=== PATIENT | female | born 1945 | race Hispanic/Latino ===

== ENCOUNTER 2018-01-14 22:19 | Emergency (ER) | payer OTHER ==
[2018-01-15 00:04] LABS: Urine Blood TRACE (NEG); Urine Glucose NEGATIVE (NEG); Urine Protein NEGATIVE (NEG); Urine pH 7.5 (5.0-7.0)
[2018-01-15 00:20] LABS: Urine Bacteria <20 /HPF (<20); Urine Culture Reflex Order NOT NEEDED
--- NOTE | 2018-01-15 00:34 | EDPHYS ---
Physician Documentation [facility] Name: Wilma Ovalle Age: 72 yrs Sex: Female : 1945 Arrival Date: 01/14/2018 Time: 22:19 Bed 7 Private MD: ED Physician Luis Brown HPI: 01/14 23:17 This 72 yrs old Female presents to ER via Ambulatory with complaints of cp Abdominal Pain, Side Pain. 23:17 The patient presents with abdominal pain left side abdomen. Onset: The symptoms/episode cp began/occurred at 21:00, tonight. Onset: The symptoms/episode began/occurred and improved while in ED, pain now resolved. The symptoms radiate to left back. Associated signs and symptoms: Pertinent negatives: constipation, diarrhea, dysuria, fever, vomiting. Historical: - Allergies: 22:45 No Known Allergies; bb - Home Meds: 22:45 quetiapine 100 mg oral tab 1 tab daily [Active]; levothyroxine 100 mcg tab 1 tab once bb daily [Active]; lisinopril 20 mg Oral tab 1 tab once daily [Active]; amlodipine 10 mg tab 1 tab once daily [Active]; atorvastatin 10 mg oral tab 1 tab once daily [Active]; aspirin 81 mg Oral TbEC 1 tab once daily [Active]; - PMHx: 22:45 Hypertension; Hyperlipidemia; Hypothyroidism; bb - PSHx: 22:45 back surgery; Knee surgery; arm surgery; bb - Immunization history:: Adult Immunizations not up to date. - Social history:: Smoking status: Patient/guardian denies using tobacco. ROS: 23:25 Constitutional: Negative for body aches, chills, fever, poor PO intake. cp 23:25 Eyes: Negative for injury, pain, redness, and discharge. cp 23:25 ENT: Negative for drainage from ear(s), ear pain, sore throat, difficulty swallowing, difficulty handling secretions. 23:25 Cardiovascular: Negative for chest pain, edema, palpitations. 23:25 Respiratory: Negative for cough, shortness of breath, wheezing. 23:25 Abdomen/GI: Positive for history of left side abdominal pain, Negative for nausea, vomiting, and diarrhea, constipation, anorexia, black/tarry stool, rectal bleeding. 23:25 Back: Negative for radiated pain. 23:25 : Negative for urinary symptoms. 23:25 Skin: Negative for cellulitis, rash. 23:25 Neuro: Negative for altered mental status, dizziness, weakness. 23:25 All other systems are negative. Exam: 23:32 Constitutional: The patient appears in no acute distress, alert, awake, comfortable, cp non-toxic, well developed, well nourished. 23:32 Head/Face: Normocephalic, atraumatic. cp 23:32 Eyes: Periorbital structures: appear normal, Conjunctiva: normal, no exudate, no injection, Sclera: no appreciated abnormality, Lids and lashes: appear normal, bilaterally. 23:32 ENT: External ear(s): are unremarkable, Nose: is normal, Mouth: Lips: moist, Oral mucosa: moist, Posterior pharynx: is normal, airway is patent, no erythema, no exudate, Voice: is normal. 23:32 Neck: ROM/movement: is normal, is supple, without pain, no range of motions limitations, no nuchal rigidity. 23:32 Chest/axilla: Inspection: normal, Palpation: is normal, no crepitus, no tenderness. 23:32 Cardiovascular: Rate: normal, Rhythm: regular. 23:32 Respiratory: the patient does not display signs of respiratory distress, Respirations: normal, no use of accessory muscles, no retractions, no splinting, no tachypnea, labored breathing, is not present, Breath sounds: are clear throughout, no decreased breath sounds, no stridor, no wheezing. 23:32 Abdomen/GI: Inspection: abdomen appears normal, Bowel sounds: active, all quadrants, Palpation: abdomen is soft and non-tender, in all quadrants, rebound tenderness, is not appreciated, voluntary guarding, is not appreciated, involuntary guarding, is not appreciated. 23:32 Back: pain, is absent, ROM is normal. 23:32 Skin: cellulitis, is not appreciated, no rash present. 23:32 Neuro: Orientation: to person, place \T\ time. Mentation: lucid, able to follow commands, Cerebellar function: is grossly normal, Motor: moves all fours, strength is normal. Vital Signs: 22:45 BP 166 / 94; Pulse 99; Resp 20 S; Pulse Ox 98% on R/A; Weight 60.78 kg (R); Height 5 bb ft. 0 in. (152.40 cm) (R); Pain 8/10; 23:55 BP 156 / 88; Pulse 98; Resp 18; Pulse Ox 98% on R/A; tl2 22:45 Body Mass Index 26.17 (60.78 kg, 152.40 cm) bb MDM: 23:09 Patient medically screened. cp 01/15 00:00 Differential diagnosis: diverticulitis, pancreatitis, Ureterolithiasis, urinary tract cp infection. 00:32 Data reviewed: vital signs, nurses notes, lab test result(s), urinalysis, and as a cp result, I will discharge patient. 00:32 Counseling: I had a detailed discussion with the patient and/or guardian regarding: the cp historical points, exam findings, and any diagnostic results supporting the discharge/admit diagnosis, lab results, the need for outpatient follow up, a family practitioner, to return to the emergency department if symptoms worsen or persist or if there are any questions or concerns that arise at home. 01/14 23:18 Order name: Urine Microscopic Only cp 01/14 23:31 Order name: Urine Dipstick--Ancillary (enter results) rg2 01/14 23:18 Order name: Urine Dipstick-Ancillary (obtain specimen); Complete Time: 23:21 cp 01/15 00:05 Order name: Urine Dipstick-Ancillary; Complete Time: 00:32 EDMS 01/15 00:21 Order name: Urine Microscopic Only; Complete Time: 00:32 EDMS Administered Medications: No medications were administered Disposition: 02:07 Co-signature as Attending Physician, Luis Brown MD. romelia Disposition: 01/15/18 00:33 Discharged to Home. Impression: Other abdominal pain - Resolved. - Condition is Stable. - Discharge Instructions: Abdominal Pain, Adult. - Medication Reconciliation Form, Thank You Letter, Antibiotic Education, Prescription Opioid Use form. - Follow up: Private Physician; When: 1 - 2 days; Reason: Recheck today's complaints. - Problem is new. - Symptoms are resolved. - Notes: follow-up with primary physician Wednesday Signatures: Dispatcher [employer] EDMS Luis Brown MD MD pkl Ballard, Brenda RN RN Angelo Ott PA PA cp Knox, Taylor RN RN tl2
--- NOTE | 2018-01-15 00:34 | ER ---
Nurse's Notes [facility] Name: Wilma Ovalle Age: 72 yrs Sex: Female : 1945 Arrival Date: 01/14/2018 Time: 22:19 Bed 7 Private MD: Diagnosis: Other abdominal pain-Resolved Presentation: 01/14 22:40 Presenting complaint: Patient states: she started having a sharp pain left upper quad bb radiating to her back since approx an hour ago. Transition of care: patient was not received from another setting of care. Onset of symptoms was January 14, 2018. Care prior to arrival: None. 22:40 Method Of Arrival: Ambulatory bb 22:40 Acuity: JEANINE 3 bb Historical: - Allergies: 22:45 No Known Allergies; bb - Home Meds: 22:45 quetiapine 100 mg oral tab 1 tab daily [Active]; levothyroxine 100 mcg tab 1 tab once bb daily [Active]; lisinopril 20 mg Oral tab 1 tab once daily [Active]; amlodipine 10 mg tab 1 tab once daily [Active]; atorvastatin 10 mg oral tab 1 tab once daily [Active]; aspirin 81 mg Oral TbEC 1 tab once daily [Active]; - PMHx: 22:45 Hypertension; Hyperlipidemia; Hypothyroidism; bb - PSHx: 22:45 back surgery; Knee surgery; arm surgery; bb - Immunization history:: Adult Immunizations not up to date. - Social history:: Smoking status: Patient/guardian denies using tobacco. Screenin:51 Abuse screen: Denies threats or abuse. Nutritional screening: No deficits noted. aj1 Tuberculosis screening: No symptoms or risk factors identified. Fall Risk None identified. Assessment: 22:51 General: Appears in no apparent distress. uncomfortable, Behavior is calm, cooperative, tl2 appropriate for age. Pain: Complains of pain in left lower quadrant Pain radiates to left flank. Neuro: Level of Consciousness is awake, alert, obeys commands, Oriented to person, place, time, situation. Respiratory: Airway is patent Respiratory effort is even, unlabored, Respiratory pattern is regular, symmetrical. GI: Abdomen is flat, Patient currently denies nausea. : Denies burning with urination. Derm: Skin is pink, warm \T\ dry. 23:28 Reassessment: Pt states pain has gone away completely. Awaiting urine micro results. tl2 23:55 Reassessment: Awaiting Urine micro results. Pt states she is ready to go home. tl2 01/15 00:53 Reassessment: pt verbalized understanding of discharge instructions, need for follow up.tl2 Vital Signs: 01/14 22:45 BP 166 / 94; Pulse 99; Resp 20 S; Pulse Ox 98% on R/A; Weight 60.78 kg (R); Height 5 bb ft. 0 in. (152.40 cm) (R); Pain 8/10; 23:55 BP 156 / 88; Pulse 98; Resp 18; Pulse Ox 98% on R/A; tl2 22:45 Body Mass Index 26.17 (60.78 kg, 152.40 cm) bb ED Course: 22:19 Patient arrived in ED. ds1 22:41 Triage completed. bb 22:45 Arm band placed on Patient placed in an exam room, on a stretcher, on pulse oximetry. bb Family accompanied patient. 22:51 Patient has correct armband on for positive identification. Bed in low position. Call aj1 light in reach. Side rails up X2. Adult w/ patient. 23:09 Angelo Foster PA is PHCP. cp 23:09 Luis Brown MD is Attending Physician. cp 23:26 Izabel Cherry, CATARINA is Primary Nurse. aj1 23:27 Urine Microscopic Only Sent. tl2 01/15 00:53 No provider procedures requiring assistance completed. Patient did not have IV access tl2 during this emergency room visit. Administered Medications: No medications were administered Outcome: 00:33 Discharge ordered by MD. cp 00:53 Discharged to home ambulatory, with family. tl2 00:53 Condition: stable 00:53 Discharge instructions given to patient, Instructed on discharge instructions, follow up and referral plans. Demonstrated understanding of instructions, follow-up care. 00:54 Patient left the ED. tl2 Signatures: Izabel Cherry RN RN Laura Marcano ds1 Madelyn Paulino RN RN bb Page, Corey, PA PA cp Knox, Taylor, RN RN tl2 Corrections: (The following items were deleted from the chart) 01/14 23:31 22:51 General: Appears in no apparent distress. uncomfortable, Behavior is calm, tl2 cooperative, appropriate for age, aj1 23:31 22:51 Pain: Complains of pain in left lower quadrant Pain radiates to left flank [place] [id number] 22:51 Neuro: Level of Consciousness is awake, alert, obeys commands, Oriented to tl2 person, place, time, situation, [facility] 22:51 Cardiovascular: Denies chest pain, [place] [id number] : 22:51 Respiratory: Airway is patent Respiratory effort is even, unlabored, Respiratory 2 pattern is regular, symmetrical, [facility] 22:51 GI: Bowel sounds present X 4 quads. Abd is soft and non tender [place] [id number] 22:51 : Denies burning with urination, [place] [id number] : 22:51 Derm: Skin is pink, warm \T\ dry. [place] [id number]
[2018-01-15 01:01] VITALS: O2SAT 98
[2018-01-15 01:02] VITALS: BP 156/88
== END 2018-01-15 00:54 | disposition home or self-care (01) ==
LOC: ER 22:19
DX: R10.9 Unspecified abdominal pain (principal); I10 Essential (primary) hypertension; E78.5 Hyperlipidemia, unspecified; E03.9 Hypothyroidism, unspecified; Z79.82 Long term (current) use of aspirin
CPT/HCPCS: 81003; 81015; 99283

== ENCOUNTER 2019-04-28 20:21 | Emergency (ER) | payer OTHER ==
--- NOTE | 2019-04-28 21:05 | EDPHYS ---
Physician Documentation [facility] Name: Wilma Ovalle Age: 73 yrs Sex: Female : 1945 Arrival Date: 04/28/2019 Time: 20:23 Bed 20 Private MD: ED Physician Daniel Simpson HPI: 04/28 20:56 This 73 yrs old Female presents to ER via Ambulatory with complaints of Ear ps1 Pain. 20:56 patient states that she has had PND and cough for last couple of days. Went to pharmacy ps1 and got antihistamines. Later on in the day felt her right ear pop and then serosanguinous fluid started draining from the ear. Pain is moderate. No mastoid tenderness. No fever. . Historical: - Allergies: 20:30 No Known Allergies; aj1 - PMHx: 20:30 Hyperlipidemia; Hypertension; Hypothyroidism; insomnia; aj1 - PSHx: 20:30 hand surgery; knee replacement; aj1 - Immunization history:: Flu vaccine is up to date. - Social history:: Smoking status: Patient/guardian denies using tobacco. - Ebola Screening: : Patient denies travel to an Ebola-affected area in the 21 days before illness onset. ROS: 20:56 Constitutional: Negative for fever, chills, and weight loss, Eyes: Negative for injury, ps1 pain, redness, and discharge, Cardiovascular: Negative for chest pain, palpitations, and edema, Respiratory: Negative for shortness of breath, cough, wheezing, and pleuritic chest pain, Abdomen/GI: Negative for abdominal pain, nausea, vomiting, diarrhea, and constipation, Skin: Negative for injury, rash, and discoloration, Neuro: Negative for headache, weakness, numbness, tingling, and seizure, Psych: Negative for depression, anxiety, suicide ideation, homicidal ideation, and hallucinations. 20:56 ENT: Positive for drainage from ear(s), ear pain, rhinorrhea, sinus congestion. Exam: 20:56 Constitutional: This is a well developed, well nourished patient who is awake, alert, ps1 and in no acute distress. Head/Face: Normocephalic, atraumatic. Eyes: Pupils equal round and reactive to light, extra-ocular motions intact. Lids and lashes normal. Conjunctiva and sclera are non-icteric and not injected. Cardiovascular: Regular rate and rhythm. No gallops, murmurs, or rubs. Normal PMI, no JVD. No pulse deficits. Respiratory: Lungs have equal breath sounds bilaterally, clear to auscultation and percussion. No rales, rhonchi or wheezes noted. No increased work of breathing, no retractions or nasal flaring. Abdomen/GI: Soft, non-tender, with normal bowel sounds. No distension or tympany. No guarding or rebound. No evidence of tenderness throughout. Skin: Warm, dry with normal turgor. Normal color with no rashes, no lesions, and no evidence of cellulitis. MS/ Extremity: Pulses equal, no cyanosis. Neurovascular intact. Full, normal range of motion. Neuro: Awake and alert, GCS 15, oriented to person, place, time, and situation. Cranial nerves II-XII grossly intact. Sensory grossly intact. 20:56 ENT: External ear(s): are unremarkable, Ear canal(s): bloody discharge, that is minimal, in the right canal, erythema, Posterior pharynx: is normal. Vital Signs: 20:30 BP 199 / 93; Pulse 85; Resp 18; Temp 97.0; Pulse Ox 98% on R/A; Weight 63.05 kg (R); aj1 Pain 8/10; 21:00 BP 180 / 95; Pulse 89; Resp 16; Pulse Ox 98% ; rr5 21:15 BP 169 / 87; Pulse 82; Resp 16; Pulse Ox 100% ; rr5 MDM: 21:04 Patient medically screened. ps1 21:10 Data reviewed: vital signs, nurses notes. Counseling: I had a detailed discussion with ps1 the patient and/or guardian regarding: the historical points, exam findings, and any diagnostic results supporting the discharge/admit diagnosis, the need for outpatient follow up, to return to the emergency department if symptoms worsen or persist or if there are any questions or concerns that arise at home. Administered Medications: No medications were administered Disposition: 04/28/19 21:04 Discharged to Home. Impression: Otitis media in diseases classified elsewhere, right ear, Perforated tympanic membrane. - Condition is Stable. - Discharge Instructions: Otitis Media, Adult. - Prescriptions for Augmentin 875- 125 mg Oral Tablet - take 1 tablet by ORAL route every 12 hours for 10 days; 20 tablet. - Medication Reconciliation Form, Thank You Letter, Antibiotic Education, Prescription Opioid Use form. - Follow up: Melida Reyna MD; When: As needed; Reason: Further diagnostic work-up, Recheck today's complaints, Continuance of care, Re-evaluation by your physician. - Problem is new. Signatures: Izabel Cherry RN RN aj1 Daniel Simpson MD MD ps1 Luis A Galindo RN RN rr5 Corrections: (The following items were deleted from the chart) 21:19 21:04 04/28/2019 21:04 Discharged to Home. Impression: Otitis media in diseases rr5 classified elsewhere, right ear; Perforated tympanic membrane. Condition is Stable. Forms are Medication Reconciliation Form, Thank You Letter, Antibiotic Education, Prescription Opioid Use. Follow up: Melida Reyna; When: As needed; Reason: Further diagnostic work-up, Recheck today's complaints, Continuance of care, Re-evaluation by your physician. Problem is new. ps1
--- NOTE | 2019-04-28 21:05 | ER ---
Nurse's Notes [facility] Name: Wilma Ovalle Age: 73 yrs Sex: Female : 1945 Arrival Date: 04/28/2019 Time: 20:23 Bed 20 Private MD: Diagnosis: Otitis media in diseases classified elsewhere, right ear;Perforated tympanic membrane Presentation: 04/28 20:28 Presenting complaint: Patient states: Right ear pain, sore throat since yesterday. aj1 Reports that pain in her ear got worse today and then her ear started draining fluid. Denies fever. Transition of care: patient was not received from another setting of care. Onset of symptoms was April 27, 2019. Risk Assessment: Do you want to hurt yourself or someone else? Patient reports no desire to harm self or others. Initial Sepsis Screen: Does the patient meet any 2 criteria? No. Patient's initial sepsis screen is negative. Does the patient have a suspected source of infection? No. Patient's initial sepsis screen is negative. Care prior to arrival: None. 20:28 Method Of Arrival: Ambulatory aj 20:28 Acuity: JEANINE 3 aj1 Triage Assessment: 20:30 General: Appears in no apparent distress. uncomfortable, Behavior is calm, cooperative, aj1 appropriate for age. Pain: Complains of pain in right ear Pain currently is 8 out of 10 on a pain scale. EENT: Reports sore throat, ear pain, drainage from ear. Neuro: Level of Consciousness is awake, alert, obeys commands. Cardiovascular: Patient's skin is warm and dry. Respiratory: Airway is patent Respiratory effort is even, unlabored, Respiratory pattern is regular, symmetrical. Historical: - Allergies: 20:30 No Known Allergies; aj1 - PMHx: 20:30 Hyperlipidemia; Hypertension; Hypothyroidism; insomnia; aj1 - PSHx: 20:30 hand surgery; knee replacement; aj1 - Immunization history:: Flu vaccine is up to date. - Social history:: Smoking status: Patient/guardian denies using tobacco. - Ebola Screening: : Patient denies travel to an Ebola-affected area in the 21 days before illness onset. Screenin:30 Abuse screen: Denies threats or abuse. Denies injuries from another. Nutritional rr5 screening: No deficits noted. Tuberculosis screening: No symptoms or risk factors identified. Fall Risk None identified. Total Borrero Fall Scale indicates No Risk (0-24 pts). Assessment: 20:35 General: Appears in no apparent distress. uncomfortable, Behavior is calm, cooperative, rr5 appropriate for age. 20:35 Pain: Complains of pain in right ear Pain radiates to jaw and throat Pain currently is rr5 8 out of 10 on a pain scale. Quality of pain is described as aching, Pain began gradually, Is intermittent. Neuro: Level of Consciousness is awake, alert, obeys commands, Oriented to person, place, time, situation, Appropriate for age. Cardiovascular: Capillary refill < 3 seconds Patient's skin is warm and dry. Respiratory: Airway is patent Respiratory effort is even, unlabored, Respiratory pattern is regular, symmetrical. GI: No signs and/or symptoms were reported involving the gastrointestinal system. : No signs and/or symptoms were reported regarding the genitourinary system. EENT: Tympanic membrane reddened on right ear Ear canal w/ drainage noted from right ear w/ bleeding noted from right ear Reports right discharge and pain. Derm: Skin is intact, Skin temperature is warm. Musculoskeletal: Capillary refill < 3 seconds, Range of motion: intact in all extremities. 20:35 EENT: Throat is clear with gag reflex present. rr5 21:15 Reassessment: Patient appears in no apparent distress at this time. Patient and/or rr5 family updated on plan of care and expected duration. Pain level reassessed. Patient is alert, oriented x 3, equal unlabored respirations, skin warm/dry/pink. discharge instruction given and explained without complaints made. Vital Signs: 20:30 BP 199 / 93; Pulse 85; Resp 18; Temp 97.0; Pulse Ox 98% on R/A; Weight 63.05 kg (R); aj1 Pain 8/10; 21:00 BP 180 / 95; Pulse 89; Resp 16; Pulse Ox 98% ; rr5 21:15 BP 169 / 87; Pulse 82; Resp 16; Pulse Ox 100% ; rr5 ED Course: 20:23 Patient arrived in ED. as 20:29 Triage completed. aj1 20:30 Patient has correct armband on for positive identification. rr5 20:32 Arm band placed on Patient placed in an exam room. aj1 20:35 Galindo, Luis A, RN is Primary Nurse. rr5 20:39 Daniel Simpson MD is Attending Physician. ps1 21:03 Melida Reyna MD is Referral Physician. ps1 21:15 No provider procedures requiring assistance completed. Patient did not have IV access rr5 during this emergency room visit. Administered Medications: No medications were administered Outcome: 21:04 Discharge ordered by MD. ps1 21:15 Discharged to home ambulatory. rr5 21:15 Condition: stable 21:15 Discharge instructions given to patient, Instructed on discharge instructions, follow up and referral plans. medication usage, Demonstrated understanding of instructions, follow-up care, medications, Prescriptions given X 1. 21:19 Patient left the ED. rr5 Signatures: Izabel Cherry RN RN aj1 Sigrid Matthew as Daniel Simpson MD MD ps1 Luis A Galindo RN RN rr5 Corrections: (The following items were deleted from the chart) 20:32 20:28 Acuity: JEANINE 4 aj1 aj1 20:32 20:30 BP 199 / 30; Pulse 85bpm; Resp 18bpm; Pulse Ox 98% RA; Temp 97.0F; 63.05 kg aj1 Reported; Pain 8/10; aj1
[2019-04-28 23:48] VITALS: TEMP 97
[2019-04-28 23:51] VITALS: BP 169/87; O2SAT 100
== END 2019-04-28 21:19 | disposition home or self-care (01) ==
LOC: ER 20:21
DX: H66.91 Otitis media, unspecified, right ear (principal); H72.91 Unspecified perforation of tympanic membrane, right ear; I10 Essential (primary) hypertension
CPT/HCPCS: 99282

== ENCOUNTER 2019-05-19 10:52 | Emergency (ER) | payer OTHER ==
--- NOTE | 2019-05-19 12:11 | RAD REPORT ---
EXAM DESCRIPTION: RAD - Hip Right 2 View - 05/19/2019 11:59 am CLINICAL HISTORY: Right hip pain FINDINGS: No fracture or dislocation is seen. The bones are osteoporotic. If the patient continues to have symptoms to suggest an occult fracture then MRI would be recommended
--- NOTE | 2019-05-19 12:16 | RAD REPORT ---
EXAM DESCRIPTION: RAD - Wrist Right 3 View - 05/19/2019 11:59 am CLINICAL HISTORY: Right wrist pain status post injury FINDINGS: Sideplate and screws affix an old radial fracture. There may be an old fracture of the uln ar styloid. No acute fracture or dislocation seen. Osteoporosis. Marked osteoarthritis first carpometacarpal joint. If patient continues have symptoms to suggest an occult fracture follow-up x-ray in 1 week would be r ecommended
--- NOTE | 2019-05-19 12:49 | ER ---
Nurse's Notes [facility] Name: Wilma Ovalle Age: 73 yrs Sex: Female : 1945 Arrival Date: 05/19/2019 Time: 10:56 Bed 11 Private MD: Diagnosis: Pain in right wrist;Pain in right hip;Contusion of right hip;Fall on same level from slipping, tripping and stumbling Presentation: 05/19 10:57 Presenting complaint: Patient states: "I was mopping and fell yesterday". Pt c/o pain aa5 to right hip and right hand. Pt denies LOC, denies head injury. Pt reports she takes anticoagulants. Transition of care: patient was not received from another setting of care. Onset of symptoms was May 2019. Risk Assessment: Do you want to hurt yourself or someone else? Patient reports no desire to harm self or others. Initial Sepsis Screen: Does the patient meet any 2 criteria? No. Patient's initial sepsis screen is negative. Does the patient have a suspected source of infection? No. Patient's initial sepsis screen is negative. Care prior to arrival: None. 10:57 Method Of Arrival: Ambulatory aa5 10:57 Acuity: JEANINE 3 aa5 Triage Assessment: 11:00 General: Appears uncomfortable, Behavior is calm, cooperative. Pain: Complains of pain aa5 in right wrist and right hip Pain does not radiate. Pain currently is 6 out of 10 on a pain scale. Quality of pain is described as sharp, tender, Is continuous, Aggravated by weight bearing. EENT: No signs and/or symptoms were reported regarding the EENT system. Neuro: Level of Consciousness is awake, alert, obeys commands, Oriented to person, place, time, situation. Cardiovascular: Patient's skin is warm and dry. Respiratory: Airway is patent Respiratory effort is even, unlabored, Respiratory pattern is regular, symmetrical. GI: No signs and/or symptoms were reported involving the gastrointestinal system. : No signs and/or symptoms were reported regarding the genitourinary system. Derm: Skin is pink, warm \\T\\ dry. Bruising that is dark purple, on top of right hand, right hip, and right buttock. Musculoskeletal: Range of motion: intact in all extremities. Historical: - Allergies: 11:00 No Known Allergies; aa5 - PMHx: 11:00 Hyperlipidemia; Hypertension; Hypothyroidism; insomnia; TIA; aa5 - PSHx: 11:00 hand surgery; knee replacement; back; aa5 - Immunization history:: Adult Immunizations unknown. - Social history:: Smoking status: Patient/guardian denies using tobacco. - Ebola Screening: : No symptoms or risks identified at this time. Screenin:00 Abuse screen: Denies threats or abuse. Nutritional screening: No deficits noted. aa5 Tuberculosis screening: No symptoms or risk factors identified. Fall Risk Fall in past 12 months (25 points). Total Borrero Fall Scale indicates Low Risk Score (25-44 pts). Assessment: 12:32 Reassessment: Patient is alert, oriented x 3, equal unlabored respirations, skin aa5 warm/dry/pink. Pt placed in room 12. . Vital Signs: 11:00 BP 124 / 63; Pulse 108; Resp 18 S; Temp 99.0(TE); Pulse Ox 96% on R/A; Weight 64.41 kg aa5 (R); Height 5 ft. 0 in. (152.40 cm) (R); Pain 6/10; 11:00 Body Mass Index 27.73 (64.41 kg, 152.40 cm) aa5 ED Course: 10:56 Patient arrived in ED. aa5 10:58 Triage completed. aa5 10:59 Arm band placed on. aa5 10:59 Patient has correct armband on for positive identification. aa5 12:00 No provider procedures requiring assistance completed. aa5 12:04 Hip Right 2 View XRAY In Process Unspecified. EDMS 12:04 Wrist Right 3 View XRAY In Process Unspecified. EDMS 12:20 Alyssa Reyes FNP-C is PHCP. kb 12:20 Gui Murillo MD is Attending Physician. kb 12:44 Iris Obrien, CATARINA is Primary Nurse. aa5 13:26 Patient did not have IV access during this emergency room visit. dm5 Administered Medications: No medications were administered Outcome: 12:49 Discharge ordered by . kb 13:26 Discharged to home ambulatory. dm5 13:26 Condition: good 13:26 Discharge instructions given to patient, family, Instructed on discharge instructions, follow up and referral plans. Demonstrated understanding of instructions, follow-up care. 13:26 Patient left the ED. dm5 Signatures: Dispatcher [employer] EDMS Alyssa Reyes, RAVINDER-C 8TH GRADE TEACHER-Terese Redmond, RN RN dm5 Iris Obrien, RN RN aa5
--- NOTE | 2019-05-19 12:50 | EDPHYS ---
Physician Documentation [facility] Name: Wilma Ovalle Age: 73 yrs Sex: Female : 1945 Arrival Date: 05/19/2019 Time: 10:56 Bed 11 Private MD: ED Physician Gui Murillo HPI: 05/19 12:53 This 73 yrs old Female presents to ER via Ambulatory with complaints of Fall kb Injury. 12:53 Details of fall: The patient fell from an upright position, while walking. Onset: The kb symptoms/episode began/occurred yesterday. Associated injuries: The patient sustained right hip, contusion, ecchymosis, right wrist, painful injury. Severity of symptoms: At their worst the symptoms were moderate, in the emergency department the symptoms are unchanged. The patient has not experienced similar symptoms in the past. The patient has not recently seen a physician. Pt reports she was mopping, slipped on wet floor and fell. Reports pain to right hip and right wrist. Full ROM of both. Ambulates with steady gait. . Historical: - Allergies: 11:00 No Known Allergies; aa5 - PMHx: 11:00 Hyperlipidemia; Hypertension; Hypothyroidism; insomnia; TIA; aa5 - PSHx: 11:00 hand surgery; knee replacement; back; aa5 - Immunization history:: Adult Immunizations unknown. - Social history:: Smoking status: Patient/guardian denies using tobacco. - Ebola Screening: : No symptoms or risks identified at this time. ROS: 12:52 Constitutional: Negative for fever, chills, and weight loss, Cardiovascular: Negative kb for chest pain, palpitations, and edema, Respiratory: Negative for shortness of breath, cough, wheezing, and pleuritic chest pain, Abdomen/GI: Negative for abdominal pain, nausea, vomiting, diarrhea, and constipation, Back: Negative for injury and pain, Neuro: Negative for headache, weakness, numbness, tingling, and seizure. 12:52 MS/extremity: Positive for contusion, ecchymosis, pain, of the right lower back, right gluteus eduar and right hip. 12:52 MS/extremity: Positive for pain, of the right wrist. kb Exam: 12:50 Constitutional: This is a well developed, well nourished patient who is awake, alert, kb and in no acute distress. Head/Face: Normocephalic, atraumatic. Chest/axilla: Normal chest wall appearance and motion. Nontender with no deformity. No lesions are appreciated. Cardiovascular: Regular rate and rhythm with a normal S1 and S2. No gallops, murmurs, or rubs. Normal PMI, no JVD. No pulse deficits. Respiratory: Lungs have equal breath sounds bilaterally, clear to auscultation and percussion. No rales, rhonchi or wheezes noted. No increased work of breathing, no retractions or nasal flaring. Abdomen/GI: Soft, non-tender, with normal bowel sounds. No distension or tympany. No guarding or rebound. No evidence of tenderness throughout. MS/ Extremity: Pulses equal, no cyanosis. Neurovascular intact. Full, normal range of motion. Neuro: Awake and alert, GCS 15, oriented to person, place, time, and situation. Cranial nerves II-XII grossly intact. Motor strength 5/5 in all extremities. Sensory grossly intact. Cerebellar exam normal. Normal gait. 12:50 Skin: injury, contusion(s), that are superficial, of the right lower back and right gluteus eduar. Vital Signs: 11:00 BP 124 / 63; Pulse 108; Resp 18 S; Temp 99.0(TE); Pulse Ox 96% on R/A; Weight 64.41 kg aa5 (R); Height 5 ft. 0 in. (152.40 cm) (R); Pain 6/10; 11:00 Body Mass Index 27.73 (64.41 kg, 152.40 cm) aa5 MDM: 12:33 Patient medically screened. kb 12:46 Data reviewed: vital signs, nurses notes. Data interpreted: Pulse oximetry: on room air kb is 96 %. Interpretation: normal. Counseling: I had a detailed discussion with the patient and/or guardian regarding: the historical points, exam findings, and any diagnostic results supporting the discharge/admit diagnosis, radiology results, the need for outpatient follow up, a family practitioner, to return to the emergency department if symptoms worsen or persist or if there are any questions or concerns that arise at home. 05/19 11:01 Order name: Hip Right 2 View XRAY; Complete Time: 12:18 aa5 05/19 11:02 Order name: Wrist Right 3 View XRAY; Complete Time: 12:18 aa5 Administered Medications: No medications were administered Disposition: 05/19/19 12:49 Discharged to Home. Impression: Pain in right wrist, Pain in right hip, Contusion of right hip, Fall on same level from slipping, tripping and stumbling. - Condition is Stable. - Discharge Instructions: Musculoskeletal Pain, Contusion, [id number], Fall Prevention in the Home, [id number]. - Family Work Release, Medication Reconciliation Form, Thank You Letter, Antibiotic Education, Prescription Opioid Use form. - Follow up: Emergency Department; When: As needed; Reason: Worsening of condition. Follow up: Private Physician; When: 2 - 3 days; Reason: Recheck today's complaints, Continuance of care, Re-evaluation by your physician. Addendum: 05/20/2019 18:48 Co-signature as Attending Physician, Gui Murillo MD. g s Signatures: Dispatcher [employer] EDMS Alyssa Reyes, HOGSHEAD MAT ASSEMBLER-C HOGSHEAD MAT ASSEMBLER-Terese Redmond, CATARINA RN dm5 Iris Obrien RN RN aa5 Gui Murillo MD MD gs Corrections: (The following items were deleted from the chart) 05/19 12:50 12:49 05/19/2019 12:49 Discharged to Home. Impression: Pain in right wrist; Pain in kb right hip; Contusion of right hip. Condition is Stable. Forms are Medication Reconciliation Form, Thank You Letter, Antibiotic Education, Prescription Opioid Use. Follow up: Emergency Department; When: As needed; Reason: Worsening of condition. Follow up: Private Physician; When: 2 - 3 days; Reason: Recheck today's complaints, Continuance of care, Re-evaluation by your physician. kb 13:26 12:50 05/19/2019 12:49 Discharged to Home. Impression: Pain in right wrist; Pain in dm5 right hip; Contusion of right hip; Fall on same level from slipping, tripping and stumbling. Condition is Stable. Discharge Instructions: Musculoskeletal Pain, Contusion, [id number], Fall Prevention in the Home, [id number]. Forms are Medication Reconciliation Form, Thank You Letter, Antibiotic Education, Prescription Opioid Use. Follow up: Emergency Department; When: As needed; Reason: Worsening of condition. Follow up: Private Physician; When: 2 - 3 days; Reason: Recheck today's complaints, Continuance of care, Re-evaluation by your physician. kb
[2019-05-19 13:36] VITALS: BP 124/63; TEMP 99; O2SAT 96
== END 2019-05-19 13:26 | disposition home or self-care (01) ==
LOC: ER 10:52
DX: S70.01XA Contusion of right hip, initial encounter (principal); M25.531 Pain in right wrist; W01.0XXA Fall on same level from slipping, tripping and stumbling without subsequent striking against object, initial encounter; Y93.E5 Activity, floor mopping and cleaning; Y92.9 Unspecified place or not applicable; I10 Essential (primary) hypertension
CPT/HCPCS: 99283

== ENCOUNTER 2020-12-27 17:22 | Observation (INO) | payer OTHER ==
--- NOTE | 2020-12-27 18:14 | RAD REPORT ---
EXAM DESCRIPTION: CT - Head Brain Wo Cont - 12/27/2020 6:02 pm CLINICAL HISTORY: WEAKNESS Headache, drowsiness COMPARISON: HEAD BRAIN W O CONTRAST dated 06/19/2012; HEAD BRAIN W O CONTRAST dated 06/24/2011 TECHNIQUE: All CT scans are performed using dose optimization technique as appropriate and may inclu de automated exposure control or mA/KV adjustment according to patient size. FINDINGS: No intracranial hemorrhage, hydrocephalus or extra-axial fluid collection.Fairly extensive diminished density seen throughout periventricular and deep white matter. This is nonspecific but pr obably related to chronic microvascular ischemia.No areas of brain edema or evidence of midline shift . The paranasal sinuses and mastoids are clear. The calvarium is intact. IMPRESSION: No acute intracranial abnormality.
--- NOTE | 2020-12-27 18:14 | RAD REPORT ---
EXAM DESCRIPTION: RAD - Chest Single View - 12/27/2020 6:08 pm CLINICAL HISTORY: weakness Chest pain. COMPARISON: CHEST PA AND LAT 2 VIEW dated 07/12/2014; CHEST PA AND LAT 2 VIEW dated 07/14/2013; CHEST SINGLE VIEW dated 06/19/2012; CHEST SINGLE VIEW dated 10/21/2011 FINDINGS: Portable technique limits examination quality. The lungs are grossly clear. The heart is normal in size. No displaced fractures. IMPRESSION: No acute intrathoracic process suspected.
[2020-12-27 18:43] LABS: Absolute Lymphocytes (CBC) 1.5 K/uL (0.7-4.9); Basophils % 0.6 % (0-1.3); Hematocrit 36.5 % (36.0-45.0); Lymphocytes % 23.1 % (15.3-44.8); MPV 7.9 fL (7.6-11.3); RBC Red Blood Cell Count 3.95 M/uL (3.86-4.86)
[2020-12-27 19:01] LABS: ALT/SGPT 27 U/L (12-78); AST/SGOT 20 U/L (15-37); Albumin 3.9 g/dL (3.4-5.0); Alkaline Phosphatase 94 U/L (45-117); BUN Blood Urea Nitrogen 12 mg/dL (7-18); Bicarbonate 28 mmol/L (21-32); Bilirubin Direct 0.2 mg/dL (0-0.2); Bilirubin Total 0.5 mg/dL (0.2-1.0); Glucose Level 119 mg/dL (74-106); Magnesium 2.3 mg/dL (1.8-2.4); NT PRO-BNP 99 pg/mL (<450); Protein, Total 7.4 g/dL (6.4-8.2); Sodium Level 142 mmol/L (136-145); Troponin (Emerg Dept Use Only) < 0.02 ng/mL (0.0-0.045)
[2020-12-27] MEDS ORDERED: ASPIRIN EC 81 MG TAB PO ONE (19:03)
[2020-12-27] MEDS ORDERED: CLOPIDOGREL 75 MG TABLET ONE (19:03)
[2020-12-27] MEDS ORDERED: FOLIC ACID 5 MG/ML VIAL ONE (19:04)
[2020-12-27] MEDS ORDERED: HYDROCODONE/APAP 5/325 MG TAB ONE (19:43)
[2020-12-27] MEDS ORDERED: ACETAMINOPHEN 325 MG TABLET PO PRN (20:14)
[2020-12-27] MEDS ORDERED: ONDANSETRON 4 MG/2 ML VIAL IV PRN (20:14)
[2020-12-27] MEDS ORDERED: HYDRALAZINE HCL 20 MG/ML VIAL IV PRN (20:14)
[2020-12-27] MEDS ORDERED: MORPHINE 2 MG/ML SYR IV PRN (20:14)
[2020-12-27] MEDS: ASPIRIN EC 81 MG TAB PO SCH (20:18)
--- NOTE | 2020-12-27 20:25 | P.HP ---
Certification for Inpatient With expected LOS: >2 Midnights Patient will require the following post-hospital care: Home Health Services Practitioner: I am a practitioner with admitting privileges, knowledge of patient current condition, hospital course, and medical plan of care. 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 She is so short did name of the medication. She developed sudden-onset drowsiness this morning along with feeling of dizziness. She denies any worsening of her bilateral upper extremity numbness or her leg weakness. She was taking to her PCP who recommended an MRI. After obtaining MRI her daughter has brought her to the ED. Images from the MRI when reviewed by Radiology and felt to be poor study I recommended repeat. Initial head CT was negative for any acute infarct. MRI report was not actually right by the outside facility. Patient continued to complain of neck pain now. She feels the pain is more intense over the right side of the neck and occasionally shoots up to the scalp. She has been admitted for rule out new CVA. She denies any see history of CVA in the past. Her NHS scale on presentation was reported 4 although she states her left leg weakness is chronic. She admits to a family history of CVA in the mother Allergies No Known Drug Allergies Allergy (Unverified 02/13/15 07:53) Unknown No Known All Allergy (Uncoded 01/15/18 00:59) Unknown Home medications list reviewed: Yes - Past Medical/Surgical History Has patient received pneumonia vaccine in the past: No Diabetic: No -: Hypertension, hyperlipidemia, Past Surgical History: Reviewed- Non-Contributory - Family History Family History: Reviewed- Non-Contributory - Social History Smoking Status: Never smoker Place of Residence: Home Review of Systems 10-point ROS is otherwise unremarkable General: Unremarkable Eyes: Unremarkable ENT: Unremarkable Respiratory: Unremarkable Cardiovascular: Light Headedness Gastrointestinal: Unremarkable Genitourinary: Unremarkable Musculoskeletal: Neck Pain Integumentary: Unremarkable Neurological: Weakness, Numbness Lymphatics: Unremarkable Physical Examination - Physical Exam General: Alert, Oriented x3 HEENT: Atraumatic, PERRLA Neck: Supple, 2+ carotid pulse no bruit, JVD not distended Respiratory: Clear to auscultation bilaterally, Normal air movement Cardiovascular: No edema, Normal pulses, Regular rate/rhythm, Normal S1 S2 Gastrointestinal: Normal bowel sounds, Soft and benign, Non-distended Musculoskeletal: No clubbing, No swelling, Tenderness (over cervical region ) Integumentary: No rashes, No breakdown Neurological: Normal speech, Other (power 5/5 globally exept 3-/5 on LLE , no pronatror drift , no facial palsy ) - Studies Laboratory Data (last 24 hrs) 12/27/20 18:19: PT 11.5, INR 1.00 12/27/20 18:19: WBC 6.40, Hgb 12.4, Hct 36.5, Plt Count 209 12/27/20 18:19: Sodium 142, Potassium 4.0, BUN 12, Creatinine 0.64, Glucose 119 H, Magnesium 2.3, Total Bilirubin 0.5, AST 20, ALT 27, Alkaline Phosphatase 94 Assessment and Plan - Problems (Diagnosis) (1) CVA (cerebral vascular accident) Current Visit: Yes Status: Acute (2) Cervical radiculopathy Current Visit: Yes Status: Acute (3) HTN (hypertension), malignant Current Visit: Yes Status: Acute - Advance Directives Does patient have a Living Will: Yes Does patient have a Durable POA for Healthcare: Yes Physician Review: Patient Assessed, Agree with Above Assessment and Plan Physician Review Additional Text: Possible CVA-may also be due to cervical radiculopathy -major neurological symptoms his upper extremity numbness and paraesthesia Will obtain MRI of the brain as well as C-spine -chronic left lower extremity leg extremity attributed to tried to follow as per history -obtain carotid ultrasound and echocardiogram if MRI suggesting acute CVA -obtain homocystine and folic acid level -we start aspirin 162 mg/325 mg daily now -allow for permissive hypertension. -start statin with Lipitor Will obtain home med list and adjust medication - will obtain neurology consult Hypertension-uncontrolled, we do IV hydralazine p.r.n. Keep a BP greater than 90 to allow for permissive hypertension Hyperlipidemia-start statin, obtain home med list DVT prophylaxis-subcutaneous heparin Advanced directive-discussed, patient is full code
--- NOTE | 2020-12-27 20:28 | EDPHYS ---
Physician Documentation [facility] Name: Wilma Ovalle Age: 75 yrs Sex: Female : 1945 Arrival Date: 12/27/2020 Time: 17:24 Bed 7 Private MD: ED Physician Jack Brar HPI: 12/27 17:59 This 75 yrs old Female presents to ER via Ambulatory with complaints of L Hand jmm Numbness. 17:59 The patient's problem is reported as difficulty walking, weakness. Onset: The jmm symptoms/episode began/occurred 2 day(s) ago. 17:59 Duration: The episode is continuous. jmm 17:59 The symptoms are alleviated by nothing. The symptoms are aggravated by walking. jmm Associated signs and symptoms: Pertinent negatives: blurred vision, chest pain, shortness of breath. This is a 75 year old female with a history of hlp, htn, hypothyroidism that presents to the ED with complaints of tingling and numbness to both arms along with left leg weakness. Symptoms began approx 2 days ago. . Historical: - Allergies: 17:33 No Known Drug Allergies; ll1 - PMHx: 17:33 Hyperlipidemia; Hypertension; Hypothyroidism; insomnia; TIA; ll1 - PSHx: 17:33 hand surgery; knee replacement; back; ll1 - Immunization history:: Flu vaccine is up to date. - Social history:: Smoking status: Smoking status: Patient denies any tobacco usage or history of. ROS: 17:59 Constitutional: Negative for fever, chills, and weight loss, Cardiovascular: Negative jmm for chest pain, palpitations, and edema, Respiratory: Negative for shortness of breath, cough, wheezing, and pleuritic chest pain. 17:59 Neuro: Positive for weakness. 17:59 All other systems are negative. Exam: 17:59 Radiologist reports: negative jmm 17:59 Constitutional: This is a well developed, well nourished patient who is awake, alert, and in no acute distress. Head/Face: atraumatic. Eyes: EOMI, no conjunctival erythema appreciated ENT: Moist Mucus Membranes Neck: Trachea midline, Supple Chest/axilla: Normal chest wall appearance and motion. Cardiovascular: Regular rate and rhythm. No edema appreciated Respiratory: Normal respirations, no respiratory distress appreciated Abdomen/GI: Non distended, soft Back: Normal ROM Skin: General appearance color normal MS/ Extremity: Moves all extremities, no obvious deformities appreciated, no edema noted to the lower extremities Psych: Behavior is normal, Mood is normal, Patient is cooperative and pleasant 18:33 ECG was reviewed by the Attending Physician. [facility] Vital Signs: 17:29 BP 176 / 120; Pulse 93; Resp 17; Temp 97.6; Pulse Ox 100% ; Weight 70.31 kg; Height 5 ll1 ft. 0 in. (152.40 cm); Pain 9/10; 18:15 BP 180 / 95; Pulse 81; Resp 17; Pulse Ox 98% ; jl7 19:13 BP 179 / 94; Pulse 79; Resp 15; Pulse Ox 97% ; jl7 20:00 BP 170 / 89; Pulse 74; Resp 17; Temp 97.8; Pulse Ox 97% ; rr5 21:00 BP 186 / 90; Pulse 86; Resp 17; Pulse Ox 99% ; rr5 21:00 BP 185 / 89; Pulse 80; Resp 16; Temp 98; Pulse Ox 98% ; rr5 22:09 BP 139 / 71; Pulse 85; Resp 19; Pulse Ox 97% ; rr5 17:29 Body Mass Index 30.27 (70.31 kg, 152.40 cm) ll1 NIH Stroke Scale Scores: 18:15 NIHSS Score: 2 7 18:23 NIHSS Score: 4 [facility] MDM: 17:50 Patient medically screened. [facility] 20:26 Data reviewed: vital signs, nurses notes. Counseling: I had a detailed discussion with [facility] the patient and/or guardian regarding: the historical points, exam findings, and any diagnostic results supporting the discharge/admit diagnosis, lab results, radiology results, the need for outpatient follow up, to return to the emergency department if symptoms worsen or persist or if there are any questions or concerns that arise at home. ED course: I discussed the patient with Dr. Cooper and Dr. Robledo whom accepted the admission. . 12/27 17:49 Order name: Basic Metabolic Panel; Complete Time: 19:05 [facility] 12/27 17:49 Order name: CBC with Diff; Complete Time: 18:48 [facility] 12/27 17:49 Order name: LFT's; Complete Time: 19:05 [facility] 12/27 17:49 Order name: Magnesium; Complete Time: 19:05 [facility] 12/27 17:49 Order name: NT PRO-BNP; Complete Time: 19:05 [facility] 12/27 17:49 Order name: PT-INR; Complete Time: 18:48 [facility] 12/27 17:49 Order name: Troponin (emerg Dept Use Only); Complete Time: 19:05 [facility] 12/27 20:20 Order name: Folic Acid, (Folate); Complete Time: 21:26 [facility] 12/27 20:20 Order name: Homocysteine [facility] 12/27 20:21 Order name: CBC with Automated Diff [facility] 12/27 20:21 Order name: CBC with Automated Diff [facility] 12/27 20:21 Order name: Comprehensive Metabolic Panel [facility] 12/27 20:21 Order name: Comprehensive Metabolic Panel [facility] 12/27 20:21 Order name: Lipid Profile [facility] 12/27 17:49 Order name: XRAY Chest (1 view); Complete Time: 18:22 [facility] 12/27 17:49 Order name: EKG; Complete Time: 17:50 [facility] 12/27 17:49 Order name: CT Head Brain wo Cont; Complete Time: 18:22 [facility] 12/27 20:20 Order name: CONS Pharmacy Consult [facility] 12/27 20:20 Order name: CONS Physician Consult [facility] 12/27 20:20 Order name: Full Liquid [facility] 12/27 20:21 Order name: Lipid Profile [facility] 12/27 20:21 Order name: Brain With Cont [facility] 12/27 20:21 Order name: MRA Neck W/Wo Cont [facility] 12/27 20:39 Order name: COVID-19 : Document "Date of Symptom Onset" if Symptomatic. 12/27 21:07 Order name: CORONAVIRUS [facility] 12/27 21:54 Order name: SARS-COV-2 RT PCR; Complete Time: 22:01 [facility] 12/27 17:49 Order name: Cardiac monitoring; Complete Time: 18:07 [facility] 12/27 17:49 Order name: EKG - Nurse/Tech; Complete Time: 18:17 [facility] 12/27 17:49 Order name: IV Saline Lock; Complete Time: 18:17 [facility] 12/27 17:49 Order name: Labs collected and sent; Complete Time: 18:17 [facility] 12/27 17:49 Order name: O2 Per Protocol; Complete Time: 18:07 jmm 12/27 17:49 Order name: O2 Sat Monitoring; Complete Time: 18:07 jmm EC:33 Rate is 81 beats/min. Rhythm is regular. QRS [place] is Normal. MS interval is normal. QRS jmm interval is normal. QT interval is normal. No Q waves. T waves are Normal. No ST changes noted. Reviewed by me. Administered Medications: 18:50 Drug: PlaVIX 75 mg Route: PO; jl7 19:50 Follow up: Response: No adverse reaction rr5 18:50 Drug: foLIC Acid 1 mg Route: IVPB; Site: right forearm; jl7 19:50 Follow up: Response: No adverse reaction; IV Status: Completed infusion rr5 18:50 Drug: Aspirin 81 mg Route: PO; jl7 19:50 Follow up: Response: No adverse reaction rr5 19:28 Drug: Alden 5 mg-325 mg 1 tabs Route: PO; mg2 20:25 Follow up: Response: No adverse reaction; RASS: Alert and Calm (0) rr5 Disposition: 12/27/20 20:27 Hospitalization ordered by Deloris Robledo for Inpatient Admission. Preliminary diagnosis is Cerebral infarction. - Bed requested for Telemetry/MedSurg (Inpatient). - Status is Inpatient Admission. rr5 - Condition is Stable. - Problem is new. - Symptoms are unchanged. NIH Stroke Scale - NIH Stroke Score Date: 12/27/2020 Time: 18:15 Total Score = 2 1a. Level of Consciousness (LOC) - 0(Alert) 1b. Level of Consciousness (LOC) (Year \\T\\ Age) - 0(Both) 1c. LOC Commands (Open \\T\\ Closes Eyes/Instructor Painting) - 0(Both) 2. Best Gaze (Lateral Gaze Paresis) - 0(Normal) 3. Visual Field Loss - 0(No visual loss) 4. Facial Palsy - 0(Normal) 5a. Left Arm: Motor (10-second hold) - 0(No drift) 5b. Right Arm: Motor (10-second hold) - 0(No drift) 6a. Left Leg: Motor (5-second hold - always test supine) - 2(Drift, some effort against gravity) 6b. Right Leg: Motor (5-second hold - always test supine) - 0(No drift) 7. Limb Ataxia (finger/nose \\T\\ heel/bernal - test with eyes open) - 0(Absent) 8. Sensory Loss (pinprick arms/legs/face) - 0(Normal) 9. Best Language: Aphasia (description/naming/reading) - 0(No aphasia) 10. Dysarthria (speech clarity - read or repeat words) - 0(Normal) 11. Extinction and Inattention (visual/tactile/auditory/spatial/personal) - 0(No abnormality) Initials: aleksandar NIH Stroke Scale - NIH Stroke Score Date: 12/27/2020 Time: 18:23 Total Score = 4 1a. Level of Consciousness (LOC) - 0(Alert) 1b. Level of Consciousness (LOC) (Year \\T\\ Age) - 0(Both) 1c. LOC Commands (Open \\T\\ Closes Eyes/Instructor Painting) - 0(Both) 2. Best Gaze (Lateral Gaze Paresis) - 0(Normal) 3. Visual Field Loss - 0(No visual loss) 4. Facial Palsy - 0(Normal) 5a. Left Arm: Motor (10-second hold) - 0(No drift) 5b. Right Arm: Motor (10-second hold) - 0(No drift) 6a. Left Leg: Motor (5-second hold - always test supine) - 3(No effort against gravity) 6b. Right Leg: Motor (5-second hold - always test supine) - 0(No drift) 7. Limb Ataxia (finger/nose \\T\\ heel/bernal - test with eyes open) - 0(Absent) 8. Sensory Loss (pinprick arms/legs/face) - 1(Mild to moderate loss) 9. Best Language: Aphasia (description/naming/reading) - 0(No aphasia) 10. Dysarthria (speech clarity - read or repeat words) - 0(Normal) 11. Extinction and Inattention (visual/tactile/auditory/spatial/personal) - 0(No abnormality) Initials: [facility] Addendum: 12/30/2020 05:11 Co-signature as Attending Physician, Jack Brar MD I agree with the [facility] assessment and plan of care. Signatures: Dispatcher [employer] EDMS Gloria Oviedo RN RN Jack Brar MD MD kdr Mickail, Joel, PA PA Ann Pardo RN RN jl7 Joseph Ospina RN RN mg2 Luis A Galindo, RN RN rr5 Cassidy Dowd, RN RN ll1 Corrections: (The following items were deleted from the chart) 12/27 21:58 20:27 Hospitalization Ordered by Deloris Robledo MD for Inpatient Admission. mw Preliminary diagnosis is Cerebral infarction. Bed requested for Telemetry/MedSurg (Inpatient). Status is Inpatient Admission. Condition is Stable. Problem is new. Symptoms are unchanged. madelyn 22:18 21:58 12/27/2020 20:27 Hospitalization Ordered by Deloris Robledo MD for rr5 Inpatient Admission. Preliminary diagnosis is Cerebral infarction. Bed requested for Telemetry/MedSurg (Inpatient). Status is Inpatient Admission. Condition is Stable. Problem is new. Symptoms are unchanged. mw
--- NOTE | 2020-12-27 20:28 | ER ---
Nurse's Notes [facility] Name: Wilma Ovalle Age: 75 yrs Sex: Female : 1945 Arrival Date: 12/27/2020 Time: 17:24 Bed 7 Private MD: Diagnosis: Cerebral infarction Presentation: 12/27 17:29 Chief complaint: Patient states: Bilateral hand numbness for 2 days. L leg weak for 2 ll1 days. (Fell twice since her leg was weak). Coronavirus screen: Client denies travel out of the [place] in the last 14 days. At this time, the client does not indicate any symptoms associated with coronavirus-19. Ebola Screen: Patient denies travel to an Ebola-affected area in the 21 days before illness onset. Initial Sepsis Screen: Does the patient meet any 2 criteria? HR > 90 bpm. No. Patient's initial sepsis screen is negative. Does the patient have a suspected source of infection? No. Patient's initial sepsis screen is negative. Risk Assessment: Do you want to hurt yourself or someone else? Patient reports no desire to harm self or others. Onset of symptoms was December 26, 2020. 17:29 Method Of Arrival: Ambulatory ll1 17:29 Acuity: JEANINE 2 ll1 17:33 An acute neurological deficit is present. The charge nurse has been notified. The jl7 patient has been moved to a treatment area. Pre-hospital glucose is not applicable to this patient. Onset of symptoms was December 23, 2020. Care prior to arrival: MRI at 1530 today [facility]. Transition of care: patient was not received from another setting of care. Triage Assessment: 17:40 The onset of the patients symptoms was December 23, 2020 at 07:00. General: Appears in jl7 no apparent distress. uncomfortable, Behavior is calm, cooperative, appropriate for age. Pain: Complains of pain in right side of neck Pain radiates to right arm and left arm Pain currently is 9 out of 10 on a pain scale. Quality of pain is described as sharp, Pain began "Months ago" Is continuous. Neuro: Level of Consciousness is awake, alert, obeys commands, Oriented to person, place, time, situation, Vinyl Top Installer are equal bilaterally Speech is normal, Reports paresthesias in right arm and left arm since x 5 days weakness in left leg since x 2 days Denies headache. Cardiovascular: Denies chest pain, shortness of breath, Patient's skin is warm and dry. Respiratory: Airway is patent Respiratory effort is even, unlabored, Respiratory pattern is regular, symmetrical, Denies shortness of breath. Derm: Skin is pink, warm \\T\\ dry. Stroke Activation: Symptom onset > 6 hours Physician: Stroke Attending; Name: ; Notified At: ; Arrived At: Physician: Chief Stroke Resident; Name: ; Notified At: ; Arrived At: Physician: Stroke Resident; Name: ; Notified At: ; Arrived At: Physician: ED Attending; Name: ; Notified At: ; Arrived At: Physician: ED Resident; Name: ; Notified At: ; Arrived At: Historical: - Allergies: 17:33 No Known Drug Allergies; ll1 - PMHx: 17:33 Hyperlipidemia; Hypertension; Hypothyroidism; insomnia; TIA; ll1 - PSHx: 17:33 hand surgery; knee replacement; back; ll1 - Immunization history:: Flu vaccine is up to date. - Social history:: Smoking status: Smoking status: Patient denies any tobacco usage or history of. Screenin:15 Abuse screen: Denies threats or abuse. Denies injuries from another. Nutritional jl7 screening: No deficits noted. Tuberculosis screening: No symptoms or risk factors identified. Fall Risk IV access (20 points). Total [place] Fall Scale indicates High Risk Score (45 or more points). Fall prevention measures have been instituted. Side Rails Up X 2 Placed Close to Nursing Station Frequent Obs/Assessments Occuring As available patient and family educated on Fall Prevention Program and Strategies. Assessment: 17:45 VAN Scoring: Arm Drift: Patients demonstrates NO arm weakness. Patient is VAN Negative. jl7 T-PA (Activase) Screening: Contraindications: Patient reports onset of signs and symptoms of stroke greater than 6 hours ago: Yes. 18:20 The patient has not been NPO before screening. The patient is currently on the jl7 following diet: Home The patient is alert, and able to follow commands. The patient does not exhibit slurred or garbled speech. The patient is not exhibiting difficulty speaking. The patient does not exhibit difficulty understanding words. The patient is able to swallow own secretions with no drooling or need for suction. Patient tolerated one teaspoon of water. No drooling, immediate coughing, gurgling, or clearing of the throat was noted. The patient tolerated 90mL of water. No drooling, immediate coughing, gurgling, or clearing of the throat was noted. The patient passed the bedside swallow screening. Oral medications may be given as ordered. Contact Physician for further diet orders. Provider notified of bedside swallow screening results: Roman BOWMAN. 19:57 Reassessment: Dr Robledo at bedside advised for admit. mg2 21:00 Reassessment: Patient appears in no apparent distress at this time. Patient is alert, rr5 oriented x 3, equal unlabored respirations, skin warm/dry/pink. awaiting for result and room assignment. 22:18 Reassessment: Patient appears in no apparent distress at this time. Patient is alert, rr5 oriented x 3, equal unlabored respirations, skin warm/dry/pink. no complaints made, vital signs taken and recorded Patient states symptoms have improved. Vital Signs: 17:29 BP 176 / 120; Pulse 93; Resp 17; Temp 97.6; Pulse Ox 100% ; Weight 70.31 kg; Height 5 ll1 ft. 0 in. (152.40 cm); Pain 9/10; 18:15 BP 180 / 95; Pulse 81; Resp 17; Pulse Ox 98% ; jl7 19:13 BP 179 / 94; Pulse 79; Resp 15; Pulse Ox 97% ; jl7 20:00 BP 170 / 89; Pulse 74; Resp 17; Temp 97.8; Pulse Ox 97% ; rr5 21:00 BP 186 / 90; Pulse 86; Resp 17; Pulse Ox 99% ; rr5 21:00 BP 185 / 89; Pulse 80; Resp 16; Temp 98; Pulse Ox 98% ; rr5 22:09 BP 139 / 71; Pulse 85; Resp 19; Pulse Ox 97% ; rr5 17:29 Body Mass Index 30.27 (70.31 kg, 152.40 cm) ll1 NIH Stroke Scale Scores: 18:15 NIHSS Score: 2 jl7 18:23 NIHSS Score: 4 [facility] ED Course: 17:24 Patient arrived in ED. ds1 17:29 Arm band placed on. ll1 17:32 Triage completed. ll1 17:33 Ann Gomez, RN is Primary Nurse. jl7 17:40 Patient has correct armband on for positive identification. Placed in gown. Bed in low jl7 position. Call light in reach. Side rails up X2. residential monitor on. Pulse ox on. NIBP on. Warm blanket given. 17:50 Roman Mccormick PA is PHCP. [facility] 17:50 Jack Brar MD is Attending Physician. jm 18:02 CT Head Brain wo Cont In Process Unspecified. EDMS 18:08 XRAY Chest (1 view) In Process Unspecified. EDMS 18:23 Inserted saline lock: 20 gauge in right forearm, using aseptic technique. Blood jd3 collected. 18:23 Initial lab(s) drawn, by ED staff, sent to lab. EKG done, by ED staff, reviewed by Roman BOWMAN. 20:26 Deloris Robledo MD is Hospitalizing Provider. [facility] 22:03 No provider procedures requiring assistance completed. Patient admitted, IV remains in rr5 place. intact, No redness/swelling at site. Administered Medications: 18:50 Drug: PlaVIX 75 mg Route: PO; jl7 19:50 Follow up: Response: No adverse reaction rr5 18:50 Drug: foLIC Acid 1 mg Route: IVPB; Site: right forearm; jl7 19:50 Follow up: Response: No adverse reaction; IV Status: Completed infusion rr5 18:50 Drug: Aspirin 81 mg Route: PO; jl7 19:50 Follow up: Response: No adverse reaction rr5 19:28 Drug: [place] 5 mg-325 mg 1 tabs Route: PO; mg2 20:25 Follow up: Response: No adverse reaction; RASS: Alert and Calm (0) rr5 Outcome: 20:27 Decision to Hospitalize by Provider. m 22:16 Admitted to Med/surg accompanied by tech, via stretcher, room 204, with chart, Report rr5 called to clare 22:16 Condition: stable 22:16 Instructed on the need for admit. 22:18 Patient left the ED. rr5 NIH Stroke Scale - NIH Stroke Score Date: 12/27/2020 Time: 18:15 Total Score = 2 1a. Level of Consciousness (LOC) - 0(Alert) 1b. Level of Consciousness (LOC) (Year \\T\\ Age) - 0(Both) 1c. LOC Commands (Open \\T\\ Closes Eyes/Size Marker) - 0(Both) 2. Best Gaze (Lateral Gaze Paresis) - 0(Normal) 3. Visual Field Loss - 0(No visual loss) 4. Facial Palsy - 0(Normal) 5a. Left Arm: Motor (10-second hold) - 0(No drift) 5b. Right Arm: Motor (10-second hold) - 0(No drift) 6a. Left Leg: Motor (5-second hold - always test supine) - 2(Drift, some effort against gravity) 6b. Right Leg: Motor (5-second hold - always test supine) - 0(No drift) 7. Limb Ataxia (finger/nose \\T\\ heel/bernal - test with eyes open) - 0(Absent) 8. Sensory Loss (pinprick arms/legs/face) - 0(Normal) 9. Best Language: Aphasia (description/naming/reading) - 0(No aphasia) 10. Dysarthria (speech clarity - read or repeat words) - 0(Normal) 11. Extinction and Inattention (visual/tactile/auditory/spatial/personal) - 0(No abnormality) Initials: jl7 NIH Stroke Scale - NIH Stroke Score Date: 12/27/2020 Time: 18:23 Total Score = 4 1a. Level of Consciousness (LOC) - 0(Alert) 1b. Level of Consciousness (LOC) (Year \\T\\ Age) - 0(Both) 1c. LOC Commands (Open \\T\\ Closes Eyes/Size Marker) - 0(Both) 2. Best Gaze (Lateral Gaze Paresis) - 0(Normal) 3. Visual Field Loss - 0(No visual loss) 4. Facial Palsy - 0(Normal) 5a. Left Arm: Motor (10-second hold) - 0(No drift) 5b. Right Arm: Motor (10-second hold) - 0(No drift) 6a. Left Leg: Motor (5-second hold - always test supine) - 3(No effort against gravity) 6b. Right Leg: Motor (5-second hold - always test supine) - 0(No drift) 7. Limb Ataxia (finger/nose \\T\\ heel/bernal - test with eyes open) - 0(Absent) 8. Sensory Loss (pinprick arms/legs/face) - 1(Mild to moderate loss) 9. Best Language: Aphasia (description/naming/reading) - 0(No aphasia) 10. Dysarthria (speech clarity - read or repeat words) - 0(Normal) 11. Extinction and Inattention (visual/tactile/auditory/spatial/personal) - 0(No abnormality) Initials: [facility] Signatures: Dispatcher [employer] Roman Toney PA PA jmm Sanford, Demi ds1 Ann Gomez RN RN jl7 Vickey Gregorio RN RN jd3 Joseph Ospina RN RN mg2 Luis A Galindo RN RN rr5 Cassidy Dowd RN RN ll1
[2020-12-27] MEDS ORDERED: ATORVASTATIN 40 MG TAB PO SCH (21:00)
[2020-12-27] MEDS ORDERED: QUETIAPINE 100MG TAB PO SCH (23:16)
[2020-12-28 00:30] VITALS: BMI 29.0
[2020-12-28] MEDS: HEPARIN 5000 UNIT/ML 1 ML VIAL SQ SCH ×2 (00:36→08:24)
[2020-12-28] MEDS ORDERED: PNEUMOCOCCAL VACCINE 0.5 ML IMVAC ONE (06:00)
[2020-12-28 06:06] LABS: Absolute Lymphocytes (CBC) 1.6 K/uL (0.7-4.9); Basophils % 0.5 % (0-1.3); Lymphocytes % 33.6 % (15.3-44.8); MPV 7.5 fL (7.6-11.3); RBC Red Blood Cell Count 3.89 M/uL (3.86-4.86)
[2020-12-28 06:17] LABS: ALT/SGPT 25 U/L (12-78); AST/SGOT 21 U/L (15-37); Albumin 3.4 g/dL (3.4-5.0); Alkaline Phosphatase 82 U/L (45-117); BUN Blood Urea Nitrogen 10 mg/dL (7-18); Bicarbonate 28 mmol/L (21-32); Bilirubin Total 0.5 mg/dL (0.2-1.0); Glucose Level 96 mg/dL (74-106); HDL Cholesterol 38 mg/dL (40-60); LDL Cholesterol, Calculated 61 (<130); Potassium 3.9 mmol/L (3.5-5.1); Protein, Total 6.6 g/dL (6.4-8.2); Sodium Level 141 mmol/L (136-145)
--- NOTE | 2020-12-28 07:54 | EKG ---
Test Date: 2020-12-27 Test Time: 18:19:03 Registration Scheduling Specialist: ALICE MEASUREMENT RESULTS: Intervals: Rate: 81 UT: 172 QRSD: 96 QT: 378 QTc: 439 [place]: P: 21 UT: 172 QRS: 60 T: 59 INTERPRETIVE STATEMENTS: Normal sinus rhythm Normal ECG Compared to ECG 10/28/2013 08:48:01 Ventricular premature complex(es) no longer present Electronically Signed On 12-28-20 07:53:59 DIRECTOR OF BUSINESS SERVICES by Himanshu Hickey
[2020-12-28] MEDS: ASPIRIN EC 81 MG TAB PO SCH (08:23)
[2020-12-28] MEDS ORDERED: ZINC SULFATE 220 MG CAP PO SCH (09:00)
[2020-12-28] MEDS ORDERED: LIDOCAINE 4% PATCH TOP SCH (09:00)
[2020-12-28 11:20] LABS: Blood Morphology Comment NOT SEEN (NOT SEEN); Platelet Estimate ADEQ; White Blood Cell Scan OK (OK)
[2020-12-28 11:46] VITALS: O2SAT 96
[2020-12-28] MEDS ORDERED: HYDROCODONE/APAP 10/325 TAB PO PRN (14:11)
[2020-12-28 16:53] VITALS: BP 162/73; TEMP 97
--- NOTE | 2021-01-13 23:50 | P.DS ---
Discharge Date: 12/28/20 Disposition: ROUTINE DISCHARGE Discharge Condition: GOOD Reason for Admission: bilateral arm numbness Brief History of Present Illness: Patient is a 75-year-old female who came to the hospital with numbness and weakness of the upper extremities. Patient was seen by PCP. Of the brain. MRI report will be faxed over by imaging center in [place]. Concern for radiculopathy versus stroke patient was admitted for evaluation. Hospital Course: Patient's MRI from [facility] revealed a stroke. Patient will need to also get an MRI for further evaluation. Patient will need to follow up with neurology as well. Patient will need to continue with antiplatelet therapy and statin therapy. Patient will need outpatient followup with neurologist. Vital Signs/Physical Exam: Temp Pulse Resp BP Pulse Ox 97 F 87 18 162/73 H 95 12/28/20 16:00 12/28/20 16:00 12/28/20 16:00 12/28/20 16:00 12/28/20 16:00 General: Alert, In no apparent distress, Oriented x3 Laboratory Data at Discharge: WBC 4.70 K/uL (4.3-10.9) D 12/28/20 05:42 Hgb 12.1 g/dL (12.0-15.0) 12/28/20 05:42 Hct 36.0 % (36.0-45.0) 12/28/20 05:42 Plt Count 194 K/uL (152-406) 12/28/20 05:42 PT 11.5 SECONDS (9.5-12.5) 12/27/20 18:19 INR 1.00 12/27/20 18:19 Sodium 141 mmol/L (136-145) 12/28/20 05:42 Potassium 3.9 mmol/L (3.5-5.1) 12/28/20 05:42 BUN 10 mg/dL (7-18) 12/28/20 05:42 Creatinine 0.50 mg/dL (0.55-1.3) L 12/28/20 05:42 Glucose 96 mg/dL (74-106) 12/28/20 05:42 Magnesium 2.3 mg/dL (1.8-2.4) 12/27/20 18:19 Total Bilirubin 0.5 mg/dL (0.2-1.0) 12/28/20 05:42 AST 21 U/L (15-37) 12/28/20 05:42 ALT 25 U/L (12-78) 12/28/20 05:42 Alkaline Phosphatase 82 U/L (45-117) 12/28/20 05:42 Triglycerides 123 mg/dL (<150) 12/28/20 05:42 Cholesterol 124 mg/dL (<200) 12/28/20 05:42 HDL Cholesterol 38 mg/dL (40-60) L 12/28/20 05:42 Cholesterol/HDL Ratio 3.26 12/28/20 05:42 Home Medications: Aspirin [Ecotrin 81 MG] 81 mg PO DAILY #30 tablet. 12/28/20 Atorvastatin Calcium [Lipitor] 40 mg PO BEDTIME #30 tab 12/28/20 Clopidogrel Bisulfate [Plavix] 75 mg PO DAILY #30 tablet 12/28/20 Zinc Sulfate [Zinc Sulfate*] 220 mg PO DAILY #30 cap 12/28/20 New Medications: Aspirin [Ecotrin 81 MG] 81 mg PO DAILY #30 tablet. Atorvastatin Calcium [Lipitor] 40 mg PO BEDTIME #30 tab Clopidogrel Bisulfate [Plavix] 75 mg PO DAILY #30 tablet Zinc Sulfate [Zinc Sulfate*] 220 mg PO DAILY #30 cap Diet: AHA Activity: Fall precautions Followup: El Cooper MD [ASSOCIATE-ACTIVE - CAN ADMIT] - Oscar Flower MD [Primary Care Provider] - Time spent managing pt's care (in minutes): 35
--- NOTE | 2021-01-13 23:53 | P.DS ---
Discharge Date: 12/28/20 Disposition: ROUTINE DISCHARGE Discharge Condition: GOOD Reason for Admission: bilateral arm numbness Brief History of Present Illness: Patient is a 75-year-old female who came to the hospital with numbness and weakness of the upper extremities. Patient was seen by PCP. Of the brain. MRI report will be faxed over by imaging center in [place]. Concern for radiculopathy versus stroke patient was admitted for evaluation. Hospital Course: Patient's MRI from [place] imaging center revealed a stroke. Patient will need to also get an MRI for further evaluation. Patient will need to follow up with neurology as well. Patient will need to continue with antiplatelet therapy and statin therapy. Patient will need outpatient followup with neurologist. Vital Signs/Physical Exam: Temp Pulse Resp BP Pulse Ox 97 F 87 18 162/73 H 95 12/28/20 16:00 12/28/20 16:00 12/28/20 16:00 12/28/20 16:00 12/28/20 16:00 General: Alert, In no apparent distress, Oriented x3 Laboratory Data at Discharge: WBC 4.70 K/uL (4.3-10.9) D 12/28/20 05:42 Hgb 12.1 g/dL (12.0-15.0) 12/28/20 05:42 Hct 36.0 % (36.0-45.0) 12/28/20 05:42 Plt Count 194 K/uL (152-406) 12/28/20 05:42 PT 11.5 SECONDS (9.5-12.5) 12/27/20 18:19 INR 1.00 12/27/20 18:19 Sodium 141 mmol/L (136-145) 12/28/20 05:42 Potassium 3.9 mmol/L (3.5-5.1) 12/28/20 05:42 BUN 10 mg/dL (7-18) 12/28/20 05:42 Creatinine 0.50 mg/dL (0.55-1.3) L 12/28/20 05:42 Glucose 96 mg/dL (74-106) 12/28/20 05:42 Magnesium 2.3 mg/dL (1.8-2.4) 12/27/20 18:19 Total Bilirubin 0.5 mg/dL (0.2-1.0) 12/28/20 05:42 AST 21 U/L (15-37) 12/28/20 05:42 ALT 25 U/L (12-78) 12/28/20 05:42 Alkaline Phosphatase 82 U/L (45-117) 12/28/20 05:42 Triglycerides 123 mg/dL (<150) 12/28/20 05:42 Cholesterol 124 mg/dL (<200) 12/28/20 05:42 HDL Cholesterol 38 mg/dL (40-60) L 12/28/20 05:42 Cholesterol/HDL Ratio 3.26 12/28/20 05:42 Home Medications: Aspirin [Ecotrin 81 MG] 81 mg PO DAILY #30 tablet. 12/28/20 Atorvastatin Calcium [Lipitor] 40 mg PO BEDTIME #30 tab 12/28/20 Clopidogrel Bisulfate [Plavix] 75 mg PO DAILY #30 tablet 12/28/20 Zinc Sulfate [Zinc Sulfate*] 220 mg PO DAILY #30 cap 12/28/20 New Medications: Aspirin [Ecotrin 81 MG] 81 mg PO DAILY #30 tablet. Atorvastatin Calcium [Lipitor] 40 mg PO BEDTIME #30 tab Clopidogrel Bisulfate [Plavix] 75 mg PO DAILY #30 tablet Zinc Sulfate [Zinc Sulfate*] 220 mg PO DAILY #30 cap Physician Discharge Instructions: -OK TO DC IV AND DC HOME -FOLLOW-UP WITH PCP IN 1-2 WEEKS -FOLLOW-UP WITH NEUROLOGY IN 1-2 WEEKS -PLEASE MAKE SURE ALL DIAGNOSTIC STUDIES ARE AVAILABLE AND HAVE BEEN REVIEWED WITH PATIENT PRIOR TO DISCHARGE -RETURN TO THE ER IF symptoms worsened -CALL DR. CARDENAS AT [phone] IF ANY QUESTIONS REGARDING HOSPITAL STAY -PLEASE CALL THE FLOOR AT [phone] IF ANY MEDICATION OR NURSING QUESTIONS Diet: AHA Activity: Fall precautions Followup: El Cooper MD [ASSOCIATE-ACTIVE - CAN ADMIT] - Oscar Flower MD [Primary Care Provider] - Time spent managing pt's care (in minutes): 35
== END 2020-12-28 18:47 | disposition home or self-care (01) ==
LOC: ER 17:22 → ERHOLD 20:17 → INTOOBSV 20:17 → 2ND 22:29
PROVIDERS: ADMIT Internal Medicine; ATTEND Hospitalist
DX: I63.9 Cerebral infarction, unspecified (principal); R20.0 Anesthesia of skin; I10 Essential (primary) hypertension; E78.5 Hyperlipidemia, unspecified; Z20.822 Contact with and (suspected) exposure to COVID-19; G89.29 Other chronic pain; M54.12 Radiculopathy, cervical region; E03.9 Hypothyroidism, unspecified; G47.00 Insomnia, unspecified; Z86.73 Personal history of transient ischemic attack (TIA), and cerebral infarction without residual deficits; R29.704 NIHSS score 4
CPT/HCPCS: 36415; 70450; 71045; 80048; 80053; 80061; 80076; 82607; 82746; 83090; 83540; 83735; 83880; 84484; 85025; 85610; 85652; 93005; 96365; 97116; 97161; 97530; 99285; G0378; J0360; J1644; J2270; U0003

== ENCOUNTER 2022-08-17 10:24 | Emergency (ER) | payer OTHER ==
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
[2022-08-17] MEDS ORDERED: MORPHINE 4 MG/ML SYR ONE ×2 (11:41→13:13)
[2022-08-17] MEDS ORDERED: methocarbamoL 500 MG TAB ONE (11:41)
[2022-08-17] MEDS ORDERED: dexAMETHasone 10 MG/ML VIAL ONE (13:13)
--- NOTE | 2022-08-17 14:07 | ER ---
Nurse's Notes [facility] Name: Wilma Ovalle Age: 76 yrs Sex: Female : 1945 Arrival Date: 08/17/2022 Time: :26 Bed 5 Private MD: Art Wallis Diagnosis: Pain in left shoulder Presentation: 08/17 10:38 Chief complaint: Patient states: c/o Left arm pain from shoulder to wrist; denies vg1 injury or fall. Stated went to Urgent care on 08/14 to get it checked out; the day prior stated tried to lift a 'heavy bag of trash'. Went to Dr Wallis's office today and was told to come to ED. Coronavirus screen: Vaccine status: Patient reports receiving the 2nd dose of the covid vaccine. Client denies travel out of the [place] in the last 14 days. Ebola Screen: Patient negative for fever greater than or equal to 101.5 degrees Fahrenheit, and additional compatible Ebola Virus Disease symptoms Patient denies exposure to infectious person. Initial Sepsis Screen: Does the patient meet any 2 criteria? No. Patient's initial sepsis screen is negative. Does the patient have a suspected source of infection? No. Patient's initial sepsis screen is negative. Risk Assessment: Do you want to hurt yourself or someone else? Patient reports no desire to harm self or others. Onset of symptoms was August 13, 2022. 10:38 Method Of Arrival: Ambulatory vg1 10:38 Acuity: JEANINE 4 vg1 Triage Assessment: 10:42 General: Appears uncomfortable, Behavior is calm, cooperative. Pain: Complains of pain vg1 in left shoulder left arm Pain currently is 10 out of 10 on a pain scale. Pain began 08/13/22. Musculoskeletal: Range of motion: limited in left shoulder. Historical: - Allergies: 10:42 No Known Allergies; vg1 - PMHx: 10:42 Hyperlipidemia; Hypertension; Hypothyroidism; insomnia; TIA; vg1 - Immunization history:: Client reports receiving the 2nd dose of the Covid vaccine. - Social history:: Smoking status: Patient denies any tobacco usage or history of. Screenin:13 Abuse screen: Denies threats or abuse. Denies injuries from another. Nutritional kc6 screening: No deficits noted. Tuberculosis screening: No symptoms or risk factors identified. Fall Risk No fall in past 12 months (0 pts). No secondary diagnosis (0 pts). No IV (0 pts). Ambulatory Aid- None/Bed Rest/Nurse Assist (0 pts). Gait- Normal/Bed Rest/Wheelchair (0 pts) Mental Status- Oriented to own ability (0 pts). Total Borrero Fall Scale indicates No Risk (0-24 pts). Assessment: 12:01 General: Appears in no apparent distress. uncomfortable, Behavior is calm, cooperative, kc6 appropriate for age. Pain: Complains of pain in anterior aspect of left shoulder and left forearm Pain radiates to left hip Pain currently is 8 out of 10 on a pain scale. Quality of pain is described as aching, sharp, Pain began client stated the pain started about a week ago. Is continuous, Alleviated by rest, Aggravated by increased activity, repositioning, Noted to be grimacing, guarding, resistant to movement, Also complains of no other associated symptoms. Current management is with Naproxen 250 mg PO Q12HR is ineffective. Neuro: Maravilla Agitation-Sedation Scale (RASS): 0 - Alert and Calm Level of Consciousness is awake, alert, obeys commands, Oriented to person, place, time, situation, Appropriate for age. Cardiovascular: Capillary refill < 3 seconds. Respiratory: Airway is patent Respiratory effort is even, unlabored, Respiratory pattern is regular, symmetrical. GI: No signs and/or symptoms were reported involving the gastrointestinal system. : No signs and/or symptoms were reported regarding the genitourinary system. EENT: No signs and/or symptoms were reported regarding the EENT system. Derm: No signs and/or symptoms reported regarding the dermatologic system. Skin is intact, Skin is pink, warm \T\ dry. Musculoskeletal: Circulation, motion, and sensation intact. Capillary refill < 3 seconds, Range of motion: limited in left shoulder. 13:29 Reassessment: Patient appears in no apparent distress at this time. No changes from kc6 previously documented assessment. Patient and/or family updated on plan of care and expected duration. Pain level reassessed. Patient is alert, oriented x 3, equal unlabored respirations, skin warm/dry/pink. client stated pain is unchanged, 06/10. Vital Signs: 10:38 BP 133 / 68; Pulse 87; Resp 15; Temp 98.0; Pulse Ox 100% on R/A; Weight 61.23 kg; vg1 Height 4 ft. 10 in. (147.32 cm); Pain 10/10; 12:08 BP 164 / 87 LA Sitting (auto/reg); Pulse 75 LA; Resp 18 S; Pulse Ox 97% on R/A; Pain kc6 8/10; 13:29 BP 188 / 97 LA Sitting (auto/reg); Pulse 78 LA; Resp 17 S; Pulse Ox 99% on R/A; Pain kc6 8/10; 10:38 Body Mass Index 28.21 (61.23 kg, 147.32 cm) vg1 ED Course: 10:26 Patient arrived in ED. as 10:26 Art Wallis DO is Private Physician. as 10:42 Triage completed. vg1 10:42 Arm band placed on. vg1 10:51 Vickey Gregorio RN is Primary Nurse. jd3 10:54 Melida Abdi MD is Attending Physician. sd2 14:06 Art Wallis DO is Referral Physician. sd2 14:20 Patient has correct armband on for positive identification. Bed in low position. Call kc6 light in reach. Side rails up X2. 14:20 No provider procedures requiring assistance completed. Patient did not have IV access kc6 during this emergency room visit. Administered Medications: 11:49 Drug: morphine 4 mg Route: IM; Site: left deltoid; kc6 12:49 Follow up: Response: No adverse reaction; Pain is unchanged, physician notified; RASS: kc6 Alert and Calm (0) 11:49 Drug: Methocarbamol 750 mg Route: PO; kc6 12:49 Follow up: Response: No adverse reaction; Pain is unchanged, physician notified; RASS: kc6 Alert and Calm (0) 13:28 Drug: morphine 4 mg Route: IM; Site: right deltoid; kc6 14:23 Follow up: Response: No adverse reaction; Pain is decreased; RASS: Alert and Calm (0) kc6 13:28 Drug: Decadron (dexamethasone) 10 mg Route: IM; Site: right ventrogluteal; kc6 14:23 Follow up: Response: No adverse reaction; Pain is decreased; RASS: Alert and Calm (0) kc6 Medication: 14:21 VIS not applicable for this client. kc6 Outcome: 14:07 Discharge ordered by . [email or web address] 14:20 Condition: stable kc6 14:20 Discharge instructions given to patient, Instructed on discharge instructions, follow up and referral plans. medication usage, Demonstrated understanding of instructions, follow-up care, medications, Prescriptions given X 3. 14:21 Discharged to home ambulatory, with family. kc6 14:22 Patient left the ED. kc6 Signatures: Sigrid Matthew Jonathon RN RN Mirian Blount RN RN [email or web address] Melida Abdi MD MD sd2 Yvonne Santos RN RN kc6
--- NOTE | 2022-08-17 14:07 | EDPHYS ---
Physician Documentation [facility] Name: Wilma Ovalle Age: 76 yrs Sex: Female : 1945 Arrival Date: 08/17/2022 Time: : Bed 5 Private MD: Art Wallis ED Physician Melida Abdi HPI: 08/17 11:27 This 76 yrs old Female presents to ER via Ambulatory with complaints of Arm sd2 Pain. 11:27 76-year-old female presents with chief complaint of left arm and shoulder pain. She sd2 reports it initially started last week after she picked up a bag that was too heavy for her and she strained the area. 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 She reports she was given 2 injections at that time that did not help with her pain. She was also sent home on naproxen which has not been helping with her pain. She tried to see her primary care doctor today and went to their office and they told her to come to the ER and also gave her Dr. Soni's number for follow-up with orthopedics. She denies any chest pain or shortness of breath that is associated with this. She reports the pain radiates from her left shoulder down to her left hand. She does report a prior history of neck surgery but denies any neck pain.. Historical: - Allergies: 10:42 No Known Allergies; vg1 - PMHx: 10:42 Hyperlipidemia; Hypertension; Hypothyroidism; insomnia; TIA; vg1 - Immunization history:: Client reports receiving the 2nd dose of the Covid vaccine. - Social history:: Smoking status: Patient denies any tobacco usage or history of. ROS: 11:27 Constitutional: Negative for fever, chills, and weight loss, Cardiovascular: Negative sd2 for chest pain, palpitations, and edema, Respiratory: Negative for shortness of breath, cough, wheezing. Abdomen/GI: Negative for abdominal pain, nausea, vomiting, diarrhea. 11:27 Skin: Negative for injury, rash, and discoloration, Neuro: Negative for headache, numbness and tingling. 11:27 MS/extremity: Positive for injury or acute deformity, pain, Negative for paresthesias, tingling. Exam: 11:27 Constitutional: This is a well developed, well nourished patient who is awake, alert, sd2 and in no acute distress. Head/Face: Normocephalic, atraumatic. Eyes: EOMI, normal conjunctiva bilaterally Chest/axilla: Normal chest wall appearance and motion. Nontender with no deformity. Cardiovascular: Regular rate and rhythm with a normal S1 and S2. No gallops, murmurs, or rubs. 2+ distal pulses. Respiratory: Lungs have equal breath sounds bilaterally, clear to auscultation and percussion. No rales, rhonchi or wheezes noted. No increased work of breathing, no retractions or nasal flaring. Skin: Warm, dry with normal turgor. Normal color with no rashes, no lesions, and no evidence of cellulitis. MS/ Extremity: Pulses equal, no cyanosis. Neurovascular intact. Full, normal range of motion. Ambulatory without difficulty. TTP of L anterior and posterior shoulder. 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 Psych: Awake, alert, with orientation to person, place and time. Behavior, mood, and affect are within normal limits. 13:06 ECG was reviewed by the Attending Physician. NSR, rate 78, no STEMI criteria or ST-T sd2 wave changes Vital Signs: 10:38 BP 133 / 68; Pulse 87; Resp 15; Temp 98.0; Pulse Ox 100% on R/A; Weight 61.23 kg; vg1 Height 4 ft. 10 in. (147.32 cm); Pain 10/10; 12:08 BP 164 / 87 LA Sitting (auto/reg); Pulse 75 LA; Resp 18 S; Pulse Ox 97% on R/A; Pain kc6 8/10; 13:29 BP 188 / 97 LA Sitting (auto/reg); Pulse 78 LA; Resp 17 S; Pulse Ox 99% on R/A; Pain kc6 8/10; 10:38 Body Mass Index 28.21 (61.23 kg, 147.32 cm) vg1 MDM: 10:54 Patient medically screened. sd2 11:27 Differential diagnosis: arthritis, tendonitis, strain, neuropathy, rotator cuff injury sd2 among others. Data reviewed: vital signs, nurses notes, diagnostic data from outside facility, radiologic studies, plain films. 14:05 Counseling: I had a detailed discussion with the patient and/or guardian regarding: the sd2 historical points, exam findings, and any diagnostic results supporting the discharge/admit diagnosis, the need for outpatient follow up, to return to the emergency department if symptoms worsen or persist or if there are any questions or concerns that arise at home. Medical screen evaluation completed. [facility] emergency medical condition absent. ED course: OSH records reviewed that patient brought with her reports of XRs with no acute pathology but showed arthrosis. Pt to follow up with Ortho, Dr. Soni. Pain improved after treatment and pt is comfortable with plan for discharge and outpatient follow up. Verbalizes understanding of discharge plan and strict return precautions. . 08/17 11:27 Order name: EKG - Nurse/Tech; Complete Time: 12:01 sd2 Administered Medications: 11:49 Drug: morphine 4 mg Route: IM; Site: left deltoid; kc6 12:49 Follow up: Response: No adverse reaction; Pain is unchanged, physician notified; RASS: kc6 Alert and Calm (0) 11:49 Drug: Methocarbamol 750 mg Route: PO; kc6 12:49 Follow up: Response: No adverse reaction; Pain is unchanged, physician notified; RASS: kc6 Alert and Calm (0) 13:28 Drug: morphine 4 mg Route: IM; Site: right deltoid; kc6 14:23 Follow up: Response: No adverse reaction; Pain is decreased; RASS: Alert and Calm (0) kc6 13:28 Drug: Decadron (dexamethasone) 10 mg Route: IM; Site: right ventrogluteal; kc6 14:23 Follow up: Response: No adverse reaction; Pain is decreased; RASS: Alert and Calm (0) kc6 Disposition Summary: 08/17/22 14:07 Discharge Ordered Location: Home sd2 Problem: an ongoing problem sd2 Symptoms: have improved sd2 Condition: Stable sd2 Diagnosis - Pain in left shoulder sd2 Followup: sd2 - With: Art Wallis, DO - When: 2 - 3 days - Reason: Recheck today's complaints, Continuance of care, Re-evaluation by your physician Discharge Instructions: - Discharge Summary Sheet sd2 - Neuropathic Pain sd2 - Shoulder Range of Motion Exercises sd2 - Shoulder Pain, [id number] sd2 Forms: - Medication Reconciliation Form sd2 - Thank You Letter sd2 - Antibiotic Education sd2 - Prescription Opioid Use sd2 Prescriptions: - tizanidine 2 mg Oral tablet - take 1 tablet by ORAL route every 8 hours As needed as needed; 15 tablet; sd2 Refills: 0, Product Selection Permitted - Medrol (Randell) 4 mg Oral Tablets, Dose Pack - take 1 tablet by ORAL route as directed - follow package instructions; 1 sd2 packet; Refills: 0, Product Selection Permitted - Tylenol-Codeine #3 300 mg-30 mg Oral - take 1 tablet by ORAL route every 6 hours As needed; 12 tablet; Refills: 0, sd2 Product Selection Permitted Signatures: Mirian Minaya RN RN vg1 Melida Abdi MD MD sd2 Yvonne Santos RN RN kc6
[2022-08-17 14:42] VITALS: TEMP 98
[2022-08-17 14:45] VITALS: BP 188/97; O2SAT 99
--- NOTE | 2022-08-18 14:04 | EKG ---
Test Date: 2022-08-17 Test Time: 11:59:25 Remote Encoding Operations Supervisor: LEA MEASUREMENT RESULTS: Intervals: Rate: 78 NM: 144 QRSD: 92 QT: 380 QTc: 433 [place]: P: 74 NM: 144 QRS: 59 T: 51 INTERPRETIVE STATEMENTS: Normal sinus rhythm Normal ECG Compared to ECG 12/27/2020 18:19:03 No significant changes Electronically Signed On 08-18-22 14:02:04 CDT by Shashank Webb
== END 2022-08-17 14:22 | disposition home or self-care (01) ==
LOC: ER 10:24
DX: M25.512 Pain in left shoulder (principal); I10 Essential (primary) hypertension; E78.5 Hyperlipidemia, unspecified; E03.9 Hypothyroidism, unspecified; Z86.73 Personal history of transient ischemic attack (TIA), and cerebral infarction without residual deficits
CPT/HCPCS: 93005; 96372; 99283; J1100

== ENCOUNTER 2022-08-18 11:50 | Emergency (ER) | payer OTHER ==
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
[2022-08-18] MEDS ORDERED: MORPHINE 4 MG/ML SYR ONE (12:36)
[2022-08-18] MEDS ORDERED: ONDANSETRON 4 MG/2 ML VIAL ONE (12:36)
[2022-08-18] MEDS ORDERED: DIAZEPAM 5 MG TABLET ONE (12:36)
[2022-08-18] MEDS ORDERED: dexAMETHasone 10 MG/ML VIAL ONE (12:36)
[2022-08-18] MEDS ORDERED: KETOROLAC 30 MG/ML INJ ONE (12:36)
[2022-08-18] MEDS ORDERED: NA CHLORIDE 0.9% 500 ML ONE (12:40)
[2022-08-18 13:10] LABS: Hematocrit 33.4 % (36.0-45.0); Lymphocytes % 9.9 % (15.3-44.8); MCV 92.9 fL (80-100); MPV 7.4 fL (7.6-11.3)
[2022-08-18 13:19] LABS: Potassium 3.8 mmol/L (3.5-5.1)
--- NOTE | 2022-08-18 13:29 | RAD REPORT ---
EXAM DESCRIPTION: RAD - Shoulder Left 2 View - 08/18/2022 12:52 pm CLINICAL HISTORY: Left shoulder pain FINDINGS: No fracture or dislocation is seen. Mild osteoarthritis AC and glenohumeral joints
--- NOTE | 2022-08-18 14:52 | ER ---
Nurse's Notes [facility] Name: Wilma Ovalle Age: 76 yrs Sex: Female : 1945 Arrival Date: 08/18/2022 Time: 11:53 Bed 23 Private MD: Art Wallis Diagnosis: Pain in left shoulder;Strain of other muscles, fascia and tendons at shoulder and upper arm level, left arm Presentation: 08/18 12:25 Risk Assessment: Do you want to hurt yourself or someone else? Patient reports no fu desire to harm self or others. 12:28 Chief complaint: Patient states: Continued L shoulder pain from her visit yesterday. ll1 Coronavirus screen: Vaccine status: Patient reports receiving the 2nd dose of the covid vaccine. Client denies travel out of the [place] in the last 14 days. At this time, the client does not indicate any symptoms associated with coronavirus-19. Ebola Screen: Patient denies travel to an Ebola-affected area in the 21 days before illness onset. Initial Sepsis Screen: Does the patient meet any 2 criteria? No. Patient's initial sepsis screen is negative. Does the patient have a suspected source of infection? Yes: Bone or joint infection. Onset of symptoms was August 16, 2022. 12:28 Method Of Arrival: Ambulatory ll1 12:28 Acuity: JEANINE 4 ll1 Triage Assessment: 12:29 General: Appears uncomfortable, Behavior is cooperative, appropriate for age. Pain: ll1 Complains of pain in left arm. Musculoskeletal: Reports pain in left arm. Historical: - Allergies: 12:25 No Known Drug Allergies; fu - PMHx: 12:25 Hyperlipidemia; Hypertension; Hypothyroidism; insomnia; TIA; fu - Immunization history:: Client reports receiving the 2nd dose of the Covid vaccine. - Social history:: Smoking status: Patient denies any tobacco usage or history of. Screenin:01 Abuse screen: Denies threats or abuse. Nutritional screening: No deficits noted. em6 Tuberculosis screening: No symptoms or risk factors identified. Fall Risk IV access (20 points). Total Borrero Fall Scale indicates No Risk (0-24 pts). Assessment: 12:40 General: Appears uncomfortable, Behavior is cooperative. Pain: Complains of pain in em6 left arm Pain does not radiate. Pain currently is 10 out of 10 on a pain scale. Quality of pain is described as sharp. Neuro: Level of Consciousness is awake, alert, obeys commands, Oriented to person, place, time, situation. Cardiovascular: Patient's skin is warm and dry. Respiratory: Airway is patent Respiratory effort is even, unlabored, Respiratory pattern is regular, symmetrical, Breath sounds are clear bilaterally. GI: No signs and/or symptoms were reported involving the gastrointestinal system. : No signs and/or symptoms were reported regarding the genitourinary system. EENT: No signs and/or symptoms were reported regarding the EENT system. Derm: No signs and/or symptoms reported regarding the dermatologic system. Musculoskeletal: Range of motion: limited in left shoulder. 13:45 Reassessment: Patient and/or family updated on plan of care and expected duration. Pain em6 level reassessed. Patient is alert, oriented x 3, equal unlabored respirations, skin warm/dry/pink. Patient states symptoms have improved. 14:52 Reassessment: Patient and/or family updated on plan of care and expected duration. Pain em6 level reassessed. Patient is alert, oriented x 3, equal unlabored respirations, skin warm/dry/pink. Vital Signs: 12:28 Weight 61.23 kg; Pain 10/10; ll1 12:31 BP 133 / 88; Pulse 96; Resp 18; Pulse Ox 100% ; em6 13:30 BP 155 / 75; Pulse 71; Resp 18; Pulse Ox 97% on R/A; em6 14:45 BP 152 / 79; Pulse 66; Resp 18; Pulse Ox 100% on R/A; em6 ED Course: 11:53 Patient arrived in ED. rg4 11:53 Art Wallis, is Private Physician. rg4 12:19 Angelo Rangel MD is Attending Physician. farhad 12:23 Odesas Matthew, CATARINA is Primary Nurse. em6 12:25 Arm band placed on Patient placed in an exam room, on a stretcher. fu 12:29 Triage completed. ll1 12:45 Inserted saline lock: 20 gauge in right forearm, using aseptic technique. Blood em6 collected. 12:53 Shoulder Left (2 View) XRAY In Process Unspecified. EDMS 13:01 Bed in low position. Call light in reach. Side rails up X2. Pulse ox on. NIBP on. Warm em6 blanket given. 14:50 Art Wallis DO is Referral Physician. farhad 14:50 Fred Hardin MD is Referral Physician. farhad 15:11 No provider procedures requiring assistance completed. IV discontinued, intact, em6 bleeding controlled, No redness/swelling at site. Pressure dressing applied. Administered Medications: 12:50 Drug: Valium (diazepam) 5 mg Route: PO; em6 13:21 Follow up: Response: No adverse reaction; RASS: Alert and Calm (0) em6 12:50 Drug: Ketorolac 30 mg Route: IVP; Site: right forearm; em6 13:21 Follow up: Response: No adverse reaction em6 12:50 Drug: Decadron - Dexamethasone 10 mg Route: IVP; Site: right forearm; em6 13:21 Follow up: Response: No adverse reaction em6 12:50 Drug: morphine 4 mg Route: IVP; Infused Over: 4 mins; Site: right forearm; em6 13:21 Follow up: Response: No adverse reaction; RASS: Alert and Calm (0) em6 12:50 Drug: Zofran (Ondansetron) 4 mg Route: IVP; Site: right forearm; em6 13:21 Follow up: Response: No adverse reaction em6 12:50 Drug: NS 0.9% 500 ml Route: IV; Rate: bolus; Site: right forearm; em6 13:21 Follow up: Response: No adverse reaction; IV Status: Completed infusion; IV Intake: em6 500ml Medication: 15:12 VIS not applicable for this client. em6 Intake: 13:21 IV: 500ml; Total: 500ml. em6 Outcome: 14:52 Discharge ordered by . farhad 15:11 Discharged to home via ambulance. em6 15:11 Condition: stable 15:11 Discharge instructions given to patient, Instructed on discharge instructions, follow up and referral plans. medication usage, Demonstrated understanding of instructions, follow-up care, medications, Prescriptions given X 4. 15:12 Patient left the ED. em6 Signatures: Dispatcher [employer] EDMS Angelo Rangel MD MD cha Garcia, Rubi rg4 Bret Roberson RN RN fu Lewis, Lynsay, RN RN 1 Odessa Matthew RN RN em6 Corrections: (The following items were deleted from the chart) 13:21 13:21 Response: No adverse reaction em6 em6
--- NOTE | 2022-08-18 14:52 | EDPHYS ---
Physician Documentation [facility] Name: Wilma Ovalle Age: 76 yrs Sex: Female : 1945 Arrival Date: 08/18/2022 Time: 11:53 Bed 23 Private MD: Bimal [facility] ED Physician Angelo Rangel HPI: 08/18 14:46 This 76 yrs old Female presents to ER via Ambulatory with complaints of Arm farhad Pain. Historical: - Allergies: 12:25 No Known Drug Allergies; fu - PMHx: 12:25 Hyperlipidemia; Hypertension; Hypothyroidism; insomnia; TIA; fu - Immunization history:: Client reports receiving the 2nd dose of the Covid vaccine. - Social history:: Smoking status: Patient denies any tobacco usage or history of. ROS: 14:47 Constitutional: Negative for fever, chills, and weight loss, Eyes: Negative for injury, farhad pain, redness, and discharge, ENT: Negative for injury, pain, and discharge, Neck: Negative for injury, pain, and swelling, Cardiovascular: Negative for chest pain, palpitations, and edema, Respiratory: Negative for shortness of breath, cough, wheezing, and pleuritic chest pain, Abdomen/GI: Negative for abdominal pain, nausea, vomiting, diarrhea, and constipation, Back: Negative for injury and pain, : Negative for injury, bleeding, discharge, and swelling, Skin: Negative for injury, rash, and discoloration, Neuro: Negative for headache, weakness, numbness, tingling, and seizure, Psych: Negative for depression, anxiety, suicide ideation, homicidal ideation, and hallucinations, Allergy/Immunology: Negative for hives, rash, and allergies, Endocrine: Negative for neck swelling, polydipsia, polyuria, polyphagia, and marked weight changes, Hematologic/Lymphatic: Negative for swollen nodes, abnormal bleeding, and unusual bruising. 14:47 MS/extremity: Positive for decreased range of motion, pain, tenderness, of the anterior aspect of left shoulder and posterior aspect of left shoulder. Exam: 14:47 Constitutional: This is a well developed, well nourished patient who is awake, alert, farhad and in no acute distress. Head/Face: Normocephalic, atraumatic. Eyes: Pupils equal round and reactive to light, extra-ocular motions intact. Lids and lashes normal. Conjunctiva and sclera are non-icteric and not injected. Cornea within normal limits. Periorbital areas with no swelling, redness, or edema. ENT: Nares patent. No nasal discharge, no septal abnormalities noted. Tympanic membranes are normal and external auditory canals are clear. Oropharynx with no redness, swelling, or masses, exudates, or evidence of obstruction, uvula midline. Mucous membranes moist. Neck: Trachea midline, no thyromegaly or masses palpated, and no cervical lymphadenopathy. Supple, full range of motion without nuchal rigidity, or vertebral point tenderness. No Meningismus. Chest/axilla: Normal chest wall appearance and motion. Nontender with no deformity. No lesions are appreciated. Cardiovascular: Regular rate and rhythm with a normal S1 and S2. No gallops, murmurs, or rubs. Normal PMI, no JVD. No pulse deficits. Respiratory: Lungs have equal breath sounds bilaterally, clear to auscultation and percussion. No rales, rhonchi or wheezes noted. No increased work of breathing, no retractions or nasal flaring. Abdomen/GI: Soft, non-tender, with normal bowel sounds. No distension or tympany. No guarding or rebound. No evidence of tenderness throughout. Back: No spinal tenderness. No costovertebral tenderness. Full range of motion. Female : Normal external genitalia. Skin: Warm, dry with normal turgor. Normal color with no rashes, no lesions, and no evidence of cellulitis. Neuro: Awake and alert, GCS 15, oriented to person, place, time, and situation. Cranial nerves II-XII grossly intact. Motor strength 5/5 in all extremities. Sensory grossly intact. Cerebellar exam normal. Normal gait. Psych: Awake, alert, with orientation to person, place and time. Behavior, mood, and affect are within normal limits. 14:47 Musculoskeletal/extremity: ROM: limited active range of motion due to pain, limited passive range of motion due to pain, in the anterior aspect of left shoulder, left bicep, posterior aspect of left shoulder and left tricep, Circulation is intact in all extremities. Sensation intact. Compartment Syndrome exam of affected extremity: no pain. Vital Signs: 12:28 Weight 61.23 kg; Pain 10/10; ll1 12:31 BP 133 / 88; Pulse 96; Resp 18; Pulse Ox 100% ; em6 13:30 BP 155 / 75; Pulse 71; Resp 18; Pulse Ox 97% on R/A; em6 14:45 BP 152 / 79; Pulse 66; Resp 18; Pulse Ox 100% on R/A; em6 MDM: 12:19 Patient medically screened. farhad 14:49 Differential diagnosis: dislocation, closed fracture, contusion, tendonitis. Data farhad reviewed: vital signs, nurses notes, lab test result(s), radiologic studies, plain films. Data interpreted: phototypesetting equipment monitor: not applicable for this patient encounter. rate is 71 beats/min, rhythm is regular, Pulse oximetry: on room air is 97 %. Test interpretation: by ED physician or midlevel provider: plain radiologic studies. Counseling: I had a detailed discussion with the patient and/or guardian regarding: the historical points, exam findings, and any diagnostic results supporting the discharge/admit diagnosis, lab results, radiology results, the need for outpatient follow up, for definitive care, a family practitioner, a orthopedic surgeon. 08/18 12:30 Order name: CBC with Diff; Complete Time: 14:41 [facility] 08/18 12:30 Order name: BMP; Complete Time: 14:41 [facility] 08/18 12:30 Order name: Shoulder Left (2 View) XRAY; Complete Time: 14:41 [facility] 08/18 12:30 Order name: Sling; Complete Time: 13:38 [facility] Administered Medications: 12:50 Drug: Valium (diazepam) 5 mg Route: PO; em6 13:21 Follow up: Response: No adverse reaction; RASS: Alert and Calm (0) em6 12:50 Drug: Ketorolac 30 mg Route: IVP; Site: right forearm; em6 13:21 Follow up: Response: No adverse reaction em6 12:50 Drug: Decadron - Dexamethasone 10 mg Route: IVP; Site: right forearm; em6 13:21 Follow up: Response: No adverse reaction em6 12:50 Drug: morphine 4 mg Route: IVP; Infused Over: 4 mins; Site: right forearm; em6 13:21 Follow up: Response: No adverse reaction; RASS: Alert and Calm (0) em6 12:50 Drug: Zofran (Ondansetron) 4 mg Route: IVP; Site: right forearm; em6 13:21 Follow up: Response: No adverse reaction em6 12:50 Drug: NS 0.9% 500 ml Route: IV; Rate: bolus; Site: right forearm; em6 13:21 Follow up: Response: No adverse reaction; IV Status: Completed infusion; IV Intake: em6 500ml Disposition Summary: 08/18/22 14:52 Discharge Ordered Location: Home farhad Problem: new farhad Symptoms: have improved farhad Condition: Stable farhad Diagnosis - Pain in left shoulder farhad - Strain of other muscles, fascia and tendons at shoulder and upper arm level, left farhad arm Followup: farhad - With: Art Wallis DO - When: 2 - 3 days - Reason: Recheck today's complaints, Continuance of care, Re-evaluation by your physician Followup: farhad - With: Fred Hardin MD - When: 2 - 3 days - Reason: Recheck today's complaints, Re-evaluation by your physician Discharge Instructions: - Discharge Summary Sheet farhad - Joint Pain farhad - Arthritis farhad - Musculoskeletal Pain farhad - Shoulder Pain farhad - Shoulder Pain, [id number] farhad - Joint Pain, [id number] farhad Forms: - Medication Reconciliation Form farhad - Thank You Letter farhad - Antibiotic Education farhad - Prescription Opioid Use [facility] Prescriptions: - Valium 5 mg Oral Tablet - take 1 tablet by ORAL route At bedtime As needed; 6 tablet; Refills: 0, Product farhad Selection Permitted - Medrol (Randell) 4 mg Oral Tablets, Dose Pack - take 1 tablet by ORAL route as directed - follow package instructions; 1 farhad packet; Refills: 0, Product Selection Permitted - Motrin IB 200 mg Oral Tablet - take 2 tablet by ORAL route every 6 hours As needed as needed with food; 30 farhad tablet; Refills: 0, Product Selection Permitted - Tylenol-Codeine #3 300 mg-30 mg Oral - take 2 tablet by ORAL route every 6 hours; 24 tablet; Refills: 0, Product farhad Selection Permitted Signatures: Dispatcher [employer] Angelo Jensen MD MD cha Umadhay, Felix, Odessa Lopez RN, RN RN em6
[2022-08-18 15:50] VITALS: BP 152/79; O2SAT 100
== END 2022-08-18 15:12 | disposition home or self-care (01) ==
LOC: ER 11:50
DX: M25.512 Pain in left shoulder (principal); S46.812A Strain of other muscles, fascia and tendons at shoulder and upper arm level, left arm, initial encounter
CPT/HCPCS: 96361; 85025; 80048; 36415; 73030; 96375; 96374; 99284; J1100; J7040; J2405

== ENCOUNTER 2022-09-19 20:59 | Emergency (ER) | payer OTHER ==
--- OUTSIDE RECORDS SUMMARY | 2022-09-19 21:06 | XMS REPORT | Continuity of Care Document ---
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 (Cyanocobal 4-11 S pirit obrien) obrien) 00:00: - [facility] Vitamin B12 Vitamin B12 2021-0 No 1000ug Common (Cyanocobal (Cyanocobal 4-11 S pirit obrien) obrien) 00:00: - [facility] Vitamin B12 Vitamin B12 2021-0 No 1000ug Common (Cyanocobal (Cyanocobal 4-11 S pirit obrien) obrien) 00:00: - [facility] Vitamin B12 Vitamin B12 2-0 No 1000ug Common (Cyanocobal (Cyanocobal 4-11 S pirit obrien) obrien) 00:00: - [facility] Vitamin B12 Vitamin B12 2022-0 No 1000ug Common (Cyanocobal (Cyanocobal 4-11 S pirit obrien) obrien) 00:00: - [facility] Vitamin B12 Vitamin B12 2022-0 No 1000ug Common (Cyanocobal (Cyanocobal 4-11 S pirit obrien) obrien) 00:00: - [facility] Vitamin B12 Vitamin B12 2022-0 No 1000ug Common (Cyanocobal (Cyanocobal 4-11 S pirit obrien) obrien) 00:00: - [facility] Vitamin B12 Vitamin B12 2022-0 No 1000ug Common (Cyanocobal (Cyanocobal 4-11 S pirit obrien) obrien) 00:00: - [facility] Vitamin B12 Vitamin B12 2022-0 No 1000ug Common (Cyanocobal (Cyanocobal 4-11 S pirit obrien) obrien) 00:00: - [facility] Vitamin B12 Vitamin B12 2022-0 No 1000ug Common (Cyanocobal (Cyanocobal 4-11 S pirit obrien) obrien) 00:00: - [facility] Vitamin B12 Vitamin B12 2-0 No 1000ug Common (Cyanocobal (Cyanocobal 2-21 S pirit obrien) obrien) 00:00: - [facility] Vitamin B12 Vitamin B12 2-0 No 1000ug Common (Cyanocobal (Cyanocobal 2-21 S pirit obrien) obrien) 00:00: - [facility] Vitamin B12 Vitamin B12 2022-0 No 1000ug Common (Cyanocobal (Cyanocobal 2-21 S pirit obrien) obrien) 00:00: - [facility] Vitamin B12 Vitamin B12 2-0 No 1000ug Common (Cyanocobal (Cyanocobal 2-21 S pirit obrien) obrien) 00:00: - [facility] Vitamin B12 Vitamin B12 2-0 No 1000ug Common (Cyanocobal (Cyanocobal 2-21 S pirit obrien) obrien) 00:00: - [facility] Vitamin B12 Vitamin B12 2-0 No 1000ug Common (Cyanocobal (Cyanocobal 2-21 S pirit obrien) obrien) 00:00: - [facility] Vitamin B12 Vitamin B12 2022-0 No 1000ug Common (Cyanocobal (Cyanocobal 2-21 S pirit obrien) obrien) 00:00: - [facility] Vitamin B12 Vitamin B12 2022-0 No 1000ug Common (Cyanocobal (Cyanocobal 2-21 S pirit obrien) obrien) 00:00: - [facility] Vitamin B12 Vitamin B12 2022-0 No 1000ug Common (Cyanocobal (Cyanocobal 2-21 S pirit obrien) obrien) 00:00: - [facility] Vitamin B12 Vitamin B12 2022-0 No 1000ug Common (Cyanocobal (Cyanocobal 2-21 S pirit obrien) obrien) 00:00: - [facility] Vitamin B12 Vitamin B12 2022-0 No 1000ug Common (Cyanocobal (Cyanocobal 2-21 S pirit obrien) obrien) 00:00: - [facility] Vitamin B12 Vitamin B12 2022-0 No 1000ug Common (Cyanocobal (Cyanocobal 2-21 S pirit obrien) obrien) 00:00: - [facility] Vitamin B12 Vitamin B12 2022-0 No 1000ug Common (Cyanocobal (Cyanocobal 2-21 S pirit obrien) obrien) 00:00: - [facility] Vitamin B12 Vitamin B12 2022-0 No 1000ug Common (Cyanocobal (Cyanocobal 2-21 S pirit obrien) obrien) 00:00: - [facility] Vitamin B12 Vitamin B12 2022-0 No 1000ug Common (Cyanocobal (Cyanocobal 2-21 S pirit obrien) obrien) 00:00: - [facility] Vitamin B12 Vitamin B12 2022-0 No 1000ug Common (Cyanocobal (Cyanocobal 2-21 S pirit obrien) obrien) 00:00: - [facility] Vitamin B12 Vitamin B12 2-0 No 1000ug Common (Cyanocobal (Cyanocobal 2-21 S pirit obrien) obrien) 00:00: - [facility] Vitamin B12 Vitamin B12 2022-0 No 1000ug Common (Cyanocobal (Cyanocobal 2-21 S pirit obrien) obrien) 00:00: - [facility] Vitamin B12 Vitamin B12 2022-0 No 1000ug Common (Cyanocobal (Cyanocobal 2-21 S pirit obrien) obrien) 00:00: - [facility] Vitamin B12 Vitamin B12 2022-0 No 1000ug Common (Cyanocobal (Cyanocobal 2-21 S pirit obrien) obrien) 00:00: - [facility] Vitamin B12 Vitamin B12 2022-0 No 1000ug Common (Cyanocobal (Cyanocobal 2-21 S pirit obrien) obrien) 00:00: - [facility] Vitamin B12 Vitamin B12 2022-0 No 1000ug Common (Cyanocobal (Cyanocobal 2-21 S pirit obrien) obrien) 00:00: - [facility] Vitamin B12 Vitamin B12 2-0 No 1000ug Common (Cyanocobal (Cyanocobal 1-07 S pirit obrien) obrien) 00:00: - [facility] Vitamin B12 Vitamin B12 2022-0 No 1000ug Common (Cyanocobal (Cyanocobal 1-07 S pirit obrien) obrien) 00:00: - [facility] Vitamin B12 Vitamin B12 2022-0 No 1000ug Common (Cyanocobal (Cyanocobal 1-07 S pirit obrien) obrien) 00:00: - [facility] Vitamin B12 Vitamin B12 2-0 No 1000ug Common (Cyanocobal (Cyanocobal 1-07 S pirit obrien) obrien) 00:00: - [facility] Vitamin B12 Vitamin B12 2-0 No 1000ug Common (Cyanocobal (Cyanocobal 1-07 S pirit obrien) obrien) 00:00: - [facility] Vitamin B12 Vitamin B12 2-0 No 1000ug Common (Cyanocobal (Cyanocobal 1-07 S pirit obrien) obrien) 00:00: - [facility] Vitamin B12 Vitamin B12 2-0 No 1000ug Common (Cyanocobal (Cyanocobal 1-07 S pirit obrien) obrien) 00:00: - [facility] Vitamin B12 Vitamin B12 2-0 No 1000ug Common (Cyanocobal (Cyanocobal 1-07 S pirit obrien) obrien) 00:00: - [facility] Vitamin B12 Vitamin B12 2022-0 No 1000ug Common (Cyanocobal (Cyanocobal 1-07 S pirit obrien) obrien) 00:00: - [facility] Vitamin B12 Vitamin B12 2022-0 No 1000ug Common (Cyanocobal (Cyanocobal 1-07 S pirit obrien) obrien) 00:00: - [facility] Vitamin B12 Vitamin B12 2022-0 No 1000ug Common (Cyanocobal (Cyanocobal 1-07 S pirit obrien) obrien) 00:00: - [facility] Vitamin B12 Vitamin B12 2022-0 No 1000ug Common (Cyanocobal (Cyanocobal 1-07 S pirit obrien) obrien) 00:00: - [facility] Vitamin B12 Vitamin B12 2-0 No 1000ug Common (Cyanocobal (Cyanocobal 1-07 S pirit obrien) obrien) 00:00: - [facility] Vitamin B12 Vitamin B12 2-0 No 1000ug Common (Cyanocobal (Cyanocobal 1-07 S pirit obrien) obrien) 00:00: - [facility] Vitamin B12 Vitamin B12 2021-0 No 1000ug Common (Cyanocobal (Cyanocobal 1-07 S pirit obrien) obrien) 00:00: - [facility] Vitamin B12 Vitamin B12 2021-0 No 1000ug Common (Cyanocobal (Cyanocobal 1-07 S pirit obrien) obrien) 00:00: - [facility] Vitamin B12 Vitamin B12 2021-0 No 1000ug Common (Cyanocobal (Cyanocobal 1-07 S pirit obrien) obrien) 00:00: - [facility] Vitamin B12 Vitamin B12 2021-0 No 1000ug Common (Cyanocobal (Cyanocobal 1-07 S pirit obrien) obrien) 00:00: - [facility] Vitamin B12 Vitamin B12 2-0 No 1000ug Common (Cyanocobal (Cyanocobal 1-07 S pirit obrien) obrien) 00:00: - [facility] Vitamin B12 Vitamin B12 2-0 No 1000ug Common (Cyanocobal (Cyanocobal 1-07 S pirit obrien) obrien) 00:00: - [facility] Vitamin B12 Vitamin B12 2-0 No 1000ug Common (Cyanocobal (Cyanocobal 1-07 S pirit obrien) obrien) 00:00: - [facility] Vitamin B12 Vitamin B12 2022-0 No 1000ug Common (Cyanocobal (Cyanocobal 1-07 S pirit obrien) obrien) 00:00: - [facility] Vitamin B12 Vitamin B12 1-1 No 1000ug Common (Cyanocobal (Cyanocobal 2-22 S pirit obrien) obrien) 00:00: - [facility] Vitamin B12 Vitamin B12 2020-11 No 1000ug Common (Cyanocobal (Cyanocobal 2-22 S pirit obrien) obrien) 00:00: - [facility] Vitamin B12 Vitamin B12 2020-11 No 1000ug Common (Cyanocobal (Cyanocobal 2-22 S pirit obrien) obrien) 00:00: - [facility] Vitamin B12 Vitamin B12 2020-11 No 1000ug Common (Cyanocobal (Cyanocobal 2-22 S pirit obrien) obrien) 00:00: - [facility] Vitamin B12 Vitamin B12 2020-11 No 1000ug Common (Cyanocobal (Cyanocobal 2-22 S pirit obrien) obrien) 00:00: - [facility] Vitamin B12 Vitamin B12 2020-11 No 1000ug Common (Cyanocobal (Cyanocobal 2-22 S pirit obrien) obrien) 00:00: - [facility] Vitamin B12 Vitamin B12 2020-11 No 1000ug Common (Cyanocobal (Cyanocobal 2-22 S pirit obrien) obrien) 00:00: - [facility] Vitamin B12 Vitamin B12 2020-11 No 1000ug Common (Cyanocobal (Cyanocobal 2-22 S pirit obrien) obrien) 00:00: - [facility] Vitamin B12 Vitamin B12 2020-11 No 1000ug Common (Cyanocobal (Cyanocobal 2-22 S pirit obrien) obrien) 00:00: - [facility] Vitamin B12 Vitamin B12 2020-11 No 1000ug Common (Cyanocobal (Cyanocobal 2-22 S pirit obrien) obrien) 00:00: - [facility] Vitamin B12 Vitamin B12 2020-11 No 1000ug Common (Cyanocobal (Cyanocobal 2-22 S pirit obrien) obrien) 00:00: - [facility] Vitamin B12 Vitamin B12 2020-11 No 1000ug Common (Cyanocobal (Cyanocobal 2-22 S pirit obrien) obrien) 00:00: - [facility] Vitamin B12 Vitamin B12 2020-11 No 1000ug Common (Cyanocobal (Cyanocobal 2-22 S pirit obrien) obrien) 00:00: - [facility] Vitamin B12 Vitamin B12 2020-11 No 1000ug Common (Cyanocobal (Cyanocobal 2-22 S pirit obrien) obrien) 00:00: - [facility] Vitamin B12 Vitamin B12 2020-11 No 1000ug Common (Cyanocobal (Cyanocobal 2-22 S pirit obrien) obrien) 00:00: - [facility] Vitamin B12 Vitamin B12 2020-11 No 1000ug Common (Cyanocobal (Cyanocobal 2-22 S pirit obrien) obrien) 00:00: - [facility] Vitamin B12 Vitamin B12 2020-11 No 1000ug Common (Cyanocobal (Cyanocobal 2-22 S pirit obrien) obrien) 00:00: - [facility] Vitamin B12 Vitamin B12 2020-11 No 1000ug Common (Cyanocobal (Cyanocobal 2-22 S pirit obrien) obrien) 00:00: - [facility] Vitamin B12 Vitamin B12 2020-11 No 1000ug Common (Cyanocobal (Cyanocobal 2-22 S pirit obrien) obrien) 00:00: - [facility] Vitamin B12 Vitamin B12 2020-11 No 1000ug Common (Cyanocobal (Cyanocobal 2-22 S pirit obrien) obrien) 00:00: - [facility] Vitamin B12 Vitamin B12 2020-11 No 1000ug Common (Cyanocobal (Cyanocobal 2-22 S pirit obrien) obrien) 00:00: - [facility] Vitamin B12 Vitamin B12 2020-11 No 1000ug Common (Cyanocobal (Cyanocobal 2-22 S pirit obrien) obrien) 00:00: - [facility] zinc 0 Yes 220mg QD Take 220 [facility] sulfate 3-[address] (ZINCATE) 18:05: [facility] 220 (50) mg 38 daily. l capsule lisinopriL 0 Yes 20mg QD Take 20 mg M [facility]i (PRINIVIL) 3-[address] 20 mg 18:05: [facility] tablet 38 morning. l levothyroxi 0 Yes 100ug QD Take 100 M ethodi ne 3-[address] (SYNTHROID) 18:05: [facility] 100 mcg 38 daily. l tablet atorvastati 2020-0 Yes 40mg QD Take 40 mg Methodi n (LIPITOR) 3-[address] 40 mg 18:05: [facility] tablet 38 evening. l QUEtiapine 2020-0 Yes 200mg QD Take 200 [facility] (SEROquel) 3-[address] 200 MG 18:05: [facility] tablet 38 nightly. l For sleep zinc 2020-0 Yes 220mg QD Take 220 [facility] sulfate 3-[address] (ZINCATE) 18:05: [facility] 220 (50) mg 38 daily. l capsule lisinopriL 2020-0 Yes 20mg QD Take 20 mg M ethodi (PRINIVIL) 3-[address] 20 mg 18:05: [facility] tablet 38 morning. l levothyroxi 2020-0 Yes 100ug QD Take 100 M ethodi ne 3-[address] (SYNTHROID) 18:05: [facility] 100 mcg 38 daily. l tablet atorvastati 2020-0 Yes 40mg QD Take 40 mg [facility] n (LIPITOR) 3-[address] 40 mg 18:05: [facility] tablet 38 evening. l levothyroxi 2020-0 Yes 100ug QD Take 100 M ethodi ne 3-[address] (SYNTHROID) 18:05: [facility] 100 mcg 38 daily. l tablet atorvastati 2020-0 Yes 40mg QD Take 40 mg Method[facility] n (LIPITOR) 3-[address] 40 mg 18:05: [facility] tablet 38 evening. l QUEtiapine 2020-0 Yes 200mg QD Take 200 [facility] (SEROquel) 3-[address] 200 MG 18:05: [facility] tablet 38 nightly. l For sleep QUEtiapine 1-0 Yes 200mg QD Take 200 [facility] (SEROquel) 3-[address] 200 MG 18:05: [facility] tablet 38 nightly. l For sleep zinc 1-0 Yes 220mg QD Take 220 Methodi sulfate [...] Calcium 40 MG 40 MG 40 MG Sertraline Sertraline No 1{table [...] Fumarate 200 MG 200 MG 200 MG Levothyroxi Levothyroxi No Levothyrox ne Sodium ne Sodium ine Sodium 100 MCG 100 MCG 100 MCG Atorvastati Atorvastati No Atorvastat n Calcium n Calcium in Calcium 40 MG 40 MG 40 MG Sertraline Sertraline No 1{table QD Sertraline HCl 50 MG HCl 50 MG t} HCl 50 MG busPIRone busPIRone No 1{table BID busPIRone HCl 5 MG HCl 5 MG t} HCl 5 MG Aspirin Low Aspirin Low No Aspirin Dose 81 MG Dose 81 MG Low Dose 81 MG Zinc Zinc No Zinc Sulfate 220 Sulfate 220 Sulfate (50 Zn) MG (50 Zn) MG 220 (50 Zn) MG Levothyroxi Levothyroxi No QD Levothyrox ne Sodium ne Sodium ine Sodium 75 MCG 75 MCG 75 MCG Acetaminoph Acetaminoph No Acetaminop en-Codeine en-Codeine hen-Codein #3 300-30 #3 300-30 e #3 MG MG 300-30 MG rOPINIRole rOPINIRole No rOPINIRole HCl 0.5 MG HCl 0.5 MG HCl 0.5 MG Clopidogrel Clopidogrel No 1{table QD Clopidogre Bisulfate Bisulfate t} l 75 MG 75 MG Bisulfate 75 MG Diclofenac Diclofenac No Diclofenac Sodium 1 % Sodium 1 % Sodium 1 % Lisinopril- Lisinopril- No Lisinopril hydroCHLORO hydroCHLORO -hydroCHLO thiazide thiazide ROthiazide 20-12.5 MG 20-12.5 MG 20-12.5 MG Lisinopril- Lisinopril- No 1{table QD Lisinopril hydroCHLORO hydroCHLORO t} -hydroCHLO thiazide thiazide ROthiazide 20-12.5 MG 20-12.5 MG 20-12.5 MG rOPINIRole rOPINIRole No QD rOPINIRole HCl 0.5 MG HCl 0.5 MG HCl 0.5 MG QUEtiapine QUEtiapine No QD QUEtiapine Fumarate Fumarate Fumarate 200 MG 200 MG 200 MG Sertraline Sertraline No 1{table QD Sertraline HCl 100 MG HCl 100 MG t} HCl 100 MG HYDROcodone HYDROcodone No HYDROcodon -Acetaminop -Acetaminop e-Acetamin hen 7.5-325 hen 7.5-325 ophen MG MG 7.5-325 MG Clopidogrel Clopidogrel No Clopidogre Bisulfate Bisulfate l 75 MG 75 MG Bisulfate 75 MG Pantoprazol Pantoprazol No 1{table QD Pantoprazo e Sodium 40 e Sodium 40 t} le Sodium MG MG 40 MG QUEtiapine QUEtiapine No QD QUEtiapine Fumarate Fumarate Fumarate 200 MG 200 MG 200 MG Levothyroxi Levothyroxi No Levothyrox ne Sodium ne Sodium ine Sodium 100 MCG 100 MCG 100 MCG Atorvastati Atorvastati No Atorvastat n Calcium n Calcium in Calcium 40 MG 40 MG 40 MG Sertraline Sertraline No 1{table QD Sertraline HCl 50 MG HCl 50 MG t} HCl 50 MG busPIRone busPIRone No 1{table BID busPIRone HCl 5 MG HCl 5 MG t} HCl 5 MG Aspirin Low Aspirin Low No Aspirin Dose 81 MG Dose 81 MG Low Dose 81 MG Zinc Zinc No Zinc Sulfate 220 Sulfate 220 Sulfate (50 Zn) MG (50 Zn) MG 220 (50 Zn) MG Levothyroxi Levothyroxi No QD Levothyrox ne Sodium ne Sodium ine Sodium 75 MCG 75 MCG 75 MCG Acetaminoph Acetaminoph No Acetaminop en-Codeine en-Codeine hen-Codein #3 300-30 #3 300-30 e #3 MG MG 300-30 MG rOPINIRole rOPINIRole No rOPINIRole HCl 0.5 MG HCl 0.5 MG HCl 0.5 MG Clopidogrel Clopidogrel No 1{table QD Clopidogre Bisulfate Bisulfate t} l 75 MG 75 MG Bisulfate 75 MG Diclofenac Diclofenac No Diclofenac Sodium 1 % Sodium 1 % Sodium 1 % Lisinopril- Lisinopril- No Lisinopril hydroCHLORO hydroCHLORO -hydroCHLO thiazide thiazide ROthiazide 20-12.5 MG 20-12.5 MG 20-12.5 MG Lisinopril- Lisinopril- No 1{table QD Lisinopril hydroCHLORO hydroCHLORO t} -hydroCHLO thiazide thiazide ROthiazide 20-12.5 MG 20-12.5 MG 20-12.5 MG rOPINIRole rOPINIRole No QD rOPINIRole HCl 0.5 MG HCl 0.5 MG HCl 0.5 MG QUEtiapine QUEtiapine No QD QUEtiapine Fumarate Fumarate Fumarate 200 MG 200 MG 200 MG Sertraline Sertraline No 1{table QD Sertraline HCl 100 MG HCl 100 MG t} HCl 100 MG HYDROcodone HYDROcodone No HYDROcodon -Acetaminop -Acetaminop e-Acetamin hen 7.5-325 hen 7.5-325 ophen MG MG 7.5-325 MG Clopidogrel Clopidogrel No Clopidogre Bisulfate Bisulfate l 75 MG 75 MG Bisulfate 75 MG Pantoprazol Pantoprazol No 1{table QD Pantoprazo e Sodium 40 e Sodium 40 t} le Sodium MG MG 40 MG Zinc Zinc No Zinc Sulfate 220 Sulfate 220 Sulfate (50 Zn) MG (50 Zn) MG 220 (50 Zn) MG Aspirin Low Aspirin Low No Aspirin Dose 81 MG Dose 81 MG Low Dose 81 MG HYDROcodone HYDROcodone No HYDROcodon -Acetaminop -Acetaminop e-Acetamin hen 7.5-325 hen 7.5-325 ophen MG MG 7.5-325 MG Acetaminoph Acetaminoph No Acetaminop en-Codeine en-Codeine hen-Codein #3 300-30 #3 300-30 e #3 MG MG 300-30 MG Sertraline Sertraline No 1{table QD Sertraline HCl 50 MG HCl 50 MG t} HCl 50 MG Clopidogrel Clopidogrel No 1{table QD Clopidogre Bisulfate Bisulfate t} l 75 MG 75 MG Bisulfate 75 MG Levothyroxi Levothyroxi No QD Levothyrox ne Sodium ne Sodium ine Sodium 75 MCG 75 MCG 75 MCG Diclofenac Diclofenac No Diclofenac Sodium 1 % Sodium 1 % Sodium 1 % Lisinopril- Lisinopril- No Lisinopril hydroCHLORO hydroCHLORO -hydroCHLO thiazide thiazide ROthiazide 20-12.5 MG 20-12.5 MG 20-12.5 MG QUEtiapine QUEtiapine No QUEtiapine Fumarate Fumarate Fumarate 200 MG 200 MG 200 MG busPIRone busPIRone No 1{table BID busPIRone HCl 5 MG HCl 5 MG t} HCl 5 MG Clopidogrel Clopidogrel No Clopidogre Bisulfate Bisulfate l 75 MG 75 MG Bisulfate 75 MG rOPINIRole rOPINIRole No rOPINIRole HCl 0.5 MG HCl 0.5 MG HCl 0.5 MG Pantoprazol Pantoprazol No 1{table QD Pantoprazo e Sodium 40 e Sodium 40 t} le Sodium MG MG 40 MG Atorvastati Atorvastati No Atorvastat n Calcium n Calcium in Calcium 40 MG 40 MG 40 MG QUEtiapine QUEtiapine No QD QUEtiapine Fumarate Fumarate Fumarate 200 MG 200 MG 200 MG Zinc Zinc No Zinc Sulfate 220 Sulfate 220 Sulfate (50 Zn) MG (50 Zn) MG 220 (50 Zn) MG Aspirin Low Aspirin Low No Aspirin Dose 81 MG Dose 81 MG Low Dose 81 MG HYDROcodone HYDROcodone No HYDROcodon -Acetaminop -Acetaminop e-Acetamin hen 7.5-325 hen 7.5-325 ophen MG MG 7.5-325 MG Acetaminoph Acetaminoph No Acetaminop en-Codeine en-Codeine hen-Codein #3 300-30 #3 300-30 e #3 MG MG 300-30 MG Sertraline Sertraline No 1{table QD Sertraline HCl 50 MG HCl 50 MG t} HCl 50 MG Clopidogrel Clopidogrel No 1{table QD Clopidogre Bisulfate Bisulfate t} l 75 MG 75 MG Bisulfate 75 MG Levothyroxi Levothyroxi No QD Levothyrox ne Sodium ne Sodium ine Sodium 75 MCG 75 MCG 75 MCG Diclofenac Diclofenac No Diclofenac Sodium 1 % Sodium 1 % Sodium 1 % Lisinopril- Lisinopril- No Lisinopril hydroCHLORO hydroCHLORO -hydroCHLO thiazide thiazide ROthiazide 20-12.5 MG 20-12.5 MG 20-12.5 MG QUEtiapine QUEtiapine No QUEtiapine Fumarate Fumarate Fumarate 200 MG 200 MG 200 MG busPIRone busPIRone No 1{table BID busPIRone HCl 5 MG HCl 5 MG t} HCl 5 MG Clopidogrel Clopidogrel No Clopidogre Bisulfate Bisulfate l 75 MG 75 MG Bisulfate 75 MG rOPINIRole rOPINIRole No rOPINIRole HCl 0.5 MG HCl 0.5 MG HCl 0.5 MG Pantoprazol Pantoprazol No 1{table QD Pantoprazo e Sodium 40 e Sodium 40 t} le Sodium MG MG 40 MG Atorvastati Atorvastati No Atorvastat n Calcium n Calcium in Calcium 40 MG 40 MG 40 MG QUEtiapine QUEtiapine No QD QUEtiapine Fumarate Fumarate Fumarate 200 MG 200 MG 200 MG QUEtiapine QUEtiapine No QD QUEtiapine Fumarate Fumarate Fumarate 200 MG 200 MG 200 MG Zinc Zinc No Zinc Sulfate 220 Sulfate 220 Sulfate (50 Zn) MG (50 Zn) MG 220 (50 Zn) MG HYDROcodone HYDROcodone No HYDROcodon -Acetaminop -Acetaminop e-Acetamin hen 7.5-325 hen 7.5-325 ophen MG MG 7.5-325 MG Acetaminoph Acetaminoph No Acetaminop en-Codeine en-Codeine hen-Codein #3 300-30 #3 300-30 e #3 MG MG 300-30 MG Sertraline Sertraline No 1{table QD Sertraline HCl 50 MG HCl 50 MG t} HCl 50 MG Clopidogrel Clopidogrel No 1{table QD Clopidogre Bisulfate Bisulfate t} l 75 MG 75 MG Bisulfate 75 MG Levothyroxi Levothyroxi No QD Levothyrox ne Sodium ne Sodium ine Sodium 75 MCG 75 MCG 75 MCG Diclofenac Diclofenac No Diclofenac Sodium 1 % Sodium 1 % Sodium 1 % Lisinopril- Lisinopril- No Lisinopril hydroCHLORO hydroCHLORO -hydroCHLO thiazide thiazide ROthiazide 20-12.5 MG 20-12.5 MG 20-12.5 MG QUEtiapine QUEtiapine No QUEtiapine Fumarate Fumarate Fumarate 200 MG 200 MG 200 MG busPIRone busPIRone No 1{table BID busPIRone HCl 5 MG HCl 5 MG t} HCl 5 MG Clopidogrel Clopidogrel No Clopidogre Bisulfate Bisulfate l 75 MG 75 MG Bisulfate 75 MG rOPINIRole rOPINIRole No rOPINIRole HCl 0.5 MG HCl 0.5 MG HCl 0.5 MG Pantoprazol Pantoprazol No 1{table QD Pantoprazo e Sodium 40 e Sodium 40 t} le Sodium MG MG 40 MG Atorvastati Atorvastati No Atorvastat n Calcium n Calcium in Calcium 40 MG 40 MG 40 MG Aspirin Low Aspirin Low No Aspirin Dose 81 MG Dose 81 MG Low Dose 81 MG Aspirin Low Aspirin Low No Aspirin Dose 81 MG Dose 81 MG Low Dose 81 MG Zinc Zinc No Zinc Sulfate 220 Sulfate 220 Sulfate (50 Zn) MG (50 Zn) MG 220 (50 Zn) MG Pantoprazol Pantoprazol No 1{table QD Pantoprazo e Sodium 40 e Sodium 40 t} le Sodium MG MG 40 MG Lisinopril- Lisinopril- No Lisinopril hydroCHLORO hydroCHLORO -hydroCHLO thiazide thiazide ROthiazide 20-12.5 MG 20-12.5 MG 20-12.5 MG rOPINIRole rOPINIRole No rOPINIRole HCl 0.5 MG HCl 0.5 MG HCl 0.5 MG HYDROcodone HYDROcodone No HYDROcodon -Acetaminop -Acetaminop e-Acetamin hen 7.5-325 hen 7.5-325 ophen MG MG 7.5-325 MG Diclofenac Diclofenac No Diclofenac Sodium 1 % Sodium 1 % Sodium 1 % Atorvastati Atorvastati No Atorvastat n Calcium n Calcium in Calcium 40 MG 40 MG 40 MG Clopidogrel Clopidogrel No 1{table QD Clopidogre Bisulfate Bisulfate t} l 75 MG 75 MG Bisulfate 75 MG QUEtiapine QUEtiapine No QD QUEtiapine Fumarate Fumarate Fumarate 200 MG 200 MG 200 MG Acetaminoph Acetaminoph No Acetaminop en-Codeine en-Codeine hen-Codein #3 300-30 #3 300-30 e #3 MG MG 300-30 MG busPIRone busPIRone No 1{table BID busPIRone HCl 5 MG HCl 5 MG t} HCl 5 MG Clopidogrel Clopidogrel No Clopidogre Bisulfate Bisulfate l 75 MG 75 MG Bisulfate 75 MG Levothyroxi Levothyroxi No QD Levothyrox ne Sodium ne Sodium ine Sodium 75 MCG 75 MCG 75 MCG Sertraline Sertraline No 1{table QD Sertraline HCl 50 MG HCl 50 MG t} HCl 50 MG QUEtiapine QUEtiapine No QUEtiapine Fumarate Fumarate Fumarate 200 MG 200 MG 200 MG Aspirin Low Aspirin Low No Aspirin Dose 81 MG Dose 81 MG Low Dose 81 MG Zinc Zinc No Zinc Sulfate 220 Sulfate 220 Sulfate (50 Zn) MG (50 Zn) MG 220 (50 Zn) MG Pantoprazol Pantoprazol No 1{table QD Pantoprazo e Sodium 40 e Sodium 40 t} le Sodium MG MG 40 MG Lisinopril- Lisinopril- No Lisinopril hydroCHLORO hydroCHLORO -hydroCHLO thiazide thiazide ROthiazide 20-12.5 MG 20-12.5 MG 20-12.5 MG rOPINIRole rOPINIRole No rOPINIRole HCl 0.5 MG HCl 0.5 MG HCl 0.5 MG HYDROcodone HYDROcodone No HYDROcodon -Acetaminop -Acetaminop e-Acetamin hen 7.5-325 hen 7.5-325 ophen MG MG 7.5-325 MG Diclofenac Diclofenac No Diclofenac Sodium 1 % Sodium 1 % Sodium 1 % Atorvastati Atorvastati No Atorvastat n Calcium n Calcium in Calcium 40 MG 40 MG 40 MG Clopidogrel Clopidogrel No 1{table QD Clopidogre Bisulfate Bisulfate t} l 75 MG 75 MG Bisulfate 75 MG QUEtiapine QUEtiapine No QD QUEtiapine Fumarate Fumarate Fumarate 200 MG 200 MG 200 MG Acetaminoph Acetaminoph No Acetaminop en-Codeine en-Codeine hen-Codein #3 300-30 #3 300-30 e #3 MG MG 300-30 MG busPIRone busPIRone No 1{table BID busPIRone HCl 5 MG HCl 5 MG t} HCl 5 MG Clopidogrel Clopidogrel No Clopidogre Bisulfate Bisulfate l 75 MG 75 MG Bisulfate 75 MG Levothyroxi Levothyroxi No QD Levothyrox ne Sodium ne Sodium ine Sodium 75 MCG 75 MCG 75 MCG Sertraline Sertraline No 1{table QD Sertraline HCl 50 MG HCl 50 MG t} HCl 50 MG QUEtiapine QUEtiapine No QUEtiapine Fumarate Fumarate Fumarate 200 MG 200 MG 200 MG QUEtiapine QUEtiapine No QUEtiapine Fumarate Fumarate Fumarate 200 MG 200 MG 200 MG Zinc Zinc No Zinc Sulfate 220 Sulfate 220 Sulfate (50 Zn) MG (50 Zn) MG 220 (50 Zn) MG busPIRone busPIRone No 1{table BID busPIRone HCl 5 MG HCl 5 MG t} HCl 5 MG Aspirin Low Aspirin Low No Aspirin Dose 81 MG Dose 81 MG Low Dose 81 MG HYDROcodone HYDROcodone No HYDROcodon -Acetaminop -Acetaminop e-Acetamin hen 7.5-325 hen 7.5-325 ophen MG MG 7.5-325 MG Diclofenac Diclofenac No Diclofenac Sodium 1 % Sodium 1 % Sodium 1 % rOPINIRole rOPINIRole No rOPINIRole HCl 0.5 MG HCl 0.5 MG HCl 0.5 MG Levothyroxi Levothyroxi No Levothyrox ne Sodium ne Sodium ine Sodium 100 MCG 100 MCG 100 MCG Clopidogrel Clopidogrel No 1{table QD Clopidogre Bisulfate Bisulfate t} l 75 MG 75 MG Bisulfate 75 MG Pantoprazol Pantoprazol No 1{table QD Pantoprazo e Sodium 40 e Sodium 40 t} le Sodium MG MG 40 MG Lisinopril- Lisinopril- No Lisinopril hydroCHLORO hydroCHLORO -hydroCHLO thiazide thiazide ROthiazide 20-12.5 MG 20-12.5 MG 20-12.5 MG Clopidogrel Clopidogrel No Clopidogre Bisulfate Bisulfate l 75 MG 75 MG Bisulfate 75 MG Sertraline Sertraline No 1{table QD Sertraline HCl 50 MG HCl 50 MG t} HCl 50 MG Atorvastati Atorvastati No Atorvastat n Calcium n Calcium in Calcium 40 MG 40 MG 40 MG Levothyroxi Levothyroxi No QD Levothyrox ne Sodium ne Sodium ine Sodium 75 MCG 75 MCG 75 MCG QUEtiapine QUEtiapine No QD QUEtiapine Fumarate Fumarate Fumarate 200 MG 200 MG 200 MG Acetaminoph Acetaminoph No Acetaminop en-Codeine en-Codeine hen-Codein #3 300-30 #3 300-30 e #3 MG MG 300-30 MG busPIRone busPIRone No 1{table BID busPIRone HCl 5 MG HCl 5 MG t} HCl 5 MG Zinc Zinc No Zinc Sulfate 220 Sulfate 220 Sulfate (50 Zn) MG (50 Zn) MG 220 (50 Zn) MG Acetaminoph Acetaminoph No Acetaminop en-Codeine en-Codeine hen-Codein #3 300-30 #3 300-30 e #3 MG MG 300-30 MG Clopidogrel Clopidogrel No 1{table QD Clopidogre Bisulfate Bisulfate t} l 75 MG 75 MG Bisulfate 75 MG HYDROcodone HYDROcodone No HYDROcodon -Acetaminop -Acetaminop e-Acetamin hen 7.5-325 hen 7.5-325 ophen MG MG 7.5-325 MG Levothyroxi Levothyroxi No QD Levothyrox ne Sodium ne Sodium ine Sodium 75 MCG 75 MCG 75 MCG Levothyroxi Levothyroxi No Levothyrox ne Sodium ne Sodium ine Sodium 100 MCG 100 MCG 100 MCG Sertraline Sertraline No 1{table QD Sertraline HCl 50 MG HCl 50 MG t} HCl 50 MG Atorvastati Atorvastati No Atorvastat n Calcium n Calcium in Calcium 40 MG 40 MG 40 MG Lisinopril- Lisinopril- No Lisinopril hydroCHLORO hydroCHLORO -hydroCHLO thiazide thiazide ROthiazide 20-12.5 MG 20-12.5 MG 20-12.5 MG QUEtiapine QUEtiapine No QUEtiapine Fumarate Fumarate Fumarate 200 MG 200 MG 200 MG Clopidogrel Clopidogrel No Clopidogre Bisulfate Bisulfate l 75 MG 75 MG Bisulfate 75 MG QUEtiapine QUEtiapine No QD QUEtiapine Fumarate Fumarate Fumarate 200 MG 200 MG 200 MG rOPINIRole rOPINIRole No rOPINIRole HCl 0.5 MG HCl 0.5 MG HCl 0.5 MG Pantoprazol Pantoprazol No 1{table QD Pantoprazo e Sodium 40 e Sodium 40 t} le Sodium MG MG 40 MG Diclofenac Diclofenac No Diclofenac Sodium 1 % Sodium 1 % Sodium 1 % Aspirin Low Aspirin Low No Aspirin Dose 81 MG Dose 81 MG Low Dose 81 MG QUEtiapine QUEtiapine No QD QUEtiapine Fumarate Fumarate Fumarate 200 MG 200 MG 200 MG Aspirin Low Aspirin Low No Aspirin Dose 81 MG Dose 81 MG Low Dose 81 MG HYDROcodone HYDROcodone No HYDROcodon -Acetaminop -Acetaminop e-Acetamin hen 7.5-325 hen 7.5-325 ophen MG MG 7.5-325 MG Levothyroxi Levothyroxi No Levothyrox ne Sodium ne Sodium ine Sodium 100 MCG 100 MCG 100 MCG Aspirin Low Aspirin Low No Aspirin Dose 81 MG Dose 81 MG Low Dose 81 MG busPIRone busPIRone No 1{table BID busPIRone HCl 5 MG HCl 5 MG t} HCl 5 MG QUEtiapine QUEtiapine No QUEtiapine Fumarate Fumarate Fumarate 200 MG 200 MG 200 MG Levothyroxi Levothyroxi No Levothyrox ne Sodium ne Sodium ine Sodium 100 MCG 100 MCG 100 MCG Clopidogrel Clopidogrel No Clopidogre Bisulfate Bisulfate l 75 MG 75 MG Bisulfate 75 MG Clopidogrel Clopidogrel No Clopidogre Bisulfate Bisulfate l 75 MG 75 MG Bisulfate 75 MG Diclofenac Diclofenac No Diclofenac Sodium 1 % Sodium 1 % Sodium 1 % rOPINIRole rOPINIRole No rOPINIRole HCl 0.5 MG HCl 0.5 MG HCl 0.5 MG Sertraline Sertraline No 1{table QD Sertraline HCl 50 MG HCl 50 MG t} HCl 50 MG HYDROcodone HYDROcodone No HYDROcodon -Acetaminop -Acetaminop e-Acetamin hen 7.5-325 hen 7.5-325 ophen MG MG 7.5-325 MG Acetaminoph Acetaminoph No Acetaminop en-Codeine en-Codeine hen-Codein #3 300-30 #3 300-30 e #3 MG MG 300-30 MG Pantoprazol Pantoprazol No 1{table QD Pantoprazo e Sodium 40 e Sodium 40 t} le Sodium MG MG 40 MG Levothyroxi Levothyroxi No QD Levothyrox ne Sodium ne Sodium ine Sodium 75 MCG 75 MCG 75 MCG Clopidogrel Clopidogrel No 1{table QD Clopidogre Bisulfate Bisulfate t} l 75 MG 75 MG Bisulfate 75 MG Atorvastati Atorvastati No Atorvastat n Calcium n Calcium in Calcium 40 MG 40 MG 40 MG Diclofenac Diclofenac No Diclofenac Sodium 1 % Sodium 1 % Sodium 1 % Lisinopril- Lisinopril- No Lisinopril hydroCHLORO hydroCHLORO -hydroCHLO thiazide thiazide ROthiazide 20-12.5 MG 20-12.5 MG 20-12.5 MG Zinc Zinc No Zinc Sulfate 220 Sulfate 220 Sulfate (50 Zn) MG (50 Zn) MG 220 (50 Zn) MG rOPINIRole rOPINIRole No rOPINIRole HCl 0.5 MG HCl 0.5 MG HCl 0.5 MG Clopidogrel Clopidogrel No 1{table QD Clopidogre Bisulfate Bisulfate t} l 75 MG 75 MG Bisulfate 75 MG Aspirin Low Aspirin Low No Aspirin Dose 81 MG Dose 81 MG Low Dose 81 MG busPIRone busPIRone No 1{table BID busPIRone HCl 5 MG HCl 5 MG t} HCl 5 MG QUEtiapine QUEtiapine No QUEtiapine Fumarate Fumarate Fumarate 200 MG 200 MG 200 MG Sertraline Sertraline No 1{table QD Sertraline HCl 50 MG HCl 50 MG t} HCl 50 MG Levothyroxi Levothyroxi No Levothyrox ne Sodium ne Sodium ine Sodium 100 MCG 100 MCG 100 MCG Clopidogrel Clopidogrel No Clopidogre Bisulfate Bisulfate l 75 MG 75 MG Bisulfate 75 MG Diclofenac Diclofenac No Diclofenac Sodium 1 % Sodium 1 % Sodium 1 % rOPINIRole rOPINIRole No rOPINIRole HCl 0.5 MG HCl 0.5 MG HCl 0.5 MG Sertraline Sertraline No 1{table QD Sertraline HCl 50 MG HCl 50 MG t} HCl 50 MG HYDROcodone HYDROcodone No HYDROcodon -Acetaminop -Acetaminop e-Acetamin hen 7.5-325 hen 7.5-325 ophen MG MG 7.5-325 MG Acetaminoph Acetaminoph No Acetaminop en-Codeine en-Codeine hen-Codein #3 300-30 #3 300-30 e #3 MG MG 300-30 MG Pantoprazol Pantoprazol No 1{table QD Pantoprazo e Sodium 40 e Sodium 40 t} le Sodium MG MG 40 MG Levothyroxi Levothyroxi No QD Levothyrox ne Sodium ne Sodium ine Sodium 75 MCG 75 MCG 75 MCG Clopidogrel Clopidogrel No 1{table QD Clopidogre Bisulfate Bisulfate t} l 75 MG 75 MG Bisulfate 75 MG Acetaminoph Acetaminoph No Acetaminop en-Codeine en-Codeine hen-Codein #3 300-30 #3 300-30 e #3 MG MG 300-30 MG Atorvastati Atorvastati No Atorvastat n Calcium n Calcium in Calcium 40 MG 40 MG 40 MG Lisinopril- Lisinopril- No Lisinopril hydroCHLORO hydroCHLORO -hydroCHLO thiazide thiazide ROthiazide 20-12.5 MG 20-12.5 MG 20-12.5 MG Zinc Zinc No Zinc Sulfate 220 Sulfate 220 Sulfate (50 Zn) MG (50 Zn) MG 220 (50 Zn) MG Zinc Zinc No Zinc Sulfate 220 Sulfate 220 Sulfate (50 Zn) MG (50 Zn) MG 220 (50 Zn) MG Levothyroxi Levothyroxi No QD Levothyrox ne Sodium ne Sodium ine Sodium 75 MCG 75 MCG 75 MCG Aspirin Low Aspirin Low No Aspirin Dose 81 MG Dose 81 MG Low Dose 81 MG busPIRone busPIRone No 1{table BID busPIRone HCl 5 MG HCl 5 MG t} HCl 5 MG QUEtiapine QUEtiapine No QUEtiapine Fumarate Fumarate Fumarate 200 MG 200 MG 200 MG Levothyroxi Levothyroxi No Levothyrox ne Sodium ne Sodium ine Sodium 100 MCG 100 MCG 100 MCG Pantoprazol Pantoprazol No 1{table QD Pantoprazo e Sodium 40 e Sodium 40 t} le Sodium MG MG 40 MG Clopidogrel Clopidogrel No Clopidogre Bisulfate Bisulfate l 75 MG 75 MG Bisulfate 75 MG Diclofenac Diclofenac No Diclofenac Sodium 1 % Sodium 1 % Sodium 1 % rOPINIRole rOPINIRole No rOPINIRole HCl 0.5 MG HCl 0.5 MG HCl 0.5 MG Sertraline Sertraline No 1{table QD Sertraline HCl 50 MG HCl 50 MG t} HCl 50 MG HYDROcodone HYDROcodone No HYDROcodon -Acetaminop -Acetaminop e-Acetamin hen 7.5-325 hen 7.5-325 ophen MG MG 7.5-325 MG Acetaminoph Acetaminoph No Acetaminop en-Codeine en-Codeine hen-Codein #3 300-30 #3 300-30 e #3 MG MG 300-30 MG Pantoprazol Pantoprazol No 1{table QD Pantoprazo e Sodium 40 e Sodium 40 t} le Sodium MG MG 40 MG Levothyroxi Levothyroxi No QD Levothyrox ne Sodium ne Sodium ine Sodium 75 MCG 75 MCG 75 MCG Clopidogrel Clopidogrel No 1{table QD Clopidogre Bisulfate Bisulfate t} l 75 MG 75 MG Bisulfate 75 MG Atorvastati Atorvastati No Atorvastat n Calcium n Calcium in Calcium 40 MG 40 MG 40 MG Atorvastati Atorvastati No Atorvastat n Calcium n Calcium in Calcium 40 MG 40 MG 40 MG Lisinopril- Lisinopril- No Lisinopril hydroCHLORO hydroCHLORO -hydroCHLO thiazide thiazide ROthiazide 20-12.5 MG 20-12.5 MG 20-12.5 MG Zinc Zinc No Zinc Sulfate 220 Sulfate 220 Sulfate (50 Zn) MG (50 Zn) MG 220 (50 Zn) MG Lisinopril- Lisinopril- No Lisinopril hydroCHLORO hydroCHLORO -hydroCHLO thiazide thiazide ROthiazide 20-12.5 MG 20-12.5 MG 20-12.5 MG QUEtiapine QUEtiapine No QD QUEtiapine Fumarate Fumarate Fumarate 200 MG 200 MG 200 MG Aspirin Low Aspirin Low No Aspirin Dose 81 MG Dose 81 MG Low Dose 81 MG HYDROcodone HYDROcodone No HYDROcodon -Acetaminop -Acetaminop e-Acetamin hen 7.5-325 hen 7.5-325 ophen MG MG 7.5-325 MG busPIRone busPIRone No 1{table BID busPIRone HCl 5 MG HCl 5 MG t} HCl 5 MG Levothyroxi Levothyroxi No Levothyrox ne Sodium [...] HCl 5 MG t} HCl 5 MG QUEtiapine QUEtiapine No QD QUEtiapine Fumarate [...] HCl 5 MG t} HCl 5 MG Sertraline Sertraline No 1{table QD Sertraline [...] Calcium 40 MG 40 MG 40 MG Sertraline Sertraline No 1{table [...] Fumarate 200 MG 200 MG 200 MG Levothyroxi Levothyroxi No Levothyrox ne Sodium ne Sodium ine Sodium 100 MCG 100 MCG 100 MCG Atorvastati Atorvastati No Atorvastat n Calcium n Calcium in Calcium 40 MG 40 MG 40 MG Sertraline Sertraline No 1{table QD Sertraline HCl 50 MG HCl 50 MG t} HCl 50 MG busPIRone busPIRone No 1{table BID busPIRone HCl 5 MG HCl 5 MG t} HCl 5 MG Aspirin Low Aspirin Low No Aspirin Dose 81 MG Dose 81 MG Low Dose 81 MG Zinc Zinc No Zinc Sulfate 220 Sulfate 220 Sulfate (50 Zn) MG (50 Zn) MG 220 (50 Zn) MG Levothyroxi Levothyroxi No QD Levothyrox ne Sodium ne Sodium ine Sodium 75 MCG 75 MCG 75 MCG Acetaminoph Acetaminoph No Acetaminop en-Codeine en-Codeine hen-Codein #3 300-30 #3 300-30 e #3 MG MG 300-30 MG rOPINIRole rOPINIRole No rOPINIRole HCl 0.5 MG HCl 0.5 MG HCl 0.5 MG Clopidogrel Clopidogrel No 1{table QD Clopidogre Bisulfate Bisulfate t} l 75 MG 75 MG Bisulfate 75 MG Diclofenac Diclofenac No Diclofenac Sodium 1 % Sodium 1 % Sodium 1 % Lisinopril- Lisinopril- No Lisinopril hydroCHLORO hydroCHLORO -hydroCHLO thiazide thiazide ROthiazide 20-12.5 MG 20-12.5 MG 20-12.5 MG Lisinopril- Lisinopril- No 1{table QD Lisinopril hydroCHLORO hydroCHLORO t} -hydroCHLO thiazide thiazide ROthiazide 20-12.5 MG 20-12.5 MG 20-12.5 MG rOPINIRole rOPINIRole No QD rOPINIRole HCl 0.5 MG HCl 0.5 MG HCl 0.5 MG QUEtiapine QUEtiapine No QD QUEtiapine Fumarate Fumarate Fumarate 200 MG 200 MG 200 MG Sertraline Sertraline No 1{table QD Sertraline HCl 100 MG HCl 100 MG t} HCl 100 MG HYDROcodone HYDROcodone No HYDROcodon -Acetaminop -Acetaminop e-Acetamin hen 7.5-325 hen 7.5-325 ophen MG MG 7.5-325 MG Clopidogrel Clopidogrel No Clopidogre Bisulfate Bisulfate l 75 MG 75 MG Bisulfate 75 MG Pantoprazol Pantoprazol No 1{table QD Pantoprazo e Sodium 40 e Sodium 40 t} le Sodium MG MG 40 MG QUEtiapine QUEtiapine No QD QUEtiapine Fumarate Fumarate Fumarate 200 MG 200 MG 200 MG Levothyroxi Levothyroxi No Levothyrox ne Sodium ne Sodium ine Sodium 100 MCG 100 MCG 100 MCG Atorvastati Atorvastati No Atorvastat n Calcium n Calcium in Calcium 40 MG 40 MG 40 MG Sertraline Sertraline No 1{table QD Sertraline HCl 50 MG HCl 50 MG t} HCl 50 MG busPIRone busPIRone No 1{table BID busPIRone HCl 5 MG HCl 5 MG t} HCl 5 MG Aspirin Low Aspirin Low No Aspirin Dose 81 MG Dose 81 MG Low Dose 81 MG Zinc Zinc No Zinc Sulfate 220 Sulfate 220 Sulfate (50 Zn) MG (50 Zn) MG 220 (50 Zn) MG Levothyroxi Levothyroxi No QD Levothyrox ne Sodium ne Sodium ine Sodium 75 MCG 75 MCG 75 MCG Acetaminoph Acetaminoph No Acetaminop en-Codeine en-Codeine hen-Codein #3 300-30 #3 300-30 e #3 MG MG 300-30 MG rOPINIRole rOPINIRole No rOPINIRole HCl 0.5 MG HCl 0.5 MG HCl 0.5 MG Clopidogrel Clopidogrel No 1{table QD Clopidogre Bisulfate Bisulfate t} l 75 MG 75 MG Bisulfate 75 MG Diclofenac Diclofenac No Diclofenac Sodium 1 % Sodium 1 % Sodium 1 % Lisinopril- Lisinopril- No Lisinopril hydroCHLORO hydroCHLORO -hydroCHLO thiazide thiazide ROthiazide 20-12.5 MG 20-12.5 MG 20-12.5 MG Lisinopril- Lisinopril- No 1{table QD Lisinopril hydroCHLORO hydroCHLORO t} -hydroCHLO thiazide thiazide ROthiazide 20-12.5 MG 20-12.5 MG 20-12.5 MG rOPINIRole rOPINIRole No QD rOPINIRole HCl 0.5 MG HCl 0.5 MG HCl 0.5 MG QUEtiapine QUEtiapine No QD QUEtiapine Fumarate Fumarate Fumarate 200 MG 200 MG 200 MG Sertraline Sertraline No 1{table QD Sertraline HCl 100 MG HCl 100 MG t} HCl 100 MG HYDROcodone HYDROcodone No HYDROcodon -Acetaminop -Acetaminop e-Acetamin hen 7.5-325 hen 7.5-325 ophen MG MG 7.5-325 MG Clopidogrel Clopidogrel No Clopidogre Bisulfate Bisulfate l 75 MG 75 MG Bisulfate 75 MG Pantoprazol Pantoprazol No 1{table QD Pantoprazo e Sodium 40 e Sodium 40 t} le Sodium MG MG 40 MG busPIRone busPIRone No 1{table BID busPIRone HCl 5 MG HCl 5 MG t} HCl 5 MG QUEtiapine QUEtiapine No QD QUEtiapine Fumarate Fumarate Fumarate 200 MG 200 MG 200 MG Zinc Zinc No Zinc Sulfate 220 Sulfate 220 Sulfate (50 Zn) MG (50 Zn) MG 220 (50 Zn) MG Sertraline Sertraline No 1{table QD Sertraline HCl 50 MG HCl 50 MG t} HCl 50 MG Atorvastati Atorvastati No Atorvastat n Calcium n Calcium in Calcium 40 MG 40 MG 40 MG Aspirin Low Aspirin Low No Aspirin Dose 81 MG Dose 81 MG Low Dose 81 MG Sertraline Sertraline No 1{table QD Sertraline HCl 100 MG HCl 100 MG t} HCl 100 MG Levothyroxi Levothyroxi No QD Levothyrox ne Sodium ne Sodium ine Sodium 75 MCG 75 MCG 75 MCG Acetaminoph Acetaminoph No Acetaminop en-Codeine en-Codeine hen-Codein #3 300-30 #3 300-30 e #3 MG MG 300-30 MG rOPINIRole rOPINIRole No rOPINIRole HCl 0.5 MG HCl 0.5 MG HCl 0.5 MG Clopidogrel Clopidogrel No 1{table QD Clopidogre Bisulfate Bisulfate t} l 75 MG 75 MG Bisulfate 75 MG Diclofenac Diclofenac No Diclofenac Sodium 1 % Sodium 1 % Sodium 1 % Pantoprazol Pantoprazol No 1{table QD Pantoprazo e Sodium 40 e Sodium 40 t} le Sodium MG MG 40 MG QUEtiapine QUEtiapine No QD QUEtiapine Fumarate Fumarate Fumarate 200 MG 200 MG 200 MG rOPINIRole rOPINIRole No QD rOPINIRole HCl 0.5 MG HCl 0.5 MG HCl 0.5 MG Lisinopril- Lisinopril- No Lisinopril hydroCHLORO hydroCHLORO -hydroCHLO thiazide thiazide ROthiazide 20-12.5 MG 20-12.5 MG 20-12.5 MG Lisinopril- Lisinopril- No 1{table QD Lisinopril hydroCHLORO hydroCHLORO t} -hydroCHLO thiazide thiazide ROthiazide 20-12.5 MG 20-12.5 MG 20-12.5 MG HYDROcodone HYDROcodone No HYDROcodon -Acetaminop -Acetaminop e-Acetamin hen 7.5-325 hen 7.5-325 ophen MG MG 7.5-325 MG Clopidogrel Clopidogrel No Clopidogre Bisulfate Bisulfate l 75 MG 75 MG Bisulfate 75 MG Levothyroxi Levothyroxi No Levothyrox ne Sodium ne Sodium ine Sodium 100 MCG 100 MCG 100 MCG Immunizations Ordered Immunization Filled Immunization Date Status Commen ts Source Name Name [place] [id number] 2021-11-26 Com[facility] (Low Dose Vaccine (Low Dose 10:59:00 - [facility] [address] [facility] (Low Dose Vaccine (Low Dose 10:59:00 - [facility]) Booster) [place] [id number] 2021-11-26 Completed [facility] (Low Dose Vaccine (Low Dose 10:59:00 - [facility] [address] [facility] Com[facility] (Low Dose Vaccine (Low Dose 10:59:00 - [facility]) Booster) [place] [id number] 2021-11-26 Completed [facility] (Low Dose Vaccine (Low Dose 10:59:00 - [facility]) Booster) [address] [facility]-26 Com[facility] (Low Dose Vaccine (Low Dose 10:59:00 - [facility]) Booster) [address] [facility] 2021-11-26 Com[facility] (Low Dose Vaccine (Low Dose 10:59:00 - [facility]) Booster) [address] [facility] 2021-11-26 Com[facility] (Low Dose Vaccine (Low Dose 10:59:00 - [facility] [facility]-11-26 Com[facility] (Low Dose Vaccine (Low Dose 10:59:00 - [facility]) Booster) [facility] COVID19 [facility] COVID19 2021-11-26 Completed [facility] (Low Dose Vaccine (Low Dose 10:59:00 - [facility]) Booster) [facility] COVID19 [facility] COVID19 2021-11-26 Completed [facility] (Low Dose Vaccine (Low Dose 10:59:00 - [facility]) Booster) [facility] [address] COVID19 2021-11-26 Completed [facility] (Low Dose Vaccine (Low Dose 10:59:00 - [facility]) Booster) [facility] [address] COVID19 2021-11-26 Completed [facility] (Low Dose Vaccine (Low Dose 10:59:00 - [facility]) Booster) [facility] [address] COVID19 2021-11-26 Completed [facility] (Low Dose Vaccine (Low Dose 10:59:00 - [facility]) Booster) [facility] COVID19 [facility] COVID19 2021-11-26 Completed [facility] (Low Dose Vaccine (Low Dose 10:59:00 - [facility]) Booster) [facility] COVID19 [facility] COVID19 2021-11-26 Completed [facility] (Low Dose Vaccine (Low Dose 10:59:00 - [facility]) Booster) [facility] COVID19 [facility] COVID19 2021-11-26 Completed [facility] (Low Dose Vaccine (Low Dose 10:59:00 - [facility]) Booster) [facility] COVID19 [facility] COVID19 2021-11-26 Completed [facility] (Low Dose Vaccine (Low Dose 10:59:00 - [facility]) Booster) [facility] COVID19 [facility] 2021-11-26 Com[facility] (Low Dose Vaccine (Low Dose 10:59:00 - [facility]) Booster) [facility] [address] COVID-19 2021-11-26 Completed [facility] (Low Dose Vaccine (Low Dose 10:59:00 - [facility] COVID-19 [facility] COVID-19 2021-11-26 Completed [facility] (Low Dose Vaccine (Low Dose 10:59:00 - [facility]) Booster) [facility] COVID-19 [facility] COVID-19 2021-11-26 Completed [facility] (Low Dose Vaccine (Low Dose 10:59:00 - [facility] Pfizer COVID-19 Pfizer COVID-19 2021-01-30 [facility] 09[facility]01:00 - [facility] Pfizer COVID-19 Pfizer COVID-19 2021-01-30 Completed [facility] 09:01:00 - [facility] Pfizer COVID-19 Pfizer COVID-19 2021-01-30 Completed [facility] Vacc[facility] 09:01:00 - [facility] Pfizer COVID-19 Pfizer COVID-19 2021-01-30 Completed [facility] Vacc[facility] 09:01:00 - [facility] Pfizer COVID-19 Pfizer COVID-19 2021-01-30 Completed [facility] Vacc[facility] 09:01:00 - [facility] Pfizer COVID-19 Pfizer COVID-19 2021-01-30 Completed [facility] Vacc[facility] 09:01:00 - [facility] Pfizer COVID-19 Pfizer COVID-19 2021-01-30 Completed [facility] Vacc[facility] 09:01:00 - [facility] Pfizer COVID-19 Pfizer COVID-19 2021-01-30 Completed [facility] Vaccine 09:01:00 [facility] Pfizer COVID-19 Pfizer COVID-19 2021-01-30 Com[facility] Vacc[facility] 09:01:00 [facility] Pfizer COVID-19 Pfizer COVID-19 2021-01-30 Com[facility] 09:01:00 [facility] Pfizer COVID-19 Pfizer COVID-19 2021-01-30 Com[facility] 09:01:00 [facility] Pfizer COVID-19 Pfizer COVID-19 2021-01-30 Completed [facility] Vaccine 09:01:00 - [facility] Pfizer COVID-19 Pfizer COVID-19 2021-01-30 Completed [facility] Vaccine 09:01:00 - [facility] Pfizer COVID-19 Pfizer COVID-19 2021-01-30 Completed [facility] Vacc[facility] 09:01:00 - [facility] Pfizer COVID-19 Pfizer COVID-19 2021-01-30 Completed [facility] Vacc[facility] 09:01:00 - [facility] Pfizer COVID-19 Pfizer COVID-19 2021-01-30 Completed [facility] Vaccine 09:01:00 - [facility] Pfizer COVID-19 Pfizer COVID-19 2021-01-30 Completed [facility] Vaccine 09:01:00 - [facility] Pfizer COVID-19 Pfizer COVID-19 2021-01-30 Completed [facility] Vacc[facility] 09:01:00 - [facility] Pfizer COVID-19 Pfizer COVID-19 2021-01-30 Completed [facility] Vacc[facility] 09:01:00 - [facility] Pfizer COVID-19 Pfizer COVID-19 2021-01-30 Completed [facility] Vacc[facility] 09:01:00 - [facility] Pfizer COVID-19 Pfizer COVID-19 2021-01-30 Completed [facility] Vacc[facility] 09:01:00 - [facility] Pfizer COVID-19 Pfizer COVID-19 2021-01-30 Completed [facility] Vaccine Vaccine 09:01:00 - [facility] Pfizer COVID-19 Pfizer COVID-19 2020-12-30 Completed [facility] Vaccine Vaccine 09:01:00 - [facility] Pfizer COVID-19 Pfizer COVID-19 2020-12-30 Completed [facility] Vaccine Vaccine 09:01:00 - [facility] Pfizer COVID-19 Pfizer COVID-19 2020-12-30 Completed [facility] Vacc[facility] Vaccine 09:01:00 - [facility] Pfizer COVID-19 Pfizer COVID-19 2020-12-30 Completed [facility] Vaccine Vaccine 09:01:00 - [facility] Pfizer COVID-19 Pfizer COVID-19 2020-12-30 Completed [facility] Vaccine Vaccine 09:01:00 - [facility] Pfizer COVID-19 Pfizer COVID-19 2020-12-30 Completed [facility] Vaccine Vaccine 09:01:00 - [facility] Pfizer COVID-19 Pfizer COVID-19 2020-12-30 Completed [facility] Vaccine Vaccine 09:01:00 - [facility] Pfizer COVID-19 Pfizer COVID-19 2020-12-30 Completed [facility] Vaccine 09:01:00 - [facility] Pfizer COVID-19 Pfizer COVID-19 2020-12-30 Completed [facility] Vaccine Vaccine 09:01:00 - [facility] Pfizer COVID-19 Pfizer COVID-19 2020-12-30 Completed [facility] Vaccine Vaccine 09:01:00 - [facility] Pfizer COVID-19 Pfizer COVID-19 2020-12-30 Completed [facility] Vaccine 09:01:00 - [facility] Pfizer COVID-19 Pfizer COVID-19 2020-12-30 Completed [facility] Vaccine 09:01:00 - [facility] Pfizer COVID-19 Pfizer COVID-19 2020-12-30 Completed [facility] Vaccine 09:01:00 - [facility] Pfizer COVID-19 Pfizer COVID-19 2020-12-30 Completed [facility] Vaccine 09:01:00 - [facility] Pfizer COVID-19 Pfizer COVID-19 2020-12-30 Completed [facility] Vaccine 09:01:00 - [facility] Pfizer COVID-19 Pfizer COVID-19 2020-12-30 Completed [facility] Vaccine 09:01:00 - [facility] Pfizer COVID-19 Pfizer COVID-19 2020-12-30 Completed [facility] Vaccine 09:01:00 [facility] Pfizer COVID-19 Pfizer COVID-19 2020-12-30 Completed [facility] Vaccine 09:01:00 [facility] Pfizer COVID-19 Pfizer COVID-19 2020-12-30 Completed [facility] Vaccine 09:01:00 - [facility] Pfizer COVID-19 Pfizer COVID-19 2020-12-30 Completed [facility] Vaccine 09:01:00 - [facility] Pfizer COVID-19 Pfizer COVID-19 2020-12-30 Completed [facility] Vaccine 09:01:00 - [facility] Pfizer COVID-19 Pfizer COVID-19 2020-12-30 Completed [facility] Vaccine Vaccine 09:01:00 - [facility] Fluzone Fluzone 2020-07-02 [facility]pleted [facility] 09:02:00 - [facility] Fluzone Fluzone 2020-07-02 Completed [facility] 09:02:00 - [facility] Fluzone Fluzone 2020-07-02 Completed [facility] 09:02:00 - [facility] Fluzone Fluzone 2020-07-02 Completed [facility] 09:02:00 - [facility] Fluzone Fluzone 2020-07-02 Completed [facility] 09:02:00 - [facility] Fluzone Fluzone 2020-07-02 Completed [facility] 09:02:00 - [facility] Fluzone Fluzone 2020-07-02 Completed [facility] 09:02:00 - [facility] Fluzone Fluzone 2020-07-02 Completed [facility] 09:02:00 - [facility] Fluzone Fluzone 2020-07-02 Completed [facility] 09:02:00 - [facility] Fluzone Fluzone 2020-07-02 Completed [facility] 09:02:00 - [facility] Fluzone Fluzone 2020-07-02 Completed [facility] 09:02:00 - [facility] Fluzone Fluzone 2020-07-02 Completed [facility] 09:02:00 - [facility] Fluzone Fluzone 2020-07-02 Completed [facility] 09:02:00 - [facility] Fluzone Fluzone 2020-07-02 Completed [facility] 09:02:00 - [facility] Fluzone Fluzone 2020-07-02 Completed [facility] 09:02:00 - [facility] Fluzone Fluzone 2020-07-02 Completed [facility] 09:02:00 - [facility] Fluzone Fluzone 2020-07-02 Completed [facility] 09:02:00 - [facility] Fluzone Fluzone 2020-07-02 Completed [facility] 09:02:00 - [facility] Fluzone Fluzone 2020-07-02 Completed [facility] 09:02:00 - [facility] Fluzone Fluzone 2020-07-02 Completed [facility] 09:02:00 - [facility] Fluzone Fluzone 2020-07-02 Completed [facility] 09:02:00 - [facility] Fluzone Fluzone 2020-07-02 Completed [facility] 09:02:00 - [facility] Vital Signs Vital Name Observation Time Observation Value Comments Source height 2022-08-20 15:00:00 59.5 [in_i] [facility] weight 2022-08-20 15:00:00 141.1 [lb_av] [facility] temperature 2022-08-20 15:00:00 97.8 [degF] [facility] bmi 2022-08-20 15:00:00 28.02 kg/m2 [facility] blood pressure 2022-08-20 15:00:00 136 mm[Hg] [facility] - systolic [facility] blood pressure 2022-08-20 15:00:00 84 mm[Hg] [facility] - diastolic [facility] height 2022-07-24 07:50:00 59.5 [in_i] [facility] weight 2022-07-24 07:50:00 145 [lb_av] [facility] temperature 2022-07-24 07:50:00 98 [degF] [facility] bmi 2022-07-24 07:50:00 28.79 kg/m2 [facility] blood pressure 2022-07-24 07:50:00 132 mm[Hg] [facility] - systolic [facility] blood pressure 2022-07-24 07:50:00 65 mm[Hg] [facility] - diastolic [facility] height 2022-07-01 10:00:00 59.5 [in_i] [facility] weight 2022-07-01 10:00:00 147 [lb_av] [facility] temperature 2022-07-01 10:00:00 97.9 [degF] [facility] bmi 2022-07-01 10:00:00 29.19 kg/m2 Common [facility] oximetry 2022-07-01 10:00:00 97 % [facility] respiratory rate 2022-07-01 10:00:00 16 /min [facility] blood pressure 2022-07-01 10:00:00 139 mm[Hg] [facility] - systolic [facility] blood pressure 2022-07-01 10:00:00 67 mm[Hg] [facility] - diastolic [facility] height 2022-07-01 10:00:00 60 [in_i] [facility] weight 2022-07-01 10:00:00 147 [lb_av] [facility] temperature 2022-07-01 10:00:00 97.9 [degF] [facility] bmi 2022-07-01 10:00:00 28.71 kg/m2 [facility] oximetry 2022-07-01 10:00:00 97 % [facility] respiratory rate 2022-07-01 10:00:00 16 /min [facility] blood pressure 2022-07-01 10:00:00 139 mm[Hg] [facility] - systolic [facility] blood pressure 2022-07-01 10:00:00 67 mm[Hg] [facility] - diastolic [facility] height 2022-06-17 10:00:00 60 [in_i] Common [facility] weight 2022-06-17 10:00:00 144 [lb_av] [facility] temperature 2022-06-17 10:00:00 97 [degF] Common [facility] bmi 2022-06-17 10:00:00 28.12 kg/m2 [facility] oximetry 2022-06-17 10:00:00 97 % [facility] respiratory rate 2022-06-17 10:00:00 17 /min [facility] blood pressure 2022-06-17 10:00:00 128 mm[Hg] [facility] systolic [facility] blood pressure 2022-06-17 10:00:00 74 mm[Hg] Common [facility] diastolic [facility] height 2022-06-03 15:00:00 60 [in_i] Common [facility] weight 2022-06-03 15:00:00 147.6 [lb_av] [facility] temperature 2022-06-03 15:00:00 97.0 [degF] [facility] bmi 2022-06-03 15:00:00 28.82 kg/m2 [facility] oximetry 2022-06-03 15:00:00 94 % [facility] respiratory rate 2022-06-03 15:00:00 17 /min [facility] blood pressure 2022-06-03 15:00:00 132 mm[Hg] Common [facility] systolic [facility] blood pressure 2022-06-03 15:00:00 76 mm[Hg] [facility] diastolic [facility] Procedures This patient has no known procedures. Plan of Care Planned Activity Planned Date Details Comments Source Future Scheduled 2022-09-04 HEPATITIS B VACCINES [facility] Test 11:20:46 (1 of 3 - 3-dose series) [code = HEPATITIS B VACCINES (1 of 3 - 3-dose series)] Future Scheduled 2022-09-04 Hepatitis C screening [facility] Test 11:20:46 (procedure) [code = 407105423] Future Scheduled 2022-09-04 SHINGLES VACCINES (1 [facility] Test 11:20:46 of 2) [code = SHINGLES VACCINES (1 of 2)] Future Scheduled 2022-09-04 65+ [facility]AL [facility] Test 11:20:46 VACCINE (1 - PCV) [code = 65+ PNEUMOCOCCAL VACCINE (1 - PCV)] Future Scheduled 2022-09-04 COVID-19 VACCINE (2 - [facility] Hospital Test 11:20:46 Pfizer series) [code = COVID-19 VACCINE (2 - Pfizer series)] Future Scheduled 2022-09-04 INFLUENZA VACCINE Method [facility] Test 11:20:46 [code = INFLUENZA VACCINE] Future Scheduled 2022-07-01 HEPATITIS B VACCINES [facility] Test 22:22:27 (1 of 3 - 3-dose series) [code = HEPATITIS B VACCINES (1 of 3 - 3-dose series)] Future Scheduled 2022-07-01 Hepatitis C screening [facility] Test 22:22:27 (procedure) [code = 994524421] Future Scheduled 2022-07-01 SHINGLES VACCINES (1 [facility] Test 22:22:27 of 2) [code = SHINGLES VACCINES (1 of 2)] Future Scheduled 2022-07-01 65+ [facility] 22:22:27 VACCINE (1 - PCV) [code = 65+ PNEUMOCOCCAL VACCINE (1 - PCV)] Future Scheduled 2022-07-01 COVID-19 VACCINE (2 - [facility] Hospital Test 22:22:27 Pfizer series) [code = COVID-19 VACCINE (2 - Pfizer series)] Future Scheduled 2022-07-01 INFLUENZA VACCINE Method [facility] Hospital Test 22:22:27 [code = INFLUENZA VACCINE] Future Scheduled 2022-07-01 HEPATITIS B VACCINES [facility] Test 22:22:27 (1 of 3 - 3-dose series) [code = HEPATITIS B VACCINES (1 of 3 - 3-dose series)] Future Scheduled 2022-07-01 [facility] Test 22:22:27 (procedure) [code = [id number]] Future Scheduled 2022-07-01 SHINGLES VACCINES (1 [facility] Test 22:22:27 of 2) [code = SHINGLES VACCINES (1 of 2)] Future Scheduled 2022-07-01 65+ [facility]OCOCCAL [facility] Test 22:22:27 VACCINE (1 - PCV) [code = 65+ PNEUMOCOCCAL VACCINE (1 - PCV)] Future Scheduled 2022-07-01 COVID-19 VACCINE (2 - [facility] Hospital Test 22:22:27 Pfizer series) [code = COVID-19 VACCINE (2 - Pfizer series)] Future Scheduled 2022-07-01 INFLUENZA VACCINE [facility] Test 22:22:27 [code = INFLUENZA VACCINE] Encounters Start End Encounter Admission Attending Care Care Encounter Source Date/Time Date/Time Type Type Clinicians Facility Department ID 2022-08-21 Outpatient Wallis, [facility] [id number] Common 07:59:01 [facility] 2022-08-19 Outpatient Wallis, [facility] [id number] Common 08:56:02 [facility] 2022-08-18 Outpatient Wallis, [facility] [id number] Common 08:57:03 [facility] 2022-07-23 Outpatient Wallis, [facility] [id number] Common 13:11:01 [facility] 2022-05-19 Outpatient Wallis, [facility] [id number] Common 14:18:01 [facility] 2022-04-17 Outpatient Wallis, [facility] [id number] Common 15:13:01 [facility] 2022-04-01 Outpatient Wallis, [facility] [id number] Common 09:00:04 [facility] 2022-08-26 2022-08-26 (TEL) [facility] [id number] Co mmon 00:00:00 00:00:00 [facility] 2022-08-21 2022-08-21 (TEL) [facility] [id number] [facility] 00:00:00 00:00:00 [facility] 2022-08-20 2022-08-20 OFFICE STLMLC STLMLC [id number] Co mmon 00:00:00 00:00:00 VISIT [facility] PT LEVEL 3 - [facility] 2022-08-17 2022-08-17 (TEL) [facility] ST[facility] [id number] Co mmon 00:00:00 00:00:00 [facility] 2022-07-24 2022-07-24 OFFICE STLMLC STLMLC [id number] Co mmon 00:00:00 00:00:00 VISIT [facility] PT - CHI LEVEL 4 [facility] 2022-07-23 2022-07-23 (TEL) STLMLC STL[facility] [id number] Co m[facility] 00:00:00 00:00:00 [facility] 2022-07-08 2022-07-08 (TEL) [facility] STL[facility] [id number] Co mmon 00:00:00 00:00:00 [facility] 2022-07-01 2022-07-01 OFFICE STLMLC STLMLC [id number] Co mmon 00:00:00 00:00:00 VISIT [facility] PT - CHI LEVEL 4 [facility] 2022-07-01 2022-07-01 SUB ANNUAL STLMLC STLMLC [id number] Common 00:00:00 00:00:00 MCR [facility] WELLNESS - CHI VISIT [facility] 2022-07-01 2022-07-01 (TEL) STLMLC STLMLC [id number] Co mmon 00:00:00 00:00:00 [facility] 2022-06-17 2022-06-17 OFFICE STLMLC STLMLC [id number] Co mmon 00:00:00 00:00:00 VISIT [facility] PT - CHI LEVEL 2 [facility] 2022-06-09 2022-06-09 (TEL) STL[facility]C STL[facility]C [id number] [facility] 00:00:00 00:00:00 [facility] 2022-06-03 2022-06-03 (TEL) [facility]C ST[facility] [id number] [facility] 00:00:00 00:00:00 [facility] 2022-06-03 2022-06-03 (NV) Nurse STLMLC STLMLC [id number] Common 00:00:00 00:00:00 [facility] 2022-05-27 2022-05-27 (TEL) [facility]C STL[facility] [id number] [facility] 00:00:00 00:00:00 [facility] 2022-05-19 2022-05-19 (NV) Nurse STLMLC STLMLC [id number] Common 00:00:00 00:00:00 [facility] 2022-05-19 2022-05-19 (TEL) STLMLC STLMLC [id number] [facility] m[facility] 00:00:00 00:00:00 [facility] 2021-02-17 2021-02-17 Outpatient ROMARYR, [facility] [id number] [place] 00:00:00 00:00:00 SANYA [address] 2021-01-01 2021-01-08 Inpatient MICHELLE, [facility] [id number] [place] 00:00:00 00:00:00 CRISTY [address] Results Test Description Test Time Test Comments Results Result Comments Source SARS-CoV-2 (COVID-19) RNA [Presence] in Respiratory sp ecimen by 2021-01-02 04:18:36 EDGAR with probe detection Test Item Value Reference Range Interpretation Comme nts SARS-CoV-2 (COVID-19) RNA [Presence] in Respiratory Not detected No t-Detected specimen by EDGAR with probe detection (test code = 62417-1) DMITRY MACHADO [place]
--- NOTE | 2022-09-19 21:55 | RAD REPORT ---
EXAM DESCRIPTION: CT - Head C Spine Mpr Wo Con - 09/19/2022 9:26 pm CLINICAL HISTORY: Head and neck injury status post fall. Head and neck pain COMPARISON: 2020 TECHNIQUE: Computed axial tomography of the head and cervical spine was obtained. Sagittal and coronal reconstruction was performed. All CT scans are performed using dose optimization technique as appropriate and may include automated exposure control or mA/KV adjustment according to patient size. FINDINGS: Left parietal scalp hematoma. Moderate low-density within periventricular, deep and subcor tical white matter probably ischemic changes secondary to small vessel disease. An intracranial bleed is not seen. The ventricles are normal in caliber. An extra-axial fluid collect ion is not noted.Fluid within the visualized sinuses and mastoids is not seen A cervical fracture is not visualized. No dislocation is noted. Anterior screws united by plates and bone plugs have been placed from C3-C5. Mild anterior subluxatio n C5 on C6. Mild posterior subluxation of C6 on C7 IMPRESSION: No acute intracranial abnormality is seen. A cervical fracture is not visualized. If the patient continues to have symptoms to suggest intracra nial /spinal cord pathology then MRI would be recommended
--- NOTE | 2022-09-19 22:07 | ER ---
Nurse's Notes [facility] Name: Wilma Ovalle Age: 76 yrs Sex: Female : 1945 Arrival Date: 09/19/2022 Time: 21:02 Bed 6 Private MD: Art Wallis Diagnosis: Closed Head Injury;Posterior scalp hematoma;Concussion without loss of consciousness Presentation: 09/19 21:09 Chief complaint: EMS states: Pt went to let her daughter in, turned back around to lock jb4 the door after, slipped and fell hitting her head. Denies any pain to the neck or spine. No LOC. Denies blood thinners. Care prior to arrival: None. Mechanism of Injury: Fall from standing position. Trauma event details: Injury occurred in the [facility]. 21:09 Acuity: JEANINE 2 jb4 21:09 Method Of Arrival: EMS: [facility] jb4 21:19 Coronavirus screen: Vaccine status: Patient reports receiving the 2nd dose of the covid jb4 vaccine. Patient reports receiving the 1st dose of the Covid vaccine. Ebola Screen: No symptoms or risks identified at this time. Initial Sepsis Screen: Does the patient meet any 2 criteria? No. Patient's initial sepsis screen is negative. Does the patient have a suspected source of infection? No. Patient's initial sepsis screen is negative. Risk Assessment: Do you want to hurt yourself or someone else? Patient reports no desire to harm self or others. Onset of symptoms was September 19, 2022. Transition of care: patient was not received from another setting of care. Trauma Activation: Alert Physician: ED Physician; Name: Trinidad; Notified At: 21:00; Arrived At: 21:00 Physician: General Surgeon; Name: ; Notified At: 21:00; Arrived At: Physician: Radiology; Name: Soham; Notified At: 21:00; Arrived At: Physician: Respiratory; Name: ; Notified At: 21:00; Arrived At: Physician: Lab; Name: ; Notified At: 21:00; Arrived At: Historical: - Allergies: 21:20 No Known Allergies; jb4 - PMHx: 21:20 Hyperlipidemia; Hypertension; Hypothyroidism; insomnia; TIA; jb4 - Immunization history: Last tetanus immunization: unknown. - Social history:: Smoking status: Patient denies any tobacco usage or history of. Patient/guardian denies using alcohol, street drugs. Screenin:09 Abuse screen: Denies threats or abuse. Nutritional screening: No deficits noted. jb4 Tuberculosis screening: No symptoms or risk factors identified. Fall risk At risk due to prior history of falls. Primary Survey: 21:09 Uncontrolled hemorrhage is observed, assessment has been re-ordered to <C> ABC. A: The jb4 client is awake and alert. The airway is patent. Breathing/Chest: Spontaneous respiratory effort, equal unlabored respirations, breath sounds clear bilaterally, regular pattern, symmetrical chest rise and fall. Circulation: Hemorrhage: External hemorrhage noted. Pressure bandage applied to posterior scalp. Disability Pupils are equal, round, reactive to light and accommodation. Client is alert. Exposure/Environment: All clothing and personal items were removed. Forensic evidence collection is not deemed to be indicated at this time. Items placed in patient belonging bag. There is evidence of uncontrolled external hemorrhage. Provider notified immediately. Methods to control bleeding applied. Obvious injury(ies) are noted at this time: Hematoma with bleeding noted to the posterior scalp. A warming method has been applied: A warm blanket has been provided to the patient. 22:00 Reassessment Alertness and Airway: Awake and alert. The airway is patent. Breathing: jb4 Spontaneous respiratory effort, equal unlabored respirations, breath sounds clear bilaterally, regular pattern with symmetrical chest rise and fall. Circulation: No external hemorrhage noted. Regular and strong central pulse, skin warm/dry/normal color. Disability: Pupils Alert. Secondary Survey: 21:09 HEENT: Head Other Hematoma noted to the posterior scalp with bleeding. Pressure bandage jb4 applied. Face No injury/deformity Eyes: No injury or deformity noted. Ears: clear bilaterally. Nose: clear to bilateral nares. Throat: No injury or deformity noted. Gastrointestinal: No deficits noted. : No deficits noted. Musculoskeletal: Reports pain in thoracic area. Injury Description: hematoma to back of head. Assessment: 21:09 General: Appears in no apparent distress. comfortable, Behavior is calm, cooperative, jb4 appropriate for age. Pain: Denies pain. Complains of pain in neck, head Pain does not radiate. Pain currently is 5 out of 10 on a pain scale. Neuro: Level of Consciousness is awake, alert, obeys commands, Oriented to person, place, time, situation. Cardiovascular: Patient's skin is warm and dry. Respiratory: Airway is patent Respiratory effort is even, unlabored, Respiratory pattern is regular, symmetrical. GI: No signs and/or symptoms were reported involving the gastrointestinal system. : No signs and/or symptoms were reported regarding the genitourinary system. EENT: No signs and/or symptoms were reported regarding the EENT system. Derm: Skin is intact, Skin is pink, warm \T\ dry. Musculoskeletal: Circulation, motion, and sensation intact. Range of motion: intact in all extremities. 22:00 Reassessment: Patient appears in no apparent distress at this time. Patient and/or jb4 family updated on plan of care and expected duration. Pain level reassessed. Patient is alert, oriented x 3, equal unlabored respirations, skin warm/dry/pink. 23:01 Reassessment: D/c pending dressing reassesment. jb4 23:44 Reassessment: Patient appears in no apparent distress at this time. Patient and/or jb4 family updated on plan of care and expected duration. Pain level reassessed. Patient is alert, oriented x 3, equal unlabored respirations, skin warm/dry/pink. dressing changed bleeding controlled. Vital Signs: 21:09 BP 150 / 67; Pulse 90; Resp 20; Temp 97.6(O); Pulse Ox 100% on R/A; Weight 61.69 kg jb4 (R); Pain 0/10; 22:00 BP 154 / 82; Pulse 92; Resp 13; Pulse Ox 99% on R/A; jb4 23:00 BP 162 / 105; Pulse 91; Resp 18; Pulse Ox 100% on R/A; jb4 [place] Coma Score: 21:09 Eye Response: spontaneous(4). Verbal Response: oriented(5). Motor Response: obeys jb4 commands(6). Total: 15. 22:00 Eye Response: spontaneous(4). Verbal Response: oriented(5). Motor Response: obeys jb4 commands(6). Total: 15. 23:00 Eye Response: spontaneous(4). Verbal Response: oriented(5). Motor Response: obeys jb4 commands(6). Total: 15. Trauma Score (Adult): 21:09 Eye Response: spontaneous(1); Verbal Response: oriented(1); Motor Response: obeys jb4 commands(2); Systolic BP: > 89 mm Hg(4); Respiratory Rate: 10 to 29 per min(4); Donnell Score: 15; Trauma Score: 12 22:00 Eye Response: spontaneous(1); Verbal Response: oriented(1); Motor Response: obeys jb4 commands(2); Systolic BP: > 89 mm Hg(4); Respiratory Rate: 10 to 29 per min(4); Donnell Score: 15; Trauma Score: 12 23:00 Eye Response: spontaneous(1); Verbal Response: oriented(1); Motor Response: obeys jb4 commands(2); Systolic BP: > 89 mm Hg(4); Respiratory Rate: 10 to 29 per min(4); [place] Score: 15; Trauma Score: 12 ED Course: 21:02 Patient arrived in ED. wm 21:03 Art Wallis DO is Private Physician. as 21:08 Melida Abdi MD is Attending Physician. sd2 21:09 Keo Crain, CATARINA is Primary Nurse. jb4 21:09 Patient has correct armband on for positive identification. Placed in gown. Bed in low jb4 position. Call light in reach. Side rails up X 1. 21:09 Patient maintains SpO2 saturation greater than 95% on room air. Thermoregulation: warm jb4 blanket given to patient. 21:12 Triage completed. jb4 21:20 Arm band placed on right wrist. jb4 21:26 CT Head C Spine In Process Unspecified. EDMS 22:06 Art Wallis DO is Referral Physician. sd2 23:46 No provider procedures requiring assistance completed. Patient did not have IV access jb4 during this emergency room visit. Administered Medications: 22:27 Drug: Tetanus-Diphtheria Toxoid Adult 0.5 ml {Mat Puncher: ROCK[employer]. Exp: jb4 04/03/2024. Lot #: [id number]. } Route: IM; Site: right deltoid; Medication: 09/20 00:11 Vaccine Information Statement (VIS) provided today. Questions and/or concerns jb4 addressed. VIS edition date: June 06, 2021. Output: 09/19 23:47 Urine: 0ml; Total: 0ml. jb4 Outcome: 22:07 Discharge ordered by . sd2 23:46 Discharged to home via wheelchair, with family. jb4 23:46 Condition: stable 23:46 Discharge instructions given to patient, family, Instructed on discharge instructions, follow up and referral plans. wound care, Demonstrated understanding of instructions, follow-up care, wound care. 23:47 Patient's length of stay in the Emergency Department was greater than 2 hours. jb4 monitoring injury.Patient's length of stay extended due to 09/20 00:12 Patient left the ED. jb4 Signatures: Dispatcher [employer] EDMS Sigrid Matthew James, RN RN jb4 Alma Theodore Stephanie, MD MD sd2
--- NOTE | 2022-09-19 22:07 | EDPHYS ---
Physician Documentation [facility] Name: Wilma Ovalle Age: 76 yrs Sex: Female : 1945 Arrival Date: 09/19/2022 Time: 21:02 Bed 6 Private MD: Scot Wallish ED Physician Melida Abdi HPI: 09/19 21:09 This 76 yrs old Female presents to ER via Unassigned with complaints of Fall sd2 Injury. 21:09 76 yo F presents via EMS with CC of mechanical fall with associated head injury. Pt sd2 took all of her nighttime meds including her sleeping pill tonight and then got up to open the door and tripped and fell backwards hitting the back of her head on the ground. Noted hematoma to posterior scalp by EMS with controlled bleeding. No LOC or blood thinner use. pt does take baby ASA daily. Pt complains of R sided neck pain. C-collar applied upon arrival. Denies any other areas of pain. A\T\Ox4, GCS 15 with EMS.. Historical: - Allergies: 21:20 No Known Allergies; jb4 - PMHx: 21:20 Hyperlipidemia; Hypertension; Hypothyroidism; insomnia; TIA; jb4 - Immunization history: Last tetanus immunization: unknown. - Social history:: Smoking status: Patient denies any tobacco usage or history of. Patient/guardian denies using alcohol, street drugs. ROS: 21:09 Constitutional: Negative for fever, chills, and weight loss, Eyes: Negative for injury, sd2 pain, redness, and discharge, Cardiovascular: Negative for chest pain, palpitations, and edema, Respiratory: Negative for shortness of breath, cough, wheezing. Abdomen/GI: Negative for abdominal pain, nausea, vomiting, diarrhea. MS/Extremity: Negative for injury and deformity, Skin: Negative for injury, rash, and discoloration, Neuro: Positive for headache, negative for numbness and tingling. Exam: 21:09 Constitutional: This is a well developed, well nourished patient who is awake, alert, sd2 and in no acute distress. Head/Face: Normocephalic, moderate sized posterior scalp hematoma noted with oozing from superior aspect, compression bandage applied Eyes: EOMI, normal conjunctiva bilaterally Neck: Trachea midline, no thyromegaly or masses palpated, and no cervical lymphadenopathy. Supple, pt with lower cervical midline tenderness on exam and C-collar immediately applied Chest/axilla: Normal chest wall appearance and motion. Nontender with no deformity. Cardiovascular: Regular rate and rhythm with a normal S1 and S2. No gallops, murmurs, or rubs. 2+ distal pulses. Respiratory: Lungs have equal breath sounds bilaterally, clear to auscultation and percussion. No rales, rhonchi or wheezes noted. No increased work of breathing, no retractions or nasal flaring. Abdomen/GI: Soft, non-tender, with normal bowel sounds. No guarding or rebound. No evidence of tenderness throughout. Skin: Warm, dry with normal turgor. Normal color with no rashes, no lesions, and no evidence of cellulitis. MS/ Extremity: Pulses equal, no cyanosis. Neurovascular intact. Full, normal range of motion. Ambulatory without difficulty. Neuro: Awake and alert, GCS 15, oriented to person, place, time, and situation. Cranial nerves II-XII grossly intact. Motor strength 5/5 in all extremities. Sensory grossly intact. Psych: Awake, alert, with orientation to person, place and time. Behavior, mood, and affect are within normal limits. Vital Signs: 21:09 BP 150 / 67; Pulse 90; Resp 20; Temp 97.6(O); Pulse Ox 100% on R/A; Weight 61.69 kg jb4 (R); Pain 0/10; 22:00 BP 154 / 82; Pulse 92; Resp 13; Pulse Ox 99% on R/A; jb4 23:00 BP 162 / 105; Pulse 91; Resp 18; Pulse Ox 100% on R/A; jb4 Ashmore Coma Score: 21:09 Eye Response: spontaneous(4). Verbal Response: oriented(5). Motor Response: obeys jb4 commands(6). Total: 15. 22:00 Eye Response: spontaneous(4). Verbal Response: oriented(5). Motor Response: obeys jb4 commands(6). Total: 15. 23:00 Eye Response: spontaneous(4). Verbal Response: oriented(5). Motor Response: obeys jb4 commands(6). Total: 15. Trauma Score (Adult): 21:09 Eye Response: spontaneous(1); Verbal Response: oriented(1); Motor Response: obeys jb4 commands(2); Systolic BP: > 89 mm Hg(4); Respiratory Rate: 10 to 29 per min(4); Ashmore Score: 15; Trauma Score: 12 22:00 Eye Response: spontaneous(1); Verbal Response: oriented(1); Motor Response: obeys jb4 commands(2); Systolic BP: > 89 mm Hg(4); Respiratory Rate: 10 to 29 per min(4); Ashmore Score: 15; Trauma Score: 12 23:00 Eye Response: spontaneous(1); Verbal Response: oriented(1); Motor Response: obeys jb4 commands(2); Systolic BP: > 89 mm Hg(4); Respiratory Rate: 10 to 29 per min(4); Ashmore Score: 15; Trauma Score: 12 Laceration: 09/20 00:30 Wound Repair of 1cm ( 0.4in ) subcutaneous laceration to scalp. Skin/tissue flap sd2 noted.. Minimal bleeding noted.. Distal neuro/vascular/tendon intact. Wound prep: Simple cleansing, Wound irrigation. Skin closed with 4 1-0 Svetlana using staple gun. Dressed with non-adherent dressing. Patient tolerated well. MDM: 09/19 21:08 Patient medically screened. sd2 21:09 Differential diagnosis: Differential diagnosis includes but is not limited to: sd2 Fracture, contusion, abrasion, closed head injury, pneumothorax, intra-abdominal injury, intracranial hemorrhage, spinal injury among others. Data reviewed: vital signs, nurses notes, EMS record. 22:05 Data reviewed: radiologic studies. Counseling: I had a detailed discussion with the sd2 patient and/or guardian regarding: the historical points, exam findings, and any diagnostic results supporting the discharge/admit diagnosis, radiology results, to return to the emergency department if symptoms worsen or persist or if there are any questions or concerns that arise at home. Medical screen evaluation completed. [facility] ED course: Imaging reviewed with no acute findings. Tetanus updated. Bleeding controlled and wound care performed. Svetlana were needed due to small abraded area with continuous oozing that needed bleeding control. Surgicell was in addition applied to the area with pressure dressing and hemostasis was achieved after 20 minutes. Pt with likely concussion and advised of concussion precautions and need for follow up with PCP. Pt and family at verbalize understanding of discharge plan and strict return precautions. . 09/19 21:09 Order name: CT Head C Spine; Complete Time: 22:01 sd2 Administered Medications: 22:27 Drug: Tetanus-Diphtheria Toxoid Adult 0.5 ml {Clothing Manager: [employer]. Exp: jb4 04/03/2024. Lot #: [id number]. } Route: IM; Site: right deltoid; Disposition Summary: 09/19/22 22:07 Discharge Ordered Location: Home sd2 Problem: new sd2 Symptoms: have improved sd2 Condition: Stable sd2 Diagnosis - Closed Head Injury sd2 - Posterior scalp hematoma sd2 - Concussion without loss of consciousness sd2 Followup: sd2 - With: Art Wallis, - When: 2 - 3 days - Reason: Recheck today's complaints, Continuance of care, Re-evaluation by your physician Discharge Instructions: - Discharge Summary Sheet sd2 - Concussion, Adult sd2 - Head Injury, Adult sd2 - Post-Concussion Syndrome sd2 Forms: - Medication Reconciliation Form sd2 - Thank You Letter sd2 - Antibiotic Education sd2 - Prescription Opioid Use sd2 Signatures: Dispatcher [employer] EDMS Keo Crain RN RN jb4 Melida Abdi MD MD sd2 Corrections: (The following items were deleted from the chart) 09/20 00:32 09/19 22:05 ED course: Imaging reviewed with no acute findings. Tetanus updated. sd2 Bleeding controlled and wound care performed. Pt with likely concussion and advised of concussion precautions and need for follow up with PCP. Pt and family at BS verbalize understanding of discharge plan and strict return precautions. . sd2
[2022-09-19] MEDS ORDERED: TETANUS & DIPHTHERIA TOX,ADULT 0.5 ML VIAL ONE (22:17)
[2022-09-20 00:16] VITALS: TEMP 97.6
[2022-09-20 00:18] VITALS: BP 162/105; O2SAT 100
== END 2022-09-20 00:12 | disposition home or self-care (01) ==
LOC: ER 20:59
DX: S06.0X0A Concussion without loss of consciousness, initial encounter (principal); S00.03XA Contusion of scalp, initial encounter; I10 Essential (primary) hypertension; Z23 Encounter for immunization
CPT/HCPCS: 70450; 72125; 90471; 90714; 99284

== ENCOUNTER 2022-09-21 13:49 | Emergency (ER) | payer OTHER ==
--- OUTSIDE RECORDS SUMMARY | 2022-09-21 13:56 | XMS REPORT | Continuity of Care Document ---
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 (Cyanocobal 2-21 S pirit obrien) obrien) 00:00: - [facility] 00 [facility] Vitamin B12 Vitamin B12 2-0 No 1000ug Common (Cyanocobal (Cyanocobal 2-21 S pirit obrien) obrien) 00:00: - [facility] 00 [facility] Vitamin B12 Vitamin B12 2-0 No 1000ug Common (Cyanocobal (Cyanocobal 2-21 S pirit obrien) obrien) 00:00: - [facility] 00 [facility] Vitamin B12 Vitamin B12 2022-0 No 1000ug Common (Cyanocobal (Cyanocobal 2-21 S pirit obrien) obrien) 00:00: - [facility] 00 [facility] Vitamin B12 Vitamin B12 2022-0 No 1000ug Common (Cyanocobal (Cyanocobal 2-21 S pirit obrien) obrien) 00:00: - [facility] 00 [facility] Vitamin B12 Vitamin B12 2022-0 No 1000ug Common (Cyanocobal (Cyanocobal 2-21 S pirit obrien) obrien) 00:00: - [facility] 00 [facility] Vitamin B12 Vitamin B12 2022-0 No 1000ug Common (Cyanocobal (Cyanocobal 2-21 S pirit obrien) obrien) 00:00: - [facility] 00 [facility] Vitamin B12 Vitamin B12 2022-0 No 1000ug Common (Cyanocobal (Cyanocobal 2-21 S pirit obrien) obrien) 00:00: - [facility] 00 [facility] Vitamin B12 Vitamin B12 2022-0 No 1000ug Common (Cyanocobal (Cyanocobal 2-21 S pirit obrien) obrien) 00:00: - [facility] 00 [facility] Vitamin B12 Vitamin B12 2022-0 No 1000ug Common (Cyanocobal (Cyanocobal 2-21 S pirit obrien) obrien) 00:00: - [facility] 00 [facility] Vitamin B12 Vitamin B12 2022-0 No 1000ug Common (Cyanocobal (Cyanocobal 2-21 S pirit obrien) obrien) 00:00: - [facility] 00 [facility] Vitamin B12 Vitamin B12 2022-0 No 1000ug Common (Cyanocobal (Cyanocobal 2-21 S pirit obrien) obrien) 00:00: - [facility] 00 [facility] Vitamin B12 Vitamin B12 2022-0 No 1000ug Common (Cyanocobal (Cyanocobal 2-21 S pirit obrien) obrien) 00:00: - [facility] 00 [facility] Vitamin B12 Vitamin B12 2-0 No 1000ug Common (Cyanocobal (Cyanocobal 2-21 S pirit obrien) obrien) 00:00: - [facility] 00 [facility] Vitamin B12 Vitamin B12 2022-0 No 1000ug Common (Cyanocobal (Cyanocobal 2-21 S pirit obrien) obrien) 00:00: - [facility] 00 [facility] Vitamin B12 Vitamin B12 2022-0 No 1000ug Common (Cyanocobal (Cyanocobal 2-21 S pirit obrien) obrien) 00:00: - [facility] 00 [facility] Vitamin B12 Vitamin B12 2022-0 No 1000ug Common (Cyanocobal (Cyanocobal 2-21 S pirit obrien) obrien) 00:00: - [facility] 00 [facility] Vitamin B12 Vitamin B12 2022-0 No 1000ug Common (Cyanocobal (Cyanocobal 2-21 S pirit obrien) obrien) 00:00: - [facility] 00 [facility] Vitamin B12 Vitamin B12 2022-0 No 1000ug Common (Cyanocobal (Cyanocobal 2-21 S pirit obrien) obrien) 00:00: - [facility] 00 [facility] Vitamin B12 Vitamin B12 2-0 No 1000ug Common (Cyanocobal (Cyanocobal 1-07 S pirit obrien) obrien) 00:00: - [facility] 00 [facility] Vitamin B12 Vitamin B12 2022-0 No 1000ug Common (Cyanocobal (Cyanocobal 1-07 S pirit obrien) obrien) 00:00: - [facility] 00 [facility] Vitamin B12 Vitamin B12 2022-0 No 1000ug Common (Cyanocobal (Cyanocobal 1-07 S pirit obrien) obrien) 00:00: - [facility] 00 [facility] Vitamin B12 Vitamin B12 2-0 No 1000ug Common (Cyanocobal (Cyanocobal 1-07 S pirit obrien) obrien) 00:00: - [facility] 00 [facility] Vitamin B12 Vitamin B12 2-0 No 1000ug Common (Cyanocobal (Cyanocobal 1-07 S pirit obrien) obrien) 00:00: - [facility] 00 [facility] Vitamin B12 Vitamin B12 2-0 No 1000ug Common (Cyanocobal (Cyanocobal 1-07 S pirit obrien) obrien) 00:00: - [facility] 00 [facility] Vitamin B12 Vitamin B12 2-0 No 1000ug Common (Cyanocobal (Cyanocobal 1-07 S pirit obrien) obrien) 00:00: - [facility] 00 [facility] Vitamin B12 Vitamin B12 2-0 No 1000ug Common (Cyanocobal (Cyanocobal 1-07 S pirit obrien) obrien) 00:00: - [facility] 00 [facility] Vitamin B12 Vitamin B12 2022-0 No 1000ug Common (Cyanocobal (Cyanocobal 1-07 S pirit obrien) obrien) 00:00: - [facility] 00 [facility] Vitamin B12 Vitamin B12 2022-0 No 1000ug Common (Cyanocobal (Cyanocobal 1-07 S pirit obrien) obrien) 00:00: - [facility] 00 [facility] Vitamin B12 Vitamin B12 2022-0 No 1000ug Common (Cyanocobal (Cyanocobal 1-07 S pirit obrien) obrien) 00:00: - [facility] 00 [facility] Vitamin B12 Vitamin B12 2022-0 No 1000ug Common (Cyanocobal (Cyanocobal 1-07 S pirit obrien) obrien) 00:00: - [facility] 00 [facility] Vitamin B12 Vitamin B12 2-0 No 1000ug Common (Cyanocobal (Cyanocobal 1-07 S pirit obrien) obrien) 00:00: - [facility] 00 [facility] Vitamin B12 Vitamin B12 2-0 No 1000ug Common (Cyanocobal (Cyanocobal 1-07 S pirit obrien) obrien) 00:00: - [facility] 00 [facility] Vitamin B12 Vitamin B12 2021-0 No 1000ug Common (Cyanocobal (Cyanocobal 1-07 S pirit obrien) obrien) 00:00: - [facility] 00 [facility] Vitamin B12 Vitamin B12 2021-0 No 1000ug Common (Cyanocobal (Cyanocobal 1-07 S pirit obrien) obrien) 00:00: - [facility] 00 [facility] Vitamin B12 Vitamin B12 2021-0 No 1000ug Common (Cyanocobal (Cyanocobal 1-07 S pirit obrien) obrien) 00:00: - [facility] 00 [facility] Vitamin B12 Vitamin B12 2021-0 No 1000ug Common (Cyanocobal (Cyanocobal 1-07 S pirit obrien) obrien) 00:00: - [facility] 00 [facility] Vitamin B12 Vitamin B12 2-0 No 1000ug Common (Cyanocobal (Cyanocobal 1-07 S pirit obrien) obrien) 00:00: - [facility] 00 [facility] Vitamin B12 Vitamin B12 2-0 No 1000ug Common (Cyanocobal (Cyanocobal 1-07 S pirit obrien) obrien) 00:00: - [facility] 00 [facility] Vitamin B12 Vitamin B12 2-0 No 1000ug Common (Cyanocobal (Cyanocobal 1-07 S pirit obrien) obrien) 00:00: - [facility] 00 [facility] Vitamin B12 Vitamin B12 2022-0 No 1000ug Common (Cyanocobal (Cyanocobal 1-07 S pirit obrien) obrien) 00:00: - [facility] 00 [facility] Vitamin B12 Vitamin B12 1-1 No 1000ug Common (Cyanocobal (Cyanocobal 2-22 S pirit obrien) obrien) 00:00: - [facility] 00 [facility] Vitamin B12 Vitamin B12 2020-11 No 1000ug Common (Cyanocobal (Cyanocobal 2-22 S pirit obrien) obrien) 00:00: - [facility] 00 [facility] Vitamin B12 Vitamin B12 2020-11 No 1000ug Common (Cyanocobal (Cyanocobal 2-22 S pirit obrien) obrien) 00:00: - [facility] 00 [facility] Vitamin B12 Vitamin B12 2020-11 No 1000ug Common (Cyanocobal (Cyanocobal 2-22 S pirit obrien) obrien) 00:00: - [facility] 00 [facility] Vitamin B12 Vitamin B12 2020-11 No 1000ug Common (Cyanocobal (Cyanocobal 2-22 S pirit obrien) obrien) 00:00: - [facility] 00 [facility] Vitamin B12 Vitamin B12 2020-11 No 1000ug Common (Cyanocobal (Cyanocobal 2-22 S pirit obrien) obrien) 00:00: - [facility] 00 [facility] Vitamin B12 Vitamin B12 2020-11 No 1000ug Common (Cyanocobal (Cyanocobal 2-22 S pirit obrien) obrien) 00:00: - [facility] 00 [facility] Vitamin B12 Vitamin B12 2020-11 No 1000ug Common (Cyanocobal (Cyanocobal 2-22 S pirit obrien) obrien) 00:00: - [facility] 00 [facility] Vitamin B12 Vitamin B12 2020-11 No 1000ug Common (Cyanocobal (Cyanocobal 2-22 S pirit obrien) obrien) 00:00: - [facility] 00 [facility] Vitamin B12 Vitamin B12 2020-11 No 1000ug Common (Cyanocobal (Cyanocobal 2-22 S pirit obrien) obrien) 00:00: - [facility] 00 [facility] Vitamin B12 Vitamin B12 2020-11 No 1000ug Common (Cyanocobal (Cyanocobal 2-22 S pirit obrien) obrien) 00:00: - [facility] 00 [facility] Vitamin B12 Vitamin B12 2020-11 No 1000ug Common (Cyanocobal (Cyanocobal 2-22 S pirit obrien) obrien) 00:00: - [facility] 00 [facility] Vitamin B12 Vitamin B12 2020-11 No 1000ug Common (Cyanocobal (Cyanocobal 2-22 S pirit obrien) obrien) 00:00: - [facility] 00 [facility] Vitamin B12 Vitamin B12 2020-11 No 1000ug Common (Cyanocobal (Cyanocobal 2-22 S pirit obrien) obrien) 00:00: - [facility] 00 [facility] Vitamin B12 Vitamin B12 2020-11 No 1000ug Common (Cyanocobal (Cyanocobal 2-22 S pirit obrien) obrien) 00:00: - [facility] 00 [facility] Vitamin B12 Vitamin B12 2020-11 No 1000ug Common (Cyanocobal (Cyanocobal 2-22 S pirit obrien) obrien) 00:00: - [facility] 00 [facility] Vitamin B12 Vitamin B12 2020-11 No 1000ug Common (Cyanocobal (Cyanocobal 2-22 S pirit obrien) obrien) 00:00: - [facility] 00 [facility] Vitamin B12 Vitamin B12 2020-11 No 1000ug Common (Cyanocobal (Cyanocobal 2-22 S pirit obrien) obrien) 00:00: - [facility] 00 [facility] Vitamin B12 Vitamin B12 2020-11 No 1000ug Common (Cyanocobal (Cyanocobal 2-22 S pirit obrien) obrien) 00:00: - [facility] 00 [facility] Vitamin B12 Vitamin B12 2020-11 No 1000ug Common (Cyanocobal (Cyanocobal 2-22 S pirit obrien) obrien) 00:00: - [facility] 00 [facility] Vitamin B12 Vitamin B12 2020-11 No 1000ug Common (Cyanocobal (Cyanocobal 2-22 S pirit obrien) obrien) 00:00: - [facility] 00 [facility] Vitamin B12 Vitamin B12 2020-11 No 1000ug Common (Cyanocobal (Cyanocobal 2-22 S pirit obrien) obrien) 00:00: - [facility] 00 [facility] zinc 0 Yes 220mg QD Take 220 [facility] sulfate 3-[address] (ZINCATE) 18:05: [facility] 220 (50) mg 38 daily. l capsule atorvastati 0 Yes 40mg QD Take 40 mg Method[facility] n (LIPITOR) 3-[address] 40 mg 18:05: every [facility] tablet 38 evening. l QUEtiapine 0 Yes 200mg QD Take 200 [facility] (SEROquel) 3-[address] 200 MG 18:05: [facility] tablet 38 nightly. l For sleep zinc 2021-0 Yes 220mg QD Take 220 [facility] sulfate 3-[address] (ZINCATE) 18:05: [facility] 220 (50) mg 38 daily. l capsule lisinopriL 1-0 Yes 20mg QD Take 20 mg M [facility]i (PRINIVIL) 3-[address] 20 mg 18:05: every [facility] tablet 38 morning. l lisinopriL 2021-0 Yes 20mg QD Take 20 mg M ethodi (PRINIVIL) 3-[address] 20 mg 18:05: [facility] tablet 38 morning. l levothyroxi 2021-0 Yes 100ug QD Take 100 M ethodi ne 3-[address] (SYNTHROID) 18:05: mouth [facility] 100 mcg 38 daily. l tablet atorvastati 1-0 Yes 40mg QD Take 40 mg Method[facility] [...] [facility] tablet 38 morning. l levothyroxi 2021-0 Yes 100ug QD Take 100 M ethodi ne 3-[address] (SYNTHROID) 18:05: [facility] 100 mcg 38 daily. l tablet atorvastati 2021-0 Yes 40mg QD Take 40 mg [facility] n (LIPITOR) 3-[address] 40 mg 18:05: every [facility] tablet 38 evening. l QUEtiapine 2021-0 Yes 200mg QD Take 200 Me [facility] [...] every [facility]osp[facility] tablet 38 evening. l QUEtiapine Yes 200mg QD Take 200 [facility] (SEROquel) 3-[address] 200 MG 18:05: [facility] tablet 38 nightly. l For sleep levothyroxi Yes 100ug QD Take 100 M ethodi ne 3-[address] (SYNTHROID) 18:05: mouth [facility] 100 mcg 38 daily. l tablet Sertraline Sertraline No 1{table QD Sertraline HCl [...] Date Status [facility] (Low Dose Vaccine (Low Dose 10:59:00 [facility] COVID19 [facility] COVID19 2021-11-26 Com[facility] (Low Dose Vaccine (Low Dose 10:59:00 - [facility] Booster) [facility] COVID19 [facility] COVID19 2021-11-26 Completed [facility] (Low Dose Vaccine (Low Dose 10:59:00 - [facility] Booster) [facility] COVID19 [facility] COVID19 2021-11-26 Com[facility] (Low Dose Vaccine (Low Dose 10:59:00 [facility] [address] (Low Dose Vaccine (Low Dose 10:59:00 - [facility] Booster) [facility] COVID19 [facility] COVID19 2021-11-26 Completed [facility] (Low Dose Vaccine (Low Dose 10:59:00 - [facility] Booster) [facility] [address] COVID19 2021-11-26 Completed [facility] (Low Dose Vaccine (Low Dose 10:59:00 - [facility] Booster) [facility] [address] COVID19 2021-11-26 Completed [facility] (Low Dose Vaccine (Low Dose 10:59:00 - [facility] Booster) [facility] [address] COVID19 2021-11-26 Completed [facility]ine (Low Dose Vaccine (Low Dose 10:59:00 - [facility] Booster) [facility] [address] COVID19 2021-11-26 Completed [facility] (Low Dose Vaccine (Low Dose 10:59:00 - [facility] Booster) [facility] [address] COVID19 2021-11-26 Completed [facility] (Low Dose Vaccine (Low Dose 10:59:00 - [facility] Booster) [facility] [address] COVID19 2021-11-26 Completed [facility] (Low Dose Vaccine (Low Dose 10:59:00 - [facility] Booster) [facility] [address] COVID19 2021-11-26 Completed [facility] (Low Dose Vaccine (Low Dose 10:59:00 - [facility] Booster) [facility] COVID19 [facility] COVID19 2021-11-26 Completed [facility]ine (Low Dose Vaccine (Low Dose 10:59:00 - [facility] Booster) [facility] [address] COVID19 2021-11-26 Completed [facility] (Low Dose Vaccine (Low Dose 10:59:00 - [facility] Booster) [facility] COVID19 [facility] COVID19 2021-11-26 Completed [facility] (Low Dose Vaccine (Low Dose 10:59:00 - [facility] Booster) [facility] COVID19 [facility] COVID19 2021-11-26 Completed [facility] (Low Dose Vaccine (Low Dose 10:59:00 - [facility] Booster) [facility] COVID19 [facility] COVID19 2021-11-26 Completed [facility] (Low Dose Vaccine (Low Dose 10:59:00 - [facility]) Booster) [facility] COVID19 [facility] COVID19 2021-11-26 Completed [facility] (Low Dose Vaccine (Low Dose 10:59:00 - [facility] Bo[facility]) Booster) [facility] COVID19 [facility] COVID19 2021-11-26 Completed [facility] (Low Dose Vaccine (Low Dose 10:59:00 - [facility]) Booster) [facility] COVID19 [facility] COVID19 2021-11-26 Completed [facility] (Low Dose Vaccine (Low Dose 10:59:00 - [facility] Booster) [facility] COVID19 [facility] COVID19 2021-11-26 Completed [facility] (Low Dose Vaccine (Low Dose 10:59:00 - [facility] Booster) [facility] Pfizer COVID-19 Pfizer COVID-19 2021-01-30 [facility] Vaccine 09:01:00 [facility] Pfizer COVID-19 Pfizer COVID-19 2021-01-30 Completed [facility] Vaccine 09:01:00 [facility] Pfizer COVID-19 Pfizer COVID-19 2021-01-30 Com[facility] Vaccine 09:01: [facility] Pfizer COVID-19 Pfizer COVID-19 2021-01-30 Com[facility] Vaccine 09:01:00 [facility] Pfizer COVID-19 Pfizer COVID-19 2021-01-30 Completed [facility] Vaccine 09:01: [facility] Pfizer COVID-19 Pfizer COVID-19 2021-01-30 Com[facility] Vaccine 09:01:00 - [facility] Pfizer COVID-19 Pfizer COVID-19 2021-01-30 Com[facility] Vaccine 09:01:00 - [facility] Pfizer COVID-19 Pfizer COVID-19 2021-01-30 Completed [facility] Vaccine 09:01:00 - [facility] Pfizer COVID-19 Pfizer COVID-19 2021-01-30 Completed [facility] Vaccine 09:01:00 - [facility] Pfizer COVID-19 Pfizer COVID-19 2021-01-30 Completed [facility] Vaccine 09:01:00 - [facility] Pfizer COVID-19 Pfizer COVID-19 2021-01-30 Completed [facility] Vaccine 09:01:00 - [facility] Pfizer COVID-19 Pfizer COVID-19 2021-01-30 Completed [facility] Vaccine 09:01:00 - [facility] Pfizer COVID-19 Pfizer COVID-19 2021-01-30 Com[facility] Vaccine 09:01:00 - [facility] Pfizer COVID-19 Pfizer COVID-19 2021-01-30 Com[facility] Vaccine 09:01:00 - [facility] Pfizer COVID-19 Pfizer COVID-19 2021-01-30 Com[facility] Vaccine 09:01:00 - [facility] Pfizer COVID-19 Pfizer COVID-19 2021-01-30 Com[facility] Vaccine 09:01:00 [facility] Pfizer COVID-19 Pfizer COVID-19 2021-01-30 Com[facility] Vaccine 09:01:00 [facility] Pfizer COVID-19 Pfizer COVID-19 2021-01-30 Com[facility] Vaccine 09:01:00 [facility] Pfizer COVID-19 Pfizer COVID-19 2021-01-30 Com[facility] Vaccine 09:01:00 [facility] Pfizer COVID-19 Pfizer COVID-19 2021-01-30 Com[facility] Vaccine 09:01:00 - [facility] Pfizer COVID-19 Pfizer COVID-19 2021-01-30 Com[facility] Vaccine 09:01:00 - [facility] Pfizer COVID-19 Pfizer COVID-19 2021-01-30 Completed [facility] Vaccine 09:01:00 [facility] Pfizer COVID-19 Pfizer COVID-19 2020-12-30 Completed [facility] Vaccine 09:01:00 - [facility] Pfizer COVID-19 Pfizer COVID-19 2020-12-30 Completed [facility] Vaccine 09:01:00 - [facility] Pfizer COVID-19 Pfizer COVID-19 2020-12-30 Completed [facility] Vaccine 09:01:00 - [facility] Pfizer COVID-19 Pfizer COVID-19 2020-12-30 Completed [facility] Vaccine 09:01:00 - [facility] Pfizer COVID-19 Pfizer COVID-19 2020-12-30 Completed [facility] Vaccine 09:01:00 - [facility] Pfizer COVID-19 Pfizer COVID-19 2020-12-30 Completed [facility] Vaccine 09:01:00 - [facility] Pfizer COVID-19 Pfizer COVID-19 2020-12-30 Completed [facility] Vaccine 09:01:00 - [facility] Pfizer COVID-19 Pfizer COVID-19 2020-12-30 Completed [facility] Vaccine 09:01:00 - [facility] Pfizer COVID-19 Pfizer COVID-19 2020-12-30 Completed [facility] Vaccine 09:01:00 [facility] Pfizer COVID-19 Pfizer COVID-19 2020-12-30 Completed [facility] Vaccine 09:01:00 - [facility] Pfizer COVID-19 Pfizer COVID-19 2020-12-30 Com[facility] Vaccine 09:01:00 [facility] Pfizer COVID-19 Pfizer COVID-19 2020-12-30 Completed [facility] Vaccine 09:01:00 [facility] Pfizer COVID-19 Pfizer COVID-19 2020-12-30 Completed [facility] Vaccine 09:01:00 - [facility] Pfizer COVID-19 Pfizer COVID-19 2020-12-30 Com[facility] Vaccine 09:01:00 - [facility] Pfizer COVID-19 Pfizer COVID-19 2020-12-30 Completed [facility] Vaccine 09:01:00 - [facility] Pfizer COVID-19 Pfizer COVID-19 2020-12-30 Completed [facility] Vaccine 09:01:00 - [facility] Pfizer COVID-19 Pfizer COVID-19 2020-12-30 Completed [facility] Vaccine 09:01:00 - [facility] Pfizer COVID-19 Pfizer COVID-19 2020-12-30 Completed [facility] Vaccine Vaccine 09:01:00 - [facility] Pfizer COVID-19 Pfizer COVID-19 2020-12-30 Completed [facility] Vaccine 09:01:00 - [facility] Pfizer COVID-19 Pfizer COVID-19 2020-12-30 Completed [facility] Vaccine 09:01:00 - [facility] Pfizer COVID-19 Pfizer COVID-19 2020-12-30 Completed [facility] Vaccine 09:01:00 - [facility] Pfizer COVID-19 Pfizer COVID-19 2020-12-30 Completed [facility] Vaccine 09:01:00 - [facility] Fluzone Fluzone 2020-07-02 Completed [facility] 09:02:00 - [facility] Fluzone Fluzone 2020-07-02 Completed [facility] 09:02:00 - [facility] Fluzone Fluzone 2020-07-02 Completed [facility] 09:02:00 - [facility] Fluzone Fluzone 2020-07-02 Completed [facility] 09:02:00 - [facility] Fluzone Fluzone 2020-07-02 Completed [facility] 09:02:00 - [facility] Fluzone Fluzone 2020-07-02 Completed [facility] 09:02:00 - [facility] Fluzone Fluzone 2020-07-02 Completed [facility] 09:02:00 - [facility] Fluzone Fluzone 2020-07-02 Completed [facility] 09:02:00 - [facility] Fluzone Fluzone 2020-07-02 Completed [facility] 09:02:00 - [facility] Fluzone Fluzone 2020-07-02 Completed [facility] 09:02:00 - [facility] Fluzone Fluzone 2020-07-02 Completed [facility] 09:02:00 - [facility] Fluzone Fluzone 2020-07-02 Completed [facility] 09:02:00 - [facility] Fluzone Fluzone 2020-07-02 Completed [facility] 09:02:00 - [facility] Fluzone Fluzone 2020-07-02 Completed [facility] 09:02:00 - [facility] Fluzone Fluzone 2020-07-02 Completed [facility] 09:02:00 - [facility] Fluzone Fluzone 2020-07-02 Completed [facility] 09:02:00 - [facility] Fluzone Fluzone 2020-07-02 Completed [facility] 09:02:00 - [facility] Fluzone Fluzone 2020-07-02 Completed [facility] 09:02:00 - [facility] Fluzone Fluzone 2020-07-02 Completed [facility] 09:02:00 - [facility] Fluzone Fluzone 2020-07-02 Completed [facility] 09:02:00 - [facility] Fluzone Fluzone 2020-07-02 Completed [facility] 09:02:00 - [facility] Fluzone Fluzone 2020-07-02 Completed [facility] 09:02:00 - [facility] Vital Signs Vital Name Observation Time Observation Value Comments Source height 2022-08-20 15:00:00 59.5 [in_i] [facility] weight 2022-08-20 15:00:00 141.1 [lb_av] Common [facility] temperature 2022-08-20 15:00:00 97.8 [degF] [facility] - [facility] bmi 2022-08-20 15:00:00 28.02 kg/m2 [facility] - [facility] blood pressure 2022-08-20 15:00:00 136 mm[Hg] [facility] - systolic [facility] blood pressure 2022-08-20 15:00:00 84 mm[Hg] [facility] - diastolic [facility] height 2022-07-24 07:50:00 59.5 [in_i] [facility] - [facility] weight 2022-07-24 07:50:00 145 [lb_av] [facility] temperature 2022-07-24 07:50:00 98 [degF] [facility] - [facility] bmi 2022-07-24 07:50:00 28.79 kg/m2 [facility] - [facility] blood pressure 2022-07-24 07:50:00 132 mm[Hg] [facility] - systolic [facility] blood pressure 2022-07-24 07:50:00 65 mm[Hg] [facility] - diastolic [facility] height 2022-07-01 10:00:00 59.5 [in_i] [facility] weight 2022-07-01 10:00:00 147 [lb_av] [facility] temperature 2022-07-01 10:00:00 97.9 [degF] [facility] - [facility] bmi 2022-07-01 10:00:00 29.19 kg/m2 [facility] oximetry 2022-07-01 10:00:00 97 % [facility] 2022-07-01 10:00:00 16 /min [facility] blood pressure 2022-07-01 10:00:00 139 mm[Hg] Common [facility] - systolic [facility] blood pressure 2022-07-01 10:00:00 67 mm[Hg] [facility] - diastolic [facility] height 2022-07-01 10:00:00 60 [in_i] Common [facility] weight 2022-07-01 10:00:00 147 [lb_av] Common [facility] temperature 2022-07-01 10:00:00 97.9 [degF] Common [facility] bmi 2022-07-01 10:00:00 28.71 kg/m2 Common [facility] oximetry 2022-07-01 10:00:00 97 % Common [facility] respiratory rate 2022-07-01 10:00:00 16 /min Comm on [facility] blood pressure 2022-07-01 10:00:00 139 mm[Hg] Common [facility] systolic [facility] blood pressure 2022-07-01 10:00:00 67 mm[Hg] Common [facility] - diastolic [facility] height 2022-06-17 10:00:00 60 [in_i] Common [facility] weight 2022-06-17 10:00:00 144 [lb_av] Common [facility] temperature 2022-06-17 10:00:00 97 [degF] [facility] bmi 2022-06-17 10:00:00 28.12 kg/m2 [facility] oximetry 2022-06-17 10:00:00 97 % Common [facility] respiratory rate 2022-06-17 10:00:00 17 /min Comm on [facility] blood pressure 2022-06-17 10:00:00 128 mm[Hg] Common [facility] - systolic [facility] blood pressure 2022-06-17 10:00:00 74 mm[Hg] Common [facility] - diastolic [facility] height 2022-06-03 15:00:00 60 [in_i] Common [facility] weight 2022-06-03 15:00:00 147.6 [lb_av] Common [facility] temperature 2022-06-03 15:00:00 97.0 [degF] [facility] - [facility] bmi 2022-06-03 15:00:00 28.82 kg/m2 [facility] - [facility] oximetry 2022-06-03 15:00:00 94 % [facility] - [facility] respiratory rate 2022-06-03 15:00:00 17 /min [facility] blood pressure 2022-06-03 15:00:00 132 mm[Hg] [facility] - systolic [facility] blood pressure 2022-06-03 15:00:00 76 mm[Hg] [facility] - diastolic [facility] Procedures This patient has no known procedures. Plan of Care Planned Activity Planned Date Details Comments Source Future Scheduled 2022-09-21 HEPATITIS B VACCINES [facility] Test 12:23:26 (1 of 3 - 3-dose series) [code = HEPATITIS B VACCINES (1 of 3 - 3-dose series)] Future Scheduled 2022-09-21 Hepatitis C screening [facility] Test 12:23:26 (procedure) [code = 417366387] Future Scheduled 2022-09-21 SHINGLES VACCINES (1 [facility] Test 12:23:26 of 2) [code = SHINGLES VACCINES (1 of 2)] Future Scheduled 2022-09-21 65+ [facility]UMOCOCCAL [facility] Test 12:23:26 VACCINE (1 - PCV) [code = 65+ PNEUMOCOCCAL VACCINE (1 - PCV)] Future Scheduled 2022-09-21 COVID-19 VACCINE (2 - [facility] Test 12:23:26 Pfizer series) [code = COVID-19 VACCINE (2 - Pfizer series)] Future Scheduled 2022-09-21 INFLUENZA VACCINE Method [facility] Test 12:23:26 [code = INFLUENZA VACCINE] Future Scheduled 2022-09-04 HEPATITIS B VACCINES [facility] Test 11:20:46 (1 of 3 - 3-dose series) [code = HEPATITIS B VACCINES (1 of 3 - 3-dose series)] Future Scheduled 2022-09-04 Hepatitis C screening [facility] Test 11:20:46 (procedure) [code = 822996709] Future Scheduled 2022-09-04 SHINGLES VACCINES (1 [facility] Test 11:20:46 of 2) [code = SHINGLES VACCINES (1 of 2)] Future Scheduled 2022-09-04 65+ [facility]AL [facility] Test 11:20:46 VACCINE (1 - PCV) [code = 65+ PNEUMOCOCCAL VACCINE (1 - PCV)] Future Scheduled 2022-09-04 COVID-19 VACCINE (2 - [facility] Test 11:20:46 Pfizer series) [code = COVID-19 VACCINE (2 - Pfizer series)] Future Scheduled 2022-09-04 INFLUENZA VACCINE Method [facility] Test 11:20:46 [code = INFLUENZA VACCINE] Future Scheduled 2022-07-01 HEPATITIS B VACCINES [facility] Test 22:22:27 (1 of 3 - 3-dose series) [code = HEPATITIS B VACCINES (1 of 3 - 3-dose series)] Future Scheduled 2022-07-01 Hepatitis C screening [facility] Test 22:22:27 (procedure) [code = 512402459] Future Scheduled 2022-07-01 SHINGLES VACCINES (1 [facility] Test 22:22:27 of 2) [code = SHINGLES VACCINES (1 of 2)] Future Scheduled 2022-07-01 65+ [facility] 22:22:27 VACCINE (1 - PCV) [code = 65+ PNEUMOCOCCAL VACCINE (1 - PCV)] Future Scheduled 2022-07-01 COVID-19 VACCINE (2 - [facility] Test 22:22:27 Pfizer series) [code = COVID-19 VACCINE (2 - Pfizer series)] Future Scheduled 2022-07-01 INFLUENZA VACCINE Method [facility] Test 22:22:27 [code = INFLUENZA VACCINE] Future Scheduled 2022-07-01 HEPATITIS B VACCINES [facility] Test 22:22:27 (1 of 3 - 3-dose series) [code = HEPATITIS B VACCINES (1 of 3 - 3-dose series)] Future Scheduled 2022-07-01 Hepatitis C screening [facility] Test 22:22:27 (procedure) [code = [id number]] Future Scheduled 2022-07-01 SHINGLES VACCINES (1 [facility] Test 22:22:27 of 2) [code = SHINGLES VACCINES (1 of 2)] Future Scheduled 2022-07-01 65+ [facility]OCOCCAL [facility] Test 22:22:27 VACCINE (1 - PCV) [code = 65+ PNEUMOCOCCAL VACCINE (1 - PCV)] Future Scheduled 2022-07-01 COVID-19 VACCINE (2 - [facility] Test 22:22:27 Pfizer series) [code = COVID-19 VACCINE (2 - Pfizer series)] Future Scheduled 2022-07-01 INFLUENZA VACCINE [facility] Test 22:22:27 [code = INFLUENZA VACCINE] Encounters Start End Encounter Admission Attending Care Care Encounter Source Date/Time Date/Time Type Type Clinicians Facility Department ID 2022-08-21 Outpatient [place], STLMLC STLC [id number] Common 07:59:01 Art [facility] 2022-08-19 Outpatient [place], STLMLC STLC [id number] Common 08:56:02 Art [facility] 2022-08-18 Outpatient Wallis, STLC STLC [id number] Common 08:57:03 Art [facility] 2022-07-23 Outpatient [place]is, STLMLC STLC [id number] Common 13:11:01 Art [facility] 2022-05-19 Outpatient Wallis, STLC STLC [id number] Common 14:18:01 Art [facility] 2022-04-17 Outpatient Wallis, STLC STLC [id number] Common 15:13:01 Art [facility] 2022-04-01 Outpatient [place]is, STLC STLC [id number] Common 09:00:04 Art [facility] 2022-08-26 2022-08-26 (TEL) STLC STLC [id number] Co mmon 00:00:00 00:00:00 [facility] 2022-08-21 2022-08-21 (TEL) STLC STLC [id number] Co mmon 00:00:00 00:00:00 [facility] 2022-08-202022-08-20 OFFICE STLMLC STLMLC [id number] Co mmon 00:00:00 00:00:00 VISIT NEW [facility] it PT LEVEL 3 - [facility] 2022-08-17 2022-08-17 (TEL) STLMLC STLMLC [id number] Co mmon 00:00:00 00:00:00 [facility] 2022-07-24 2022-07-24 OFFICE STLMLC STLMLC [id number] Co mmon 00:00:00 00:00:00 [facility] ESTAB PT - CHI LEVEL 4 [facility] 2022-07-23 2022-07-23 (TEL) STLMLC STLMLC [id number] Co mmon 00:00:00 00:00:00 [facility] 2022-07-08 2022-07-08 (TEL) STLMLC STLMLC [id number] Co mmon 00:00:00 00:00:00 [facility] 2022-07-01 2022-07-01 OFFICE STLMLC STLMLC [id number] Co mmon 00:00:00 00:00:00 VISIT [facility] PT - CHI LEVEL 4 [facility] 2022-07-01 2022-07-01 SUB ANNUAL STLMLC STLMLC [id number] Common 00:00:00 00:00:00 [facility] WELLNESS - CHI VISIT [facility] 2022-07-01 2022-07-01 (TEL) STLMLC STLMLC [id number] Co mmon 00:00:00 00:00:00 [facility] 2022-06-17 2022-06-17 OFFICE STLMLC STLMLC [id number] Co mmon 00:00:00 00:00:00 [facility] ESTAB PT - CHI LEVEL 2 [facility] 2022-06-09 2022-06-09 (TEL) STLMLC STLMLC [id number] Co mmon 00:00:00 00:00:00 [facility] 2022-06-03 2022-06-03 (TEL) STLMLC STLMLC [id number] Co mmon 00:00:00 00:00:00 [facility] 2022-06-03 2022-06-03 ([place]) Nurse STLMLC STLMLC [id number] Common 00:00:00 00:00:00 Visit [facility] 2022-05-27 2022-05-27 (TEL) STLMLC STLMLC [id number] Co mmon 00:00:00 00:00:00 [facility] 2022-05-19 2022-05-19 ([place]) Nurse STLMLC STLMLC [id number] Common 00:00:00 00:00:00 Visit [facility] 2022-05-19 2022-05-19 (TEL) STLMLC STLMLC [id number] Co mmon 00:00:00 00:00:00 [facility] 2021-02-17 2021-02-17 Outpatient ROMARYR, [facility] [id number] 00:00:00 00:00:00 SANYA [address] 2021-01-01 2021-01-08 Inpatient MICHELLE, [facility] [id number] 00:00:00 00:00:00 CRISTY [address] Results Test Description Test Time Test Comments Results Result Comments Source SARS-CoV-2 (COVID-19) RNA [Presence] in Respiratory sp ecimen by 2021-01-02 04:18:36 EDGAR with probe detection Test Item Value Reference Range Interpretation Comme nts SARS-CoV-2 (COVID-19) RNA [Presence] in Respiratory Not detected No t-Detected specimen by EDGAR with probe detection (test code = 47195-6) DMITRY MACHADO DELTA
--- NOTE | 2022-09-21 14:47 | ER ---
Nurse's Notes [facility] Name: Wilma Ovalle Age: 76 yrs Sex: Female : 1945 Arrival Date: 09/21/2022 Time: 13:54 Bed IW4 Private MD: Diagnosis: Encounter for removal of sutures Presentation: 09/21 14:07 Chief complaint: Patient states: lance placed Wednesday night and I was told to come [facility] back here after 24 hours to have them removed?. Coronavirus screen: Vaccine status: Patient reports receiving the 2nd dose of the covid vaccine. Client denies travel out of the [place] in the last 14 days. Ebola Screen: Patient negative for fever greater than or equal to 101.5 degrees Fahrenheit, and additional compatible Ebola Virus Disease symptoms Patient denies exposure to infectious person. Patient denies travel to an Ebola-affected area in the 21 days before illness onset. Initial Sepsis Screen: Does the patient meet any 2 criteria? No. Patient's initial sepsis screen is negative. Does the patient have a suspected source of infection? No. Patient's initial sepsis screen is negative. Risk Assessment: Do you want to hurt yourself or someone else? Patient reports no desire to harm self or others. 14:07 Method Of Arrival: Ambulatory [facility] 14:07 Acuity: JEANINE 4 [facility] 14:42 Onset of symptoms was September 14, 2022. [facility] Triage Assessment: 14:09 General: Appears in no apparent distress. slender, well groomed, well developed, well [facility] nourished, Behavior is calm, cooperative, appropriate for age. Pain: Denies pain. Historical: - PMHx: 14:09 Hyperlipidemia; Hypertension; Hypothyroidism; insomnia; TIA; jh5 - Immunization history:: Adult Immunizations up to date. - Social history:: Smoking status: Patient denies any tobacco usage or history of. Screenin:41 Abuse screen: Denies threats or abuse. Denies injuries from another. Nutritional [facility] screening: No deficits noted. Tuberculosis screening: No symptoms or risk factors identified. Fall Risk None identified. Vital Signs: 14:07 BP 111 / 65; Pulse 90; Resp 16; Temp 97.5; Pulse Ox 96% ; Weight 62.14 kg; Height 4 ft. [facility] 10 in. (147.32 cm); Pain 0/10; 14:07 Body Mass Index 28.63 (62.14 kg, 147.32 cm) [facility] ED Course: 13:54 Patient arrived in ED. as 14:01 [facility]lee [facility]az F[facility]-C [facility] 14:01 Kaleb Zacarias MD is Attending Physician. snw 14:09 Triage completed. 5 14:09 Arm band placed on right wrist. 5 14:41 Patient has correct armband on for positive identification. Adult w/ patient. 5 14:41 No provider procedures requiring assistance completed. Patient did not have IV access [facility] during this emergency room visit. Administered Medications: No medications were administered Medication: 14:41 VIS not applicable for this client. [facility] Outcome: 14:42 Discharged to home via wheelchair, with family. [facility] 14:42 Condition: good 14:42 Discharge instructions given to patient, family, Instructed on discharge instructions, follow up and referral plans. safety practices, Demonstrated understanding of instructions, follow-up care, wound care. 14:47 Discharge ordered by . snw 14:53 Patient left the ED. [facility] Signatures: Alee Vaz FNP-C FNP-Sigrid Flores Jessica, RN RN [facility]
--- NOTE | 2022-09-21 14:47 | EDPHYS ---
Physician Documentation [facility] Name: Wilma Ovalle Age: 76 yrs Sex: Female : 1945 Arrival Date: 09/21/2022 Time: 13:54 Bed IW4 Private MD: ED Physician Kaleb Zacarias HPI: 09/21 14:45 This 76 yrs old Female presents to ER via Ambulatory with complaints of Staple snw Removal. 14:45 The patient has lance on the left parietal area. Previous treatment: The patient was snw initially treated 2 day(s) ago, the care was rendered at [facility], Treatment type: The patient's original treatment included lance. The patient has experienced a previous episode. as noted. Historical: - PMHx: 14:09 Hyperlipidemia; Hypertension; Hypothyroidism; insomnia; TIA; jh5 - Immunization history:: Adult Immunizations up to date. - Social history:: Smoking status: Patient denies any tobacco usage or history of. ROS: 14:44 Constitutional: Negative for fever, chills, and weight loss, Eyes: Negative for injury, snw pain, redness, and discharge, ENT: Negative for injury, pain, and discharge, Neck: Negative for injury, pain, and swelling, Cardiovascular: Negative for chest pain, palpitations, and edema, Respiratory: Negative for shortness of breath, cough, wheezing, and pleuritic chest pain, Abdomen/GI: Negative for abdominal pain, nausea, vomiting, diarrhea, and constipation, Back: Negative for injury and pain, : Negative for injury, bleeding, discharge, and swelling, MS/Extremity: Negative for injury and deformity, Skin: Negative for injury, rash, and discoloration. 14:44 Neuro: Positive for lance x 4 need removal. Exam: 14:44 Constitutional: This is a well developed, well nourished patient who is awake, alert, snw and in no acute distress. Head/Face: Normocephalic, atraumatic. 4 lance to occiput, pt requests removal. + hematoma beneath lance Eyes: Pupils equal round and reactive to light, extra-ocular motions intact. Lids and lashes normal. Conjunctiva and sclera are non-icteric and not injected. Cornea within normal limits. Periorbital areas with no swelling, redness, or edema. ENT: Nares patent. No nasal discharge, no septal abnormalities noted. Tympanic membranes are normal and external auditory canals are clear. Oropharynx with no redness, swelling, or masses, exudates, or evidence of obstruction, uvula midline. Mucous membranes moist. Neck: Trachea midline, no thyromegaly or masses palpated, and no cervical lymphadenopathy. Supple, full range of motion without nuchal rigidity, or vertebral point tenderness. No Meningismus. Chest/axilla: Normal chest wall appearance and motion. Nontender with no deformity. No lesions are appreciated. Vital Signs: 14:07 BP 111 / 65; Pulse 90; Resp 16; Temp 97.5; Pulse Ox 96% ; Weight 62.14 kg; Height 4 ft. jh5 10 in. (147.32 cm); Pain 0/10; 14:07 Body Mass Index 28.63 (62.14 kg, 147.32 cm) jh5 MDM: 14:44 Patient medically screened. snw 14:46 Data reviewed: vital signs, nurses notes. Data interpreted: Pulse oximetry: on room air snw is 96 %. Interpretation: acceptable. Counseling: I had a detailed discussion with the patient and/or guardian regarding: the historical points, exam findings, and any diagnostic results supporting the discharge/admit diagnosis, the need for outpatient follow up, to return to the emergency department if symptoms worsen or persist or if there are any questions or concerns that arise at home. Special discussion: Based on the history and exam findings, there is no indication for further emergent testing or inpatient evaluation. I discussed with the patient/guardian the need to see the neurologist for further evaluation of the symptoms. I discussed with the patient/guardian the need to see the primary care provider for further evaluation of the symptoms. recommend 4 pt walker. Administered Medications: No medications were administered Disposition: 09/22 07:28 Co-signature as Attending Physician, Kaleb Zacarias MD I agree with the assessment and rt plan of care. Disposition Summary: 09/21/22 14:47 Discharge Ordered Location: Home snw Condition: Stable snw Diagnosis - Encounter for removal of sutures snw Followup: snw - With: Private Physician - When: 1 - 2 days - Reason: Recheck today's complaints, Continuance of care, Re-evaluation by your physician Followup: snw - With: Emergency Department - When: As needed - Reason: Worsening of condition Discharge Instructions: - Discharge Summary Sheet snw - Laceration Care, Adult snw - Sutures, [place], or Adhesive Wound Closure snw - Suture Removal, Care After snw Forms: - Medication Reconciliation Form snw - Thank You Letter snw - Antibiotic Education snw - Prescription Opioid Use snw Signatures: Alee Vaz, HUSKER OPERATOR-C HUSKER OPERATOR-Csnw Lo Rader RN RN jh5 Kaleb Zacarias MD MD rt
== END 2022-09-21 14:53 | disposition home or self-care (01) ==
LOC: ER 13:49
DX: Z48.02 Encounter for removal of sutures (principal)
CPT/HCPCS: 99281

== ENCOUNTER 2022-10-08 08:32 | Emergency (ER) | payer OTHER ==
--- OUTSIDE RECORDS SUMMARY | 2022-10-08 08:42 | XMS REPORT | Continuity of Care Document ---
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 (Cyanocobal 4-11 S pirit obrien) obrien) 00:00: - [facility] Vitamin B12 Vitamin B12 2-0 No 1000ug Common (Cyanocobal (Cyanocobal 4-11 S pirit obrien) obrien) 00:00: - [facility] Vitamin B12 Vitamin B12 2-0 No 1000ug Common (Cyanocobal (Cyanocobal 4-11 S pirit obrien) obrien) 00:00: - [facility] Vitamin B12 Vitamin B12 2022-0 No 1000ug Common (Cyanocobal (Cyanocobal 2-21 S pirit obrien) obrien) 00:00: - [facility] Vitamin B12 Vitamin B12 2-0 No 1000ug Common (Cyanocobal (Cyanocobal 2-21 S pirit obrien) obrien) 00:00: - [facility] Vitamin B12 Vitamin B12 2022-0 No 1000ug Common (Cyanocobal (Cyanocobal 2-21 S pirit obrien) obrien) 00:00: - [facility] Vitamin B12 Vitamin B12 2022-0 No 1000ug Common (Cyanocobal (Cyanocobal 2-21 S pirit obrien) obrien) 00:00: - [facility] Vitamin B12 Vitamin B12 2022-0 No 1000ug Common (Cyanocobal (Cyanocobal 2-21 S pirit obrien) obrien) 00:00: - [facility] Vitamin B12 Vitamin B12 2022-0 No 1000ug Common (Cyanocobal (Cyanocobal 2-21 S pirit obrien) obrien) 00:00: - [facility] Vitamin B12 Vitamin B12 2022-0 No 1000ug Common (Cyanocobal (Cyanocobal 2-21 S pirit obrien) obrien) 00:00: - [facility] Vitamin B12 Vitamin B12 2022-0 No 1000ug Common (Cyanocobal (Cyanocobal 2-21 S pirit obrien) obrien) 00:00: - [facility] Vitamin B12 Vitamin B12 2-0 No 1000ug Common (Cyanocobal (Cyanocobal 2-21 S pirit obrien) obrien) 00:00: - [facility] Vitamin B12 Vitamin B12 2022-0 No 1000ug Common (Cyanocobal (Cyanocobal 2-21 S pirit obrien) obrien) 00:00: - [facility] Vitamin B12 Vitamin B12 2022-0 No 1000ug Common (Cyanocobal (Cyanocobal 2-21 S pirit obrien) obrien) 00:00: - [facility] Vitamin B12 Vitamin B12 2022-0 No 1000ug Common (Cyanocobal (Cyanocobal 2-21 S pirit obrien) obrien) 00:00: - [facility] Vitamin B12 Vitamin B12 2022-0 No 1000ug Common (Cyanocobal (Cyanocobal 2-21 S pirit obrien) obrien) 00:00: - [facility] Vitamin B12 Vitamin B12 2022-0 No 1000ug Common (Cyanocobal (Cyanocobal 2-21 S pirit obrien) obrien) 00:00: - [facility] Vitamin B12 Vitamin B12 2022-0 No 1000ug Common (Cyanocobal (Cyanocobal 2-21 S pirit obrien) obrien) 00:00: - [facility] Vitamin B12 Vitamin B12 2022-0 No 1000ug Common (Cyanocobal (Cyanocobal 2-21 S pirit obrien) obrien) 00:00: - [facility] Vitamin B12 Vitamin B12 2022-0 No 1000ug Common (Cyanocobal (Cyanocobal 2-21 S pirit obrien) obrien) 00:00: - [facility] Vitamin B12 Vitamin B12 2022-0 No 1000ug Common (Cyanocobal (Cyanocobal 2-21 S pirit obrien) obrien) 00:00: - [facility] Vitamin B12 Vitamin B12 2022-0 No 1000ug Common (Cyanocobal (Cyanocobal 2-21 S pirit obrien) obrien) 00:00: - [facility] Vitamin B12 Vitamin B12 2022-0 No 1000ug Common (Cyanocobal (Cyanocobal 2-21 S pirit obiren) borien) 00:00: - [facility] Vitamin B12 Vitamin B12 2-0 No 1000ug Common (Cyanocobal (Cyanocobal 2-21 S pirit obrien) obrien) 00:00: - [facility] Vitamin B12 Vitamin B12 2022-0 No 1000ug Common (Cyanocobal (Cyanocobal 2-21 S pirit obrien) obrien) 00:00: - [facility] Vitamin B12 Vitamin B12 2022-0 No 1000ug Common (Cyanocobal (Cyanocobal 2-21 S pirit obrien) obrien) 00:00: - [facility] Vitamin B12 Vitamin B12 2022-0 No 1000ug Common (Cyanocobal (Cyanocobal 1-07 S pirit obrien) obrien) 00:00: - [facility] Vitamin B12 Vitamin B12 2022-0 No 1000ug Common (Cyanocobal (Cyanocobal 1-07 S pirit obrien) obrien) 00:00: - [facility] Vitamin B12 Vitamin B12 2022-0 No 1000ug Common (Cyanocobal (Cyanocobal 1-07 S pirit obrien) obrien) 00:00: - [facility] Vitamin B12 Vitamin B12 2022-0 No 1000ug Common (Cyanocobal (Cyanocobal 1-07 S pirit obrien) obrien) 00:00: - [facility] Vitamin B12 Vitamin B12 2022-0 No 1000ug Common (Cyanocobal (Cyanocobal 1-07 S pirit obrien) obrien) 00:00: - [facility] Vitamin B12 Vitamin B12 2022-0 No 1000ug Common (Cyanocobal (Cyanocobal 1-07 S pirit obrien) obrien) 00:00: - [facility] Vitamin B12 Vitamin B12 2-0 No 1000ug Common (Cyanocobal (Cyanocobal 1-07 S pirit obrien) obrien) 00:00: - [facility] Vitamin B12 Vitamin B12 2-0 No 1000ug Common (Cyanocobal (Cyanocobal 1-07 S pirit obrien) obrien) 00:00: - [facility] Vitamin B12 Vitamin B12 2-0 No 1000ug Common (Cyanocobal (Cyanocobal 1-07 S pirit obrien) obrien) 00:00: - [facility] Vitamin B12 Vitamin B12 2-0 No 1000ug Common (Cyanocobal (Cyanocobal 1-07 S pirit obrien) obrien) 00:00: - [facility] Vitamin B12 Vitamin B12 2022-0 No 1000ug Common (Cyanocobal (Cyanocobal 1-07 S pirit obrien) obrien) 00:00: - [facility] Vitamin B12 Vitamin B12 2022-0 No 1000ug Common (Cyanocobal (Cyanocobal 1-07 S pirit obrien) obrien) 00:00: - [facility] Vitamin B12 Vitamin B12 2022-0 No 1000ug Common (Cyanocobal (Cyanocobal 1-07 S pirit obrien) obrien) 00:00: - [facility] Vitamin B12 Vitamin B12 2022-0 No 1000ug Common (Cyanocobal (Cyanocobal 1-07 S pirit obrien) obrien) 00:00: - [facility] Vitamin B12 Vitamin B12 2022-0 No 1000ug Common (Cyanocobal (Cyanocobal 1-07 S pirit obrien) obrien) 00:00: - [facility] Vitamin B12 Vitamin B12 2021-0 No 1000ug Common (Cyanocobal (Cyanocobal 1-07 S pirit obrien) obrien) 00:00: - [facility] Vitamin B12 Vitamin B12 2021-0 No 1000ug Common (Cyanocobal (Cyanocobal 1-07 S pirit obrien) obrien) 00:00: - [facility] Vitamin B12 Vitamin B12 2021-0 No 1000ug Common (Cyanocobal (Cyanocobal 1-07 S pirit obrien) obrien) 00:00: - [facility] Vitamin B12 Vitamin B12 2021-0 No 1000ug Common (Cyanocobal (Cyanocobal 1-07 S pirit obrien) obrien) 00:00: - [facility] Vitamin B12 Vitamin B12 2021-0 No 1000ug Common (Cyanocobal (Cyanocobal 1-07 S pirit obrien) obrien) 00:00: - [facility] Vitamin B12 Vitamin B12 2021-0 No 1000ug Common (Cyanocobal (Cyanocobal 1-07 S pirit obrien) obrien) 00:00: - [facility] Vitamin B12 Vitamin B12 2021-0 No 1000ug Common (Cyanocobal (Cyanocobal 1-07 S pirit obrien) obrien) 00:00: - [facility] Vitamin B12 Vitamin B12 2021-0 No 1000ug Common (Cyanocobal (Cyanocobal 1-07 S pirit obrien) obrien) 00:00: - [facility] Vitamin B12 Vitamin B12 2020-1 No 1000ug Common (Cyanocobal (Cyanocobal 2-22 S pirit obrien) obrien) 00:00: - [facility] Vitamin B12 Vitamin B12 2020-1 No 1000ug Common (Cyanocobal (Cyanocobal 2-22 S pirit obrien) obrien) 00:00: - [facility] Vitamin B12 Vitamin B12 2020-1 No 1000ug Common (Cyanocobal (Cyanocobal 2-22 S pirit obrien) obrien) 00:00: - [facility] Vitamin B12 Vitamin B12 2020-11 No 1000ug Common (Cyanocobal (Cyanocobal 2-22 S pirit obrien) obrien) 00:00: - [facility] Vitamin B12 Vitamin B12 2020-11 No 1000ug Common (Cyanocobal (Cyanocobal 2-22 S pirit obrien) obrien) 00:00: - [facility] Vitamin B12 Vitamin B12 2020-11 No 1000ug Common (Cyanocobal (Cyanocobal 2-22 S pirit obrien) obrien) 00:00: - [facility] Vitamin B12 Vitamin B12 2020-11 No 1000ug Common (Cyanocobal (Cyanocobal 2-22 S pirit obrien) obrien) 00:00: - [facility] Vitamin B12 Vitamin B12 2020-11 No 1000ug Common (Cyanocobal (Cyanocobal 2-22 S pirit obrien) obrien) 00:00: - [facility] Vitamin B12 Vitamin B12 2020-11 No 1000ug Common (Cyanocobal (Cyanocobal 2-22 S pirit obrien) obrien) 00:00: - [facility] Vitamin B12 Vitamin B12 2020-11 No 1000ug Common (Cyanocobal (Cyanocobal 2-22 S pirit obrien) obrien) 00:00: - [facility] Vitamin B12 Vitamin B12 2020-11 No 1000ug Common (Cyanocobal (Cyanocobal 2-22 S pirit obrien) obrien) 00:00: - [facility] Vitamin B12 Vitamin B12 2020-11 No 1000ug Common (Cyanocobal (Cyanocobal 2-22 S pirit obrien) obrien) 00:00: - [facility] Vitamin B12 Vitamin B12 2020-11 No 1000ug Common (Cyanocobal (Cyanocobal 2-22 S pirit obrien) obrien) 00:00: - [facility] Vitamin B12 Vitamin B12 2020-11 No 1000ug Common (Cyanocobal (Cyanocobal 2-22 S pirit obrien) obrien) 00:00: - [facility] Vitamin B12 Vitamin B12 2020-11 No 1000ug Common (Cyanocobal (Cyanocobal 2-22 S pirit obrien) obrien) 00:00: - [facility] Vitamin B12 Vitamin B12 2020-11 No 1000ug Common (Cyanocobal (Cyanocobal 2-22 S pirit obrien) obrien) 00:00: - [facility] Vitamin B12 Vitamin B12 2020-11 No 1000ug Common (Cyanocobal (Cyanocobal 2-22 S pirit obrien) obrien) 00:00: - [facility] Vitamin B12 Vitamin B12 2020-11 No 1000ug Common (Cyanocobal (Cyanocobal 2-22 S pirit obrien) obrien) 00:00: - [facility] Vitamin B12 Vitamin B12 2020-11 No 1000ug Common (Cyanocobal (Cyanocobal 2-22 S pirit obrien) obrien) 00:00: - [facility] Vitamin B12 Vitamin B12 2020-11 No 1000ug Common (Cyanocobal (Cyanocobal 2-22 S pirit obrien) obrien) 00:00: - [facility] Vitamin B12 Vitamin B12 2020-11 No 1000ug Common (Cyanocobal (Cyanocobal 2-22 S pirit obrien) obrien) 00:00: - [facility] Vitamin B12 Vitamin B12 2020-11 No 1000ug Common (Cyanocobal (Cyanocobal 2-22 S pirit obrien) obrien) 00:00: - [facility] Vitamin B12 Vitamin B12 2020-11 No 1000ug Common (Cyanocobal (Cyanocobal 2-22 S pirit obrien) obrien) 00:00: - [facility] zinc 2020-0 Yes 220mg QD Take 220 [...] tablet 38 nightly. l For sleep levothyroxi 2020-0 Yes 100ug QD Take 100 M ethodi ne 3-[address] (SYNTHROID) 18:05: mouth [facility] 100 mcg 38 daily. l tablet zinc 2020-0 Yes 220mg QD Take 220 Methodi sulfate 3-[address] (ZINCATE) 18:05: [facility] 220 (50) mg 38 daily. l capsule atorvastati 2020-0 Yes 40mg QD Take 40 [...] every [facility]osp[facility] tablet 38 morning. l lisinopriL 2020-0 Yes 20mg QD Take 20 [...] [facility] tablet 38 evening. l QUEtiapine 1-0 Yes 200mg QD Take 200 [...] [facility] tablet 38 morning. l levothyroxi 1-0 Yes 100ug QD Take 100 M ethodi ne 3-[address] (SYNTHROID) 18:05: [facility] 100 mcg 38 daily. l tablet atorvastati 1-0 Yes 40mg QD Take 40 mg Methodi n (LIPITOR) 3-[address] 40 mg 18:05: every [facility]osp[facility] tablet 38 evening. l QUEtiapine 1-0 Yes 200mg QD Take 200 Me thodi (SEROquel) 3-[address] 200 MG 18:05: [facility] tablet 38 nightly. l For sleep Sertraline Sertraline No 1{table QD Sertraline HCl [...] Sodium 100 MCG 100 MCG 100 MCG HYDROcodone HYDROcodone No HYDROcodon -Acetaminop -Acetaminop e-Acetamin [...] MG MG 300-30 MG rOPINIRole rOPINIRole No QD rOPINIRole HCl 0.5 MG HCl 0.5 MG HCl 0.5 MG Clopidogrel Clopidogrel No 1{table QD Clopidogre Bisulfate Bisulfate t} l 75 MG 75 MG Bisulfate 75 MG rOPINIRole rOPINIRole No rOPINIRole HCl 0.5 MG HCl 0.5 MG HCl 0.5 MG Lisinopril- Lisinopril- No 1{table QD Lisinopril hydroCHLORO hydroCHLORO t} -hydroCHLO thiazide thiazide ROthiazide 20-12.5 MG 20-12.5 MG 20-12.5 MG Sertraline Sertraline No 1{table QD Sertraline HCl 100 MG HCl 100 MG t} HCl 100 MG Aspirin Low Aspirin Low No Aspirin [...] t} HCl 50 MG QUEtiapine QUEtiapine No QD QUEtiapine Fumarate Fumarate Fumarate 200 MG 200 MG 200 MG Atorvastati Atorvastati No Atorvastat n Calcium n Calcium in Calcium 40 MG 40 MG 40 MG Pantoprazol Pantoprazol No 1{table QD Pantoprazo e Sodium 40 e Sodium 40 t} le Sodium MG MG 40 MG Lisinopril- Lisinopril- No Lisinopril hydroCHLORO hydroCHLORO -hydroCHLO thiazide thiazide ROthiazide 20-12.5 MG 20-12.5 MG 20-12.5 MG Immunizations Ordered Immunization Filled Immunization Date Status Commen ts Source Name Name [facility] 2021-11-26 Com[facility] (Low Dose Vaccine (Low Dose 10:59:00 - [facility] Booster) [address] [facility]-11-26 Com[facility] (Low Dose Vaccine (Low Dose 10:59:00 - [facility] Booster) [place] [id number] 2021-11-26 Completed [facility]ine (Low Dose Vaccine (Low Dose 10:59:00 - [facility] Booster) [address] [facility] 2021-11-26 Com[facility] (Low Dose Vaccine (Low Dose 10:59:00 - [facility] Booster) [address] [facility] 2021-11-26 Com[facility] (Low Dose Vaccine (Low Dose 10:59:00 - [facility] Booster) [facility] [facility] 2021-11-26 Com[facility] (Low Dose Vaccine (Low Dose 10:59:00 - [facility] Booster) [facility] [facility] (Low Dose Vaccine (Low Dose 10:59:00 - [facility] Booster) [address] [facility]-26 [facility] (Low Dose Vaccine (Low Dose 10:59:00 - [facility] Booster) [facility] [facility]26 [facility] (Low Dose Vaccine (Low Dose 10:59:00 - [facility] Booster) [address] [facility]-11-26 Com[facility]ine (Low Dose Vaccine (Low Dose 10:59:00 - [facility] Booster) [facility] COVID19 [facility] COVID19 2021-11-26 Completed [facility] Vaccine (Low Dose Vaccine (Low Dose 10:59:00 - [facility] Booster) [facility] COVID19 [facility] COVID19 2021-11-26 Completed [facility] Vaccine (Low Dose Vaccine (Low Dose 10:59:00 - [facility] Booster) [facility] [address] COVID19 2021-11-26 Completed [facility] Vaccine (Low Dose Vaccine (Low Dose 10:59:00 - [facility] Booster) [facility] [address] COVID19 2021-11-26 Completed [facility] Vaccine (Low Dose Vaccine (Low Dose 10:59:00 - [facility] Booster) [facility] [address] COVID19 2021-11-26 Completed [facility]ine (Low Dose Vaccine (Low Dose 10:59:00 - [facility] Booster) [facility] [address] COVID19 2021-11-26 Completed [facility] Vaccine (Low Dose Vaccine (Low Dose 10:59:00 - [facility] Booster) [facility] [address] COVID19 2021-11-26 Completed [facility] Vaccine (Low Dose Vaccine (Low Dose 10:59:00 - [facility] Booster) [facility] COVID19 [facility] COVID19 2021-11-26 Completed [facility] Vaccine (Low Dose Vaccine (Low Dose 10:59:00 - [facility]) Booster) [facility] [address] COVID19 2021-11-26 Completed [facility] (Low Dose Vaccine (Low Dose 10:59:00 - [facility]) Booster) [facility] COVID19 [facility] COVID19 2021-11-26 Completed [facility] Vaccine (Low Dose Vaccine (Low Dose 10:59:00 - [facility]) Booster) [facility] [address] COVID-19 2021-11-26 Completed [facility] (Low Dose Vaccine (Low Dose 10:59:00 - [facility] Booster) [facility] COVID-19 2021-11-26 Completed [facility]ine (Low Dose Vaccine (Low Dose 10:59:00 - [facility] Booster) [facility] COVID19 [facility] COVID-19 2021-11-26 Completed [facility]ine (Low Dose Vaccine (Low Dose 10:59:00 - [facility]) Booster) [facility] Pfizer COVID-19 Pfizer COVID-19 2021-01-30 [facility] 09:01:00 - [facility] Pfizer COVID-19 Pfizer COVID-19 2021-01-30 Completed [facility] Vaccine 09:01:00 [facility] Pfizer COVID-19 Pfizer COVID-19 2021-01-30 Completed [facility] Vaccine 09:01:00 - [facility] Pfizer COVID-19 Pfizer COVID-19 2021-01-30 Completed [facility] Vaccine 09:01:00 [facility] Pfizer COVID-19 Pfizer COVID-19 2021-01-30 Completed [facility] Vaccine 09:01:00 [facility] Pfizer COVID-19 Pfizer COVID-19 2021-01-30 Completed [facility] Vaccine 09:01:00 [facility] Pfizer COVID-19 Pfizer COVID-19 2021-01-30 Completed [facility] Vaccine 09:01:00 [facility] Pfizer COVID-19 Pfizer COVID-19 2021-01-30 Completed [facility] Vaccine 09:01:00 [facility] Pfizer COVID-19 Pfizer COVID-19 2021-01-30 Completed [facility] Vaccine 09:01:00 [facility] Pfizer COVID-19 Pfizer COVID-19 2021-01-30 Completed [facility] Vaccine 09:01:00 [facility] Pfizer COVID-19 Pfizer COVID-19 2021-01-30 Completed [facility] Vaccine 09:01:00 - [facility] Pfizer COVID-19 Pfizer COVID-19 2021-01-30 Completed [facility] Vaccine 09:01:00 - [facility] Pfizer COVID-19 Pfizer COVID-19 2021-01-30 Completed [facility] Vaccine 09:01:00 [facility] Pfizer COVID-19 Pfizer COVID-19 2021-01-30 Completed [facility] Vaccine 09:01:00 - [facility] Pfizer COVID-19 Pfizer COVID-19 2021-01-30 Completed [facility] Vaccine 09:01:00 - [facility] Pfizer COVID-19 Pfizer COVID-19 2021-01-30 Completed [facility] Vaccine 09:01:00 - [facility] Pfizer COVID-19 Pfizer COVID-19 2021-01-30 Completed [facility] Vaccine 09:01:00 - [facility] Pfizer COVID-19 Pfizer COVID-19 2021-01-30 Completed [facility] Vaccine 09:01:00 - [facility] Pfizer COVID-19 Pfizer COVID-19 2021-01-30 Completed [facility] Vaccine 09:01:00 - [facility] Pfizer COVID-19 Pfizer COVID-19 2021-01-30 Completed [facility] Vaccine 09:01:00 - [facility] Pfizer COVID-19 Pfizer COVID-19 2021-01-30 Completed [facility] Vaccine 09:01:00 [facility] Pfizer COVID-19 Pfizer COVID-19 2021-01-30 Completed [facility] Vaccine 09:01:00 - [facility] Pfizer COVID-19 Pfizer COVID-19 2021-01-30 Completed [facility] Vaccine 09:01:00 [facility] Pfizer COVID-19 Pfizer COVID-19 2020-12-30 Completed [facility] Vaccine 09:01:00 [facility] Pfizer COVID-19 Pfizer COVID-19 2020-12-30 Completed [facility] Vaccine 09:01:00 [facility] Pfizer COVID-19 Pfizer COVID-19 2020-12-30 Completed [facility] Vaccine 09:01:00 - [facility] Pfizer COVID-19 Pfizer COVID-19 2020-12-30 Completed [facility] Vaccine 09:01:00 - [facility] Pfizer COVID-19 Pfizer COVID-19 2020-12-30 Completed [facility] Vaccine 09:01:00 [facility] Pfizer COVID-19 Pfizer COVID-19 2020-12-30 Completed [facility] Vaccine 09:01:00 - [facility] Pfizer COVID-19 Pfizer COVID-19 2020-12-30 Completed [facility] Vaccine 09:01:00 - [facility] Pfizer COVID-19 Pfizer COVID-19 2020-12-30 Completed [facility] Vaccine 09:01:00 - [facility] Pfizer COVID-19 Pfizer COVID-19 2020-12-30 Completed [facility] Vaccine 09:01:00 - [facility] Pfizer COVID-19 Pfizer COVID-19 2020-12-30 Completed [facility] Vaccine 09:01:00 - [facility] Pfizer COVID-19 Pfizer COVID-19 2020-12-30 Completed [facility] Vaccine 09:01:00 - [facility] Pfizer COVID-19 Pfizer COVID-19 2020-12-30 Completed [facility] Vaccine 09:01:00 - [facility] Pfizer COVID-19 Pfizer COVID-19 2020-12-30 Completed [facility] Vaccine 09:01:00 - [facility] [facility] Pfizer COVID-19 Pfizer COVID-19 2020-12-30 Completed [facility] Vaccine 09:01:00 [facility] Pfizer COVID-19 Pfizer COVID-19 2020-12-30 Completed [facility] Vaccine 09:01:00 [facility] Pfizer COVID-19 Pfizer COVID-19 2020-12-30 Completed [facility] Vaccine 09:01:00 [facility] Pfizer COVID-19 Pfizer COVID-19 2020-12-30 Completed [facility] Vaccine 09:01:00 [facility] Pfizer COVID-19 Pfizer COVID-19 2020-12-30 Completed [facility] Vaccine 09:01:00 - [facility] Pfizer COVID-19 Pfizer COVID-19 2020-12-30 Completed [facility] Vaccine 09:01:00 - [facility] Pfizer COVID-19 Pfizer COVID-19 2020-12-30 Completed [facility] Vaccine 09:01:00 - [facility] Pfizer COVID-19 Pfizer COVID-19 2020-12-30 Completed [facility] Vaccine 09:01:00 - [facility] Pfizer COVID-19 Pfizer COVID-19 2020-12-30 Completed [facility] Vaccine 09:01:00 - [facility] Pfizer COVID-19 Pfizer COVID-19 2020-12-30 Completed [facility] Vaccine 09:01:00 - [facility] Fluzone Fluzone 2020-07-02 Completed [facility] 09:02:00 - [facility] Fluzone Fluzone 2020-07-02 Completed [facility] 09:02:00 - [facility] Fluzone Fluzone 2020-07-02 Completed [facility] 09:02:00 - [facility] Fluzone Fluzone 2020-07-02 Completed [facility] 09:02:00 - [facility] Fluzone Fluzone 2020-07-02 Completed [facility] 09:02:00 - [facility] Fluzone Fluzone 2020-07-02 Completed [facility] 09:02:00 - [facility] Fluzone Fluzone 2020-07-02 Completed [facility] 09:02:00 - [facility] Fluzone Fluzone 2020-07-02 Completed [facility] 09:02:00 - [facility] Fluzone Fluzone 2020-07-02 Completed [facility] 09:02:00 - [facility] Fluzone Fluzone 2020-07-02 Completed [facility] 09:02:00 - [facility] Fluzone Fluzone 2020-07-02 Completed [facility] 09:02:00 - [facility] Fluzone Fluzone 2020-07-02 Completed [facility] 09:02:00 - [facility] Fluzone Fluzone 2020-07-02 Completed [facility] 09:02:00 - [facility] Fluzone Fluzone 2020-07-02 Completed [facility] 09:02:00 - [facility] Fluzone Fluzone 2020-07-02 Completed [facility] 09:02:00 - [facility] Fluzone Fluzone 2020-07-02 Completed [facility] 09:02:00 - [facility] Fluzone Fluzone 2020-07-02 Completed [facility] 09:02:00 - [facility] Fluzone Fluzone 2020-07-02 Completed [facility] 09:02:00 - [facility] Fluzone Fluzone 2020-07-02 Completed [facility] 09:02:00 - [facility] Fluzone Fluzone 2020-07-02 Completed [facility] 09:02:00 - [facility] Fluzone Fluzone 2020-07-02 Completed [facility] 09:02:00 - [facility] Fluzone Fluzone 2020-07-02 Completed [facility] 09:02:00 - [facility] Fluzone Fluzone 2020-07-02 Completed [facility] 09:02:00 - [facility] Vital Signs Vital Name Observation Time Observation Value Comments Source height 2022-08-20 15:00:00 59.5 [in_i] [facility] weight 2022-08-20 15:00:00 141.1 [lb_av] [facility] temperature 2022-08-20 15:00:00 97.8 [degF] [facility] bmi 2022-08-20 15:00:00 28.02 kg/m2 [facility] blood pressure 2022-08-20 15:00:00 136 mm[Hg] [facility] - systolic [facility] blood pressure 2022-08-20 15:00:00 84 mm[Hg] [facility] - diastolic [facility] height 2022-07-24 07:50:00 59.5 [in_i] [facility] weight 2022-07-24 07:50:00 145 [lb_av[facility] temperature 2022-07-24 07:50:00 98 [degF] [facility] bmi 2022-07-24 07:50:00 28.79 kg/m2 [facility] - [facility] blood pressure 2022-07-24 07:50:00 132 mm[Hg] [facility] - systolic [facility] blood pressure 2022-07-24 07:50:00 65 mm[Hg] [facility] - diastolic [facility] height 2022-07-01 10:00:00 59.5 [in_i] Common [facility] weight 2022-07-01 10:00:00 147 [lb_av] [facility] temperature 2022-07-01 10:00:00 97.9 [degF] [facility] bmi 2022-07-01 10:00:00 29.19 kg/m2 [facility] oximetry 2022-07-01 10:00:00 97 % [facility] respiratory rate 2022-07-01 10:00:00 16 /min [facility] blood pressure 2022-07-01 10:00:00 139 mm[Hg] [facility] - systolic [facility] blood pressure 2022-07-01 10:00:00 67 mm[Hg] [facility] - diastolic [facility] height 2022-07-01 10:00:00 60 [in_i] Common [facility] weight 2022-07-01 10:00:00 147 [lb_av] [facility] temperature 2022-07-01 10:00:00 97.9 [degF] [facility] bmi 2022-07-01 10:00:00 28.71 kg/m2 [facility] oximetry 2022-07-01 10:00:00 97 % Common [facility] respiratory rate 2022-07-01 10:00:00 16 /min [facility] blood pressure 2022-07-01 10:00:00 139 mm[Hg] Common [facility] - systolic [facility] blood pressure 2022-07-01 10:00:00 67 mm[Hg] Common [facility] - diastolic [facility] height 2022-06-17 10:00:00 60 [in_i] Common [facility] weight 2022-06-17 10:00:00 144 [lb_av] [facility] temperature 2022-06-17 10:00:00 97 [degF] [facility] bmi 2022-06-17 10:00:00 28.12 kg/m2 [facility] oximetry 2022-06-17 10:00:00 97 % Common [facility] respiratory rate 2022-06-17 10:00:00 17 /min [facility] blood pressure 2022-06-17 10:00:00 128 mm[Hg] Common [facility] systolic [facility] blood pressure 2022-06-17 10:00:00 74 mm[Hg] Common [facility] - diastolic [facility] height 2022-06-03 15:00:00 60 [in_i] [facility] weight 2022-06-03 15:00:00 147.6 [lb_av] Common [facility] temperature 2022-06-03 15:00:00 97.0 [degF] Common [facility] bmi 2022-06-03 15:00:00 28.82 kg/m2 [facility] oximetry 2022-06-03 15:00:00 94 % [facility] respiratory rate 2022-06-03 15:00:00 17 /min [facility] blood pressure 2022-06-03 15:00:00 132 mm[Hg] [facility] - systolic [facility] blood pressure 2022-06-03 15:00:00 76 mm[Hg] [facility] - diastolic [facility] Procedures This patient has no known procedures. Plan of Care Planned Activity Planned Date Details Comments Source Future Scheduled 2022-09-21 HEPATITIS B VACCINES [facility] Test 12:23:26 (1 of 3 - 3-dose series) [code = HEPATITIS B VACCINES (1 of 3 - 3-dose series)] Future Scheduled 2022-09-21 Hepatitis C screening [facility] Test 12:23:26 (procedure) [code = 332475894] Future Scheduled 2022-09-21 SHINGLES VACCINES (1 [facility] Test 12:23:26 of 2) [code = SHINGLES VACCINES (1 of 2)] Future Scheduled 2022-09-21 65+ PNEUMOCOCCAL [facility] Test 12:23:26 VACCINE (1 - PCV) [code = 65+ PNEUMOCOCCAL VACCINE (1 - PCV)] Future Scheduled 2022-09-21 COVID-19 VACCINE (2 - [facility] Test 12:23:26 Pfizer series) [code = COVID-19 VACCINE (2 - Pfizer series)] Future Scheduled 2022-09-21 INFLUENZA VACCINE [facility] Test 12:23:26 [code = INFLUENZA VACCINE] Future Scheduled 2022-09-21 HEPATITIS B VACCINES [facility] Test 12:23:26 (1 of 3 - 3-dose series) [code = HEPATITIS B VACCINES (1 of 3 - 3-dose series)] Future Scheduled 2022-09-21 Hepatitis C screening [facility] Test 12:23:26 (procedure) [code = 949905650] Future Scheduled 2022-09-21 SHINGLES VACCINES (1 [facility] Test 12:23:26 of 2) [code = SHINGLES VACCINES (1 of 2)] Future Scheduled 2022-09-21 65[facility] 12:23:26 VACCINE (1 - PCV) [code = 65+ PNEUMOCOCCAL VACCINE (1 - PCV)] Future Scheduled 2022-09-21 COVID-19 VACCINE (2 - [facility] Test 12:23:26 Pfizer series) [code = COVID-19 VACCINE (2 - Pfizer series)] Future Scheduled 2022-09-21 INFLUENZA VACCINE [facility] Test 12:23:26 [code = INFLUENZA VACCINE] Future Scheduled 2022-09-04 HEPATITIS B VACCINES [facility] Test 11:20:46 (1 of 3 - 3-dose series) [code = HEPATITIS B VACCINES (1 of 3 - 3-dose series)] Future Scheduled 2022-09-04 Hepatitis C screening [facility] Test 11:20:46 (procedure) [code = 518646650] Future Scheduled 2022-09-04 SHINGLES VACCINES (1 [facility] Test 11:20:46 of 2) [code = SHINGLES VACCINES (1 of 2)] Future Scheduled 2022-09-04 65+ [facility]CCAL [facility] Test 11:20:46 VACCINE (1 - PCV) [code = 65+ PNEUMOCOCCAL VACCINE (1 - PCV)] Future Scheduled 2022-09-04 COVID-19 VACCINE (2 - [facility] Test 11:20:46 Pfizer series) [code = COVID-19 VACCINE (2 - Pfizer series)] Future Scheduled 2022-09-04 INFLUENZA VACCINE [facility] Test 11:20:46 [code = INFLUENZA VACCINE] Future Scheduled 2022-07-01 HEPATITIS B VACCINES [facility] Test 22:22:27 (1 of 3 - 3-dose series) [code = HEPATITIS B VACCINES (1 of 3 - 3-dose series)] Future Scheduled 2022-07-01 Hepatitis C screening [facility] Test 22:22:27 (procedure) [code = [id number]] Future Scheduled 2022-07-01 SHINGLES VACCINES (1 [facility] Test 22:22:27 of 2) [code = SHINGLES VACCINES (1 of 2)] Future Scheduled 2022-07-01 65+ [facility] 22:22:27 VACCINE (1 - PCV) [code = 65+ PNEUMOCOCCAL VACCINE (1 - PCV)] Future Scheduled 2022-07-01 COVID-19 VACCINE (2 - [facility] Test 22:22:27 Pfizer series) [code = COVID-19 VACCINE (2 - Pfizer series)] Future Scheduled 2022-07-01 INFLUENZA VACCINE [facility] Test 22:22:27 [code = INFLUENZA VACCINE] Future Scheduled 2022-07-01 HEPATITIS B VACCINES [facility] Test 22:22:27 (1 of 3 - 3-dose series) [code = HEPATITIS B VACCINES (1 of 3 - 3-dose series)] Future Scheduled 2022-07-01 Hepatitis C screening [facility] Test 22:22:27 (procedure) [code = [id number]] Future Scheduled 2022-07-01 SHINGLES VACCINES (1 [facility] Test 22:22:27 of 2) [code = SHINGLES VACCINES (1 of 2)] Future Scheduled 2022-07-01 65[facility] 22:22:27 VACCINE (1 - PCV) [code = 65+ PNEUMOCOCCAL VACCINE (1 - PCV)] Future Scheduled 2022-07-01 COVID-19 VACCINE (2 - [facility] Test 22:22:27 Pfizer series) [code = COVID-19 VACCINE (2 - Pfizer series)] Future Scheduled 2022-07-01 INFLUENZA VACCINE [facility] Test 22:22:27 [code = INFLUENZA VACCINE] Encounters Start End Encounter Admission Attending Care Care Encounter Source Date/Time Date/Time Type Type Clinicians Facility Department ID 2022-09-28 Outpatient [place], [facility] [id number] Common 15:54:01 [facility] 2022-08-21 Outpatient [place], [facility] [id number] Common 07:59:01 [facility] 2022-08-19 Outpatient [place], [facility] [id number] Common 08:56:02 [facility] 2022-08-18 Outpatient [place], [facility] [id number] Common 08:57:03 Art [facility] 2022-07-23 Outpatient [place], [facility] [id number] Common 13:11:01 [facility] 2022-05-19 Outpatient [place], [facility] [id number] Common 14:18:01 [facility] 2022-04-17 Outpatient [place], [facility] [id number] Common 15:13:01 [facility] 2022-04-01 Outpatient [place], [facility] [id number] Common 09:00:04 [facility] 2022-10-01 2022-10-01 (TEL) [facility]LMLC ST[facility] [id number] Co mmon 00:00:00 00:00:00 [facility] 2022-08-26 2022-08-26 (TEL) STLMLC ST[facility] [id number] Co mmon 00:00:00 00:00:00 [facility] 2022-08-21 2022-08-21 (TEL) STLMLC STL[facility]C [id number] Co mmon 00:00:00 00:00:00 [facility] 2022-08-20 2022-08-20 OFFICE [facility]C STL[facility]C [id number] Co mmon 00:00:00 00:00:[address] [facility] PT LEVEL 3 [facility] 2022-08-17 2022-08-17 (TEL) STLMLC STLMLC [id number] Co mmon 00:00:00 00:00:00 [facility] 2022-07-24 2022-07-24 OFFICE [facility]C STL[facility]C [id number] Co mmon 00:00:00 00:00:00 VISIT [facility] PT [facility] LEVEL 4 [facility] 2022-07-23 2022-07-23 (TEL) STLMLC STLMLC [id number] Co mmon 00:00:00 00:00:00 [facility] 2022-07-08 2022-07-08 (TEL) STLMLC STLMLC [id number] Co mmon 00:00:00 00:00:00 [facility] 2022-07-01 2022-07-01 OFFICE [facility] STL[facility]C [id number] Co mmon 00:00:00 00:00:00 VISIT [facility] PT - CHI LEVEL 4 [facility] 2022-07-01 2022-07-01 SUB ANNUAL STLMLC STLMLC [id number] Common 00:00:00 00:00:00 MCR [facility] VISIT [facility] 2022-07-01 2022-07-01 (TEL) STLMLC STLMLC [id number] Co mmon 00:00:00 00:00:00 [facility] 2022-06-17 2022-06-17 OFFICE [facility]C STL[facility]C [id number] Co mmon 00:00:00 00:00:00 VISIT [facility] LEVEL 2 [facility] 2022-06-09 2022-06-09 (TEL) STLMLC STLMLC [id number] Co mmon 00:00:00 00:00:00 [facility] 2022-06-03 2022-06-03 (TEL) STLMLC STLMLC [id number] Co mmon 00:00:00 00:00:00 [facility] 2022-06-03 2022-06-03 ([place]) Nurse STLMLC STLMLC [id number] Common 00:00:00 00:00:00 Visit [facility] 2022-05-27 2022-05-27 (TEL) STLMLC STLMLC [id number] Co mmon 00:00:00 00:00:00 [facility] 2022-05-19 2022-05-19 ([place]) Nurse STLMLC STL[facility]C [id number] Common 00:00:00 00:00:00 Visit [facility] 2022-05-19 2022-05-19 (TEL) STLMLC STLMLC [id number] Co mmon 00:00:00 00:00:00 [facility] 2021-02-17 2021-02-17 Outpatient [place], [facility] [id number] [place] 00:00:00 00:00:00 SANYA [address] 2021-01-01 2021-01-08 Inpatient MIC[place], [facility] 201 [id number] [place] 00:00:00 00:00:00 CRISTY [address] Results Test Description Test Time Test Comments Results Result Comments Source SARS-CoV-2 (COVID-19) RNA [Presence] in Respiratory sp ecimen by 2021-01-02 04:18:36 EDGAR with probe detection Test Item Value Reference Range Interpretation Comme nts SARS-CoV-2 (COVID-19) RNA [Presence] in Respiratory Not detected No t-Detected specimen by EDGAR with probe detection (test code = 33459-9) DMITRY CRAWFORD
--- NOTE | 2022-10-08 09:14 | ER ---
Nurse's Notes [facility] Name: Wilma Ovalle Age: 77 yrs Sex: Female : 1945 Arrival Date: 10/08/2022 Time: 08:37 Bed Waiting Private MD: Diagnosis: Disruption of wound, not elsewhere classified Presentation: 10/08 08:55 Chief complaint: Patient states: she fell on 09/19 and received a head injury. patient ap3 required lance at that time. patient then came back 2 days later to get the lance out due to the patient going out of town. Patient states that when she shampoos her hair, or cleans the wound, the wound leaks and feels that "there is a hole in there". Coronavirus screen: At this time, the client does not indicate any symptoms associated with coronavirus-19. Ebola Screen: No symptoms or risks identified at this time. Initial Sepsis Screen: Does the patient meet any 2 criteria? No. Patient's initial sepsis screen is negative. Does the patient have a suspected source of infection? No. Patient's initial sepsis screen is negative. Risk Assessment: Do you want to hurt yourself or someone else? Patient reports no desire to harm self or others. Onset of symptoms was September 19, 2022. 08:55 Method Of Arrival: Ambulatory ap3 08:55 Acuity: JEANINE 4 ap3 Triage Assessment: 08:58 General: Appears in no apparent distress. Behavior is calm, cooperative. Pain: Denies ap3 pain. Derm: Wound noted left parietal area. Historical: - Allergies: 08:58 No Known Allergies; ap3 - PMHx: 08:58 Hyperlipidemia; Hypertension; Hypothyroidism; insomnia; TIA; ap3 - Immunization history:: Client reports receiving the 2nd dose of the Covid vaccine. - Social history:: Smoking status: Patient denies any tobacco usage or history of. - Family history:: not pertinent. - Hospitalizations: : No recent hospitalization is reported. Screenin:59 Abuse screen: Denies threats or abuse. Nutritional screening: No deficits noted. ap3 Tuberculosis screening: No symptoms or risk factors identified. 09:00 Fall Risk Fall in past 12 months (25 points). Secondary diagnosis (15 points) No IV (0 ap3 pts). Ambulatory Aid- None/Bed Rest/Nurse Assist (0 pts). Gait- Normal/Bed Rest/Wheelchair (0 pts) Mental Status- Oriented to own ability (0 pts). Total Borrero Fall Scale indicates Low Risk Score (25-44 pts). Fall prevention measures have been instituted. Frequent Obs/Assesments occuring Family Present and informed to notify staff if they need to leave bedside As available Patient and Family Educated on Fall Prevention Program and strategies. Vital Signs: 08:55 BP 148 / 77; Pulse 88; Resp 18; Temp 97.5; Pulse Ox 95% ; ap3 ED Course: 08:37 Patient arrived in ED. rg4 08:41 Alejandro Willoughby MD is Attending Physician. rn 08:58 Triage completed. ap3 08:59 Arm band placed on left wrist. ap3 08:59 Patient has correct armband on for positive identification. Adult w/ patient. Pulse ox ap3 on. NIBP on. 10:01 No provider procedures requiring assistance completed. Patient did not have IV access ap3 during this emergency room visit. Administered Medications: No medications were administered Medication: 08:59 VIS not applicable for this client. ap3 Outcome: 09:14 Discharge ordered by . rn 10:01 Discharged to home ambulatory, with family. ap3 10:01 Condition: good 10:01 Discharge instructions given to patient, family, Instructed on discharge instructions, follow up and referral plans. Demonstrated understanding of instructions, follow-up care. 10:01 Patient left the ED. ap3 Signatures: Alejandro Willoughby MD MD rn Garcia, Rubi rg4 Rose Hunt RN RN ap3
--- NOTE | 2022-10-08 09:15 | EDPHYS ---
Physician Documentation [facility] Name: Wilma Ovalle Age: 77 yrs Sex: Female : 1945 Arrival Date: 10/08/2022 Time: 08:37 Bed Waiting Private MD: ED Physician Alejandro Willoughby HPI: 10/08 09:06 This 77 yrs old Female presents to ER via Ambulatory with complaints of Wound rn Check. 09:06 Patient presents to ED for recheck of: laceration. The affected area is on the scalp. rn Progress: The patient reports not healing. The patient has not experienced similar symptoms in the past. The patient has been recently seen by a physician:. Pt reports fell, suffered laceration to scalp, got lance, returned 2 days later and got lance removed, wound has since opened up and "leaks". No fever. No pain. No purulence. . Historical: - Allergies: 08:58 No Known Allergies; ap3 - PMHx: 08:58 Hyperlipidemia; Hypertension; Hypothyroidism; insomnia; TIA; ap3 - Immunization history:: Client reports receiving the 2nd dose of the Covid vaccine. - Social history:: Smoking status: Patient denies any tobacco usage or history of. - Family history:: not pertinent. - Hospitalizations: : No recent hospitalization is reported. ROS: 09:06 Constitutional: Negative for fever, chills, and weight loss, Skin: + open wound of rn scalp Exam: 09:06 Constitutional: This is a well developed, well nourished patient who is awake, alert, rn and in no acute distress. Head/Face: Normocephalic, 2.5 cm healing scalp laceration without purulence or erythema, non-tender, with superficial dehiscence. No bleeding. Neuro: Awake and alert, GCS 15, oriented to person, place, time, and situation. Cranial nerves II-XII grossly intact. Motor strength 5/5 in all extremities. Sensory grossly intact. Vital Signs: 08:55 BP 148 / 77; Pulse 88; Resp 18; Temp 97.5; Pulse Ox 95% ; ap3 MDM: 08:41 Patient medically screened. rn 09:06 Differential diagnosis: wound dehiscence. Data reviewed: vital signs, nurses notes, old rn medical records, and as a result, I will discharge patient. Counseling: I had a detailed discussion with the patient and/or guardian regarding: the historical points, exam findings, and any diagnostic results supporting the discharge/admit diagnosis, the need for outpatient follow up, to return to the emergency department if symptoms worsen or persist or if there are any questions or concerns that arise at home. ED course: Wound has to heal by secondary intention at this point, no sign of infection, return precautions given. . Administered Medications: No medications were administered Disposition Summary: 10/08/22 09:14 Discharge Ordered Location: Home rn Problem: new rn Symptoms: have improved rn Condition: Stable rn Diagnosis - Disruption of wound, not elsewhere classified rn Followup: rn - With: Private Physician - When: As needed - Reason: Recheck today's complaints, Re-evaluation by your physician Discharge Instructions: - Discharge Summary Sheet rn - How to Change Your Wound Dressing rn - Wound Dehiscence rn Forms: - Medication Reconciliation Form rn - Thank You Letter rn - Antibiotic repairer wood furniture - Prescription Opioid Use rn Signatures: Alejandro Willoughby MD MD rn Prokisch, Amanda, RN RN ap3
[2022-10-08 11:18] VITALS: BP 148/77; TEMP 97.5; O2SAT 95
== END 2022-10-08 10:01 | disposition home or self-care (01) ==
LOC: ER 08:32
DX: T81.30XA Disruption of wound, unspecified, initial encounter (principal)
CPT/HCPCS: 99283

== ENCOUNTER 2022-11-12 15:11 | Emergency (ER) | payer OTHER ==
--- OUTSIDE RECORDS SUMMARY | 2022-11-12 15:19 | XMS REPORT | Continuity of Care Document ---
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 00:00: - [facility] 00 [facility] Vitamin B12 Vitamin B12 2-0 No 1000ug Common (Cyanocobal (Cyanocobal 4-11 S pirit obrien) obrien) 00:00: - [facility] 00 [facility] Vitamin B12 Vitamin B12 2-0 No 1000ug Common (Cyanocobal (Cyanocobal 4-11 S pirit obrien) obrien) 00:00: - [facility] 00 [facility] Vitamin B12 Vitamin B12 2-0 No 1000ug Common (Cyanocobal (Cyanocobal 4-11 S pirit obrien) obrien) 00:00: - [facility] 00 [facility] Vitamin B12 Vitamin B12 2022-0 No 1000ug Common (Cyanocobal (Cyanocobal 2-21 S pirit obrien) obrien) 00:00: - [facility] 00 [facility] Vitamin B12 Vitamin B12 2-0 No 1000ug Common (Cyanocobal (Cyanocobal 2-21 S pirit obrien) obrien) 00:00: - [facility] 00 [facility] Vitamin B12 Vitamin B12 2022-0 No 1000ug Common (Cyanocobal (Cyanocobal 2-21 S pirit obrien) obrien) 00:00: - [facility] 00 [facility] Vitamin B12 Vitamin B12 2022-0 No 1000ug Common (Cyanocobal (Cyanocobal 2-21 S pirit obrien) obrien) 00:00: - [facility] 00 [facility] Vitamin B12 Vitamin B12 2022-0 No 1000ug Common (Cyanocobal (Cyanocobal 2-21 S pirit obrien) obrien) 00:00: - [facility] 00 [facility] Vitamin B12 Vitamin B12 2022-0 No 1000ug Common (Cyanocobal (Cyanocobal 2-21 S pirit obrien) obrien) 00:00: - [facility] 00 [facility] Vitamin B12 Vitamin B12 2022-0 No 1000ug Common (Cyanocobal (Cyanocobal 2-21 S pirit obrien) obrien) 00:00: - [facility] 00 [facility] Vitamin B12 Vitamin B12 2022-0 No 1000ug Common (Cyanocobal (Cyanocobal 2-21 S pirit obrien) obrien) 00:00: - [facility] 00 [facility] Vitamin B12 Vitamin B12 2-0 No 1000ug Common (Cyanocobal (Cyanocobal 2-21 S pirit obrien) obrien) 00:00: - [facility] 00 [facility] Vitamin B12 Vitamin B12 2022-0 No 1000ug Common (Cyanocobal (Cyanocobal 2-21 S pirit obrien) obrien) 00:00: - [facility] 00 [facility] Vitamin B12 Vitamin B12 2022-0 No 1000ug Common (Cyanocobal (Cyanocobal 2-21 S pirit obrien) obrien) 00:00: - [facility] 00 [facility] Vitamin B12 Vitamin B12 2022-0 No 1000ug Common (Cyanocobal (Cyanocobal 2-21 S pirit obrien) obrien) 00:00: - [facility] 00 [facility] Vitamin B12 Vitamin B12 2022-0 No 1000ug Common (Cyanocobal (Cyanocobal 2-21 S pirit obrien) obrien) 00:00: - [facility] 00 [facility] Vitamin B12 Vitamin B12 2022-0 No 1000ug Common (Cyanocobal (Cyanocobal 2-21 S pirit obrien) obrien) 00:00: - [facility] 00 [facility] Vitamin B12 Vitamin B12 2022-0 No 1000ug Common (Cyanocobal (Cyanocobal 2-21 S pirit obrien) obrien) 00:00: - [facility] 00 [facility] Vitamin B12 Vitamin B12 2022-0 No 1000ug Common (Cyanocobal (Cyanocobal 2-21 S pirit obrien) obrien) 00:00: - [facility] 00 [facility] Vitamin B12 Vitamin B12 2022-0 No 1000ug Common (Cyanocobal (Cyanocobal 2-21 S pirit obrien) obrien) 00:00: - [facility] 00 [facility] Vitamin B12 Vitamin B12 2022-0 No 1000ug Common (Cyanocobal (Cyanocobal 2-21 S pirit obrien) obrien) 00:00: - [facility] 00 [facility] Vitamin B12 Vitamin B12 2022-0 No 1000ug Common (Cyanocobal (Cyanocobal 2-21 S pirit obrien) obrien) 00:00: - [facility] 00 [facility] Vitamin B12 Vitamin B12 2022-0 No 1000ug Common (Cyanocobal (Cyanocobal 2-21 S pirit obrien) obrien) 00:00: - [facility] 00 [facility] Vitamin B12 Vitamin B12 2-0 No 1000ug Common (Cyanocobal (Cyanocobal 2-21 S pirit obrien) obrien) 00:00: - [facility] 00 [facility] Vitamin B12 Vitamin B12 2022-0 No 1000ug Common (Cyanocobal (Cyanocobal 2-21 S pirit obrien) obrien) 00:00: - [facility] 00 [facility] Vitamin B12 Vitamin B12 2022-0 No 1000ug Common (Cyanocobal (Cyanocobal 2-21 S pirit obrien) obrien) 00:00: - [facility] 00 [facility] Vitamin B12 Vitamin B12 2022-0 No 1000ug Common (Cyanocobal (Cyanocobal 1-07 S pirit obrien) obrien) 00:00: - [facility] 00 [facility] Vitamin B12 Vitamin B12 2022-0 No 1000ug Common (Cyanocobal (Cyanocobal 1-07 S pirit obrien) obrien) 00:00: - [facility] 00 [facility] Vitamin B12 Vitamin B12 2022-0 No 1000ug Common (Cyanocobal (Cyanocobal 1-07 S pirit obrien) obrien) 00:00: - [facility] 00 [facility] Vitamin B12 Vitamin B12 2022-0 No 1000ug Common (Cyanocobal (Cyanocobal 1-07 S pirit obrien) obrien) 00:00: - [facility] 00 [facility] Vitamin B12 Vitamin B12 2022-0 No 1000ug Common (Cyanocobal (Cyanocobal 1-07 S pirit obrien) obrien) 00:00: - [facility] 00 [facility] Vitamin B12 Vitamin B12 2022-0 No 1000ug Common (Cyanocobal (Cyanocobal 1-07 S pirit obrien) obrien) 00:00: - [facility] 00 [facility] Vitamin B12 Vitamin B12 2-0 No 1000ug Common (Cyanocobal (Cyanocobal 1-07 S pirit orbien) obrien) 00:00: - [facility] 00 [facility] Vitamin B12 Vitamin B12 2-0 No 1000ug Common (Cyanocobal (Cyanocobal 1-07 S pirit obrien) obrien) 00:00: - [facility] 00 [facility] Vitamin B12 Vitamin B12 2-0 No 1000ug Common (Cyanocobal (Cyanocobal 1-07 S pirit obrien) obrien) 00:00: - [facility] 00 [facility] Vitamin B12 Vitamin B12 2-0 No 1000ug Common (Cyanocobal (Cyanocobal 1-07 S pirit obrien) obrien) 00:00: - [facility] 00 [facility] Vitamin B12 Vitamin B12 2022-0 No 1000ug Common (Cyanocobal (Cyanocobal 1-07 S pirit obrien) obrien) 00:00: - [facility] 00 [facility] Vitamin B12 Vitamin B12 2022-0 No 1000ug Common (Cyanocobal (Cyanocobal 1-07 S pirit obrien) obrien) 00:00: - [facility] 00 [facility] Vitamin B12 Vitamin B12 2022-0 No 1000ug Common (Cyanocobal (Cyanocobal 1-07 S pirit obrien) obrien) 00:00: - [facility] 00 [facility] Vitamin B12 Vitamin B12 2022-0 No 1000ug Common (Cyanocobal (Cyanocobal 1-07 S pirit obrien) obrien) 00:00: - [facility] 00 [facility] Vitamin B12 Vitamin B12 2022-0 No 1000ug Common (Cyanocobal (Cyanocobal 1-07 S pirit obrien) obrien) 00:00: - [facility] 00 [facility] Vitamin B12 Vitamin B12 2021-0 No 1000ug Common (Cyanocobal (Cyanocobal 1-07 S pirit obrien) obrien) 00:00: - [facility] 00 [facility] Vitamin B12 Vitamin B12 2021-0 No 1000ug Common (Cyanocobal (Cyanocobal 1-07 S pirit obrien) obrien) 00:00: - [facility] 00 [facility] Vitamin B12 Vitamin B12 2021-0 No 1000ug Common (Cyanocobal (Cyanocobal 1-07 S pirit obrien) obrien) 00:00: - [facility] 00 [facility] Vitamin B12 Vitamin B12 2021-0 No 1000ug Common (Cyanocobal (Cyanocobal 1-07 S pirit obrien) obrien) 00:00: - [facility] 00 [facility] Vitamin B12 Vitamin B12 2021-0 No 1000ug Common (Cyanocobal (Cyanocobal 1-07 S pirit obrien) obrien) 00:00: - [facility] 00 [facility] Vitamin B12 Vitamin B12 2021-0 No 1000ug Common (Cyanocobal (Cyanocobal 1-07 S pirit obrien) obrien) 00:00: - [facility] 00 [facility] Vitamin B12 Vitamin B12 2021-0 No 1000ug Common (Cyanocobal (Cyanocobal 1-07 S pirit obrien) obrien) 00:00: - [facility] 00 [facility] Vitamin B12 Vitamin B12 2021-0 No 1000ug Common (Cyanocobal (Cyanocobal 1-07 S pirit obrien) obrien) 00:00: - [facility] 00 [facility] Vitamin B12 Vitamin B12 2020-1 No 1000ug Common (Cyanocobal (Cyanocobal 2-22 S pirit obrien) obrien) 00:00: - [facility] 00 [facility] Vitamin B12 Vitamin B12 2020-1 No 1000ug Common (Cyanocobal (Cyanocobal 2-22 S pirit obrien) obrien) 00:00: - [facility] 00 [facility] Vitamin B12 Vitamin B12 2020-1 No 1000ug Common (Cyanocobal (Cyanocobal 2-22 S pirit obrien) obrien) 00:00: - [facility] 00 [facility] Vitamin B12 Vitamin B12 2020-11 No 1000ug Common (Cyanocobal (Cyanocobal 2-22 S pirit obrien) obrien) 00:00: - [facility] 00 [facility] Vitamin B12 Vitamin B12 2020-11 No 1000ug Common (Cyanocobal (Cyanocobal 2-22 S pirit obrien) obrien) 00:00: - [facility] 00 [facility] Vitamin B12 Vitamin B12 2020-11 No 1000ug Common (Cyanocobal (Cyanocobal 2-22 S pirit obrien) obrien) 00:00: - [facility] 00 [facility] Vitamin B12 Vitamin B12 2020-11 No 1000ug Common (Cyanocobal (Cyanocobal 2-22 S pirit obrien) obrien) 00:00: - [facility] 00 [facility] Vitamin B12 Vitamin B12 2020-11 No 1000ug Common (Cyanocobal (Cyanocobal 2-22 S pirit obrien) obrien) 00:00: - [facility] 00 [facility] Vitamin B12 Vitamin B12 2020-11 No 1000ug Common (Cyanocobal (Cyanocobal 2-22 S pirit obrien) obrien) 00:00: - [facility] 00 [facility] Vitamin B12 Vitamin B12 2020-11 No 1000ug Common (Cyanocobal (Cyanocobal 2-22 S pirit obrien) obrien) 00:00: - [facility] 00 [facility] Vitamin B12 Vitamin B12 2020-11 No 1000ug Common (Cyanocobal (Cyanocobal 2-22 S pirit obrien) obrien) 00:00: - [facility] 00 [facility] Vitamin B12 Vitamin B12 2020-11 No 1000ug Common (Cyanocobal (Cyanocobal 2-22 S pirit obrien) obrien) 00:00: - [facility] 00 [facility] Vitamin B12 Vitamin B12 2020-11 No 1000ug Common (Cyanocobal (Cyanocobal 2-22 S pirit obrien) obrien) 00:00: - [facility] 00 [facility] Vitamin B12 Vitamin B12 2020-11 No 1000ug Common (Cyanocobal (Cyanocobal 2-22 S pirit obrien) obrien) 00:00: - [facility] 00 [facility] Vitamin B12 Vitamin B12 2020-11 No 1000ug Common (Cyanocobal (Cyanocobal 2-22 S pirit obrien) obrien) 00:00: - [facility] 00 [facility] Vitamin B12 Vitamin B12 2020-11 No 1000ug Common (Cyanocobal (Cyanocobal 2-22 S pirit obrien) obrien) 00:00: - [facility] 00 [facility] Vitamin B12 Vitamin B12 2020-11 No 1000ug Common (Cyanocobal (Cyanocobal 2-22 S pirit obrien) obrien) 00:00: - [facility] 00 [facility] Vitamin B12 Vitamin B12 2020-11 No 1000ug Common (Cyanocobal (Cyanocobal 2-22 S pirit obrien) obrien) 00:00: - [facility] 00 [facility] Vitamin B12 Vitamin B12 2020-11 No 1000ug Common (Cyanocobal (Cyanocobal 2-22 S pirit obrien) obrien) 00:00: - [facility] 00 [facility] Vitamin B12 Vitamin B12 2020-11 No 1000ug Common (Cyanocobal (Cyanocobal 2-22 S pirit obrien) obrien) 00:00: - [facility] 00 [facility] Vitamin B12 Vitamin B12 2020-11 No 1000ug Common (Cyanocobal (Cyanocobal 2-22 S pirit obrien) obrien) 00:00: - [facility] 00 [facility] Vitamin B12 Vitamin B12 2020-11 No 1000ug Common (Cyanocobal (Cyanocobal 2-22 S pirit obrien) obrien) 00:00: - [facility] 00 [facility] Vitamin B12 Vitamin B12 2020-11 No 1000ug Common (Cyanocobal (Cyanocobal 2-22 S pirit obrien) orbien) 00:00: - [facility] 00 [facility] zinc 2020-0 Yes 220mg QD Take 220 [...] 18:05: [facility] morning. l zinc 2020-0 Yes 220mg QD Take 220 [...] (50) mg 38 daily. l capsule lisinopriL 2021-0 Yes 20mg QD Take 20 [...] Status Commen ts Source Name Name Aicha MAJORID- [facility] COVID-19 2021-11-26 [facility] (Low Dose Vaccine (Low Dose 10:59:00 - [facility] COVID-19 [facility] COVID-19 2021-11-26 Completed [facility] (Low Dose Vaccine (Low Dose 10:59:00 [facility] Booster) [facility] [address] [facility] (Low Dose Vaccine (Low Dose 10:59:00 - [facility] Booster) [facility] [address] COVID19 2021-11-26 Completed [facility] (Low Dose Vaccine (Low Dose 10:59:00 - [facility] Booster) [facility] [address] [facility]-26 Com[facility] (Low Dose Vaccine (Low Dose 10:59:00 - [facility] Booster) [facility] [address] [facility]-26 Com[facility] (Low Dose Vaccine (Low Dose 10:59:00 - [facility] Booster[facility] [address] [facility]-26 [facility] (Low Dose Vaccine (Low Dose 10:59:00 - [facility] Booster) [facility] [address] [facility] 2021-11-26 Com[facility] (Low Dose Vaccine (Low Dose 10:59:00 - [facility] Booster) [facility] [address] [facility] 2021-11-26 Com[facility] (Low Dose Vaccine (Low Dose 10:59:00 - [facility] Booster) [facility] [address] [facility] 2021-11-26 Com[facility] (Low Dose Vaccine (Low Dose 10:59:00 - [facility] Booster) [facility] [address] [facility] 2021-11-26 Com[facility] (Low Dose Vaccine (Low Dose 10:59:00 - [facility] Booster) [facility] [address] [facility] 2021-11-26 Com[facility] (Low Dose Vaccine (Low Dose 10:59:00 - [facility] Booster) [facility] [address] [facility] 2021-11-26 Com[facility] (Low Dose Vaccine (Low Dose 10:59:00 - [facility] Booster) [facility] COVID19 [facility] COVID-19 2021-11-26 Completed [facility] (Low Dose Vaccine (Low Dose 10:59:00 - [facility] Booster) [facility] COVID19 [facility] COVID19 2021-11-26 Completed [facility] (Low Dose Vaccine (Low Dose 10:59:00 - [facility] Booster) [facility] COVID19 [facility] COVID19 2021-11-26 Completed [facility]ine (Low Dose Vaccine (Low Dose 10:59:00 - [facility] Booster) [facility] COVID19 [facility] COVID19 2021-11-26 Completed [facility] (Low Dose Vaccine (Low Dose 10:59:00 - [facility] Booster) [facility] COVID19 [facility] COVID19 2021-11-26 Completed [facility] (Low Dose Vaccine (Low Dose 10:59:00 - [facility] Booster) [facility] COVID19 [facility] COVID19 2021-11-26 Completed [facility]ine (Low Dose Vaccine (Low Dose 10:59:00 - [facility] Booster) [facility] COVID19 [facility] COVID-19 2021-11-26 Completed [facility] (Low Dose Vaccine (Low Dose 10:59:00 - [facility] Booster) [facility] COVID19 [facility] COVID19 2021-11-26 Completed [facility]ine (Low Dose Vaccine (Low Dose 10:59:00 - [facility] Booster) [facility] COVID19 [facility] COVID19 2021-11-26 Completed [facility]ine (Low Dose Vaccine (Low Dose 10:59:00 - [facility] Booster) [facility] COVID19 [facility] COVID19 2021-11-26 Com[facility] (Low Dose Vaccine (Low Dose 10:59:00 - [facility] Booster) [facility] Pfizer COVID-19 Pfizer COVID-19 2021-01-30 [facility] 09:01:00 - [facility] Pfizer COVID-19 Pfizer COVID-19 2021-01-30 Com[facility] Vaccine 09:01:00 [facility] Pfizer COVID-19 Pfizer COVID-19 2021-01-30 Completed [facility] Vaccine 09:01:00 - [facility] Pfizer COVID-19 Pfizer COVID-19 2021-01-30 Com[facility] Vaccine 09:01:00 - [facility] Pfizer COVID-19 Pfizer COVID-19 2021-01-30 Com[facility] Vaccine 09:01:00 - [facility] Pfizer COVID-19 Pfizer COVID-19 2021-01-30 Com[facility] Vaccine 09:01:00 - [facility] Pfizer COVID-19 Pfizer COVID-19 2021-01-30 Com[facility] Vaccine 09:01:00 - [facility] Pfizer COVID-19 Pfizer COVID-19 2021-01-30 Com[facility] Vaccine 09:01:00 - [facility] Pfizer COVID-19 Pfizer COVID-19 2021-01-30 Com[facility] Vaccine 09:01:00 - [facility] Pfizer COVID-19 Pfizer COVID-19 2021-01-30 Completed [facility] Vaccine 09:01:00 - [facility] Pfizer COVID-19 Pfizer COVID-19 2021-01-30 Com[facility] Vaccine 09:01:00 - [facility] Pfizer COVID-19 Pfizer COVID-19 2021-01-30 Com[facility] Vacc[facility] 09:01:00 [facility] Pfizer COVID-19 Pfizer COVID-19 2021-01-30 Com[facility] Vaccine 09:01:00 [facility] Pfizer COVID-19 Pfizer COVID-19 2021-01-30 Com[facility] Vaccine 09:01:00 [facility] Pfizer COVID-19 Pfizer COVID-19 2021-01-30 Com[facility] Vaccine 09:01:00 [facility] Pfizer COVID-19 Pfizer COVID-19 2021-01-30 Com[facility] Vaccine 09:01:00 - [facility] Pfizer COVID-19 Pfizer COVID-19 2021-01-30 Com[facility] Vaccine 09:01:00 [facility] Pfizer COVID-19 Pfizer COVID-19 2021-01-30 Com[facility] Vaccine 09:01:00 - [facility] Pfizer COVID-19 Pfizer COVID-19 2021-01-30 Com[facility] Vaccine 09:01:00 - [facility] Pfizer COVID-19 Pfizer COVID-19 2021-01-30 Com[facility] Vaccine 09:01:00 [facility] Pfizer COVID-19 Pfizer COVID-19 2021-01-30 Com[facility] Vaccine 09:01:00 - [facility] Pfizer COVID-19 Pfizer COVID-19 2021-01-30 Completed [facility] Vaccine 09:01:00 - [facility] Pfizer COVID-19 Pfizer COVID-19 2021-01-30 Completed [facility] Vaccine 09:01:00 - [facility] Pfizer COVID-19 Pfizer COVID-19 2020-12-30 Completed [facility] Vaccine 09:01:00 [facility] Pfizer COVID-19 Pfizer COVID-19 2020-12-30 Completed [facility] Vaccine 09:01:00 - [facility] Pfizer COVID-19 Pfizer COVID-19 2020-12-30 Completed [facility] Vaccine 09:01:00 - [facility] Pfizer COVID-19 Pfizer COVID-19 2020-12-30 Completed [facility] Vaccine 09:01:00 - [facility] Pfizer COVID-19 Pfizer COVID-19 2020-12-30 Completed [facility] Vaccine 09:01:00 [facility] Pfizer COVID-19 Pfizer COVID-19 2020-12-30 Com[facility] Vaccine 09:01:00 [facility] Pfizer COVID-19 Pfizer COVID-19 2020-12-30 Completed [facility] Vaccine 09:01:00 - [facility] Pfizer COVID-19 Pfizer COVID-19 2020-12-30 Completed [facility] Vaccine 09:01:00 - [facility] Pfizer COVID-19 Pfizer COVID-19 2020-12-30 Com[facility] Vaccine 09:01:00 - [facility] Pfizer COVID-19 Pfizer COVID-19 2020-12-30 Completed [facility] Vaccine 09:01:00 - [facility] Pfizer COVID-19 Pfizer COVID-19 2020-12-30 Completed [facility] Vaccine 09:01:00 - [facility] Pfizer COVID-19 Pfizer COVID-19 2020-12-30 Completed [facility] Vaccine 09:01:00 - [facility] Pfizer COVID-19 Pfizer COVID-19 2020-12-30 Com[facility] Vaccine 09:01:00 - [facility] Pfizer COVID-19 Pfizer COVID-19 2020-12-30 Com[facility] Vaccine 09:01:00 - [facility] Pfizer COVID-19 Pfizer COVID-19 2020-12-30 Completed [facility] Vaccine 09:01:00 - [facility] Pfizer COVID-19 Pfizer COVID-19 2020-12-30 Com[facility] Vaccine 09:01:00 - [facility] Pfizer COVID-19 Pfizer COVID-19 2020-12-30 [facility] 09:01:00 - [facility] Pfizer COVID-19 Pfizer COVID-19 2020-12-30 [facility]pleted [facility] 09:01:00 - [facility] Pfizer COVID-19 Pfizer COVID-19 2020-12-30 Completed [facility] 09:01:00 [facility] Pfizer COVID-19 Pfizer COVID-19 2020-12-30 Completed [facility] 09:01:00 [facility] Pfizer COVID-19 Pfizer COVID-19 2020-12-30 Completed [facility] 09:01:00 [facility] Pfizer COVID-19 Pfizer COVID-19 2020-12-30 Completed [facility] 09:01:00 - [facility] Pfizer COVID-19 Pfizer COVID-19 2020-12-30 Completed [facility] 09:01:00 - [facility] Fluzone Fluzone 2020-07-02 [facility] 09:02:[facility] Fluzone Fluzone 2020-07-02 [facility] 09:02:[facility] Fluzone Fluzone 2020-07-02 [facility] 09:02:[facility] Fluzone Fluzone 2020-07-02 [facility] 09:02:[facility] Fluzone Fluzone 2020-07-02 [facility] 09:02:[facility] - [facility] Fluzone Fluzone 2020-07-02 [facility] 09:02:[facility] - [facility] Fluzone Fluzone 2020-07-02 [facility] 09:02:[facility] Fluzone Fluzone 2020-07-02 [facility] 09:02:[facility] - [facility] Fluzone Fluzone 2020-07-02 [facility] 09:02:[facility] - [facility] Fluzone Fluzone 2020-07-02 [facility] 09:02:00 - [facility] Fluzone Fluzone 2020-07-02 [facility] 09:02:00 - [facility] Fluzone Fluzone 2020-07-02 [facility]pleted [facility] 09:02:00 - [facility] Fluzone Fluzone 2020-07-02 [facility]pleted [facility] 09:02:00 - [facility] Fluzone Fluzone 2020-07-02 [facility] 09:02:[facility] - [facility] Fluzone Fluzone 2020-07-02 [facility]pleted [facility] 09:02:00 - [facility] Fluzone Fluzone 2020-07-02 [facility] 09:02:00 - [facility] Fluzone Fluzone 2020-07-02 [facility]pleted [facility] 09:02:00 - [facility] Fluzone Fluzone 2020-07-02 [facility]pleted [facility] 09:02:00 - [facility] Fluzone Fluzone 2020-07-02 [facility]pleted [facility] 09:02:00 - [facility] Fluzone Fluzone 2020-07-02 [facility]pleted [facility] 09:02:00 - [facility] Fluzone Fluzone 2020-07-02 [facility]pleted [facility] 09:02:00 - [facility] Fluzone Fluzone 2020-07-02 Completed [facility] 09:02:00 - [facility] Fluzone Fluzone 2020-07-02 Completed [facility] 09:02:00 - [facility] Vital Signs Vital Name Observation Time Observation Value Comments Source height 2022-08-20 15:00:00 59.5 [in_i] [facility] weight 2022-08-20 15:00:00 141.1 [lb_av] Common [facility] temperature 2022-08-20 15:00:00 97.8 [degF] Common [facility] bmi 2022-08-20 15:00:00 28.02 kg/m2 Common [facility] blood pressure 2022-08-20 15:00:00 136 mm[Hg] Common [facility] - systolic [facility] blood pressure 2022-08-20 15:00:00 84 mm[Hg] [facility] - diastolic [facility] height 2022-07-24 07:50:00 59.5 [in_i] [facility] weight 2022-07-24 07:50:00 145 [lb_av] Common [facility] temperature 2022-07-24 07:50:00 98 [degF] Common [facility] bmi 2022-07-24 07:50:00 28.79 kg/m2 Common [facility] blood pressure 2022-07-24 07:50:00 132 mm[Hg] [facility] - systolic [facility] blood pressure 2022-07-24 07:50:00 65 mm[Hg] [facility] - diastolic [facility] height 2022-07-01 10:00:00 59.5 [in_i] [facility] weight 2022-07-01 10:00:00 147 [lb_av] [facility] temperature 2022-07-01 10:00:00 97.9 [degF] [facility] bmi 2022-07-01 10:00:00 29.19 kg/m2 [facility] oximetry 2022-07-01 10:00:00 97 % [facility]22-07-01 10:00:00 16 /min [facility] blood pressure 2022-07-01 10:00:00 139 mm[Hg] Common [facility] - systolic [facility] blood pressure 2022-07-01 10:00:00 67 mm[Hg] [facility] - [facility] height 2022-07-01 10:00:00 60 [in_i] [facility] weight 2022-07-01 10:00:00 147 [lb_av] [facility] temperature 2022-07-01 10:00:00 97.9 [degF] [facility] bmi 2022-07-01 10:00:00 28.71 kg/m2 [facility] oximetry 2022-07-01 10:00:00 97 % [facility] respiratory rate 2022-07-01 10:00:00 16 /min [facility] blood pressure 2022-07-01 10:00:00 139 mm[Hg] [facility] - systolic [facility] blood pressure 2022-07-01 10:00:00 67 mm[Hg] [facility] - [facility] height 2022-06-17 10:00:00 60 [in_i] [facility] weight 2022-06-17 10:00:00 144 [lb_av] Common [facility] temperature 2022-06-17 10:00:00 97 [degF] Common [facility] bmi 2022-06-17 10:00:00 28.12 kg/m2 Common [facility] oximetry 2022-06-17 10:00:00 97 % [facility] respiratory rate 2022-06-17 10:00:00 17 /min [facility] blood pressure 2022-06-17 10:00:00 128 mm[Hg] Common [facility] systolic [facility] blood pressure 2022-06-17 10:00:00 74 mm[Hg] [facility] diastolic [facility] height 2022-06-03 15:00:00 60 [in_i] [facility] weight 2022-06-03 15:00:00 147.6 [lb_av] [facility] temperature 2022-06-03 15:00:00 97.0 [degF] [facility] bmi 2022-06-03 15:00:00 28.82 kg/m2 [facility] oximetry 2022-06-03 15:00:00 94 % [facility] respiratory rate 2022-06-03 15:00:00 17 /min [facility] blood pressure 2022-06-03 15:00:00 132 mm[Hg] [facility] systolic [facility] blood pressure 2022-06-03 15:00:00 76 mm[Hg] [facility] diastolic [facility] Procedures This patient has no known procedures. Plan of Care Planned Activity Planned Date Details Comments Source Future Scheduled 2022-10-16 Hepatitis C screening [facility] Test 02:32:20 (procedure) [code = 854890523] Future Scheduled 2022-10-16 SHINGLES VACCINES (1 Met [facility] Test 02:32:20 of 2) [code = SHINGLES VACCINES (1 of 2)] Future Scheduled 2022-10-16 65[facility] 02:32:20 VACCINE (1 - PCV) [code = 65+ PNEUMOCOCCAL VACCINE (1 - PCV)] Future Scheduled 2022-10-16 COVID-19 VACCINE (2 - [facility] Test 02:32:20 Pfizer series) [code = COVID-19 VACCINE (2 - Pfizer series)] Future Scheduled 2022-10-16 [facility]UENZA VACCINE [facility] Test 02:32:20 [code = INFLUENZA VACCINE] Future Scheduled 2022-10-16 Hepatitis C screening [facility] Test 02:32:20 (procedure) [code = [id number]] Future Scheduled 2022-10-16 SHINGLES VACCINES (1 Met [facility] Test 02:32:20 of 2) [code = SHINGLES VACCINES (1 of 2)] Future Scheduled 2022-10-16 65+ [facility] Test 02:32:20 VACCINE (1 - PCV) [code = 65+ PNEUMOCOCCAL VACCINE (1 - PCV)] Future Scheduled 2022-10-16 COVID-19 VACCINE (2 - [facility] Test 02:32:20 Pfizer series) [code = COVID-19 VACCINE (2 - Pfizer series)] Future Scheduled 2022-10-16 [facility]ZA [facility]ACCINE [facility] Test 02:32:20 [code = INFLUENZA VACCINE] Future Scheduled 2022-10-16 Hepatitis C screening [facility] Test 02:32:20 (procedure) [code = [id number]] Future Scheduled 2022-10-16 SHINGLES VACCINES (1 Met [facility] Test 02:32:20 of 2) [code = SHINGLES VACCINES (1 of 2)] Future Scheduled 2022-10-16 65+ [facility] Test 02:32:20 VACCINE (1 - PCV) [code = 65+ PNEUMOCOCCAL VACCINE (1 - PCV)] Future Scheduled 2022-10-16 COVID-19 [facility]ACCINE ([facility] Test 02:32:20 Pfizer series) [code = COVID-19 VACCINE (2 - Pfizer series)] Future Scheduled 2022-10-16 [facility]ZA [facility]ACCINE [facility] Test 02:32:20 [code = INFLUENZA VACCINE] Future Scheduled 2022-10-16 Hepatitis C screening [facility] Test 02:32:20 (procedure) [code = [id number]] Future Scheduled 2022-10-16 SHINGLES VACCINES (1 Met [facility] Test 02:32:20 of 2) [code = SHINGLES VACCINES (1 of 2)] Future Scheduled 2022-10-16 65+ [facility] Test 02:32:20 VACCINE (1 - PCV) [code = 65+ PNEUMOCOCCAL VACCINE (1 - PCV)] Future Scheduled 2022-10-16 COVID-19 VACCINE (2 - [facility] Test 02:32:20 Pfizer series) [code = COVID-19 VACCINE (2 - Pfizer series)] Future Scheduled 2022-10-16 INFLUENZA VACCINE Method [facility] Test 02:32:20 [code = INFLUENZA VACCINE] Future Scheduled 2022-09-21 HEPATITIS B VACCINES Met [facility] Test 12:23:26 (1 of 3 - 3-dose series) [code = HEPATITIS B VACCINES (1 of 3 - 3-dose series)] Future Scheduled 2022-09-21 Hepatitis C screening [facility] Test 12:23:26 (procedure) [code = [id number]] Future Scheduled 2022-09-21 SHINGLES VACCINES (1 Met [facility] Test 12:23:26 of 2) [code = SHINGLES VACCINES (1 of 2)] Future Scheduled 2022-09-21 65+ [facility] Test 12:23:26 VACCINE (1 - PCV) [code = 65+ PNEUMOCOCCAL VACCINE (1 - PCV)] Future Scheduled 2022-09-21 COVID-19 VACCINE (2 - [facility] Test 12:23:26 Pfizer series) [code = COVID-19 VACCINE (2 - Pfizer series)] Future Scheduled 2022-09-21 INFLUENZA VACCINE [facility] Test 12:23:26 [code = INFLUENZA VACCINE] Future Scheduled 2022-09-21 HEPATITIS B VACCINES Met [facility] Test 12:23:26 (1 of 3 - 3-dose series) [code = HEPATITIS B VACCINES (1 of 3 - 3-dose series)] Future Scheduled 2022-09-21 Hepatitis C screening [facility] Test 12:23:26 (procedure) [code = [id number]] Future Scheduled 2022-09-21 SHINGLES VACCINES (1 Met [facility] Test 12:23:26 of 2) [code = SHINGLES VACCINES (1 of 2)] Future Scheduled 2022-09-21 65+ [facility]AL [facility] Test 12:23:26 VACCINE (1 - PCV) [code = 65+ PNEUMOCOCCAL VACCINE (1 - PCV)] Future Scheduled 2022-09-21 COVID-19 VACCINE (2 - [facility] Test 12:23:26 Pfizer series) [code = COVID-19 VACCINE (2 - Pfizer series)] Future Scheduled 2022-09-21 [facility]ZA [facility]ACCINE [facility] Test 12:23:26 [code = INFLUENZA VACCINE] Future Scheduled 2022-09-04 HEPATITIS B VACCINES Met [facility] Test 11:20:46 (1 of 3 - 3-dose series) [code = HEPATITIS B VACCINES (1 of 3 - 3-dose series)] Future Scheduled 2022-09-04 Hepatitis C screening [facility] Test 11:20:46 (procedure) [code = 338885279] Future Scheduled 2022-09-04 SHINGLES VACCINES (1 Met [facility] Test 11:20:46 of 2) [code = SHINGLES VACCINES (1 of 2)] Future Scheduled 2022-09-04 65+ [facility] Test 11:20:46 VACCINE (1 - PCV) [code = 65+ PNEUMOCOCCAL VACCINE (1 - PCV)] Future Scheduled 2022-09-04 COVID-19 VACCINE (2 - [facility] Test 11:20:46 Pfizer series) [code = COVID-19 VACCINE (2 - Pfizer series)] Future Scheduled 2022-09-04 INFLUENZA VACCINE [facility] Test 11:20:46 [code = INFLUENZA VACCINE] Future Scheduled 2022-07-01 HEPATITIS B VACCINES Met [facility] Test 22:22:27 (1 of 3 - 3-dose series) [code = HEPATITIS B VACCINES (1 of 3 - 3-dose series)] Future Scheduled 2022-07-01 Hepatitis C screening [facility] Test 22:22:27 (procedure) [code = 157016095] Future Scheduled 2022-07-01 SHINGLES VACCINES (1 Met [facility] Test 22:22:27 of 2) [code = SHINGLES VACCINES (1 of 2)] Future Scheduled 2022-07-01 65+ [facility]AL [facility] Test 22:22:27 VACCINE (1 - PCV) [code = 65+ PNEUMOCOCCAL VACCINE (1 - PCV)] Future Scheduled 2022-07-01 COVID-19 VACCINE (2 - [facility] Test 22:22:27 Pfizer series) [code = COVID-19 VACCINE (2 - Pfizer series)] Future Scheduled 2022-07-01 INFLUENZA VACCINE [facility] Test 22:22:27 [code = INFLUENZA VACCINE] Future Scheduled 2022-07-01 HEPATITIS B VACCINES Met [facility] Test 22:22:27 (1 of 3 - 3-dose series) [code = HEPATITIS B VACCINES (1 of 3 - 3-dose series)] Future Scheduled 2022-07-01 Hepatitis C screening [facility] Test 22:22:27 (procedure) [code = [id number]] Future Scheduled 2022-07-01 SHINGLES VACCINES (1 Met [facility] Test 22:22:27 of 2) [code = SHINGLES VACCINES (1 of 2)] Future Scheduled 2022-07-01 65[facility] Test 22:22:27 VACCINE (1 - PCV) [code = 65+ PNEUMOCOCCAL VACCINE (1 - PCV)] Future Scheduled 2022-07-01 COVID-19 VACCINE (2 - [facility] Test 22:22:27 Pfizer series) [code = COVID-19 VACCINE (2 - Pfizer series)] Future Scheduled 2022-07-01 INFLUENZA VACCINE [facility] Test 22:22:27 [code = INFLUENZA VACCINE] Encounters Start End Encounter Admission Attending Care Care Encounter Source Date/Time Date/Time Type Type Clinicians Facility Department ID 2022-09-28 Outpatient [place], [facility] [id number] Common 15:54:01 [facility] 2022-08-21 Outpatient [place], [facility] [id number] Common 07:59:01 [facility] 2022-08-19 Outpatient [place], [facility] [id number] Common 08:56:02 [facility] 2022-08-18 Outpatient [place], [facility] [id number] Common 08:57:03 [facility] 2022-07-23 Outpatient [place], STLMLC STL[facility]C [id number] Common 13:11:01 [facility] 2022-05-19 Outpatient [place], STLMLC STLMLC [id number] Common 14:18:01 [facility] 2022-04-17 Outpatient [place], STLMLC STLMLC [id number] Common 15:13:01 [facility] 2022-04-01 Outpatient [place], ST[facility] STL[facility] [id number] Common 09:00:04 [facility] 2022-10-01 2022-10-01 (TEL) STLMLC STLMLC [id number] Co mmon 00:00:00 00:00:00 [facility] 2022-08-26 2022-08-26 (TEL) STLMLC STLMLC [id number] Co mmon 00:00:00 00:00:00 [facility] 2022-08-21 2022-08-21 (TEL) STLMLC STLMLC [id number] Co mmon 00:00:00 00:00:00 [facility] 2022-08-20 2022-08-20 OFFICE STLMLC STLMLC [id number] Co mmon 00:00:00 00:00:00 VISIT [facility] PT LEVEL 3 - CHI [facility] 2022-08-17 2022-08-17 (TEL) STLMLC STLMLC [id number] Co mmon 00:00:00 00:00:00 [facility] 2022-07-24 2022-07-24 OFFICE STLMLC STLMLC [id number] Co mmon 00:00:00 00:00:00 VISIT [facility] ESTAB PT - CHI LEVEL 4 [facility] 2022-07-23 2022-07-23 (TEL) STLMLC STLMLC [id number] Co mmon 00:00:00 00:00:00 [facility] 2022-07-08 2022-07-08 (TEL) STLMLC STLMLC [id number] Co mmon 00:00:00 00:00:00 [facility] 2022-07-01 2022-07-01 OFFICE STLMLC STLMLC [id number] Co mmon 00:00:00 00:00:00 VISIT [facility] PT - CHI LEVEL 4 [facility] 2022-07-01 2022-07-01 SUB ANNUAL STLMLC STLMLC [id number] Common 00:00:00 00:00:00 MCR [facility] VISIT [facility] 2022-07-01 2022-07-01 (TEL) STLMLC STLMLC [id number] Co mmon 00:00:00 00:00:00 [facility] 2022-06-17 2022-06-17 OFFICE STLMLC STLMLC [id number] Co mmon 00:00:00 00:00:00 VISIT [facility] PT CHI LEVEL 2 [facility] 2022-06-09 2022-06-09 (TEL) STLMLC STLMLC [id number] Co mmon 00:00:00 00:00:00 [facility] 2022-06-03 2022-06-03 (TEL) STLMLC STLMLC [id number] Co mmon 00:00:00 00:00:00 [facility] 2022-06-03 2022-06-03 ([place]) Nurse STLMLC STLMLC [id number] Common 00:00:00 00:00:00 Visit [facility] 2022-05-27 2022-05-27 (TEL) STLMLC STLMLC [id number] Co mmon 00:00:00 00:00:00 [facility] 2022-05-19 2022-05-19 ([place]) Nurse STLMLC STLMLC [id number] Common 00:00:00 00:00:00 Visit [facility] 2022-05-19 2022-05-19 (TEL) STLMLC STLMLC [id number] Co mmon 00:00:00 00:00:00 [facility] 2021-02-17 2021-02-17 Outpatient [facility] [id number] [address] [place] [address] 00:00:00 00:00:00 SANYA [address] 2021-01-01 2021-01-08 Inpatient MICHELLE, [facility] [id number] [address] 00:00:00 00:00:00 CRISTY [address] Results Test Description Test Time Test Comments Results Result Comments Source SARS-CoV-2 (COVID-19) RNA [Presence] in Respiratory sp ecimen by 2021-01-02 04:18:36 EDGAR with probe detection Test Item Value Reference Range Interpretation Comme nts SARS-CoV-2 (COVID-19) RNA [Presence] in Respiratory Not detected No t-Detected specimen by EDGAR with probe detection (test code = 89276-5) DMITRY CRAWFORD
[2022-11-12] MEDS ORDERED: ACETAMINOPHEN 325 MG TABLET ONE (15:44)
[2022-11-12 15:53] LABS: Absolute Lymphocytes (CBC) 1.6 K/uL (0.7-4.9); Hematocrit 33.7 % (36.0-45.0); Lymphocytes % 26.1 % (15.3-44.8); MCV 92.8 fL (80-100); RBC Red Blood Cell Count 3.64 M/uL (3.86-4.86)
[2022-11-12 16:07] LABS: Magnesium 2.2 mg/dL (1.6-2.4); Potassium 4.3 mmol/L (3.5-5.1); Troponin High Sensitivity 9.8 pg/mL (<58.9)
--- NOTE | 2022-11-12 16:22 | RAD REPORT ---
EXAM DESCRIPTION: RAD - Chest Single View - 11/12/2022 4:09 pm CLINICAL HISTORY: left arm pain COMPARISON: Chest Single View dated 12/27/2020; CHEST PA AND LAT 2 VIEW dated 07/12/2014; CHEST PA AND LAT 2 VIEW dated 07/14/2013; CHEST SINGLE VIEW dated 06/19/2012 FINDINGS: Lines: None. Lungs: No evidence of edema or pneumonia. Pleural: No significant pleural effusions or pneumothorax. Cardiac: The heart size is within normal limits. Mediastinum: Within normal limits. Bones: No acute fractures. ACDF in the cervical spine. Other: None IMPRESSION: No acute cardiopulmonary disease.
[2022-11-12] MEDS ORDERED: KETOROLAC 30 MG/ML INJ ONE (16:51)
--- NOTE | 2022-11-12 17:06 | RAD REPORT ---
EXAM DESCRIPTION: US - UPPER EXTREMITY VENOUS UNILATE - 11/12/2022 4:54 pm CLINICAL HISTORY: Pain COMPARISON: None. TECHNIQUE: Real-time sonographic evaluation of the left upper extremity deep venous system was perfo rmed. FINDINGS: Normal compressibility, flow augmentation, phasic flow and spontaneous flow is identified in the left upper extremity deep venous system. No intraluminal filling defects seen. IMPRESSION: No DVT in the left upper extremity.
--- NOTE | 2022-11-12 17:15 | RAD REPORT ---
EXAM DESCRIPTION: RAD - Forearm Left - 11/12/2022 4:51 pm CLINICAL HISTORY: PAIN COMPARISON: No comparisons FINDINGS/IMPRESSION: No acute fracture. No malalignment. No significant focal degenerative changes. No radiopaque foreign body.
--- NOTE | 2022-11-12 17:15 | RAD REPORT ---
EXAM DESCRIPTION: RAD - Humerus Left - 11/12/2022 4:51 pm CLINICAL HISTORY: PAIN COMPARISON: Forearm Left dated 11/12/2022 FINDINGS/IMPRESSION: No acute fracture. No malalignment. No significant focal degenerative changes. No radiopaque foreign body .
--- NOTE | 2022-11-12 17:35 | RAD REPORT ---
EXAM DESCRIPTION: CT - Chest For Pe Angio - 11/12/2022 5:19 pm CLINICAL HISTORY: chest pain COMPARISON: No comparisons TECHNIQUE: Dynamically enhanced axial 3 mm thick images of the chest were obtained during administra tion of <100> mL Isovue 370 IV contrast. Coronal and oblique reconstruction images were generated and reviewed. Exam utilizes a protocol for optimal evaluation of pulmonary arterial tree. Maximum intensity projections 3D imaging was utilized All CT scans are performed using dose optimization technique as appropriate and may include automated exposure control or mA/KV adjustment according to patient size. FINDINGS: Chest Wall: No suspicious thyroid nodules or pathologic lymphadenopathy. Lungs: No acute abnormality. Pleura: No significant effusions or pneumothorax. Mediastinum/anthony: No pathologic lymphadenopathy. Pulmonary arteries/Aorta: No filling defect identified. No aortic aneurysm. Heart: No significant pericardial effusion. Normal heart size. Coronary calcifications in the LAD. Upper abdomen: No acute abnormality. Bones: No acute abnormality. IMPRESSION: Negative for pulmonary embolism. No alternate acute process in the chest.
--- NOTE | 2022-11-12 17:58 | EDPHYS ---
Physician Documentation [facility] Name: Wilma Ovalle Age: 77 yrs Sex: Female : 1945 Arrival Date: 11/12/2022 Time: 15:14 Bed 13 Private MD: [facility] ED Physician Angelo Rangel HPI: 11/12 15:35 This 77 yrs old Female presents to ER via Ambulatory with complaints of Arm cp Pain. 15:35 The patient or guardian complains of pain, that is acute. The complaints affect the cp left arm. 15:35 Context: resulted from unknown cause. Onset: The symptoms/episode began/occurred 3 cp day(s) ago. Treatment prior to arrival includes: no previous treatment. Associated signs and symptoms: Pertinent positives: left upper back pain, Pertinent negatives: decreased range of motion, deformity, fever, weakness, chest pain. 15:35 The patient has experienced similar episodes in the past, a few times. cp Historical: - Allergies: 15:24 No Known Allergies; aa5 - PMHx: 15:17 Hyperlipidemia; Hypertension; Hypothyroidism; insomnia; TIA; aa5 - PSHx: 15:24 Neck Sx; R arm; R knee replacement; aa5 - Immunization history:: Adult Immunizations unknown. - Social history:: Smoking status: Patient denies any tobacco usage or history of. ROS: 15:40 Constitutional: Negative for body aches, chills, fever, poor PO intake. cp 15:40 MS/extremity: Positive for pain, of the left arm, Negative for injury or acute cp deformity, decreased range of motion, paresthesias, swelling, tenderness. 15:40 Eyes: Negative for injury, pain, redness, and discharge. cp 15:40 ENT: Negative for drainage from ear(s), ear pain, sore throat, difficulty swallowing, difficulty handling secretions. 15:40 Neck: Negative for pain with movement, pain at rest, stiffness. 15:40 Cardiovascular: Negative for chest pain, edema, palpitations. 15:40 Respiratory: Negative for cough, shortness of breath, wheezing. 15:40 Abdomen/GI: Negative for abdominal pain, nausea, vomiting, and diarrhea. 15:40 Back: Positive for pain at rest, pain with movement, of the left trapezius and left scapular area. 15:40 Neuro: Negative for altered mental status, dizziness, headache, numbness, tingling, weakness. 15:40 All other systems are negative. Exam: 15:30 ECG was reviewed by the Attending Physician. cp 15:45 Constitutional: The patient appears in no acute distress, alert, awake, cp non-diaphoretic, non-toxic, well developed, well nourished. 15:45 Head/Face: Normocephalic, atraumatic. cp 15:45 Eyes: Periorbital structures: appear normal, Conjunctiva: normal, no exudate, no injection, Sclera: no appreciated abnormality, Lids and lashes: appear normal, bilaterally. 15:45 ENT: External ear(s): are unremarkable, Nose: is normal, Mouth: Lips: moist, Oral mucosa: moist, Posterior pharynx: Airway: no evidence of obstruction, patent. 15:45 Neck: ROM/movement: is normal, is supple, without pain, no range of motions limitations, no meningismus. 15:45 Chest/axilla: Inspection: normal. 15:45 Cardiovascular: Rate: normal, Rhythm: regular, Edema: is not appreciated, JVD: is not appreciated. 15:45 Respiratory: the patient does not display signs of respiratory distress, Respirations: normal, no use of accessory muscles, no retractions, no tachypnea, labored breathing, is not present, Breath sounds: are clear throughout, no decreased breath sounds, no stridor, no wheezing. 15:45 Abdomen/GI: Inspection: abdomen appears normal, Palpation: abdomen is soft and non-tender, in all quadrants. 15:45 Back: pain, that is mild, of the left trapezius and left scapular area, ROM is normal. 15:45 Musculoskeletal/extremity: Extremities: grossly normal except: noted in the left arm: pain, ROM: full active range of motion, in the left arm, Perfusion: the extremity is normally perfused throughout, the left arm Sensation intact. 15:45 Skin: cellulitis, is not appreciated, no rash present. 15:45 Neuro: Orientation: to person, place \T\ time. Mentation: is normal. Vital Signs: 15:17 BP 159 / 86; Pulse 92; Resp 18 S; Temp 98.2(TE); Pulse Ox 98% on R/A; Weight 64.41 kg aa5 (R); Height 4 ft. 10 in. (147.32 cm) (R); 15:45 BP 130 / 87; Pulse 86; Resp 18; Pulse Ox 100% on R/A; Pain 7/10; ld1 16:24 BP 137 / 69; Pulse 85; Resp 18; Pulse Ox 98% on R/A; ld1 17:33 BP 127 / 71; Pulse 78; Resp 18; Pulse Ox 99% on R/A; ld1 18:08 BP 129 / 76; Pulse 81; Resp 18; Temp 97.9(O); Pulse Ox 99% on R/A; Pain 0/10; ld1 15:17 Body Mass Index 29.68 (64.41 kg, 147.32 cm) aa5 MDM: 15:31 Patient medically screened. [facility] 16:00 Differential diagnosis: tendonitis, acute CT, pulmonary embolism, muscle strain. 17:58 Data reviewed: vital signs, nurses notes, lab test result(s), EKG, radiologic studies, CT scan, plain films, ultrasound. 17:58 I considered the following discharge prescriptions or medication management in the emergency department Medications were administered in the Emergency Department. See MAR. Care significantly affected by the following chronic conditions: Hypertension. Counseling: I had a detailed discussion with the patient and/or guardian regarding: the historical points, exam findings, and any diagnostic results supporting the discharge/admit diagnosis, lab results, radiology results, to return to the emergency department if symptoms worsen or persist or if there are any questions or concerns that arise at home. Response to treatment: the patient's symptoms have markedly improved after treatment, and as a result, I will discharge patient. 11/12 15:32 Order name: Basic Metabolic Panel; Complete Time: 16:08 11/12 16:08 Interpretation: Normal except: CL 108; GLUC 156; GFR 62. 11/12 15:32 Order name: CBC with Diff; Complete Time: 16:08 11/12 16:09 Interpretation: Normal except: RBC 3.64; HGB 11.4; HCT 33.7; MPV 7.0. 11/12 15:32 Order name: Magnesium; Complete Time: 16:08 11/12 15:32 Order name: PT-INR; Complete Time: 16:08 11/12 15:32 Order name: Troponin HS; Complete Time: 16:08 cp 11/12 16:09 Interpretation: Troponin HS 9.8; Reviewed. cp 11/12 16:11 Order name: LAB Add On cp 11/12 15:32 Order name: XRAY Chest (1 view); Complete Time: 16:29 cp 11/12 16:30 Interpretation: Report review. cp 11/12 16:11 Order name: D-Dimer; Complete Time: 17:18 cp 11/12 17:18 Interpretation: D-DIMER 887; Reviewed. cp 11/12 16:13 Order name: XRAY Humerus LEFT; Complete Time: 17:18 cp 11/12 17:41 Interpretation: Report reviewed. cp 11/12 16:13 Order name: XRAY Forearm LEFT; Complete Time: 17:18 cp 11/12 16:25 Order name: UPPER EXTREMITY VENOUS UNILATE; Complete Time: 17:18 EDMS 11/12 17:40 Interpretation: Report reviewed. cp 11/12 16:39 Order name: CT Chest For PE Angio; Complete Time: 17:37 cp 11/12 17:37 Interpretation: Report reviewed. cp 11/12 15:32 Order name: EKG; Complete Time: 15:32 cp 11/12 15:32 Order name: Cardiac monitoring; Complete Time: 15:43 cp 11/12 15:32 Order name: EKG - Nurse/Tech; Complete Time: 15:43 cp 11/12 15:32 Order name: IV Saline Lock; Complete Time: 15:43 cp 11/12 15:32 Order name: Labs collected and sent; Complete Time: 15:43 cp 11/12 15:32 Order name: O2 Per Protocol; Complete Time: 15:41 cp 11/12 15:32 Order name: O2 Sat Monitoring; Complete Time: 15:41 cp EC:30 Rate is 82 beats/min. Rhythm is regular. UT interval is normal. QRS interval is normal. cp QT interval is normal. T waves are Inverted in lead aVR. Interpreted by me. Reviewed by me. Administered Medications: 15:43 Drug: Tylenol 650 mg Route: PO; ld1 16:53 Follow up: Response: No adverse reaction ld1 16:53 Drug: Ketorolac 15 mg Route: IVP; Site: right antecubital; ld1 Disposition Summary: 11/12/22 17:58 Discharge Ordered Location: Home cp Problem: new cp Symptoms: have improved cp Condition: Stable cp Diagnosis - Pain in left arm cp - Dorsalgia, unspecified cp Followup: cp - With: Private Physician - When: next week - Reason: Recheck today's complaints Discharge Instructions: - Discharge Summary Sheet cp - Musculoskeletal Pain cp Forms: - Medication Reconciliation Form cp - Thank You Letter cp - Antibiotic Education cp - Prescription Opioid Use cp Prescriptions: - Mobic 7.5 mg Oral Tablet - take 1 tablet by ORAL route once daily take with food; 20 tablet; Refills: 0, cp Product Selection Permitted Signatures: Dispatcher [employer] EDMS Angelo Rangel MD MD cha Calderon, Audri, RN RN aa5 Angelo Foster PA PA Sandra Frye, RN RN ld1 Corrections: (The following items were deleted from the chart) 16:25 16:13 Extremity Venous Uni Ltd+US.RAD.BRZ ordered. EDMS EDMS 17:29 17:21 Head Brain Wo Cont+CT.RAD.BRZ ordered. EDMS EDMS
--- NOTE | 2022-11-12 17:58 | ER ---
Nurse's Notes [facility] Name: Wilma Ovalle Age: 77 yrs Sex: Female : 1945 Arrival Date: 11/12/2022 Time: 15:14 Bed 13 Private MD: Art Wallis Diagnosis: Pain in left arm;Dorsalgia, unspecified Presentation: 11/12 15:17 Chief complaint: Patient states: left arm pain that began "a few days ago" radiating to aa5 left lateral chest. Reports dizziness "for a while" and reports she has an appointment with neurologist for dizziness. 15:17 Coronavirus screen: At this time, the client does not indicate any symptoms associated aa5 with coronavirus-19. Ebola Screen: Patient denies travel to an Ebola-affected area in the 21 days before illness onset. Initial Sepsis Screen: Does the patient meet any 2 criteria? HR > 90 bpm. Does the patient have a suspected source of infection? No. Patient's initial sepsis screen is negative. Risk Assessment: Do you want to hurt yourself or someone else? Patient reports no desire to harm self or others. Onset of symptoms was November 2022. 15:17 Acuity: JEANINE 3 aa5 15:17 Method Of Arrival: Ambulatory aa5 Historical: - Allergies: 15:24 No Known Allergies; aa5 - PMHx: 15:17 Hyperlipidemia; Hypertension; Hypothyroidism; insomnia; TIA; aa5 - PSHx: 15:24 Neck Sx; R arm; R knee replacement; aa5 - Immunization history:: Adult Immunizations unknown. - Social history:: Smoking status: Patient denies any tobacco usage or history of. Screenin:45 [facility] ED Fall Risk Assessment (Adult) History of falling in the last 3 months, ld1 including since admission No falls in past 3 months (0 pts). Abuse screen: Denies threats or abuse. Denies injuries from another. Nutritional screening: No deficits noted. Tuberculosis screening: No symptoms or risk factors identified. Assessment: 15:45 General: Appears in no apparent distress. comfortable, Behavior is calm, cooperative, ld1 appropriate for age. Pain: Denies pain. Neuro: Level of Consciousness is awake, alert, obeys commands, Oriented to person, place, time, situation. Cardiovascular: Capillary refill < 3 seconds Patient's skin is warm and dry. Respiratory: Airway is patent Respiratory effort is even, unlabored. GI: Abdomen is flat, non-distended. : No signs and/or symptoms were reported regarding the genitourinary system. EENT: No signs and/or symptoms were reported regarding the EENT system. Derm: No signs and/or symptoms reported regarding the dermatologic system. Musculoskeletal: No signs and/or symptoms reported regarding the musculoskeletal system. 18:08 Reassessment: Patient appears in no apparent distress at this time. Patient and/or ld1 family updated on plan of care and expected duration. Pain level reassessed. Patient is alert, oriented x 3, equal unlabored respirations, skin warm/dry/pink. Patient states feeling better. Vital Signs: 15:17 BP 159 / 86; Pulse 92; Resp 18 S; Temp 98.2(TE); Pulse Ox 98% on R/A; Weight 64.41 kg aa5 (R); Height 4 ft. 10 in. (147.32 cm) (R); 15:45 BP 130 / 87; Pulse 86; Resp 18; Pulse Ox 100% on R/A; Pain 7/10; ld1 16:24 BP 137 / 69; Pulse 85; Resp 18; Pulse Ox 98% on R/A; ld1 17:33 BP 127 / 71; Pulse 78; Resp 18; Pulse Ox 99% on R/A; ld1 18:08 BP 129 / 76; Pulse 81; Resp 18; Temp 97.9(O); Pulse Ox 99% on R/A; Pain 0/10; ld1 15:17 Body Mass Index 29.68 (64.41 kg, 147.32 cm) aa5 ED Course: 15:14 Patient arrived in ED. as 15:14 Art Wallis DO is Private Physician. as 15:17 Arm band placed on Patient placed in an exam room, on a stretcher. aa5 15:24 Triage completed. aa5 15:25 Angelo Foster PA is PHCP. cp 15:25 Angelo Rangel MD is Attending Physician. cp 15:41 Sandra Chiu, CATARINA is Primary Nurse. ld1 15:43 Inserted saline lock: 22 gauge in right forearm, using aseptic technique. Blood ld1 collected. 15:45 Patient has correct armband on for positive identification. Placed in gown. Bed in low ld1 position. Call light in reach. Side rails up X2. alarm security or surveillance monitor on. Pulse ox on. NIBP on. Door closed. Noise minimized. Warm blanket given. 15:45 No provider procedures requiring assistance completed. ld1 16:11 XRAY Chest (1 view) In Process Unspecified. EDMS 16:13 D-Dimer Sent. kj1 16:13 LAB Add On Sent. kj1 16:53 XRAY Humerus LEFT In Process Unspecified. EDMS 16:53 XRAY Forearm LEFT In Process Unspecified. EDMS 16:56 UPPER EXTREMITY VENOUS UNILATE In Process Unspecified. EDMS 17:21 CT Chest For PE Angio In Process Unspecified. EDMS 18:08 IV discontinued, intact, bleeding controlled, No redness/swelling at site. ld1 Administered Medications: 15:43 Drug: Tylenol 650 mg Route: PO; ld1 16:53 Follow up: Response: No adverse reaction ld1 16:53 Drug: Ketorolac 15 mg Route: IVP; Site: right antecubital; ld1 Medication: 15:45 VIS not applicable for this client. ld1 Outcome: 17:58 Discharge ordered by . freddie 18:08 Discharged to home ambulatory. ld1 18:08 Condition: stable 18:08 Discharge instructions given to patient, Instructed on discharge instructions, follow up and referral plans. Demonstrated understanding of instructions, follow-up care. 18:26 Patient left the ED. ld1 Signatures: Dispatcher [employer] Sigrid Montemayor Audri, RN RN aa5 Angelo Foster PA PA cp Jackson, Kandis kj1 Sandra Chiu RN RN ld1
[2022-11-12 19:22] VITALS: O2SAT 99
[2022-11-12 19:23] VITALS: BP 129/76; TEMP 97.9
--- NOTE | 2022-11-13 10:49 | EKG ---
Test Date: 2022-11-12 Test Time: 15:23:34 Sole Stainer: ROSEANN MEASUREMENT RESULTS: Intervals: Rate: 82 MA: 152 QRSD: 94 QT: 366 QTc: 427 [place]: P: 58 MA: 152 QRS: 60 T: 67 INTERPRETIVE STATEMENTS: Normal sinus rhythm Normal ECG Compared to ECG 08/17/2022 11:59:25 No significant changes Electronically Signed On 11-13-22 10:46:38 BUFFERER by Himanshu Hickey
== END 2022-11-12 18:26 | disposition home or self-care (01) ==
LOC: ER 15:11
DX: M79.602 Pain in left arm (principal); M54.9 Dorsalgia, unspecified; I10 Essential (primary) hypertension; Z96.651 Presence of right artificial knee joint; Z86.73 Personal history of transient ischemic attack (TIA), and cerebral infarction without residual deficits
CPT/HCPCS: 93005; 85025; 80048; 36415; 83735; 85610; 85379; 84484; 71275; 71045; 73090; 73060; 93971; 96374; 99284; Q9967

== ENCOUNTER 2022-11-17 09:36 | Emergency (ER) | payer OTHER ==
--- OUTSIDE RECORDS SUMMARY | 2022-11-17 09:44 | XMS REPORT | Continuity of Care Document ---
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 Vitamin B12 Vitamin B12 2022-0 No 1000ug Common (Cyanocobal (Cyanocobal 4-11 S pirit obrien) obrien) 00:00: - [facility] Vitamin B12 Vitamin B12 2-0 No 1000ug Common (Cyanocobal (Cyanocobal 4-11 S pirit obrien) obrien) 00:00: - [facility] Vitamin B12 Vitamin B12 2-0 No 1000ug Common (Cyanocobal (Cyanocobal 4-11 S pirit obrien) obrien) 00:00: - [facility] Vitamin B12 Vitamin B12 2-0 No 1000ug Common (Cyanocobal (Cyanocobal 4-11 S pirit obrien) obrien) 00:00: - [facility] Vitamin B12 Vitamin B12 2021-0 No 1000ug Common (Cyanocobal (Cyanocobal 4-11 S pirit obrien) obrien) 00:00: - [facility] Vitamin B12 Vitamin B12 2-0 No 1000ug Common (Cyanocobal (Cyanocobal 4-11 S pirit obrien) obrien) 00:00: - [facility] Vitamin B12 Vitamin B12 2-0 No 1000ug Common (Cyanocobal (Cyanocobal 4-11 S pirit obrien) obrien) 00:00: - [facility] Vitamin B12 Vitamin B12 2021-0 No 1000ug Common (Cyanocobal (Cyanocobal 4-11 S pirit obrien) obrien) 00:00: - [facility] Vitamin B12 Vitamin B12 2-0 No 1000ug Common (Cyanocobal (Cyanocobal 4-11 S pirit obrien) obrien) 00:00: - [facility] Vitamin B12 Vitamin B12 2022-0 No 1000ug Common (Cyanocobal (Cyanocobal 4-11 S pirit obrien) obrien) 00:00: - [facility] Vitamin B12 Vitamin B12 2022-0 No 1000ug Common (Cyanocobal (Cyanocobal 4-11 S pirit obrien) obrien) 00:00: - [facility] Vitamin B12 Vitamin B12 2022-0 No 1000ug Common (Cyanocobal (Cyanocobal 2-21 S pirit obrien) obrien) 00:00: - [facility] Vitamin B12 Vitamin B12 2022-0 No 1000ug Common (Cyanocobal (Cyanocobal 2-21 S pirit obrien) obrien) 00:00: - [facility] Vitamin B12 Vitamin B12 2022-0 No 1000ug Common (Cyanocobal (Cyanocobal 2-21 S pirit obrien) obrien) 00:00: - [facility] Vitamin B12 Vitamin B12 2022-0 No 1000ug Common (Cyanocobal (Cyanocobal 2-21 S pirit obrien) obrien) 00:00: - [facility] Vitamin B12 Vitamin B12 2022-0 No 1000ug Common (Cyanocobal (Cyanocobal 2-21 S pirit obrien) obrien) 00:00: - [facility] Vitamin B12 Vitamin B12 2-0 No 1000ug Common (Cyanocobal (Cyanocobal 2-21 S pirit obrien) obrien) 00:00: - [facility] Vitamin B12 Vitamin B12 2-0 No 1000ug Common (Cyanocobal (Cyanocobal 2-21 S pirit obrien) obrien) 00:00: - [facility] Vitamin B12 Vitamin B12 2-0 No 1000ug Common (Cyanocobal (Cyanocobal 2-21 S pirit obrien) obrien) 00:00: - [facility] Vitamin B12 Vitamin B12 2-0 No 1000ug Common (Cyanocobal (Cyanocobal 2-21 S pirit obrien) obrien) 00:00: - [facility] Vitamin B12 Vitamin B12 2-0 No 1000ug Common (Cyanocobal (Cyanocobal 2-21 S pirit obrien) obrien) 00:00: - [facility] Vitamin B12 Vitamin B12 2022-0 No 1000ug Common (Cyanocobal (Cyanocobal 2-21 S pirit obrien) obrien) 00:00: - [facility] Vitamin B12 Vitamin B12 2022-0 No 1000ug Common (Cyanocobal (Cyanocobal 2-21 S pirit obrien) obrien) 00:00: - [facility] Vitamin B12 Vitamin B12 2022-0 No 1000ug Common (Cyanocobal (Cyanocobal 2-21 S pirit obrien) obrien) 00:00: - [facility] Vitamin B12 Vitamin B12 2022-0 No 1000ug Common (Cyanocobal (Cyanocobal 2-21 S pirit obrien) obrien) 00:00: - [facility] Vitamin B12 Vitamin B12 2-0 No 1000ug Common (Cyanocobal (Cyanocobal 2-21 S pirit obrien) obrien) 00:00: - [facility] Vitamin B12 Vitamin B12 2-0 No 1000ug Common (Cyanocobal (Cyanocobal 2-21 S pirit obrien) obrien) 00:00: - [facility] Vitamin B12 Vitamin B12 2-0 No 1000ug Common (Cyanocobal (Cyanocobal 2-21 S pirit obrien) obrien) 00:00: - [facility] Vitamin B12 Vitamin B12 2-0 No 1000ug Common (Cyanocobal (Cyanocobal 2-21 S pirit obrien) obrien) 00:00: - [facility] Vitamin B12 Vitamin B12 2-0 No 1000ug Common (Cyanocobal (Cyanocobal 2-21 S pirit obrien) obrien) 00:00: - [facility] Vitamin B12 Vitamin B12 2-0 No 1000ug Common (Cyanocobal (Cyanocobal 2-21 S pirit obrien) obrien) 00:00: - [facility] Vitamin B12 Vitamin B12 2-0 No 1000ug Common (Cyanocobal (Cyanocobal 2-21 S pirit obrien) obrien) 00:00: - [facility] Vitamin B12 Vitamin B12 2-0 No 1000ug Common (Cyanocobal (Cyanocobal 2-21 S pirit obrien) obrien) 00:00: - [facility] Vitamin B12 Vitamin B12 2022-0 No 1000ug Common (Cyanocobal (Cyanocobal 2-21 S pirit obrien) obrien) 00:00: - [facility] Vitamin B12 Vitamin B12 2022-0 No 1000ug Common (Cyanocobal (Cyanocobal 1-07 S pirit obrien) obrien) 00:00: - [facility] Vitamin B12 Vitamin B12 2022-0 No 1000ug Common (Cyanocobal (Cyanocobal 1-07 S pirit obrien) obrien) 00:00: - [facility] Vitamin B12 Vitamin B12 2022-0 No 1000ug Common (Cyanocobal (Cyanocobal 1-07 S pirit obrien) obrien) 00:00: - [facility] Vitamin B12 Vitamin B12 2022-0 No 1000ug Common (Cyanocobal (Cyanocobal 1-07 S pirit obrien) obrien) 00:00: - [facility] Vitamin B12 Vitamin B12 2022-0 No 1000ug Common (Cyanocobal (Cyanocobal 1-07 S pirit obrien) obrien) 00:00: - [facility] Vitamin B12 Vitamin B12 2-0 No 1000ug Common (Cyanocobal (Cyanocobal 1-07 S pirit obrien) obrien) 00:00: - [facility] Vitamin B12 Vitamin B12 2-0 No 1000ug Common (Cyanocobal (Cyanocobal 1-07 S pirit obrien) obrien) 00:00: - [facility] Vitamin B12 Vitamin B12 2-0 No 1000ug Common (Cyanocobal (Cyanocobal 1-07 S pirit obrien) obrien) 00:00: - [facility] Vitamin B12 Vitamin B12 2-0 No 1000ug Common (Cyanocobal (Cyanocobal 1-07 S pirit obrien) obrien) 00:00: - [facility] Vitamin B12 Vitamin B12 2-0 No 1000ug Common (Cyanocobal (Cyanocobal 1-07 S pirit obrien) obrien) 00:00: - [facility] Vitamin B12 Vitamin B12 2-0 No 1000ug Common (Cyanocobal (Cyanocobal 1-07 S pirit obrien) obrien) 00:00: - [facility] Vitamin B12 Vitamin B12 2022-0 No 1000ug Common (Cyanocobal (Cyanocobal 1-07 S pirit obrien) obrien) 00:00: - [facility] Vitamin B12 Vitamin B12 2022-0 No 1000ug Common (Cyanocobal (Cyanocobal 1-07 S pirit obrien) obrien) 00:00: - [facility] Vitamin B12 Vitamin B12 2022-0 No 1000ug Common (Cyanocobal (Cyanocobal 1-07 S pirit obrien) obrien) 00:00: - [facility] Vitamin B12 Vitamin B12 2021-0 No 1000ug Common (Cyanocobal (Cyanocobal 1-07 S pirit obrien) obrien) 00:00: - [facility] Vitamin B12 Vitamin B12 2021-0 No 1000ug Common (Cyanocobal (Cyanocobal 1-07 S pirit obrien) obrien) 00:00: - [facility] Vitamin B12 Vitamin B12 2021-0 No 1000ug Common (Cyanocobal (Cyanocobal 1-07 S pirit obrien) obrien) 00:00: - [facility] Vitamin B12 Vitamin B12 2021-0 No 1000ug Common (Cyanocobal (Cyanocobal 1-07 S pirit obrien) obrien) 00:00: - [facility] Vitamin B12 Vitamin B12 2021-0 No 1000ug Common (Cyanocobal (Cyanocobal 1-07 S pirit obrien) obrien) 00:00: - [facility] Vitamin B12 Vitamin B12 2021-0 No 1000ug Common (Cyanocobal (Cyanocobal 1-07 S pirit obrien) obrien) 00:00: - [facility] Vitamin B12 Vitamin B12 2021-0 No 1000ug Common (Cyanocobal (Cyanocobal 1-07 S pirit obrien) obrien) 00:00: - [facility] Vitamin B12 Vitamin B12 2021-0 No 1000ug Common (Cyanocobal (Cyanocobal 1-07 S pirit obrien) obrien) 00:00: - [facility] Vitamin B12 Vitamin B12 2021-0 No 1000ug Common (Cyanocobal (Cyanocobal 1-07 S pirit obrien) obrien) 00:00: - [facility] Vitamin B12 Vitamin B12 2020-1 No 1000ug Common (Cyanocobal (Cyanocobal 2-22 S pirit obrien) obrien) 00:00: - [facility] Vitamin B12 Vitamin B12 2020-1 No 1000ug Common (Cyanocobal (Cyanocobal 2-22 S pirit obrien) obrien) 00:00: - [facility] Vitamin B12 Vitamin B12 2020-1 No 1000ug Common (Cyanocobal (Cyanocobal 2-22 S pirit obrien) obrien) 00:00: - [facility] Vitamin B12 Vitamin B12 2020-11 No 1000ug Common (Cyanocobal (Cyanocobal 2-22 S pirit obrien) obrien) 00:00: - [facility] Vitamin B12 Vitamin B12 2020-11 No 1000ug Common (Cyanocobal (Cyanocobal 2-22 S pirit obrien) obrien) 00:00: - [facility] Vitamin B12 Vitamin B12 2020-11 No 1000ug Common (Cyanocobal (Cyanocobal 2-22 S pirit obrien) obrien) 00:00: - [facility] Vitamin B12 Vitamin B12 2020-11 No 1000ug Common (Cyanocobal (Cyanocobal 2-22 S pirit obrien) obrien) 00:00: - [facility] Vitamin B12 Vitamin B12 2020-11 No 1000ug Common (Cyanocobal (Cyanocobal 2-22 S pirit obrien) obrien) 00:00: - [facility] Vitamin B12 Vitamin B12 2020-11 No 1000ug Common (Cyanocobal (Cyanocobal 2-22 S pirit obrien) obrien) 00:00: - [facility] Vitamin B12 Vitamin B12 2020-11 No 1000ug Common (Cyanocobal (Cyanocobal 2-22 S pirit obrien) obrien) 00:00: - [facility] Vitamin B12 Vitamin B12 2020-11 No 1000ug Common (Cyanocobal (Cyanocobal 2-22 S pirit obrien) obrien) 00:00: - [facility] Vitamin B12 Vitamin B12 2020-11 No 1000ug Common (Cyanocobal (Cyanocobal 2-22 S pirit obrien) obrien) 00:00: - [facility] Vitamin B12 Vitamin B12 2020-11 No 1000ug Common (Cyanocobal (Cyanocobal 2-22 S pirit obrien) obrien) 00:00: - [facility] Vitamin B12 Vitamin B12 2020-11 No 1000ug Common (Cyanocobal (Cyanocobal 2-22 S pirit obrien) obrien) 00:00: - [facility] Vitamin B12 Vitamin B12 2020-11 No 1000ug Common (Cyanocobal (Cyanocobal 2-22 S pirit obrien) obrien) 00:00: - [facility] Vitamin B12 Vitamin B12 2020-11 No 1000ug Common (Cyanocobal (Cyanocobal 2-22 S pirit obrien) obrien) 00:00: - [facility] Vitamin B12 Vitamin B12 2020-11 No 1000ug Common (Cyanocobal (Cyanocobal 2-22 S pirit obrien) obrien) 00:00: - [facility] Vitamin B12 Vitamin B12 2020-11 No 1000ug Common (Cyanocobal (Cyanocobal 2-22 S pirit obrien) obrien) 00:00: - [facility] Vitamin B12 Vitamin B12 2020-11 No 1000ug Common (Cyanocobal (Cyanocobal 2-22 S pirit obrien) obrien) 00:00: - [facility] Vitamin B12 Vitamin B12 2020-11 No 1000ug Common (Cyanocobal (Cyanocobal 2-22 S pirit obrien) obrien) 00:00: - [facility] Vitamin B12 Vitamin B12 2020-11 No 1000ug Common (Cyanocobal (Cyanocobal 2-22 S pirit obrien) obrien) 00:00: - [facility] Vitamin B12 Vitamin B12 2020-11 No 1000ug Common (Cyanocobal (Cyanocobal 2-22 S pirit obrien) obrien) 00:00: - [facility] Vitamin B12 Vitamin B12 2020-11 No 1000ug Common (Cyanocobal (Cyanocobal 2-22 S pirit obrien) obrien) 00:00: - [facility] levothyroxi 0 Yes 100ug QD Take 100 [...] tablet 38 nightly. l For sleep zinc Yes 220mg QD Take 220 Methodi sulfate [...] Date Status Commen ts Source Name Name [facility] PEDRITOID-19 [facility] COVID19 2021-11-26 Com[facility] (Low Dose Vaccine (Low Dose 10:59:00 [facility] COVID19 [facility] COVID-19 2021-11-26 Completed [facility] (Low Dose Vaccine (Low Dose 10:59:00 [facility] Booster) [facility] COVID-19 [facility] COVID-19 2021-11-26 Completed [facility] (Low Dose Vaccine (Low Dose 10:59:00 - [facility] Booster) [facility] [address] COVID19 2021-11-26 Completed [facility] (Low Dose Vaccine (Low Dose 10:59:00 - [facility] Booster) [facility] COVID19 [facility] COVID19 2021-11-26 Completed [facility]ine (Low Dose Vaccine (Low Dose 10:59:00 - [facility] Booster) [facility] [address] COVID19 2021-11-26 Completed [facility]ine (Low Dose Vaccine (Low Dose 10:59:00 - [facility] Booster) [facility] [address] COVID19 2021-11-26 Completed [facility]ine (Low Dose Vaccine (Low Dose 10:59:00 - [facility] Booster) [facility] [address] COVID19 2021-11-26 Completed [facility]ine (Low Dose Vaccine (Low Dose 10:59:00 - [facility] Booster) [facility] [facility] (Low Dose Vaccine (Low Dose 10:59:00 - [facility] Booster) [facility] [facility] (Low Dose Vaccine (Low Dose 10:59:00 - [facility] Booster) [facility] [address] COVID19 2021-11-26 Completed [facility] Vaccine (Low Dose Vaccine (Low Dose 10:59:00 - [facility] Booster) [facility] [address] COVID19 2021-11-26 Completed [facility] Vaccine (Low Dose Vaccine (Low Dose 10:59:00 - [facility] Booster) [facility] [address] COVID19 2021-11-26 Completed [facility]ine (Low Dose Vaccine (Low Dose 10:59:00 - [facility] Booster) [facility] [address] COVID19 2021-11-26 Completed [facility]ine (Low Dose Vaccine (Low Dose 10:59:00 - [facility] Booster) [facility] COVID19 [facility] COVID19 2021-11-26 Completed [facility]ine (Low Dose Vaccine (Low Dose 10:59:00 - [facility] Booster) [facility] COVID19 [facility] COVID19 2021-11-26 Completed [facility] Vaccine (Low Dose Vaccine (Low Dose 10:59:00 - [facility] Booster) [facility] [address] COVID19 2021-11-26 Completed [facility] Vaccine (Low Dose Vaccine (Low Dose 10:59:00 - [facility] Booster) [facility] [address] COVID19 2021-11-26 Completed [facility]ine (Low Dose Vaccine (Low Dose 10:59:00 - [facility] Booster) [facility] [address] COVID19 2021-11-26 Completed [facility]ine (Low Dose Vaccine (Low Dose 10:59:00 - [facility] Booster) [facility] [address] COVID19 2021-11-26 Completed [facility] (Low Dose Vaccine (Low Dose 10:59:00 - [facility] Booster) [facility] COVID19 [facility] COVID19 2021-11-26 Completed [facility]ine (Low Dose Vaccine (Low Dose 10:59:00 - [facility] Booster) [facility] [address] COVID19 2021-11-26 Completed [facility]ine (Low Dose Vaccine (Low Dose 10:59:00 - [facility] Booster) [facility] [address] COVID19 2021-11-26 Completed [facility] (Low Dose Vaccine (Low Dose 10:59:00 - [facility] Booster) [facility] Pfizer COVID-19 Pfizer COVID-19 2021-01-30 Com[facility] Vacc[facility] 09:01:00 [facility] Pfizer COVID-19 Pfizer COVID-19 2021-01-30 Completed [facility] Vaccine 09:01:00 [facility] Pfizer COVID-19 Pfizer COVID-19 2021-01-30 Completed [facility] Vaccine 09[facility]01:00 - [facility] Pfizer COVID-19 Pfizer COVID-19 2021-01-30 Completed [facility] Vaccine 09:01:00 [facility] Pfizer COVID-19 Pfizer COVID-19 2021-01-30 Completed [facility] Vaccine 09:01:00 - [facility] Pfizer COVID-19 Pfizer COVID-19 2021-01-30 Completed [facility] Vaccine 09:01:00 - [facility] Pfizer COVID-19 Pfizer COVID-19 2021-01-30 Completed [facility] Vaccine 09:01:00 [facility] Pfizer COVID-19 Pfizer COVID-19 2021-01-30 Completed [facility] Vaccine 09:01:00 - [facility] Pfizer COVID-19 Pfizer COVID-19 2021-01-30 Completed [facility] Vaccine 09:01:00 - [facility] Pfizer COVID-19 Pfizer COVID-19 2021-01-30 Completed [facility] Vaccine 09:01:00 - [facility] Pfizer COVID-19 Pfizer COVID-19 2021-01-30 Completed [facility] Vaccine 09:01:00 - [facility] Pfizer COVID-19 Pfizer COVID-19 2021-01-30 Completed [facility] Vaccine 09:01:00 - [facility] Pfizer COVID-19 Pfizer COVID-19 2021-01-30 Completed [facility] Vaccine 09:01:00 - [facility] Pfizer COVID-19 Pfizer COVID-19 2021-01-30 Completed [facility] Vaccine 09:01:00 - [facility] Pfizer COVID-19 Pfizer COVID-19 2021-01-30 Completed [facility] Vaccine 09:01:00 [facility] Pfizer COVID-19 Pfizer COVID-19 2021-01-30 Com[facility] Vaccine 09:01:00 [facility] Pfizer COVID-19 Pfizer COVID-19 2021-01-30 Completed [facility] Vaccine 09:01:00 - [facility] Pfizer COVID-19 Pfizer COVID-19 2021-01-30 Com[facility]ine 09:01:00 - [facility] Pfizer COVID-19 Pfizer COVID-19 2021-01-30 Completed [facility] Vaccine 09:01:00 - [facility] Pfizer COVID-19 Pfizer COVID-19 2021-01-30 Completed [facility] Vaccine 09:01:00 - [facility] Pfizer COVID-19 Pfizer COVID-19 2021-01-30 Completed [facility] Vaccine 09:01:00 - [facility] Pfizer COVID-19 Pfizer COVID-19 2021-01-30 Completed [facility]ine 09:01:00 - [facility] Pfizer COVID-19 Pfizer COVID-19 2021-01-30 Completed [facility]ine 09:01:00 - [facility] Pfizer COVID-19 Pfizer COVID-19 2020-12-30 Completed [facility]ine 09:01:00 - [facility] Pfizer COVID-19 Pfizer COVID-19 2020-12-30 Completed [facility]ine 09:01:00 - [facility] Pfizer COVID-19 Pfizer COVID-19 2020-12-30 Completed [facility] Vaccine 09:01:00 - [facility] Pfizer COVID-19 Pfizer COVID-19 2020-12-30 Completed [facility] Vaccine 09:01:00 - [facility] Pfizer COVID-19 Pfizer COVID-19 2020-12-30 Completed [facility] Vaccine 09:01:00 - [facility] Pfizer COVID-19 Pfizer COVID-19 2020-12-30 Completed [facility] Vaccine Vaccine 09:01:00 - [facility] Pfizer COVID-19 Pfizer COVID-19 2020-12-30 Completed [facility] Vaccine 09:01:00 [facility] Pfizer COVID-19 Pfizer COVID-19 2020-12-30 Completed [facility] Vaccine 09:01:00 - [facility] Pfizer COVID-19 Pfizer COVID-19 2020-12-30 Completed [facility] Vaccine 09:01:00 - [facility] Pfizer COVID-19 Pfizer COVID-19 2020-12-30 Completed [facility] Vaccine 09:01:00 - [facility] Pfizer COVID-19 Pfizer COVID-19 2020-12-30 Completed [facility] Vaccine 09:01:00 [facility] Pfizer COVID-19 Pfizer COVID-19 2020-12-30 Completed [facility] Vaccine 09:01:00 - [facility] Pfizer COVID-19 Pfizer COVID-19 2020-12-30 Completed [facility] Vaccine 09:01:00 - [facility] Pfizer COVID-19 Pfizer COVID-19 2020-12-30 Completed [facility] Vaccine 09:01:00 - [facility] Pfizer COVID-19 Pfizer COVID-19 2020-12-30 Completed [facility] Vaccine 09:01:00 - [facility] Pfizer COVID-19 Pfizer COVID-19 2020-12-30 Completed [facility] Vaccine 09:01:00 - [facility] Pfizer COVID-19 Pfizer COVID-19 2020-12-30 Completed [facility] Vaccine 09:01:00 - [facility] Pfizer COVID-19 Pfizer COVID-19 2020-12-30 Completed [facility] Vaccine 09:01:00 - [facility] Pfizer COVID-19 Pfizer COVID-19 2020-12-30 Completed [facility] Vaccine 09:01:00 - [facility] Pfizer COVID-19 Pfizer COVID-19 2020-12-30 Completed [facility] Vaccine 09:01:00 - [facility] Pfizer COVID-19 Pfizer COVID-19 2020-12-30 Completed [facility] Vaccine 09:01:00 - [facility] Pfizer COVID-19 Pfizer COVID-19 2020-12-30 Completed [facility] Vaccine 09:01:00 [facility] Pfizer COVID-19 Pfizer COVID-19 2020-12-30 Completed [facility] Vaccine Vaccine 09:01:00 [facility] Fluzone Fluzone 2020-07-02 [facility]pleted [facility] 09:02:00 - [facility] Fluzone Fluzone 2020-07-02 [facility]pleted [facility] 09:02:00 - [facility] Fluzone Fluzone 2020-07-02 [facility]pleted [facility] 09:02:00 - [facility] Fluzone Fluzone 2020-07-02 [facility]pleted [facility] 09:02:00 - [facility] Fluzone Fluzone 2020-07-02 [facility]pleted [facility] 09:02:00 - [facility] Fluzone Fluzone 2020-07-02 [facility]pleted [facility] 09:02:00 - [facility] Fluzone Fluzone 2020-07-02 Completed [facility] 09:02:00 - [facility] Fluzone Fluzone 2020-07-02 [facility]pleted [facility] 09:02:00 - [facility] Fluzone Fluzone 2020-07-02 [facility]pleted [facility] 09:02:00 - [facility] Fluzone Fluzone 2020-07-02 [facility]pleted [facility] 09:02:00 - [facility] Fluzone Fluzone 2020-07-02 [facility]pleted [facility] 09:02:00 - [facility] Fluzone Fluzone 2020-07-02 [facility]pleted [facility] 09:02:00 - [facility] Fluzone Fluzone 2020-07-02 Completed [facility] 09:02:00 - [facility] Fluzone Fluzone 2020-07-02 [facility]pleted [facility] 09:02:00 - [facility] Fluzone Fluzone 2020-07-02 [facility]pleted [facility] 09:02:00 - [facility] Fluzone Fluzone 2020-07-02 [facility]pleted [facility] 09:02:00 - [facility] Fluzone Fluzone 2020-07-02 [facility]pleted [facility] 09:02:00 - [facility] Fluzone Fluzone 2020-07-02 Completed [facility] 09:02:00 - [facility] Fluzone Fluzone 2020-07-02 Completed [facility] 09:02:00 - [facility] Fluzone Fluzone 2020-07-02 Completed [facility] 09:02:00 - [facility] Fluzone Fluzone 2020-07-02 Completed [facility] 09:02:00 - [facility] Fluzone Fluzone 2020-07-02 [facility]pleted [facility] 09:02:00 - [facility] Fluzone Fluzone 2020-07-02 Completed [facility] 09:02:00 - [facility] Vital Signs Vital Name Observation Time Observation Value Comments Source height 2022-08-20 15:00:00 59.5 [in_i] [facility] weight 2022-08-20 15:00:00 141.1 [lb_av] [facility] temperature 2022-08-20 15:00:00 97.8 [degF] [facility] bmi 2022-08-20 15:00:00 28.02 kg/m2 [facility] blood pressure 2022-08-20 15:00:00 136 mm[Hg] [facility] - systolic [facility] blood pressure 2022-08-20 15:00:00 84 mm[Hg] [facility] - diastolic [facility] height 2022-07-24 07:50:00 59.5 [in_i] [facility] weight 2022-07-24 07:50:00 145 [lb_av] [facility] temperature 2022-07-24 07:50:00 98 [degF] [facility] bmi 2022-07-24 07:50:00 28.79 kg/m2 [facility] blood pressure 2022-07-24 07:50:00 132 mm[Hg] [facility] - systolic [facility] blood pressure 2022-07-24 07:50:00 65 mm[Hg] [facility] - diastolic [facility] height 2022-07-01 10:00:00 59.5 [in_i] [facility] weight 2022-07-01 10:00:00 147 [lb_av] Common [facility] temperature 2022-07-01 10:00:00 97.9 [degF] Common S [facility] bmi 2022-07-01 10:00:00 29.19 kg/m2 Common [facility] oximetry 2022-07-01 10:00:00 97 % [facility] respiratory rate 2022-07-01 10:00:00 16 /min [facility] blood pressure 2022-07-01 10:00:00 139 mm[Hg] Common [facility] - systolic [facility] blood pressure 2022-07-01 10:00:00 67 mm[Hg] [facility] - diastolic [facility] height 2022-07-01 10:00:00 60 [in_i] [facility] weight 2022-07-01 10:00:00 147 [lb_av] [facility] temperature 2022-07-01 10:00:00 97.9 [degF] [facility] bmi 2022-07-01 10:00:00 28.71 kg/m2 Common [facility] oximetry 2022-07-01 10:00:00 97 % Common [facility] respiratory rate 2022-07-01 10:00:00 16 /min [facility] blood pressure 2022-07-01 10:00:00 139 mm[Hg] Common [facility] - systolic [facility] blood pressure 2022-07-01 10:00:00 67 mm[Hg] [facility] - diastolic [facility] height 2022-06-17 10:00:00 60 [in_i] [facility] weight 2022-06-17 10:00:00 144 [lb_av] Common [facility] temperature 2022-06-17 10:00:00 97 [degF] Common S [facility]irit [facility] bmi 2022-06-17 10:00:00 28.12 kg/m2 [facility] oximetry 2022-06-17 10:00:00 97 % [facility] respiratory rate 2022-06-17 10:00:00 17 /min [facility] blood pressure 2022-06-17 10:00:00 128 mm[Hg] Common [facility] - systolic [facility] blood pressure 2022-06-17 10:00:00 74 mm[Hg] [facility] - diastolic [facility] height 2022-06-03 15:00:00 60 [in_i] [facility] weight 2022-06-03 15:00:00 147.6 [lb_av] [facility] temperature 2022-06-03 15:00:00 97.0 [degF] [facility] bmi 2022-06-03 15:00:00 28.82 kg/m2 [facility] oximetry 2022-06-03 15:00:00 94 % [facility] respiratory rate 2022-06-03 15:00:00 17 /min [facility] blood pressure 2022-06-03 15:00:00 132 mm[Hg] [facility] [place] [facility] blood pressure 2022-06-03 15:00:00 76 mm[Hg] [facility] Procedures This patient has no known procedures. Plan of Care Planned Activity Planned Date Details Comments Source Future Scheduled 2022-10-16 Hepatitis C screening [facility] Test 02:32:20 (procedure) [code = [id number]] Future Scheduled 2022-10-16 SHINGLES VACCINES ([address] [facility] Test 02:32:20 of 2) [code = SHINGLES VACCINES (1 of 2)] Future Scheduled 2022-10-16 65+ PNEUMOCOCCAL Method[facility] Test 02:32:20 VACCINE (1 - PCV) [code = 65+ PNEUMOCOCCAL VACCINE (1 - PCV)] Future Scheduled 2022-10-16 COVID-19 [facility]ACCINE [facility]:32:20 Pfizer series) [code = COVID-19 VACCINE (2 - Pfizer series)] Future Scheduled 2022-10-16 INFLUENZA VACCINE [facility] Test 02:32:20 [code = INFLUENZA VACCINE] Future Scheduled 2022-10-16 Hepatitis C screening [facility] Test 02:32:20 (procedure) [code = [id number]] Future Scheduled 2022-10-16 SHINGLES VACCINES (1 Met [facility] Test 02:32:20 of 2) [code = SHINGLES VACCINES (1 of 2)] Future Scheduled 2022-10-16 65+ PNEUMOCOCCAL [facility] Hospital Test 02:32:20 VACCINE (1 - PCV) [code = 65+ PNEUMOCOCCAL VACCINE (1 - PCV)] Future Scheduled 2022-10-16 [facility] Pfizer series) [code = COVID-19 VACCINE (2 - Pfizer series)] Future Scheduled 2022-10-16 INFLUENZA VACCINE [facility] Test 02:32:20 [code = INFLUENZA VACCINE] Future Scheduled 2022-10-16 Hepatitis C screening [facility] Test 02:32:20 (procedure) [code = [id number]] Future Scheduled 2022-10-16 SHINGLES VACCINES (1 Met [facility] Test 02:32:20 of 2) [code = SHINGLES VACCINES (1 of 2)] Future Scheduled 2022-10-16 65+ PNEUMOCOCCAL Method[facility] Hospital Test 02:32:20 VACCINE (1 - PCV) [code = 65+ PNEUMOCOCCAL VACCINE (1 - PCV)] Future Scheduled 2022-10-16 COVID-19 VACCINE [facility] - [facility] Test 02:32:20 Pfizer series) [code = COVID-19 VACCINE (2 - Pfizer series)] Future Scheduled 2022-10-16 INFLUENZA VACCINE Method [facility] Hospital Test 02:32:20 [code = INFLUENZA VACCINE] Future Scheduled 2022-10-16 Hepatitis C screening [facility] Test 02:32:20 (procedure) [code = [id number]] Future Scheduled 2022-10-16 SHINGLES VACCINES (1 Met [facility] Test 02:32:20 of 2) [code = SHINGLES VACCINES (1 of 2)] Future Scheduled 2022-10-16 65+ [facility]OCOCCAL [facility] Test 02:32:20 VACCINE (1 - PCV) [code = 65+ PNEUMOCOCCAL VACCINE (1 - PCV)] Future Scheduled 2022-10-16 COVID-19 VACCINE (2 - [facility] Test 02:32:20 Pfizer series) [code = COVID-19 VACCINE (2 - Pfizer series)] Future Scheduled 2022-10-16 INFLUENZA VACCINE Method [facility] Test 02:32:20 [code = INFLUENZA VACCINE] Future Scheduled 2022-10-16 Hepatitis C screening [facility] Test 02:32:20 (procedure) [code = [id number]] Future Scheduled 2022-10-16 SHINGLES VACCINES (1 Met [facility] Test 02:32:20 of 2) [code = SHINGLES VACCINES (1 of 2)] Future Scheduled 2022-10-16 65+ [facility]:20 VACCINE (1 - PCV) [code = 65+ PNEUMOCOCCAL VACCINE (1 - PCV)] Future Scheduled 2022-10-16 COVID-19 VACCINE (2 - [facility] Test 02:32:20 Pfizer series) [code = COVID-19 VACCINE (2 - Pfizer series)] Future Scheduled 2022-10-16 INFLUENZA VACCINE Method [facility] Test 02:32:20 [code = INFLUENZA VACCINE] Future Scheduled 2022-10-16 Hepatitis C screening [facility] Test 02:32:20 (procedure) [code = [id number]] Future Scheduled 2022-10-16 SHINGLES VACCINES (1 Met [facility] Test 02:32:20 of 2) [code = SHINGLES VACCINES (1 of 2)] Future Scheduled 2022-10-16 65+ PNEUMOCOCCAL Methodi Hospital Test 02:32:20 VACCINE (1 - PCV) [code = 65+ PNEUMOCOCCAL VACCINE (1 - PCV)] Future Scheduled 2022-10-16 COVID-19 VACCINE (2 - [facility] Test 02:32:20 Pfizer series) [code = COVID-19 VACCINE (2 - Pfizer series)] Future Scheduled 2022-10-16 INFLUENZA VACCINE Method is Hospital Test 02:32:20 [code = INFLUENZA VACCINE] Future Scheduled 2022-09-21 HEPATITIS B VACCINES Met [facility] Test 12:23:26 (1 of 3 - 3-dose series) [code = HEPATITIS B VACCINES (1 of 3 - 3-dose series)] Future Scheduled 2022-09-21 Hepatitis C screening [facility] Test 12:23:26 (procedure) [code = [id number]] Future Scheduled 2022-09-21 SHINGLES VACCINES (1 Met [facility] Test 12:23:26 of 2) [code = SHINGLES VACCINES (1 of 2)] Future Scheduled 2022-09-21 65+ PNEUMOCOCCAL Methodi Hospital Test 12:23:26 VACCINE (1 - PCV) [code = 65+ PNEUMOCOCCAL VACCINE (1 - PCV)] Future Scheduled 2022-09-21 COVID-19 VACCINE (2 - [facility] Test 12:23:26 Pfizer series) [code = COVID-19 VACCINE (2 - Pfizer series)] Future Scheduled 2022-09-21 INFLUENZA VACCINE Method [facility] Test 12:23:26 [code = INFLUENZA VACCINE] Future Scheduled 2022-09-21 HEPATITIS B VACCINES Met [facility] Test 12:23:26 (1 of 3 - 3-dose series) [code = HEPATITIS B VACCINES (1 of 3 - 3-dose series)] Future Scheduled 2022-09-21 Hepatitis C screening [facility] Test 12:23:26 (procedure) [code = [id number]] Future Scheduled 2022-09-21 SHINGLES VACCINES (1 Met [facility] Test 12:23:26 of 2) [code = SHINGLES VACCINES (1 of 2)] Future Scheduled 2022-09-21 65+ PNEUMOCOCCAL Methodi Hospital Test 12:23:26 VACCINE (1 - PCV) [code = 65+ PNEUMOCOCCAL VACCINE (1 - PCV)] Future Scheduled 2022-09-21 COVID-19 VACCINE (2 - [facility] Test 12:23:26 Pfizer series) [code = COVID-19 VACCINE (2 - Pfizer series)] Future Scheduled 2022-09-21 INFLUENZA VACCINE Method is Hospital Test 12:23:26 [code = INFLUENZA VACCINE] Future Scheduled 2022-09-04 HEPATITIS B VACCINES Met [facility] Test 11:20:46 (1 of 3 - 3-dose series) [code = HEPATITIS B VACCINES (1 of 3 - 3-dose series)] Future Scheduled 2022-09-04 Hepatitis C screening [facility] Test 11:20:46 (procedure) [code = [id number]] Future Scheduled 2022-09-04 SHINGLES VACCINES (1 Met [facility] Test 11:20:46 of 2) [code = SHINGLES VACCINES (1 of 2)] Future Scheduled 2022-09-04 65+ PNEUMOCOCCAL Method[facility] Hospital Test 11:20:46 VACCINE (1 - PCV) [code = 65+ PNEUMOCOCCAL VACCINE (1 - PCV)] Future Scheduled 2022-09-04 COVID-19 VACCINE (2 - [facility] Test 11:20:46 Pfizer series) [code = COVID-19 VACCINE (2 - Pfizer series)] Future Scheduled 2022-09-04 INFLUENZA VACCINE Method [facility] Test 11:20:46 [code = INFLUENZA VACCINE] Future Scheduled 2022-07-01 HEPATITIS B VACCINES Met [facility] Test 22:22:27 (1 of 3 - 3-dose series) [code = HEPATITIS B VACCINES (1 of 3 - 3-dose series)] Future Scheduled 2022-07-01 Hepatitis C screening [facility] Test 22:22:27 (procedure) [code = [id number]] Future Scheduled 2022-07-01 SHINGLES VACCINES (1 Met [facility] Test 22:22:27 of 2) [code = SHINGLES VACCINES (1 of 2)] Future Scheduled 2022-07-01 65+ PNEUMOCOCCAL Method[facility] Hospital Test 22:22:27 VACCINE (1 - PCV) [code = 65+ PNEUMOCOCCAL VACCINE (1 - PCV)] Future Scheduled 2022-07-01 COVID-19 VACCINE (2 - [facility] Test 22:22:27 Pfizer series) [code = COVID-19 VACCINE (2 - Pfizer series)] Future Scheduled 2022-07-01 INFLUENZA VACCINE Method [facility] Test 22:22:27 [code = INFLUENZA VACCINE] Future Scheduled 2022-07-01 HEPATITIS B VACCINES Met [facility] Test 22:22:27 (1 of 3 - 3-dose series) [code = HEPATITIS B VACCINES (1 of 3 - 3-dose series)] Future Scheduled 2022-07-01 Hepatitis C screening [facility] Test 22:22:27 (procedure) [code = [id number]] Future Scheduled 2022-07-01 SHINGLES VACCINES (1 Met [facility] Test 22:22:27 of 2) [code = SHINGLES VACCINES (1 of 2)] Future Scheduled 2022-07-01 65+ PNEUMOCOCCAL Methodi Hospital Test 22:22:27 VACCINE (1 - PCV) [code = 65+ PNEUMOCOCCAL VACCINE (1 - PCV)] Future Scheduled 2022-07-01 [facility] 22:22:27 Pfizer series) [code = COVID-19 VACCINE (2 - Pfizer series)] Future Scheduled 2022-07-01 INFLUENZA VACCINE Method [facility] Test 22:22:27 [code = INFLUENZA VACCINE] Encounters Start End Encounter Admission Attending Care Care Encounter Source Date/Time Date/Time Type Type Clinicians Facility Department ID 2022-09-28 Outpatient [place], [facility] [id number] Common 15:54:01 Art [facility] 2022-08-21 [facility] [place] [id number] Common 07:59:01 Art [facility] 2022-08-19 [facility] [place] [id number] Common 08:56:02 Art [facility] 2022-08-18 [facility] [place] [id number] Common 08:57:03 Art [facility] 2022-07-23 [facility] [place], [facility] [id number] Common 13:11:01 [facility] 2022-05-19 Out[facility] [place], [facility] [id number] Common 14:18:01 Art [facility] 2022-04-17 [facility] [place], [facility] [id number] Common 15:13:01 Art [facility] 2022-04-01 [facility] [place], [facility] [id number] Common 09:00:04 Art [facility] 2022-10-01 2022-10-01 (TEL) [facility] [id number] Co mmon 00:00:00 00:00:00 [facility] 2022-08-26 2022-08-26 (TEL) STLMLC ST[facility] [id number] Co mmon 00:00:00 00:00:00 [facility] 2022-08-21 2022-08-21 (TEL) STLMLC STLMLC [id number] Co mmon 00:00:00 00:00:00 [facility] 2022-08-20 2022-08-20 OFFICE STLMLC STLMLC [id number] Co mmon 00:00:00 00:00:00 VISIT [facility] PT LEVEL 3 - [facility] 2022-08-17 2022-08-17 (TEL) STLMLC STLMLC [id number] Co mmon 00:00:00 00:00:00 [facility] 2022-07-24 2022-07-24 OFFICE STLMLC STLMLC [id number] Co mmon 00:00:00 00:00:00 VISIT [facility] PT - CHI LEVEL 4 [facility] 2022-07-23 2022-07-23 (TEL) STLMLC STLMLC [id number] Co mmon 00:00:00 00:00:00 [facility] 2022-07-08 2022-07-08 (TEL) STLMLC STLMLC [id number] Co mmon 00:00:00 00:00:00 [facility] 2022-07-01 2022-07-01 OFFICE STLMLC STLMLC [id number] Co mmon 00:00:00 00:00:00 VISIT [facility] PT - CHI LEVEL 4 [facility] 2022-07-01 2022-07-01 SUB ANNUAL STLMLC STLMLC [id number] Common 00:00:00 00:00:00 [facility] WELLNESS - CHI VISIT [facility] 2022-07-01 2022-07-01 (TEL) STLMLC STLMLC [id number] Co mmon 00:00:00 00:00:00 [facility] 2022-06-17 2022-06-17 OFFICE STLMLC STLMLC [id number] Co mmon 00:00:00 00:00:00 [facility]IT [facility] PT - CHI LEVEL 2 [facility] 2022-06-09 2022-06-09 (TEL) STLMLC STLMLC [id number] Co mmon 00:00:00 00:00:00 [facility] 2022-06-03 2022-06-03 (TEL) STLMLC STLMLC [id number] Co mmon 00:00:00 00:00:00 [facility] 2022-06-03 2022-06-03 ([place]) Nurse STLMLC STLMLC [id number] Common 00:00:00 00:00:00 Visit [facility] 2022-05-27 2022-05-27 (TEL) STLMLC STLMLC [id number] Co mmon 00:00:00 00:00:00 [facility] 2022-05-19 2022-05-19 ([place]) Nurse STLMLC STLMLC [id number] Common 00:00:00 00:00:00 Visit [facility] 2022-05-19 2022-05-19 (TEL) STLMLC STLMLC [id number] Co mmon 00:00:00 00:00:00 [facility] 2021-02-17 2021-02-17 Outpatient [place], [facility] SHELDON [id number] Blue 00:00:00 00:00:00 SANYA [address] 2021-01-01 2021-01-08 Inpatient MICHEL[place], [facility] [id number] Blue 00:00:00 00:00:00 CRISTY [address] Results Test Description Test Time Test Comments Results Result Comments Source SARS-CoV-2 (COVID-19) RNA [Presence] in Respiratory sp ecimen by 2021-01-02 04:18:36 EDGAR with probe detection Test Item Value Reference Range Interpretation Comme nts SARS-CoV-2 (COVID-19) RNA [Presence] in Respiratory Not detected No t-Detected specimen by EDGAR with probe detection (test code = 36049-9) DMITRY MACHADO ITHACA
--- NOTE | 2022-11-17 10:02 | EDPHYS ---
Physician Documentation [facility] Name: Wilma Ovalle Age: 77 yrs Sex: Female : 1945 Arrival Date: 11/17/2022 Time: 09:39 Bed 19 Private MD: [facility] ED Physician Kaleb Zacarias HPI: 11/17 10:26 This 77 yrs old Female presents to ER via Ambulatory with complaints of Arm kb Pain. 10:26 The patient or guardian complains of pain. The complaints affect the left arm. Context: kb The problem was sustained at home, resulted from unknown cause. Onset: The symptoms/episode began/occurred 2 month(s) ago. Treatment prior to arrival includes: prescription medications, mobic. Modifying factors: The symptoms are alleviated by nothing. the symptoms are aggravated by movement. Associated signs and symptoms: Pertinent positives: pain, Pertinent negatives: decreased range of motion, numbness, swelling, tingling. Severity of symptoms: At their worst the symptoms were moderate, in the emergency department the symptoms are unchanged. The patient has not experienced similar symptoms in the past. The patient has been recently seen at the [facility] Emergency Department, last week, for similar complaints labs were performed, X-rays were performed, CT scan was performed. Pt reports left arm pain that starts at neck and radiates down entire left arm. Reports pain started 2 months ago, shortly after a fall. Has been seen here for this pain and was given pain medication that has not given any relief. Has neuro appt scheduled for Dec.. Historical: - Allergies: 09:48 No Known Allergies; aa5 - PMHx: 09:48 Hyperlipidemia; Hypertension; Hypothyroidism; insomnia; TIA; aa5 - PSHx: 09:48 Neck sx; R arm; R knee replacement; aa5 - Immunization history:: Adult Immunizations unknown. - Social history:: Smoking status: Patient denies any tobacco usage or history of. ROS: 10:28 Constitutional: Negative for fever, chills, and weight loss. kb 10:28 Neck: Positive for pain at rest. 10:28 MS/extremity: Positive for pain, of the left arm. 10:28 All other systems are negative. Exam: 10:28 Constitutional: This is a well developed, well nourished patient who is awake, alert, kb and in no acute distress. Head/Face: Normocephalic, atraumatic. ENT: Moist Mucous membranes Chest/axilla: Normal chest wall appearance and motion. Cardiovascular: Regular rate and rhythm with a normal S1 and S2. No gallops, murmurs, or rubs. No pulse deficits. Respiratory: Respirations even and unlabored. No increased work of breathing. Talking in full sentences Abdomen/GI: Soft, non-tender. No distention Skin: Warm, dry with normal turgor. Normal color. Neuro: Awake and alert, GCS 15, oriented to person, place, time, and situation. Moves all extremities. Normal gait. Psych: Awake, alert, with orientation to person, place and time. Behavior, mood, and affect are within normal limits. 10:28 Neck: External neck: tenderness, that is mild, of the left posterior aspect of neck, C-spine: appears grossly normal, ROM/movement: is normal. 10:28 Musculoskeletal/extremity: Extremities: grossly normal except: noted in the left arm: pain, ROM: intact in all extremities, Circulation is intact in all extremities. Sensation intact. Vital Signs: 09:50 BP 145 / 82; Pulse 96; Resp 16 S; Temp 97.8(TE); Pulse Ox 96% on R/A; Weight 63.96 kg aa5 (R); Height 4 ft. 8 in. (142.24 cm) (R); 09:50 Body Mass Index 31.61 (63.96 kg, 142.24 cm) aa5 MDM: 09:46 Patient medically screened. kb 10:28 Differential diagnosis: tendonitis, radiculopathy, DVT, muscle strain. Data reviewed: kb vital signs, nurses notes. Test considered but Not performed: Other Details EKG, labs, x-rays and US considered, but were done during last visit for same complaint and wnl. . External Records Reviewed: Results from previous visit last week reviewed . Counseling: I had a detailed discussion with the patient and/or guardian regarding: the historical points, exam findings, and any diagnostic results supporting the discharge/admit diagnosis, the need for outpatient follow up, a family practitioner, to return to the emergency department if symptoms worsen or persist or if there are any questions or concerns that arise at home. Administered Medications: 10:15 Drug: Decadron (dexamethasone) 10 mg Route: IM; Site: left deltoid; bp 10:24 Follow up: Response: No adverse reaction bp Disposition: 12:49 Co-signature as Attending Physician, Kaleb Zacarias MD I reviewed the patient's care rt provided by the Advanced Practice Provider and agree with the diagnosis and treatment plan. Disposition Summary: 11/17/22 10:01 Discharge Ordered Location: Home kb Condition: Stable kb Diagnosis - Radiculopathy, cervical region kb Followup: kb - With: Private Physician - When: 2 - 3 days - Reason: Recheck today's complaints, Continuance of care, Re-evaluation by your physician Followup: kb - With: Emergency Department - When: As needed - Reason: Worsening of condition Discharge Instructions: - Discharge Summary Sheet kb - Cervical Radiculopathy kb Forms: - Medication Reconciliation Form kb - Thank You Letter kb - Antibiotic Education kb - Prescription Opioid Use kb Prescriptions: - Prednisone 20 mg Oral Tablet - take 1 tablet by ORAL route once daily for 5 days; 5 tablet; Refills: 0, kb Product Selection Permitted - orphenadrine citrate 100 mg Oral Tablet Sustained Release - take 1 tablet by ORAL route 2 times per day As needed; 20 tablet; Refills: 0, kb Product Selection Permitted Signatures: Alyssa Reyes FNP-C FNP-Ckb Calderon, Audri RN RN aa5 Howard Ramirez RN RN bp Kaleb Zacarias MD MD rt
--- NOTE | 2022-11-17 10:02 | ER ---
Nurse's Notes [facility] Name: Wilma Ovalle Age: 77 yrs Sex: Female : 1945 Arrival Date: 11/17/2022 Time: 09:39 Bed 19 Private MD: Art Wallis Diagnosis: Radiculopathy, cervical region Presentation: 11/17 09:48 Chief complaint: Patient states: "I am here for my left arm, I was already here for the aa5 same pain but the medicine is not helping me". Pt also reports persistent dizziness since fall approximately 1-2 months ago. 09:49 Acuity: JEANINE 3 aa5 09:50 Coronavirus screen: At this time, the client does not indicate any symptoms associated aa5 with coronavirus-19. Ebola Screen: Patient denies travel to an Ebola-affected area in the 21 days before illness onset. Initial Sepsis Screen: Does the patient meet any 2 criteria? HR > 90 bpm. Does the patient have a suspected source of infection? No. Patient's initial sepsis screen is negative. Risk Assessment: Do you want to hurt yourself or someone else? Patient reports no desire to harm self or others. Onset of symptoms was November 2022. 09:50 Method Of Arrival: Ambulatory aa5 Triage Assessment: 09:50 General: Appears in no apparent distress. uncomfortable, Behavior is cooperative, bp appropriate for age, anxious. Pain: Complains of pain in left arm. EENT: No deficits noted. Neuro: No deficits noted. Cardiovascular: No deficits noted. Respiratory: No deficits noted. GI: No signs and/or symptoms were reported involving the gastrointestinal system. : No signs and/or symptoms were reported regarding the genitourinary system. Derm: No deficits noted. Musculoskeletal: Reports pain in left arm. Historical: - Allergies: 09:48 No Known Allergies; aa5 - PMHx: 09:48 Hyperlipidemia; Hypertension; Hypothyroidism; insomnia; TIA; aa5 - PSHx: 09:48 Neck sx; R arm; R knee replacement; aa5 - Immunization history:: Adult Immunizations unknown. - Social history:: Smoking status: Patient denies any tobacco usage or history of. Screenin:31 [facility] ED Fall Risk Assessment (Adult) History of falling in the last 3 months, bp including since admission No falls in past 3 months (0 pts). Abuse screen: Denies threats or abuse. Denies injuries from another. Nutritional screening: No deficits noted. Tuberculosis screening: No symptoms or risk factors identified. Assessment: 09:50 General: SEE TRIAGE NOTE. bp 10:31 Reassessment: PT DC HOME AMBULATORY. bp Vital Signs: 09:50 BP 145 / 82; Pulse 96; Resp 16 S; Temp 97.8(TE); Pulse Ox 96% on R/A; Weight 63.96 kg aa5 (R); Height 4 ft. 8 in. (142.24 cm) (R); 09:50 Body Mass Index 31.61 (63.96 kg, 142.24 cm) aa5 ED Course: 09:39 Patient arrived in ED. as 09:39 Art Wallis DO is Private Physician. as 09:43 Kaleb Zacarias MD is Attending Physician. rt 09:46 Alyssa Reyes FNP-C [facility]. kb 09:48 Arm band placed on. aa 09:50 Triage completed. aa5 10:12 Howard Ramirez, CATARINA is Primary Nurse. bp 10:31 Patient has correct armband on for positive identification. Bed in low position. Call bp light in reach. Side rails up X2. 10:31 No provider procedures requiring assistance completed. Patient did not have IV access bp during this emergency room visit. Administered Medications: 10:15 Drug: Decadron (dexamethasone) 10 mg Route: IM; Site: left deltoid; bp 10:24 Follow up: Response: No adverse reaction bp Medication: 10:31 VIS not applicable for this client. bp Outcome: 10:01 Discharge ordered by . kb 10:31 Discharged to home via wheelchair, with family. bp 10:31 Condition: stable 10:31 Discharge instructions given to patient, Instructed on discharge instructions, follow up and referral plans. medication usage, Demonstrated understanding of instructions, follow-up care, medications, Prescriptions given X 2. 10:36 Patient left the ED. bp Signatures: Alyssa Reyes FNP-C FNP-Ckb Martinez, Amelia as Calderon, Audri RN RN aa5 Howard Ramirez RN RN bp Kaleb Zacarias MD MD rt Corrections: (The following items were deleted from the chart) 09:50 09:48 Chief complaint: Patient states: "I am here for my left arm, I was already here aa5 for the same pain but the medicine is not helping me". Pt also reports persistent dizziness since fall approximately 1 week ago. aa5
[2022-11-17] MEDS ORDERED: dexAMETHasone 10 MG/ML VIAL ONE (10:20)
[2022-11-17 10:50] VITALS: BP 145/82; TEMP 97.8; O2SAT 96
== END 2022-11-17 10:36 | disposition home or self-care (01) ==
LOC: ER 09:36
DX: M54.12 Radiculopathy, cervical region (principal); Z96.651 Presence of right artificial knee joint; I10 Essential (primary) hypertension
CPT/HCPCS: J1100

== ENCOUNTER 2023-01-04 07:45 | Emergency (ER) | payer OTHER ==
--- OUTSIDE RECORDS SUMMARY | 2023-01-04 07:55 | XMS REPORT | Continuity of Care Document ---
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 Vitamin B12 Vitamin B12 2-0 No 1000ug Common (Cyanocobal (Cyanocobal 4-11 S pirit obrien) obrien) 00:00: - [facility] Vitamin B12 Vitamin B12 2-0 No 1000ug Common (Cyanocobal (Cyanocobal 4-11 S pirit obrien) obrien) 00:00: - [facility] Vitamin B12 Vitamin B12 2-0 No 1000ug Common (Cyanocobal (Cyanocobal 4-11 S pirit obrien) obrien) 00:00: - [facility] Vitamin B12 Vitamin B12 2-0 No 1000ug Common (Cyanocobal (Cyanocobal 4-11 S pirit obrien) obrien) 00:00: - [facility] Vitamin B12 Vitamin B12 2022-0 No 1000ug Common (Cyanocobal (Cyanocobal 4-11 S pirit obrien) obrien) 00:00: - [facility] Vitamin B12 Vitamin B12 2022-0 No 1000ug Common (Cyanocobal (Cyanocobal 4-11 S pirit obrien) obrien) 00:00: - [facility] Vitamin B12 Vitamin B12 2022-0 No 1000ug Common (Cyanocobal (Cyanocobal 4-11 S pirit obrien) obrien) 00:00: - [facility] Vitamin B12 Vitamin B12 2022-0 No 1000ug Common (Cyanocobal (Cyanocobal 4-11 S pirit obrien) obrien) 00:00: - [facility] Vitamin B12 Vitamin B12 2022-0 No 1000ug Common (Cyanocobal (Cyanocobal 4-11 S pirit obrien) obrien) 00:00: - [facility] Vitamin B12 Vitamin B12 2022-0 No 1000ug Common (Cyanocobal (Cyanocobal 4-11 S pirit obrien) obrien) 00:00: - [facility] Vitamin B12 Vitamin B12 2022-0 No 1000ug Common (Cyanocobal (Cyanocobal 2-21 S pirit obrien) obrien) 00:00: - [facility] Vitamin B12 Vitamin B12 2-0 No 1000ug Common (Cyanocobal (Cyanocobal 2-21 S pirit obrien) obrien) 00:00: - [facility] Vitamin B12 Vitamin B12 2022-0 No 1000ug Common (Cyanocobal (Cyanocobal 2-21 S pirit obrien) obrien) 00:00: - [facility] Vitamin B12 Vitamin B12 2-0 No 1000ug Common (Cyanocobal (Cyanocobal 2-21 S pirit obrien) obrien) 00:00: - [facility] Vitamin B12 Vitamin B12 2-0 No 1000ug Common (Cyanocobal (Cyanocobal 2-21 S pirit obrien) obrien) 00:00: - [facility] Vitamin B12 Vitamin B12 2-0 No 1000ug Common (Cyanocobal (Cyanocobal 2-21 S pirit obrien) obrien) 00:00: - [facility] Vitamin B12 Vitamin B12 2022-0 No 1000ug Common (Cyanocobal (Cyanocobal 2-21 S pirit obrien) obrien) 00:00: - [facility] Vitamin B12 Vitamin B12 2022-0 No 1000ug Common (Cyanocobal (Cyanocobal 2-21 S pirit obrien) obrien) 00:00: - [facility] Vitamin B12 Vitamin B12 2022-0 No 1000ug Common (Cyanocobal (Cyanocobal 2-21 S pirit obrien) obrien) 00:00: - [facility] Vitamin B12 Vitamin B12 2022-0 No 1000ug Common (Cyanocobal (Cyanocobal 2-21 S pirit obrien) obrien) 00:00: - [facility] Vitamin B12 Vitamin B12 2022-0 No 1000ug Common (Cyanocobal (Cyanocobal 2-21 S pirit obrien) obrien) 00:00: - [facility] Vitamin B12 Vitamin B12 2022-0 No 1000ug Common (Cyanocobal (Cyanocobal 2-21 S pirit obrien) obrien) 00:00: - [facility] Vitamin B12 Vitamin B12 2022-0 No 1000ug Common (Cyanocobal (Cyanocobal 2-21 S pirit obrien) obrien) 00:00: - [facility] Vitamin B12 Vitamin B12 2022-0 No 1000ug Common (Cyanocobal (Cyanocobal 2-21 S pirit obrien) obrien) 00:00: - [facility] Vitamin B12 Vitamin B12 2022-0 No 1000ug Common (Cyanocobal (Cyanocobal 2-21 S pirit obrien) obrien) 00:00: - [facility] Vitamin B12 Vitamin B12 2-0 No 1000ug Common (Cyanocobal (Cyanocobal 2-21 S pirit obrien) obrien) 00:00: - [facility] Vitamin B12 Vitamin B12 2-0 No 1000ug Common (Cyanocobal (Cyanocobal 2-21 S pirit obrien) obrien) 00:00: - [facility] Vitamin B12 Vitamin B12 2022-0 No 1000ug Common (Cyanocobal (Cyanocobal 2-21 S pirit obrien) obrien) 00:00: - [facility] Vitamin B12 Vitamin B12 2022-0 No 1000ug Common (Cyanocobal (Cyanocobal 2-21 S pirit obrien) obrien) 00:00: - [facility] Vitamin B12 Vitamin B12 2022-0 No 1000ug Common (Cyanocobal (Cyanocobal 2-21 S pirit obrien) obrien) 00:00: - [facility] Vitamin B12 Vitamin B12 2022-0 No 1000ug Common (Cyanocobal (Cyanocobal 2-21 S pirit obrien) obrien) 00:00: - [facility] Vitamin B12 Vitamin B12 2022-0 No 1000ug Common (Cyanocobal (Cyanocobal 2-21 S pirit obrien) obrien) 00:00: - [facility] Vitamin B12 Vitamin B12 2-0 No 1000ug Common (Cyanocobal (Cyanocobal 2-21 S pirit obrien) obrien) 00:00: - [facility] Vitamin B12 Vitamin B12 2-0 No 1000ug Common (Cyanocobal (Cyanocobal 2-21 S pirit obrien) obrien) 00:00: - [facility] Vitamin B12 Vitamin B12 2-0 No 1000ug Common (Cyanocobal (Cyanocobal 2-21 S pirit obrien) obrien) 00:00: - [facility] Vitamin B12 Vitamin B12 2-0 No 1000ug Common (Cyanocobal (Cyanocobal 1-07 S pirit obrien) obrien) 00:00: - [facility] Vitamin B12 Vitamin B12 2-0 No 1000ug Common (Cyanocobal (Cyanocobal 1-07 S pirit obrien) obrien) 00:00: - [facility] Vitamin B12 Vitamin B12 2-0 No 1000ug Common (Cyanocobal (Cyanocobal 1-07 S pirit obrien) obrien) 00:00: - [facility] Vitamin B12 Vitamin B12 2-0 No 1000ug Common (Cyanocobal (Cyanocobal 1-07 S pirit obrien) obrien) 00:00: - [facility] Vitamin B12 Vitamin B12 2-0 No 1000ug Common (Cyanocobal (Cyanocobal 1-07 S pirit obrien) obrien) 00:00: - [facility] Vitamin B12 Vitamin B12 2022-0 No 1000ug Common (Cyanocobal (Cyanocobal 1-07 S pirit obrien) obrien) 00:00: - [facility] Vitamin B12 Vitamin B12 2022-0 No 1000ug Common (Cyanocobal (Cyanocobal 1-07 S pirit obrien) obrien) 00:00: - [facility] Vitamin B12 Vitamin B12 2022-0 No 1000ug Common (Cyanocobal (Cyanocobal 1-07 S pirit obrien) obrien) 00:00: - [facility] Vitamin B12 Vitamin B12 2-0 No 1000ug Common (Cyanocobal (Cyanocobal 1-07 S pirit obrien) obrien) 00:00: - [facility] Vitamin B12 Vitamin B12 2-0 No 1000ug Common (Cyanocobal (Cyanocobal 1-07 S pirit obrien) obrien) 00:00: - [facility] Vitamin B12 Vitamin B12 2-0 No 1000ug Common (Cyanocobal (Cyanocobal 1-07 S pirit obrien) obrien) 00:00: - [facility] Vitamin B12 Vitamin B12 2021-0 No 1000ug Common (Cyanocobal (Cyanocobal 1-07 S pirit obrien) obrien) 00:00: - [facility] Vitamin B12 Vitamin B12 2021-0 No 1000ug Common (Cyanocobal (Cyanocobal 1-07 S pirit obrien) obrien) 00:00: - [facility] Vitamin B12 Vitamin B12 2021-0 No 1000ug Common (Cyanocobal (Cyanocobal 1-07 S pirit obrien) obrien) 00:00: - [facility] Vitamin B12 Vitamin B12 2021-0 No 1000ug Common (Cyanocobal (Cyanocobal 1-07 S pirit obrien) obrien) 00:00: - [facility] Vitamin B12 Vitamin B12 2-0 No 1000ug Common (Cyanocobal (Cyanocobal 1-07 S pirit obrine) obrien) 00:00: - [facility] Vitamin B12 Vitamin B12 2-0 No 1000ug Common (Cyanocobal (Cyanocobal 1-07 S pirit obrien) obrien) 00:00: - [facility] Vitamin B12 Vitamin B12 2-0 No 1000ug Common (Cyanocobal (Cyanocobal 1-07 S pirit obrien) obrien) 00:00: - [facility] Vitamin B12 Vitamin B12 2022-0 No 1000ug Common (Cyanocobal (Cyanocobal 1-07 S pirit obrien) obrien) 00:00: - [facility] Vitamin B12 Vitamin B12 2022-0 No 1000ug Common (Cyanocobal (Cyanocobal 1-07 S pirit obrien) obrien) 00:00: - [facility] Vitamin B12 Vitamin B12 2021-0 No 1000ug Common (Cyanocobal (Cyanocobal 1-07 S pirit obrien) obrien) 00:00: - [facility] Vitamin B12 Vitamin B12 2021-0 No 1000ug Common (Cyanocobal (Cyanocobal 1-07 S pirit obiren) obrien) 00:00: - [facility] Vitamin B12 Vitamin B12 2021-0 No 1000ug Common (Cyanocobal (Cyanocobal 1-07 S pirit obrien) obrien) 00:00: - [facility] Vitamin B12 Vitamin B12 2021-0 No 1000ug Common (Cyanocobal (Cyanocobal 1-07 S pirit obrien) obrien) 00:00: - [facility] Vitamin B12 Vitamin B12 2021-0 No 1000ug Common (Cyanocobal (Cyanocobal 1-07 S pirit obrien) obrien) 00:00: - [facility] Vitamin B12 Vitamin B12 2020- No 1000ug Common (Cyanocobal (Cyanocobal 2-22 S pirit obrien) obrien) 00:00: - [facility] Vitamin B12 Vitamin B12 2020-1 No 1000ug Common (Cyanocobal (Cyanocobal 2-22 S pirit obrien) obrien) 00:00: - [facility] Vitamin B12 Vitamin B12 2020-1 No 1000ug Common (Cyanocobal (Cyanocobal 2-22 S pirit obrien) obrien) 00:00: - [facility] Vitamin B12 Vitamin B12 2020-1 No 1000ug Common (Cyanocobal (Cyanocobal 2-22 S pirit obrien) obrien) 00:00: - [facility] Vitamin B12 Vitamin B12 2020-1 No 1000ug Common (Cyanocobal (Cyanocobal 2-22 S pirit obrien) obrien) 00:00: - [facility] Vitamin B12 Vitamin B12 2020-1 No 1000ug Common (Cyanocobal (Cyanocobal 2-22 S pirit obrien) obrien) 00:00: - [facility] Vitamin B12 Vitamin B12 2020-1 No 1000ug Common (Cyanocobal (Cyanocobal 2-22 S pirit obrien) obrien) 00:00: - [facility] Vitamin B12 Vitamin B12 2020-11 No 1000ug Common (Cyanocobal (Cyanocobal 2-22 S pirit obrien) obrien) 00:00: - [facility] Vitamin B12 Vitamin B12 2020-11 No 1000ug Common (Cyanocobal (Cyanocobal 2-22 S pirit obrien) obrien) 00:00: - [facility] Vitamin B12 Vitamin B12 2020-11 No 1000ug Common (Cyanocobal (Cyanocobal 2-22 S pirit obrien) obrien) 00:00: - [facility] Vitamin B12 Vitamin B12 2020-11 No 1000ug Common (Cyanocobal (Cyanocobal 2-22 S pirit obrien) obrien) 00:00: - [facility] Vitamin B12 Vitamin B12 2020-11 No 1000ug Common (Cyanocobal (Cyanocobal 2-22 S pirit obrien) obrien) 00:00: - [facility] Vitamin B12 Vitamin B12 2020-11 No 1000ug Common (Cyanocobal (Cyanocobal 2-22 S pirit obrien) obrien) 00:00: - [facility] Vitamin B12 Vitamin B12 2020-11 No 1000ug Common (Cyanocobal (Cyanocobal 2-22 S pirit obrien) obrien) 00:00: - [facility] Vitamin B12 Vitamin B12 2020-11 No 1000ug Common (Cyanocobal (Cyanocobal 2-22 S pirit obrien) obrien) 00:00: - [facility] Vitamin B12 Vitamin B12 2020-11 No 1000ug Common (Cyanocobal (Cyanocobal 2-22 S pirit obrien) obrien) 00:00: - [facility] Vitamin B12 Vitamin B12 2020-11 No 1000ug Common (Cyanocobal (Cyanocobal 2-22 S pirit obrien) obrien) 00:00: - [facility] Vitamin B12 Vitamin B12 2020-11 No 1000ug Common (Cyanocobal (Cyanocobal 2-22 S pirit obrien) obrien) 00:00: - [facility] Vitamin B12 Vitamin B12 2020-11 No 1000ug Common (Cyanocobal (Cyanocobal 2-22 S pirit obrien) obrien) 00:00: - [facility] Vitamin B12 Vitamin B12 2020-11 No 1000ug Common (Cyanocobal (Cyanocobal 2-22 S pirit obrien) obrien) 00:00: - [facility] Vitamin B12 Vitamin B12 2020-11 No 1000ug Common (Cyanocobal (Cyanocobal 2-22 S pirit obrien) obrien) 00:00: - [facility] Vitamin B12 Vitamin B12 2020-11 No 1000ug Common (Cyanocobal (Cyanocobal 2-22 S pirit obrien) obrien) 00:00: - [facility] Vitamin B12 Vitamin B12 2020-11 No 1000ug Common (Cyanocobal (Cyanocobal 2-22 S pirit obrien) obrien) 00:00: - [facility] Vitamin B12 Vitamin B12 2020-11 No 1000ug Common (Cyanocobal (Cyanocobal 2-22 S pirit obrien) obrien) 00:00: - [facility] Vitamin B12 Vitamin B12 2020-11 No 1000ug Common (Cyanocobal (Cyanocobal 2-22 S pirit obrien) obrien) 00:00: - [facility] zinc 0 Yes 220mg QD Take [...] 220 (50) mg 38 daily. l capsule zinc 2020-0 Yes 220mg QD Take 220 [...] [facility] tablet 38 nightly. l For sleep rOPINIRole rOPINIRole No rOPINIRole HCl 0.5 MG HCl 0.5 MG HCl 0.5 MG Aspirin Low Aspirin Low No Aspirin Dose 81 MG Dose 81 MG Low Dose 81 MG Pantoprazol Pantoprazol No 1{table QD Pantoprazo e Sodium 40 e Sodium 40 t} le Sodium MG MG 40 MG Zinc Zinc No Zinc Sulfate 220 Sulfate 220 Sulfate (50 Zn) MG (50 Zn) MG 220 (50 Zn) MG Lisinopril- Lisinopril- No Lisinopril hydroCHLORO hydroCHLORO -hydroCHLO thiazide thiazide ROthiazide 20-12.5 MG 20-12.5 MG 20-12.5 MG Diclofenac Diclofenac No Diclofenac Sodium 1 % Sodium 1 % Sodium 1 % Levothyroxi Levothyroxi No QD Levothyrox ne Sodium ne Sodium ine Sodium 75 MCG 75 MCG 75 MCG QUEtiapine QUEtiapine No QD QUEtiapine Fumarate Fumarate Fumarate 200 MG 200 MG 200 MG HYDROcodone HYDROcodone No HYDROcodon -Acetaminop -Acetaminop e-Acetamin hen 7.5-325 hen 7.5-325 ophen MG MG 7.5-325 MG Sertraline Sertraline No Sertraline HCl 100 MG HCl 100 MG HCl 100 MG busPIRone busPIRone No busPIRone HCl 5 MG HCl 5 MG HCl 5 MG Pantoprazol Pantoprazol No 1{table QD Pantoprazo e Sodium 40 e Sodium 40 t} le Sodium MG MG 40 MG Zinc Zinc No Zinc Sulfate 220 Sulfate 220 Sulfate (50 Zn) MG (50 Zn) MG 220 (50 Zn) MG Levothyroxi Levothyroxi No Levothyrox ne Sodium ne Sodium ine Sodium 100 MCG 100 MCG 100 MCG Clopidogrel Clopidogrel No 1{table QD Clopidogre Bisulfate Bisulfate t} l 75 MG 75 MG Bisulfate 75 MG rOPINIRole rOPINIRole No rOPINIRole HCl 0.5 MG HCl 0.5 MG HCl 0.5 MG Levothyroxi Levothyroxi No QD Levothyrox ne Sodium ne Sodium ine Sodium 75 MCG 75 MCG 75 MCG Aspirin Low Aspirin Low No Aspirin Dose 81 MG Dose 81 MG Low Dose 81 MG HYDROcodone HYDROcodone No HYDROcodon -Acetaminop -Acetaminop e-Acetamin hen 7.5-325 hen 7.5-325 ophen MG MG 7.5-325 MG Sertraline Sertraline No Sertraline HCl 100 MG HCl 100 MG HCl 100 MG Atorvastati Atorvastati No Atorvastat n Calcium n Calcium in Calcium 40 MG 40 MG 40 MG Lisinopril- Lisinopril- No Lisinopril hydroCHLORO hydroCHLORO -hydroCHLO thiazide thiazide ROthiazide 20-12.5 MG 20-12.5 MG 20-12.5 MG QUEtiapine QUEtiapine No QD QUEtiapine Fumarate Fumarate Fumarate 200 MG 200 MG 200 MG Diclofenac Diclofenac No Diclofenac Sodium 1 % Sodium 1 % Sodium 1 % rOPINIRole rOPINIRole No QD rOPINIRole HCl 0.5 [...] 20-12.5 MG 20-12.5 MG busPIRone busPIRone No busPIRone HCl 5 MG HCl 5 MG HCl 5 MG rOPINIRole rOPINIRole No QD rOPINIRole HCl 0.5 MG HCl 0.5 MG HCl 0.5 MG Atorvastati Atorvastati No Atorvastat n Calcium n Calcium in Calcium 40 MG 40 MG 40 MG Clopidogrel Clopidogrel No 1{table QD Clopidogre Bisulfate Bisulfate t} l 75 MG 75 MG Bisulfate 75 MG Levothyroxi Levothyroxi No Levothyrox ne Sodium ne Sodium ine Sodium 100 MCG 100 MCG 100 MCG QUEtiapine QUEtiapine No QD QUEtiapine Fumarate Fumarate Fumarate 200 MG 200 MG 200 MG Immunizations Ordered Immunization Filled Immunization Date Status Commen ts Source Name Name [place] [id number] 2021-11-26 Completed [facility] ([facility] Dose Vaccine (Low Dose 10[facility]59:00 - [facility] [address] [facility] (Low Dose Vaccine (Low Dose 10:59:00 - [facility] [address] [facility] Com[facility] (Low Dose Vaccine (Low Dose 10:59:00 - [facility] Booster) [address] [facility] 2021-11-26 Com[facility] (Low Dose Vaccine (Low Dose 10:59:00 - [facility]) Booster) [facility] [address] [facility] 2021-11-26 Com[facility] (Low Dose Vaccine (Low Dose 10:59:00 - [facility]) Booster) [address] COVID19 2021-11-26 Completed [facility] (Low Dose Vaccine (Low Dose 10:59:00 - [facility]) Booster) [facility] COVID19 [facility] COVID19 2021-11-26 Completed [facility] (Low Dose Vaccine (Low Dose 10:59:00 - [facility] Booster) [facility] [address] COVID19 2021-11-26 Completed [facility] (Low Dose Vaccine (Low Dose 10:59:00 - [facility]) Booster) [facility] [address] COVID19 2021-11-26 Completed [facility] (Low Dose Vaccine (Low Dose 10:59:00 - [facility]) Booster) [facility] [address] [facility]-26 Com[facility] (Low Dose Vaccine (Low Dose 10:59:00 - [facility]) Booster) [facility] [address] [facility] 2021-11-26 Com[facility] (Low Dose Vaccine (Low Dose 10:59:00 - [facility]) Booster) [facility] [address] [facility] 2021-11-26 Com[facility] (Low Dose Vaccine (Low Dose 10:59:00 - [facility]) Booster) [facility] [address] COVID19 2021-11-26 Completed [facility] (Low Dose Vaccine (Low Dose 10:59:00 - [facility]) Booster) [facility] [address] COVID19 2021-11-26 Completed [facility] (Low Dose Vaccine (Low Dose 10:59:00 - [facility]) Booster) [facility] [address] COVID19 2021-11-26 Completed [facility] (Low Dose Vaccine (Low Dose 10:59:00 - [facility]) Booster) [facility] [address] COVID19 2021-11-26 Completed [facility] (Low Dose Vaccine (Low Dose 10:59:00 - [facility]) Booster) [facility] COVID19 [facility] COVID19 2021-11-26 Completed [facility] (Low Dose Vaccine (Low Dose 10:59:00 - [facility]) Booster) [facility] COVID19 [facility] COVID19 2021-11-26 Completed [facility] (Low Dose Vaccine (Low Dose 10:59:00 - [facility]) Booster) [facility] [address] COVID19 2021-11-26 Completed [facility] (Low Dose Vaccine (Low Dose 10:59:00 - [facility]) Booster) [facility] [address] COVID19 2021-11-26 Completed [facility] (Low Dose Vaccine (Low Dose 10:59:00 - [facility]) Booster) [facility] [address] COVID19 2021-11-26 Completed [facility] (Low Dose Vaccine (Low Dose 10:59:00 - [facility]) Booster) [facility] [address] COVID19 2021-11-26 Completed [facility] (Low Dose Vaccine (Low Dose 10:59:00 - [facility]) Booster) [facility] COVID19 [facility] COVID19 2021-11-26 Completed [facility] (Low Dose Vaccine (Low Dose 10:59:00 - [facility]) Booster) [facility] [address] COVID19 2021-11-26 Completed [facility] (Low Dose Vaccine (Low Dose 10:59:00 - [facility] Booster) Booster) [facility] [address] COVID19 2021-11-26 Completed [facility] (Low Dose Vaccine (Low Dose 10:59:00 - [facility] Booster) Booster) [facility] Pfizer COVID-19 Pfizer COVID-19 2021-01-30 Completed [facility] 09:01:00 [facility] Pfizer COVID-19 Pfizer COVID-19 2021-01-30 Completed [facility] Vacc[facility] 09:01:00 - [facility] [place] COVID-19 Pfizer COVID-19 2021-01-30 Completed [facility] Vaccine 09:01:00 - [facility] [place] COVID-19 Pfizer COVID-19 2021-01-30 [facility] Vaccine 09:01:00 [facility] Pfizer COVID-19 Pfizer COVID-19 2021-01-30 Completed [facility] Vaccine 09[facility]01:00 - [facility] [place] Pfizer COVID-19 Pfizer COVID-19 2021-01-30 Completed [facility] Vaccine 09:01:00 - [facility] [place] Pfizer COVID-19 Pfizer COVID-19 2021-01-30 Completed [facility] Vaccine 09:01:00 - [facility] [place] Pfizer COVID-19 Pfizer COVID-19 2021-01-30 Completed [facility] Vaccine 09:01:00 - [facility] [place] Pfizer COVID-19 Pfizer COVID-19 2021-01-30 Completed [facility] Vaccine 09:01:00 - [facility] [place] Pfizer COVID-19 Pfizer COVID-19 2021-01-30 Completed [facility] Vaccine 09:01:00 - [facility] [place] Pfizer COVID-19 Pfizer COVID-19 2021-01-30 Completed [facility] Vaccine 09:01:00 [facility] Pfizer COVID-19 Pfizer COVID-19 2021-01-30 Completed [facility] Vaccine 09:01:00 - [facility] [place] Pfizer COVID-19 Pfizer COVID-19 2021-01-30 Completed [facility] Vaccine 09:01:00 [facility] Pfizer COVID-19 Pfizer COVID-19 2021-01-30 Completed [facility] Vaccine 09:01:00 - [facility] [place] Pfizer COVID-19 Pfizer COVID-19 2021-01-30 Completed [facility] Vaccine 09:01:00 [facility] Pfizer COVID-19 Pfizer COVID-19 2021-01-30 Completed [facility] Vaccine 09:01:00 - [facility] [place] Pfizer COVID-19 Pfizer COVID-19 2021-01-30 Completed [facility] Vaccine 09:01:00 - [facility] [place] Pfizer COVID-19 Pfizer COVID-19 2021-01-30 Completed [facility] Vaccine Vaccine 09:01:00 - [facility] [place] Pfizer COVID-19 Pfizer COVID-19 2021-01-30 Completed [facility] Vaccine Vaccine 09:01:00 - [facility] [place] Pfizer COVID-19 Pfizer COVID-19 2021-01-30 Completed [facility] Vaccine Vaccine 09:01:00 - [facility] [place] Pfizer COVID-19 Pfizer COVID-19 2021-01-30 Completed [facility] Vacc[facility] Vaccine 09:01:00 - [facility] [place] Pfizer COVID-19 Pfizer COVID-19 2021-01-30 Completed [facility] Vacc[facility] Vaccine 09:01:00 - [facility] [place] Pfizer COVID-19 Pfizer COVID-19 2021-01-30 Completed [facility] Vaccine 09:01:00 - [facility] [place] Pfizer COVID-19 Pfizer COVID-19 2021-01-30 Completed [facility] Vaccine 09:01:00 - [facility] [place] Pfizer COVID-19 Pfizer COVID-19 2021-01-30 Completed [facility]ine Vaccine 09:01:00 - [facility] [place] Pfizer COVID-19 Pfizer COVID-19 2020-12-30 Completed [facility] Vaccine 09:01:00 - [facility] Pfizer COVID-19 Pfizer COVID-19 2020-12-30 Completed [facility] Vacc[facility] Vaccine 09:01:00 - [facility] [place] Pfizer COVID-19 Pfizer COVID-19 2020-12-30 Completed [facility] Vacc[facility] Vaccine 09:01:00 - [facility] [place] Pfizer COVID-19 Pfizer COVID-19 2020-12-30 Completed [facility] Vacc[facility] Vaccine 09:01:00 [facility] Pfizer COVID-19 Pfizer COVID-19 2020-12-30 Completed [facility] Vacc[facility] Vaccine 09:01:00 [facility] Pfizer COVID-19 Pfizer COVID-19 2020-12-30 Completed [facility] Vacc[facility] Vaccine 09:01:00 - [facility] [place] Pfizer COVID-19 Pfizer COVID-19 2020-12-30 Completed [facility] Vaccine Vaccine 09:01:00 - [facility] [place] Pfizer COVID-19 Pfizer COVID-19 2020-12-30 Completed [facility] Vaccine 09:01:00 - [facility] [place] Pfizer COVID-19 Pfizer COVID-19 2020-12-30 Completed [facility] Vaccine 09:01:00 - [facility] [place] Pfizer COVID-19 Pfizer COVID-19 2020-12-30 Completed [facility] Vaccine 09:01:00 - [facility] [place] Pfizer COVID-19 Pfizer COVID-19 2020-12-30 Completed [facility] Vaccine 09:01:00 - [facility] [place] Pfizer COVID-19 Pfizer COVID-19 2020-12-30 Completed [facility] Vaccine 09:01:00 - [facility] [place] Pfizer COVID-19 Pfizer COVID-19 2020-12-30 Completed [facility] Vaccine 09:01:00 - [facility] [place] Pfizer COVID-19 Pfizer COVID-19 2020-12-30 Completed [facility] Vaccine 09:01:00 - [facility] [place] Pfizer COVID-19 Pfizer COVID-19 2020-12-30 Completed [facility] Vaccine 09:01:00 - [facility] [place] Pfizer COVID-19 Pfizer COVID-19 2020-12-30 Completed [facility] Vaccine 09:01:00 - [facility] [place] Pfizer COVID-19 Pfizer COVID-19 2020-12-30 Completed [facility] Vaccine 09:01:00 - [facility] [place] Pfizer COVID-19 Pfizer COVID-19 2020-12-30 Completed [facility] Vacc[facility] Vaccine 09:01:00 [facility] Pfizer COVID-19 Pfizer COVID-19 2020-12-30 Completed [facility] Vaccine Vaccine 09:01:00 - [facility] [place] Pfizer COVID-19 Pfizer COVID-19 2020-12-30 Completed [facility] Vacc[facility] Vaccine 09:01:00 [facility] Pfizer COVID-19 Pfizer COVID-19 2020-12-30 Completed [facility] Vaccine 09:01:00 [facility] Pfizer COVID-19 Pfizer COVID-19 2020-12-30 Completed [facility] Vaccine 09:01:00 - [facility] [place] Pfizer COVID-19 Pfizer COVID-19 2020-12-30 Completed [facility] Vaccine Vaccine 09:01:00 - [facility] [place] Pfizer COVID-19 Pfizer COVID-19 2020-12-30 Completed [facility] Vaccine Vaccine 09:01:00 - [facility] [place] Pfizer COVID-19 Pfizer COVID-19 2020-12-30 Completed [facility] Vaccine Vaccine 09:01:00 - [facility] [place] Fluzone Fluzone 2020-07-02 [facility] 09:02:00 - [facility] [place] Fluzone Fluzone 2020-07-02 [facility]pleted [facility] 09:02:00 - [facility] [place] Fluzone Fluzone 2020-07-02 [facility]pleted [facility] 09:02:00 - [facility] [place] Fluzone Fluzone 2020-07-02 Completed [facility] 09:02:00 - [facility] [place] Fluzone Fluzone 2020-07-02 Completed [facility] 09:02:00 - [facility] [place] Fluzone Fluzone 2020-07-02 Completed [facility] 09:02:00 - [facility] [place] Fluzone Fluzone 2020-07-02 Completed [facility] 09:02:00 - [facility] [place] Fluzone Fluzone 2020-07-02 Completed [facility] 09:02:00 - [facility] [place] Fluzone Fluzone 2020-07-02 Completed [facility] 09:02:00 - [facility] [place] Fluzone Fluzone 2020-07-02 Completed [facility] 09:02:00 - [facility] [place] Fluzone Fluzone 2020-07-02 [facility]pleted [facility] 09:02:00 - [facility] [place] Fluzone Fluzone 2020-07-02 Completed [facility] 09:02:00 - [facility] [place] Fluzone Fluzone 2020-07-02 Completed [facility] 09:02:00 - [facility] [place] Fluzone Fluzone 2020-07-02 [facility]pleted [facility] 09:02:00 - [facility] [place] Fluzone Fluzone 2020-07-02 Completed [facility] 09:02:00 - [facility] [place] Fluzone Fluzone 2020-07-02 Completed [facility] 09:02:00 - [facility] [place] Fluzone Fluzone 2020-07-02 Completed [facility] 09:02:00 - [facility] [place] Fluzone Fluzone 2020-07-02 Completed [facility] 09:02:00 - [facility] [place] Fluzone Fluzone 2020-07-02 Completed [facility] 09:02:00 - [facility] [place] Fluzone Fluzone 2020-07-02 Completed [facility] 09:02:00 - [facility] [place] Fluzone Fluzone 2020-07-02 Completed [facility] 09:02:00 - [facility] Fluzone Fluzone 2020-07-02 Completed [facility] 09:02:00 - [facility] Fluzone Fluzone 2020-07-02 Completed [facility] 09:02:00 - [facility] Fluzone Fluzone 2020-07-02 Completed [facility] 09:02:00 - [facility] Fluzone Fluzone 2020-07-02 Completed [facility] 09:02:00 - [facility] [place] Vital Signs Vital Name Observation Time Observation Value Comments Source height 2022-10-06 13:00:00 59.5 [in_i] [facility] weight 2022-10-06 13:00:00 139.0 [lb_av] [facility] temperature 2022-10-06 13:00:00 98.1 [degF] [facility] bmi 2022-10-06 13:00:00 27.6 kg/m2 [facility] oximetry 2022-10-06 13:00:00 97 % [facility] respiratory rate 2022-10-06 13:00:00 17 /min [facility] blood pressure 2022-10-06 13:00:00 134 mm[Hg] [facility] systolic [facility] blood pressure 2022-10-06 13:00:00 72 mm[Hg] [facility] - diastolic [facility] height 2022-08-20 15:00:00 59.5 [in_i] [facility] weight 2022-08-20 15:00:00 141.1 [lb_av] [facility] temperature 2022-08-20 15:00:00 97.8 [degF] [facility] bmi 2022-08-20 15:00:00 28.02 kg/m2 [facility] blood pressure 2022-08-20 15:00:00 136 mm[Hg] [facility] - systolic [facility] blood pressure 2022-08-20 15:00:00 84 mm[Hg] [facility] - diastolic [facility] height 2022-07-24 07:50:00 59.5 [in_i] [facility] weight 2022-07-24 07:50:00 145 [lb_av] [facility] temperature 2022-07-24 07:50:00 98 [degF] [facility] bmi 2022-07-24 07:50:00 28.79 kg/m2 [facility] blood pressure 2022-07-24 07:50:00 132 mm[Hg] [facility] - systolic [facility] blood pressure 2022-07-24 07:50:00 65 mm[Hg] [facility] - diastolic [facility] height 2022-07-01 10:00:00 59.5 [in_i] [facility] weight 2022-07-01 10:00:00 147 [lb_av] [facility] temperature 2022-07-01 10:00:00 97.9 [degF] [facility] bmi 2022-07-01 10:00:00 29.19 kg/m2 [facility] oximetry 2022-07-01 10:00:00 97 % [facility] respiratory rate 2022-07-01 10:00:00 16 /min [facility] blood pressure 2022-07-01 10:00:00 139 mm[Hg] [facility] - systolic [facility] blood pressure 2022-07-01 10:00:00 67 mm[Hg] [facility] - diastolic [facility] height 2022-07-01 10:00:00 60 [in_i] [facility] weight 2022-07-01 10:00:00 147 [lb_av] [facility] temperature 2022-07-01 10:00:00 97.9 [degF] [facility] bmi 2022-07-01 10:00:00 28.71 kg/m2 [facility] oximetry 2022-07-01 10:00:00 97 % [facility] respiratory rate 2022-07-01 10:00:00 16 /min [facility] blood pressure 2022-07-01 10:00:00 139 mm[Hg] [facility] - systolic [facility] blood pressure 2022-07-01 10:00:00 67 mm[Hg] [facility] - diastolic [facility] height 2022-06-17 10:00:00 60 [in_i] [facility] weight 2022-06-17 10:00:00 144 [lb_av] [facility] temperature 2022-06-17 10:00:00 97 [degF] [facility] bmi 2022-06-17 10:00:00 28.12 kg/m2 [facility] oximetry 2022-06-17 10:00:00 97 % [facility] respiratory rate 2022-06-17 10:00:00 17 /min [facility] blood pressure 2022-06-17 10:00:00 128 mm[Hg] [facility] - systolic [facility] blood pressure 2022-06-17 10:00:00 74 mm[Hg] [facility] - diastolic [facility] height 2022-06-03 15:00:00 60 [in_i] [facility] weight 2022-06-03 15:00:00 147.6 [lb_av] [facility] temperature 2022-06-03 15:00:00 97.0 [degF] [facility] bmi 2022-06-03 15:00:00 28.82 kg/m2 [facility] oximetry 2022-06-03 15:00:00 94 % [facility] respiratory rate 2022-06-03 15:00:00 17 /min [facility] blood pressure 2022-06-03 15:00:00 132 mm[Hg] [facility] - systolic [facility] blood pressure 2022-06-03 15:00:00 76 mm[Hg] [facility] diastolic [facility] Procedures This patient has no known procedures. Plan of Care Planned Activity Planned Date Details Comments Source Future Scheduled 2022-10-16 Hepatitis C screening [facility] Test 02:32:20 (procedure) [code = [id number]] Future Scheduled 2022-10-16 SHINGLES VACCINES (1 Met [facility] Test 02:32:20 of 2) [code = SHINGLES VACCINES (1 of 2)] Future Scheduled 2022-10-16 65+ PNEUMOCOCCAL [facility] Test 02:32:20 VACCINE (1 - PCV) [code = 65+ PNEUMOCOCCAL VACCINE (1 - PCV)] Future Scheduled 2022-10-16 COVID-19 VACCINE (2 - [facility] Test 02:32:20 Pfizer series) [code = COVID-19 VACCINE (2 - Pfizer series)] Future Scheduled 2022-10-16 INFLUENZA VACCINE [facility] Test 02:32:20 [code = INFLUENZA VACCINE] Future Scheduled 2022-10-16 Hepatitis C screening [facility] Test 02:32:20 (procedure) [code = [id number]] Future Scheduled 2022-10-16 SHINGLES VACCINES (1 Met [facility] Test 02:32:20 of 2) [code = SHINGLES VACCINES (1 of 2)] Future Scheduled 2022-10-16 65+ [facility]OCOCCAL [facility] Test 02:32:20 VACCINE (1 - PCV) [code = 65+ PNEUMOCOCCAL VACCINE (1 - PCV)] Future Scheduled 2022-10-16 COVID-19 VACCINE (2 - [facility] Test 02:32:20 Pfizer series) [code = COVID-19 VACCINE (2 - Pfizer series)] Future Scheduled 2022-10-16 INFLUENZA VACCINE [facility] Test 02:32:20 [code = INFLUENZA VACCINE] Future Scheduled 2022-10-16 Hepatitis C screening [facility] Test 02:32:20 (procedure) [code = [id number]] Future Scheduled 2022-10-16 SHINGLES VACCINES (1 Met [facility] Test 02:32:20 of 2) [code = SHINGLES VACCINES (1 of 2)] Future Scheduled 2022-10-16 65+ [facility]OCOCCAL [facility] Test 02:32:20 VACCINE (1 - PCV) [code = 65+ PNEUMOCOCCAL VACCINE (1 - PCV)] Future Scheduled 2022-10-16 COVID-19 VACCINE (2 - [facility] Test 02:32:20 Pfizer series) [code = COVID-19 VACCINE (2 - Pfizer series)] Future Scheduled 2022-10-16 INFLUENZA VACCINE [facility] Test 02:32:20 [code = INFLUENZA VACCINE] Future Scheduled 2022-10-16 Hepatitis C screening [facility] Test 02:32:20 (procedure) [code = [id number]] Future Scheduled 2022-10-16 SHINGLES VACCINES (1 Met [facility] Test 02:32:20 of 2) [code = SHINGLES VACCINES (1 of 2)] Future Scheduled 2022-10-16 65+ P[facility]OCOCCAL [facility] Test 02:32:20 VACCINE (1 - PCV) [code = 65+ PNEUMOCOCCAL VACCINE (1 - PCV)] Future Scheduled 2022-10-16 COVID-19 VACCINE (2 - [facility] Test 02:32:20 Pfizer series) [code = COVID-19 VACCINE (2 - Pfizer series)] Future Scheduled 2022-10-16 INFLUENZA VACCINE [facility] Test 02:32:20 [code = INFLUENZA VACCINE] Future Scheduled 2022-10-16 Hepatitis C screening [facility] Test 02:32:20 (procedure) [code = [id number]] Future Scheduled 2022-10-16 SHINGLES VACCINES (1 Met [facility] Test 02:32:20 of 2) [code = SHINGLES VACCINES (1 of 2)] Future Scheduled 2022-10-16 65+ P[facility]UMOCOCCAL [facility] Test 02:32:20 VACCINE (1 - PCV) [code = 65+ PNEUMOCOCCAL VACCINE (1 - PCV)] Future Scheduled 2022-10-16 COVID-19 [facility] - [facility] Test 02:32:20 Pfizer series) [code = COVID-19 VACCINE (2 - Pfizer series)] Future Scheduled 2022-10-16 INFLUENZA VACCINE [facility] Test 02:32:20 [code = INFLUENZA VACCINE] Future Scheduled 2022-10-16 Hepatitis C screening [facility] Test 02:32:20 (procedure) [code = [id number]] Future Scheduled 2022-10-16 SHINGLES VACCINES (1 Met [facility] Test 02:32:20 of 2) [code = SHINGLES VACCINES (1 of 2)] Future Scheduled 2022-10-16 65+ P[facility]UMOCOCCAL [facility] Test 02:32:20 VACCINE (1 - PCV) [code = 65+ PNEUMOCOCCAL VACCINE (1 - PCV)] Future Scheduled 2022-10-16 COVID-19 VACCINE (2 - [facility] Test 02:32:20 Pfizer series) [code = COVID-19 VACCINE (2 - Pfizer series)] Future Scheduled 2022-10-16 INFLUENZA VACCINE [facility] Test 02:32:20 [code = INFLUENZA VACCINE] Future Scheduled 2022-10-16 Hepatitis C screening [facility] Test 02:32:20 (procedure) [code = [id number]] Future Scheduled 2022-10-16 SHINGLES VACCINES (1 Met [facility] Test 02:32:20 of 2) [code = SHINGLES VACCINES (1 of 2)] Future Scheduled 2022-10-16 65+ PNEUMOCOCCAL [facility] Test 02:32:20 VACCINE (1 - PCV) [code = 65+ PNEUMOCOCCAL VACCINE (1 - PCV)] Future Scheduled 2022-10-16 COVID-19 VACCINE (2 - [facility] Test 02:32:20 Pfizer series) [code = COVID-19 VACCINE (2 - Pfizer series)] Future Scheduled 2022-10-16 INFLUENZA VACCINE [facility] Test 02:32:20 [code = INFLUENZA VACCINE] Future Scheduled 2022-09-21 HEPATITIS B VACCINES Met [facility] Test 12:23:26 (1 of 3 - 3-dose series) [code = HEPATITIS B VACCINES (1 of 3 - 3-dose series)] Future Scheduled 2022-09-21 Hepatitis C screening [facility] Test 12:23:26 (procedure) [code = [id number]] Future Scheduled 2022-09-21 SHINGLES VACCINES (1 Met [facility] Test 12:23:26 of 2) [code = SHINGLES VACCINES (1 of 2)] Future Scheduled 2022-09-21 65+ [facility] 12:[facility]26 VACCINE (1 - PCV) [code = 65+ PNEUMOCOCCAL VACCINE (1 - PCV)] Future Scheduled 2022-09-21 COVID-19 VACCINE (2 - [facility] Test 12:23:26 Pfizer series) [code = COVID-19 VACCINE (2 - Pfizer series)] Future Scheduled 2022-09-21 INFLUENZA VACCINE [facility] Test 12:23:26 [code = INFLUENZA VACCINE] Future Scheduled 2022-09-21 HEPATITIS B VACCINES Met [facility] Test 12:23:26 (1 of 3 - 3-dose series) [code = HEPATITIS B VACCINES (1 of 3 - 3-dose series)] Future Scheduled 2022-09-21 Hepatitis C screening [facility] Test 12:23:26 (procedure) [code = [id number]] Future Scheduled 2022-09-21 SHINGLES VACCINES (1 Met [facility] Test 12:23:26 of 2) [code = SHINGLES VACCINES (1 of 2)] Future Scheduled 2022-09-21 65+ [facility]CCAL [facility] 12:23:26 VACCINE (1 - PCV) [code = 65+ PNEUMOCOCCAL VACCINE (1 - PCV)] Future Scheduled 2022-09-21 COVID-19 VACCINE (2 - [facility] Test 12:23:26 Pfizer series) [code = COVID-19 VACCINE (2 - Pfizer series)] Future Scheduled 2022-09-21 INFLUENZA VACCINE [facility] Test 12:23:26 [code = INFLUENZA VACCINE] Future Scheduled 2022-09-04 HEPATITIS B VACCINES Met [facility] Test 11:20:46 (1 of 3 - 3-dose series) [code = HEPATITIS B VACCINES (1 of 3 - 3-dose series)] Future Scheduled 2022-09-04 Hepatitis C screening [facility] Test 11:20:46 (procedure) [code = [id number]] Future Scheduled 2022-09-04 SHINGLES VACCINES (1 Met [facility] Test 11:20:46 of 2) [code = SHINGLES VACCINES (1 of 2)] Future Scheduled 2022-09-04 65+ [facility]AL [facility] 11:20:46 VACCINE (1 - PCV) [code = 65+ PNEUMOCOCCAL VACCINE (1 - PCV)] Future Scheduled 2022-09-04 COVID-19 VACCINE (2 - [facility] Test 11:20:46 Pfizer series) [code = COVID-19 VACCINE (2 - Pfizer series)] Future Scheduled 2022-09-04 INFLUENZA VACCINE [facility] Test 11:20:46 [code = INFLUENZA VACCINE] Future Scheduled 2022-07-01 HEPATITIS B VACCINES Met [facility] Test 22:22:27 (1 of 3 - 3-dose series) [code = HEPATITIS B VACCINES (1 of 3 - 3-dose series)] Future Scheduled 2022-07-01 Hepatitis C screening [facility] Test 22:22:27 (procedure) [code = [id number]] Future Scheduled 2022-07-01 SHINGLES VACCINES (1 Met [facility] Test 22:22:27 of 2) [code = SHINGLES VACCINES (1 of 2)] Future Scheduled 2022-07-01 65+ PNEUMOCOCCAL [facility] Test 22:22:27 VACCINE (1 - PCV) [code = 65+ PNEUMOCOCCAL VACCINE (1 - PCV)] Future Scheduled 2022-07-01 COVID-19 VACCINE (2 - [facility] Test 22:22:27 Pfizer series) [code = COVID-19 VACCINE (2 - Pfizer series)] Future Scheduled 2022-07-01 INFLUENZA VACCINE [facility] Test 22:22:27 [code = INFLUENZA VACCINE] Future Scheduled 2022-07-01 HEPATITIS B VACCINES Met [facility] Test 22:22:27 (1 of 3 - 3-dose series) [code = HEPATITIS B VACCINES (1 of 3 - 3-dose series)] Future Scheduled 2022-07-01 Hepatitis C screening [facility] Test 22:22:27 (procedure) [code = [id number]] Future Scheduled 2022-07-01 SHINGLES VACCINES (1 Met [facility] Test 22:22:27 of 2) [code = [...] series)] Future Scheduled 2022-07-01 INFLUENZA VACCINE [facility] Test 22:22:27 [code = INFLUENZA VACCINE] Encounters Start End Encounter Admission Attending Care Care Encounter Source Date/Time Date/Time Type Type Clinicians Facility Department ID 2022-09-28 Outpatient [place], [facility] [id number] [facility] 15:54:01 [facility] 2022-08-21 Outpatient [place], [facility] [id number] Common 07:59:01 [facility] 2022-08-19 Outpatient [place], [facility] [id number] Common 08:56:02 [facility] 2022-08-18 [facility] [place] [facility] [id number] Common 08:57:03 [facility] 2022-07-23 Outpatient [place], [facility] [id number] Common 13:11:01 [facility] 2022-05-19 Outpatient [place], [facility] [id number] Common 14:18:01 [facility] 2022-04-17 Outpatient [place], [facility] [id number] Common 15:13:01 [facility] 2022-04-01 Outpatient [place], STLMLC STLMLC [id number] Common 09:00:04 [facility] 2022-10-06 2022-10-06 (TEL) STLMLC STLMLC [id number] Co mmon 00:00:00 00:00:00 [facility] 2022-10-06 2022-10-06 OFFICE STLMLC STLMLC [id number] Co mmon 00:00:00 00:00:00 VISIT EST Spir it PT LEVEL 3 [facility] 2022-10-01 2022-10-01 (TEL) STLMLC STLMLC [id number] Co mmon 00:00:00 00:00:00 [facility] 2022-08-26 2022-08-26 (TEL) STLMLC STLMLC [id number] Co mmon 00:00:00 00:00:00 [facility] 2022-08-21 2022-08-21 (TEL) STLMLC STLMLC [id number] Co mmon 00:00:00 00:00:00 [facility] 2022-08-20 2022-08-20 OFFICE STLMLC STLMLC [id number] Co mmon 00:00:00 00:00:00 VISIT NEW Spir it PT LEVEL 3 - [facility] [place] 2022-08-17 2022-08-17 (TEL) STLMLC STLMLC [id number] Co mmon 00:00:00 00:00:00 [facility] 2022-07-24 2022-07-24 OFFICE STLMLC STLMLC [id number] Co mmon 00:00:00 00:00:00 VISIT [facility] PT - [facility] LEVEL 4 [facility] 2022-07-23 2022-07-23 (TEL) STLMLC STLMLC [id number] Co mmon 00:00:00 00:00:00 [facility] 2022-07-08 2022-07-08 (TEL) STLMLC STLMLC [id number] Co mmon 00:00:00 00:00:00 [facility] 2022-07-01 2022-07-01 OFFICE STLMLC STLMLC [id number] Co mmon 00:00:00 00:00:00 VISIT [facility] PT - CHI LEVEL [address] [facility] 2022-07-01 2022-07-01 SUB ANNUAL STLMLC STLMLC [id number] Common 00:00:00 00:00:00 MCR [facility] VISIT [facility] 2022-07-01 2022-07-01 (TEL) STLMLC STLMLC [id number] Co mmon 00:00:00 00:00:00 [facility] 2022-06-17 2022-06-17 OFFICE STLMLC STLMLC [id number] Co mmon 00:00:00 00:00:00 VISIT [facility] PT CHI LEVEL [address] [facility] 2022-06-09 2022-06-09 (TEL) STLMLC STLMLC [id number] Co mmon 00:00:00 00:00:00 [facility] 2022-06-03 2022-06-03 (TEL) STLMLC STLMLC [id number] Co mmon 00:00:00 00:00:00 [facility] 2022-06-03 2022-06-03 ([place]) Nurse STLMLC STLMLC [id number] Common 00:00:00 00:00:00 Visit [facility] 2022-05-27 2022-05-27 (TEL) STLMLC STLMLC [id number] Co mmon 00:00:00 00:00:00 [facility] 2022-05-19 2022-05-19 ([place]) Nurse STLMLC STLMLC [id number] Common 00:00:00 00:00:00 Visit [facility] 2022-05-19 2022-05-19 (TEL) STLMLC STLMLC [id number] Co mmon 00:00:00 00:00:00 [facility] 2021-02-17 2021-02-17 Outpatient [facility] [id number] [address] [place] [address] 00:00:00 00:00:00 SANYA [address] 2021-01-01 2021-01-08 Inpatient MICHELLE, [facility] [id number] [address] [place] 00:00:00 00:00:00 CRISTY [address] Results Test Description Test Time Test Comments Results Result Comments Source SARS-CoV-2 (COVID-19) RNA [Presence] in Respiratory sp ecimen by 2021-01-02 04:18:36 EDGAR with probe detection Test Item Value Reference Range Interpretation Comme nts SARS-CoV-2 (COVID-19) RNA [Presence] in Respiratory Not detected No t-Detected specimen by EDGAR with probe detection (test code = 85667-5) DMITRY CRAWFORD
[2023-01-04 08:36] LABS: Urine Blood Negative (Negative); Urine Glucose Trace (Negative); Urine Protein 1+ (Negative); Urine pH 5.5 (5.0-7.0)
[2023-01-04] MEDS ORDERED: Ringers Lactate 1,000 ML IV ONE (08:41)
[2023-01-04] MEDS ORDERED: ONDANSETRON 4 MG/2 ML VIAL ONE (08:41)
[2023-01-04 08:59] LABS: Absolute Lymphocytes (CBC) 0.4 K/uL (0.7-4.9); Hematocrit 38.8 % (36.0-45.0); Lymphocytes % 3.7 % (15.3-44.8); MCV 91.1 fL (80-100); RBC Red Blood Cell Count 4.26 M/uL (3.86-4.86)
[2023-01-04 09:13] LABS: Albumin 4.1 g/dL (3.4-5.0); Potassium 3.9 mmol/L (3.5-5.1)
[2023-01-04 09:16] LABS: Bilirubin Total 0.5 mg/dL (0.2-1.0); Protein, Total 7.5 g/dL (6.4-8.2)
[2023-01-04 09:35] LABS: SARS-COV-2 RT PCR NEGATIVE (NEGATIVE)
[2023-01-04 09:39] LABS: White Blood Cell Scan OK (OK)
[2023-01-04 09:40] LABS: Blood Morphology Comment NOT SEEN (NOT SEEN); Platelet Estimate ADEQ
--- NOTE | 2023-01-04 09:46 | RAD REPORT ---
EXAM DESCRIPTION: US - Abdomen Exam Limited - 01/04/2023 9:25 am CLINICAL HISTORY: ABD PAIN COMPARISON: ABDOMEN W DECUBITUS dated 07/05/2010; Abdomen Pelvis W Contrast dated 01/04/2023 TECHNIQUE: Sonographic grayscale and color flow images of the right upper quadrant were obtained. FINDINGS: The gallbladder demonstrates pronounced distention. No gallstones or layering sludge. No p ericholecystic fluid or gallbladder wall thickening. Sonographic Betancur sign was negative. The common bile duct is normal measuring 5 mm. The liver demonstrates no findings of intrahepatic biliary dilatation. IMPRESSION: Distended gallbladder, without other sonographic findings to suggest acute cholecystitis .
[2023-01-04] MEDS ORDERED: FAMOTIDINE 20 MG/2 ML VIAL IV ONE (09:52)
[2023-01-04] MEDS ORDERED: MORPHINE 4 MG/ML SYR ONE (09:52)
--- NOTE | 2023-01-04 10:01 | RAD REPORT ---
EXAM DESCRIPTION: CT - Abdomen Pelvis W Contrast - 01/04/2023 9:36 am CLINICAL HISTORY: abdominal pain, vomiting, diarrhea COMPARISON: No comparisons TECHNIQUE: Thin cut axial CT imaging of the abdomen and pelvis was performed following intravenous a dministration of 95 Isovue 300. Multiplanar reformats were generated and reviewed. All CT scans are performed using dose optimization technique as appropriate and may include automated exposure control or mA/KV adjustment according to patient size. FINDINGS: No suspicious findings in the lung bases. The liver, spleen, and pancreas show no suspicious findings. Gallbladder is moderately distended with out a significant impression on the anterior abdominal wall. No wall hyperenhancement or pericholecys tic fluid. No evidence of intra or extrahepatic biliary ductal dilation. Symmetric renal function is seen with no hydronephrosis or suspicious renal mass. Bilateral nonobstru cting renal calculi, largest measuring 5 millimeters on the left. No dilated bowel loops or bowel wall thickening. Incidentally noted small duodenal diverticulum. No f ree air, free fluid or inflammatory stranding. No bowel containing hernia, mass or bulky lymphadenopa thy. Small fat containing right inguinal hernia. Urinary bladder is suboptimally distended limiting e valuation, without discrete focal abnormality. Asymmetric muscle atrophy and fatty infiltration along the left upper thigh and pelvic muscles. No suspicious bony findings. IMPRESSION: Moderately distended gallbladder, nonspecific, without inflammatory changes on CT. Pleas e correlate clinically if there is suspicion of acute cholecystitis. No other acute intra-abdominal process. Incidental findings as above, including nonobstructing bilate ral renal calculi, largest measuring up to 5 millimeter.
--- NOTE | 2023-01-04 11:52 | EDPHYS ---
Physician Documentation [facility] Name: Wilma Ovalle Age: 77 yrs Sex: Female : 1945 Arrival Date: 01/04/2023 Time: 07:49 Bed 15 Private MD: ED Physician Kaleb Zacarias HPI: 01/04 08:12 This 77 yrs old Female presents to ER via Ambulatory with complaints of jmm Abdominal Pain, Vomiting/Diarrhea. 08:12 The patient presents with abdominal pain. Onset: The symptoms/episode began/occurred jmm gradually, 1 day(s) ago. The symptoms do not radiate. Associated signs and symptoms: Pertinent positives: nausea and vomiting, diarrhea. The symptoms are described as achy. Modifying factors: The symptoms are alleviated by nothing, the symptoms are aggravated by nothing. The patient has not experienced similar symptoms in the past. Is a 77-year-old female with history of hyperlipidemia, hypertension, the presents emerged part with complaints of epigastric abdominal pain beginning last night. Also complains of vomiting and diarrhea. States the diarrhea is watery. Patient states she was exposed to children that exhibited similar symptoms. Denies fever. Denies recent antibiotic use. Denies recent travel. Historical: - Allergies: 08:15 No Known Allergies; iw - PMHx: 08:15 Hyperlipidemia; Hypertension; Hypothyroidism; insomnia; TIA; iw - PSHx: 08:15 Neck sx; R arm; R knee replacement; iw - Immunization history:: Client reports receiving the 2nd dose of the Covid vaccine. - Social history:: Smoking status: Patient denies any tobacco usage or history of. ROS: 08:12 Constitutional: Negative for fever, chills, and weight loss, Cardiovascular: Negative jmm for chest pain, palpitations, and edema, Respiratory: Negative for shortness of breath, cough, wheezing, and pleuritic chest pain. 08:12 Abdomen/GI: Positive for abdominal pain, nausea and vomiting, diarrhea. 08:12 All other systems are negative. Exam: 08:12 Constitutional: This is a well developed, well nourished patient who is awake, alert, jmm and in no acute distress. Head/Face: atraumatic. Eyes: EOMI, no conjunctival erythema appreciated ENT: Moist Mucus Membranes Neck: Trachea midline, Supple Chest/axilla: Normal chest wall appearance and motion. Cardiovascular: Regular rate and rhythm. No edema appreciated Respiratory: Normal respirations, no respiratory distress appreciated 08:12 Back: Normal ROM Skin: General appearance color normal MS/ Extremity: Moves all extremities, no obvious deformities appreciated, no edema noted to the lower extremities Neuro: Awake and alert Psych: Behavior is normal, Mood is normal, Patient is cooperative and pleasant 08:12 Abdomen/GI: Inspection: abdomen appears normal, Bowel sounds: normal, Palpation: soft, mild abdominal tenderness, in the epigastric area. Vital Signs: 08:14 BP 130 / 72; Pulse 128; Resp 18; Temp 98.3; Pulse Ox 99% on R/A; Weight 61.69 kg; iw Height 4 ft. 11 in. (149.86 cm); Pain 8/10; 09:52 BP 113 / 73; Pulse 98; Resp 18; Pulse Ox 98% on R/A; Pain 9/10; ld1 10:59 BP 112 / 78; Pulse 95; Resp 18; Pulse Ox 100% on R/A; ld1 12:18 BP 109 / 76; Pulse 81; Resp 18; Pulse Ox 100% on R/A; ld1 08:14 Body Mass Index 27.47 (61.69 kg, 149.86 cm) iw MDM: 08:12 Patient medically screened. [facility] 11:50 Differential diagnosis: AAA, cholecystitis, Cholelithiasis, diverticulitis, gastritis, jmm gastroesophageal reflux disease, non-specific abd pain, pancreatitis, Peptic Ulcer Disease, Perf. Duodenal Ulcer, Perf. Gastric Ulcer, Pyelonephritis. Data reviewed: vital signs, nurses notes, lab test result(s). Consideration of Admission/Observation. Management of patient was discussed with the following: Dr. Hinson. I considered the following discharge prescriptions or medication management in the emergency department Medications were administered in the Emergency Department. See MAR. Counseling: I had a detailed discussion with the patient and/or guardian regarding: the historical points, exam findings, and any diagnostic results supporting the discharge/admit diagnosis, lab results, radiology results, the need for outpatient follow up, to return to the emergency department if symptoms worsen or persist or if there are any questions or concerns that arise at home. ED course: Pain is alleviated in the ED. I did discuss the patient's case with general surgery due to distended gallbladder. Did recommend some oral outpatient antibiotics and will follow-up with the patient in clinic. Patient otherwise given strict return precautions. Patient understood agrees plan of care.. 01/04 08:21 Order name: CBC with Diff [facility] 01/04 08:21 Order name: CMP [facility] 01/04 08:21 Order name: Lipase [facility] 01/04 08:21 Order name: CT Abd/Pelvis - IV Contrast Only [facility] 01/04 08:21 Order name: IV Saline Lock; Complete Time: 08:47 [facility] 01/04 08:21 Order name: Labs collected and sent; Complete Time: 08:47 [facility] 01/04 08:21 Order name: Urine Dipstick-Ancillary (obtain specimen); Complete Time: 08:40 [facility] 01/04 08:22 Order name: COVID-19/FLU A+B [facility] 01/04 08:37 Order name: Urine Dipstick-Ancillary; Complete Time: 08:37 EDMS 01/04 08:37 Order name: US Abdomen Limited [facility] 01/04 09:00 Order name: CBC with Automated Diff; Complete Time: 09:44 EDMS 01/04 09:13 Order name: Comprehensive Metabolic Panel; Complete Time: 09:17 EDMS 01/04 09:13 Order name: Lipase; Complete Time: 09:17 EDMS 01/04 09:35 Order name: COVID-19/FLU A+B; Complete Time: 09:36 EDMS 01/04 09:40 Order name: CBC Smear Scan; Complete Time: 09:44 EDMS 01/04 09:46 Order name: US; Complete Time: 09:53 EDMS 01/04 10:02 Order name: CT; Complete Time: 10:12 EDMS Administered Medications: 08:47 Drug: Zofran (Ondansetron) 4 mg Route: IVP; Site: right forearm; ld1 08:47 Drug: Lactated Ringers Solution 1000 ml Route: IV; Rate: 500 ml/hr; Site: right forearm;ld1 09:52 Drug: morphine 2 mg Route: IVP; Infused Over: 4 mins; Site: right forearm; ld1 09:52 Drug: Pepcid (famotidine) 20 mg Route: IVP; Site: right forearm; ld1 Disposition Summary: 01/04/23 11:52 Discharge Ordered Location: Home [facility] Condition: Stable [facility] Diagnosis - Abdominal pain, unspecified [facility] Followup: [facility] - With: Valentin Hinson MD - When: 2 - 3 days - Reason: Recheck today's complaints, Continuance of care, Re-evaluation by your physician Discharge Instructions: - Discharge Summary Sheet [facility] - Abdominal Pain, Adult [facility] Forms: - Medication Reconciliation Form [facility] - Thank You Letter [facility] - Antibiotic Education [facility] - Prescription Opioid Use [facility] Prescriptions: - Flagyl 500 mg Oral Tablet - take 1 tablet by ORAL route every 8 hours for 5 days; 15 tablet; Refills: 0, [facility] Product Selection Permitted - Pepcid 20 mg Oral Tablet - take 1 tablet by ORAL route every 12 hours for 10 days; 20 tablet; Refills: 0, [facility] Product Selection Permitted - Cipro 500 mg Oral Tablet - take 1 tablet by ORAL route every 12 hours for 5 days; 10 tablet; Refills: 0, [facility] Product Selection Permitted - dicyclomine 20 mg Oral Tablet - take 1 tablet by ORAL route 4 times per day As needed; 30 tablet; Refills: 0, [facility] Product Selection Permitted - ondansetron 4 mg Oral - take 4 milligrams by SUBLINGUAL route every 8 hours; 15 tablet; Refills: 0, [facility] Product Selection Permitted Signatures: Dispatcher [employer] Roman Toney PA PA [facility] Tangela Wisdom, RN RN iw Sandra Chiu RN RN ld1
--- NOTE | 2023-01-04 11:52 | ER ---
Nurse's Notes [facility] Name: Wilma Ovalle Age: 77 yrs Sex: Female : 1945 Arrival Date: 01/04/2023 Time: 07:49 Bed 15 Private MD: Diagnosis: Abdominal pain, unspecified Presentation: 01/04 08:14 Chief complaint: Patient states: n/v/d last night, also has lower abd pain, denies iw urinary s/s. Coronavirus screen: At this time, the client does not indicate any symptoms associated with coronavirus-19. Coronavirus screen: Client presents with at least one sign or symptom that may indicate coronavirus-19. Ebola Screen: Patient negative for fever greater than or equal to 101.5 degrees Fahrenheit, and additional compatible Ebola Virus Disease symptoms Patient denies exposure to infectious person. No symptoms or risks identified at this time. Initial Sepsis Screen: Does the patient meet any 2 criteria? No. Patient's initial sepsis screen is negative. Does the patient have a suspected source of infection? No. Patient's initial sepsis screen is negative. Risk Assessment: Do you want to hurt yourself or someone else? Patient reports no desire to harm self or others. Onset of symptoms was January 04, 2023. 08:14 Method Of Arrival: Ambulatory iw 08:14 Acuity: JEANINE 3 iw Historical: - Allergies: 08:15 No Known Allergies; iw - PMHx: 08:15 Hyperlipidemia; Hypertension; Hypothyroidism; insomnia; TIA; iw - PSHx: 08:15 Neck sx; R arm; R knee replacement; iw - Immunization history:: Client reports receiving the 2nd dose of the Covid vaccine. - Social history:: Smoking status: Patient denies any tobacco usage or history of. Screenin:52 [facility] ED Fall Risk Assessment (Adult) History of falling in the last 3 months, ld1 including since admission No falls in past 3 months (0 pts). Abuse screen: Denies threats or abuse. Denies injuries from another. Nutritional screening: No deficits noted. Tuberculosis screening: No symptoms or risk factors identified. Assessment: 09:52 General: Appears in no apparent distress. comfortable, Behavior is calm, cooperative, ld1 appropriate for age. Pain: Complains of pain in right lower quadrant and left lower quadrant Pain does not radiate. Pain currently is 9 out of 10 on a pain scale. Quality of pain is described as throbbing. Neuro: Level of Consciousness is awake, alert, obeys commands, Oriented to person, place, time, situation. Cardiovascular: Capillary refill < 3 seconds Patient's skin is warm and dry. Respiratory: Airway is patent Respiratory effort is even, unlabored. GI: Abdomen is round non-distended, Bowel sounds present X 4 quads. Abd is soft Abdomen is tender to palpation. : No signs and/or symptoms were reported regarding the genitourinary system. EENT: No signs and/or symptoms were reported regarding the EENT system. 12:18 Reassessment: Patient appears in no apparent distress at this time. No changes from ld1 previously documented assessment. Patient and/or family updated on plan of care and expected duration. Pain level reassessed. Patient is alert, oriented x 3, equal unlabored respirations, skin warm/dry/pink. Vital Signs: 08:14 BP 130 / 72; Pulse 128; Resp 18; Temp 98.3; Pulse Ox 99% on R/A; Weight 61.69 kg; iw Height 4 ft. 11 in. (149.86 cm); Pain 8/10; 09:52 BP 113 / 73; Pulse 98; Resp 18; Pulse Ox 98% on R/A; Pain 9/10; ld1 10:59 BP 112 / 78; Pulse 95; Resp 18; Pulse Ox 100% on R/A; ld1 12:18 BP 109 / 76; Pulse 81; Resp 18; Pulse Ox 100% on R/A; ld1 08:14 Body Mass Index 27.47 (61.69 kg, 149.86 cm) ED Course: 07:49 Patient arrived in ED. rg4 08:05 Roman Mccormick PA is PHCP. jmm 08:05 Kaleb Zacarias MD is Attending Physician. jmm 08:07 Sandra Chiu, RN is Primary Nurse. ld1 08:15 Triage completed. iw 08:15 Arm band placed on. iw 08:40 COVID-19/FLU A+B Sent. ld1 08:48 Inserted saline lock: 20 gauge in right forearm, using aseptic technique. Blood ld1 collected. 09:52 Patient has correct armband on for positive identification. Placed in gown. Bed in low ld1 position. Call light in reach. Side rails up X2. cardiac monitor technician on. Pulse ox on. NIBP on. Door closed. Noise minimized. Warm blanket given. 09:52 No provider procedures requiring assistance completed. ld1 11:51 Valentin Hinson MD is Referral Physician. clark 12:19 IV discontinued, intact, bleeding controlled, No redness/swelling at site. ld1 Administered Medications: 08:47 Drug: Zofran (Ondansetron) 4 mg Route: IVP; Site: right forearm; ld1 08:47 Drug: Lactated Ringers Solution 1000 ml Route: IV; Rate: 500 ml/hr; Site: right forearm;ld1 09:52 Drug: morphine 2 mg Route: IVP; Infused Over: 4 mins; Site: right forearm; ld1 09:52 Drug: Pepcid (famotidine) 20 mg Route: IVP; Site: right forearm; ld1 Medication: :52 VIS not applicable for this client. ld1 Outcome: :52 Discharge ordered by MD. [facility] 12:18 Discharged to home ambulatory. ld1 12:18 Condition: stable 12:18 Discharge instructions given to patient, Instructed on discharge instructions, follow up and referral plans. medication usage, Demonstrated understanding of instructions, follow-up care, medications, Prescriptions given X 5 12:19 Patient left the ED. ld1 Signatures: Roman Mccormick PA PA jmm Williams, Irene, Bree Shen RN rg4 Sandra Chiu RN RN ld1
[2023-01-04 12:44] VITALS: TEMP 98.3
[2023-01-04 12:46] VITALS: O2SAT 100
[2023-01-04 12:48] VITALS: BP 109/76
== END 2023-01-04 12:19 | disposition home or self-care (01) ==
LOC: ER 07:45
DX: R10.13 Epigastric pain (principal); R11.2 Nausea with vomiting, unspecified; Z20.822 Contact with and (suspected) exposure to COVID-19; I10 Essential (primary) hypertension
CPT/HCPCS: 85025; 36415; 81003; 83690; 80053; 0240U; 74177; 76705; 96375; 96374; 99284; Q9967; J7120; J2405

== ENCOUNTER 2023-08-24 08:15 | Day surgery (SDC) | payer OTHER ==
[2023-08-20 14:56] LABS: Absolute Lymphocytes (CBC) 2.1 K/uL (0.7-4.9); Hematocrit 32.1 % (36.0-45.0); Lymphocytes % 28.8 % (15.3-44.8); MCV 94.1 fL (80-100); MPV 7.1 fL (7.6-11.3); Platelets 212 thou/uL (152-406); RBC Red Blood Cell Count 3.41 M/uL (3.86-4.86)
[2023-08-20 15:08] LABS: Protime INR 1.02
--- NOTE | 2023-08-20 15:59 | RAD REPORT ---
EXAM DESCRIPTION: RAD - Chest Pa And Lat (2 Views) - 08/20/2023 2:43 pm CLINICAL HISTORY: Pre op pending heart catheterization. Hypertension COMPARISON: Chest Single View dated 11/12/2022; Chest Single View dated 12/27/2020; CHEST PA AND LAT 2 VIEW dated 07/12/2014; CHEST PA AND LAT 2 VIEW dated 07/14/2013 TECHNIQUE: PA and lateral views of the chest were obtained. FINDINGS: The lungs are clear. Heart size is normal and central vasculature is within normal limits. No pleural effusion or pneumothorax seen. No acute bony finding noted. IMPRESSION: No acute cardiopulmonary process.
--- NOTE | 2023-08-23 18:08 | EKG ---
Test Date: 2023-08-20 Test Time: 14:09:56 Welcome Hostess: KATIUSKA MEASUREMENT RESULTS: Intervals: Rate: 85 MO: 156 QRSD: 92 QT: 374 QTc: 445 [place]: P: 58 MO: 156 QRS: 64 T: 74 INTERPRETIVE STATEMENTS: Normal sinus rhythm Normal ECG Compared to ECG 11/12/2022 15:23:34 No significant changes Electronically Signed On 08-23-23 18:06:28 CDT by Shashank Webb
[2023-08-24] MEDS ORDERED: NA CHLORIDE 0.9% 500 ML ONE (08:43)
[2023-08-24] MEDS ORDERED: LIDOCAINE 1% 20 ML MDV ONE ×2 (10:18→11:04)
[2023-08-24] MEDS ORDERED: HEPA 1000U/500MLS 2,000 UNIT/1,000 ML BAG IV ONE (10:18)
[2023-08-24] MEDS ORDERED: VERAPAMIL HCL 10 MG/4 ML VIAL IV ONE (10:19)
[2023-08-24] MEDS ORDERED: MIDAZOLAM HCL 2 MG/2 ML INJ ONE (10:19)
[2023-08-24] MEDS ORDERED: HEPARIN 5000 UNIT/ML 1 ML VIAL ONE (10:19)
[2023-08-24] MEDS ORDERED: TICAGRELOR 90 MG TABLET PO ONE (10:20)
[2023-08-24] MEDS ORDERED: HEPARIN 10,000 UNIT/10 ML VIAL IV ONE (10:20)
[2023-08-24] MEDS ORDERED: ASPIRIN 325 MG TAB ONE (10:20)
[2023-08-24] MEDS ORDERED: ATROPINE SULF 1 MG/10 ML SYR IV ONE (10:20)
[2023-08-24] MEDS ORDERED: CLOPIDOGREL 75 MG TABLET ONE (10:20)
[2023-08-24] MEDS ORDERED: FENTANYL CITR 100 MCG/2 ML ONE (10:24)
[2023-08-24] MEDS ORDERED: HEPA 1000U/500MLS 1,000 UNIT/500 ML BAG IV ONE (10:56)
--- NOTE | 2023-08-24 17:58 | OP ---
Date of Procedure: 08/24/2023 Surgeon: CARIN HARDING Procedures Performed: 1.Selective coronary angiogram. 2.Left heart catheterization. 3.Right heart catheterization. Indication: Evaluation of aortic valve stenosis. Access: 1.Right femoral artery 6-Guinean closed with 6-Guinean Angio-Seal. 2.Right femoral vein 7-Guinean closed with manual pressure. 3.Right IJ 7-Guinean closed with manual pressure. Complications: None. Bleeding: Less than 20 mL. Description Of Procedure: After risks, benefits, alternatives were explained, patient agreed to proc edure and signed informal consent, and then I accessed the right femoral artery and right femoral vei n using micropuncture kit, ultrasound guidance, and fluoroscopy, placed a 6-Guinean Aurora in the [facility] femoral artery and 7-Guinean Aurora in the right femoral vein and tried to get with a Keyes skyler ter into the RV, I could not. So I accessed the right IJ using micropuncture kit, ultrasound guidanc e and placed a 7-Guinean Aurora sheath and took the balloon tip 7-Guinean Keyes catheter through that IJ access into the right atrium, right ventricle, pulmonary artery, and wedge, obtained waveform and pressure and then performed a thermodilution with cardiac output and then removed the Keyes catheter a nd then I took 6-Guinean JL4 catheter into aortic root, engaged left main, took standard views and the n exchanged for a 6-Guinean JR4 catheter and engaged the RCA, took standard views and then across the aortic valve and measured the LVEDP and pullback recorded the gradient and obtained a valve area. I then removed the catheter and then the femoral artery sheath was removed and a 6-Guinean Angio-Seal wa s used for closure. Femoral vein sheath was removed and manual pressure was used and right IJ sheath was removed and manual pressure was used for closure with good hemostasis. Findings: 1.Selective coronary angiogram: a.Left main; large and normal. b.LAD; proximal 30%. Rest of the LAD is normal. Normal diagonal branches. c.Left circumflex; it is normal. d.RCA; large and dominant, mid 50% stenosis. e.LVEDP elevated at 21 mmHg. 2.Right heart catheterization: RA pressure is 5. RV pressure is 28/3, mean of 6. PA pressure is 2 7/11, mean of 17. Primary wedge pressure was 9, and LVEDP was 21. Average cardiac output was 4.48, and the mean gradient was 8 mmHg and valve area was 1.68 sq cm. Conclusion: 1.Mild nonobstructive coronary artery disease. 2.Mildly elevated filling pressure on left side. 3.Mild aortic valve stenosis with a valve area of 1.68 sq cm. Plan: Medical management. /BHARGAVI Voice ID: [id number] Report ID: [id number]
[2023-08-26 14:49] VITALS: BP 149/90; O2SAT 99
== END 2023-08-24 13:20 | disposition home or self-care (01) ==
LOC: CCL 08:15
PROVIDERS: ATTEND Internal Medicine
DX: I35.0 Nonrheumatic aortic (valve) stenosis (principal); I25.10 Atherosclerotic heart disease of native coronary artery without angina pectoris; I10 Essential (primary) hypertension; E78.5 Hyperlipidemia, unspecified; I65.29 Occlusion and stenosis of unspecified carotid artery; Z79.899 Other long term (current) drug therapy; Z01.810 Encounter for preprocedural cardiovascular examination
CPT/HCPCS: 93005; 85025; 80048; 36415; 83721; 85610; 85730; 71046; 93460; 76937; C1893; Q9966; C1760; G0269; C1769; J1644; J2001 ×2; J2250; J3010; J7040; J0461

== ENCOUNTER 2024-12-16 19:00 | Emergency (ER) | payer OTHER ==
[2024-12-16 20:06] LABS: Absolute Basophils 0.1 K/uL (0-0.5); Absolute Eosinophils 0.2 K/uL (0-0.5); Absolute Lymphocytes (CBC) 1.6 K/uL (0.7-4.9); Absolute Monocytes 0.5 K/uL (0.1-1.3); Absolute Neutrophil 6.3 K/uL (1.8-8.0); Basophils % 0.7 % (0-1.3); Eosinophils % 2.4 % (0-4.4); Hematocrit 33.8 % (36.0-45.0); Hemoglobin 11.5 g/dL (12.0-15.0); Lymphocytes % 18.4 % (15.3-44.8); MCH 31.9 pg (27.0-35.0); MCHC 34.1 g/dL (32.0-36.0); MCV 93.5 fL (80-100); MPV 6.9 fL (7.6-11.3); Monocytes % 5.7 % (3.3-12.3); Neutrophils % 72.8 % (41.7-73.7); Nucleated Red Blood Cells % 0.1 % (0-0); Platelets 218 thou/uL (152-406); RBC Red Blood Cell Count 3.62 M/uL (3.86-4.86); Red Cell Distribution Width 13.9 % (12.1-15.2)
--- NOTE | 2024-12-16 20:24 | RAD REPORT ---
EXAM: CT brain without contrast HISTORY: trauma COMPARISON: None TECHNIQUE: Multiple contiguous axial images were obtained and a CT of the brain without contrast. Sag ittal and coronal reformats were performed. One or more of the following dose reduction techniques were used: Automated exposure control, adjust ment of the mA and/or kV according to patient size, and/or iterative reconstruction. FINDINGS: No evidence of hydrocephalus, intracranial hemorrhage, or extra-axial fluid collection. Moderate brain atrophy with moderate periventricular and deep white matter chronic microvascular isc hemic changes present. No evidence of midline shift or areas of brain edema. The calvarium is intact. The visualized paranasal sinuses and mastoid air cells are essentially clear . Large posterior scalp hematoma. IMPRESSION: No evidence of acute intracranial abnormality. EXAM: CT of the cervical spine without contrast HISTORY: Neck pain, injury trauma TECHNIQUE: Multiple contiguous axial images were obtained in a CT of the cervical spine without contr ast. Sagittal and coronal reformats were performed. FINDINGS: The vertebral bodies demonstrate normal height and alignment. No evidence of acute fracture or subluxation.. Anterior cervical discectomy with fusion spanning C3 C5. Posterior hardware with translaminar screws present spanning C4-6. Disc thinning with small posterior osteophyte present at C 6-7. No prevertebral soft tissue swelling is seen. The posterior facets are well aligned. Normal alignment of the skull base with the cervical spine is seen. The lung apices are unremarkable. IMPRESSION: No evidence of acute osseous abnormality of the cervical spine.
[2024-12-16 20:27] LABS: Albumin 3.8 g/dL (3.4-5.0); Anion Gap 9.4 mEq/L (5.0-15.0); Bilirubin Total 0.4 mg/dL (0.2-1.0); Globulin 3.7 g/dL (2.3-3.5); Potassium 3.4 mEq/L (3.5-5.1); Protein, Total 7.5 g/dL (6.4-8.2); Troponin High Sensitivity 7.4 pg/mL (<58.9)
--- NOTE | 2024-12-16 20:31 | RAD REPORT ---
EXAM: CT CHEST, ABDOMEN AND PELVIS WITHOUT CONTRAST CLINICAL INDICATION: TRAUMA TECHNIQUE: CT chest, abdomen and pelvis was performed without contrast, as per department protocol. A xial, sagittal and coronal reconstructions were obtained. One or more of the following dose reduction techniques were used: Automated exposure control, adjustment of the mA and/or kV according to patient size, and/or iterative reconstruction. Unless otherwise specified, incidental findings do not require dedicated imaging follow-up. Examination is limited by the lack of intravenous contrast material. COMPARISON: 01/04/2023 FINDINGS: LUNGS: No evidence of airspace or interstitial process. No nodules. PLEURA: No pleural effusion. No pneumothorax. MEDIASTINUM AND LYMPH NODES: No mediastinal mass or fluid collection. Normal size mediastinal, hilar, and axillary lymph nodes. OSSEOUS STRUCTURES AND CHEST WALL: Intact. LIVER: Normal in size and contour. No focal lesion or biliary dilatation. Grossly unremarkable gallbl adder. PANCREAS: No mass, ductal dilation, or elo-pancreatic fluid. SPLEEN: Normal size. No focal lesion. ADRENALS: Normal; no mass. KIDNEYS: Normal size and contour. No hydronephrosis. Punctate calculi are present in the calyces of b oth kidneys. URINARY BLADDER: Normal contour. GASTROINTESTINAL TRACT: No bowel obstruction, free air, significant free fluid or abscess. Moderate stool is retained throughout the colon. APPENDIX: Normal appendix. LYMPH NODES: No lymphadenopathy. MUSCULOSKELETAL: Multilevel lumbar degenerative changes are present. Fusion hardware is present poste riorly L4 and 5. OTHER: IMPRESSION: No acute or significant abnormalities seen in the chest, abdomen or pelvis. Moderate stool is present throughout the colon. Punctate calyceal stones bilaterally without hydronephrosis.
[2024-12-16] MEDS ORDERED: TDAP (DIPHTH,PERTUSS(ACELL),TET VAC) 0.5 ML VIAL IMVAC ONE (20:46)
[2024-12-16] MEDS ORDERED: LIDOCAINE 2% W/EPI 1:200,000 MPF 20 ML VIAL IM ONE (20:46)
[2024-12-16] MEDS ORDERED: ACETAMINOPHEN 325 MG TABLET ONE (21:04)
--- NOTE | 2024-12-16 21:38 | EDPHYS ---
Physician Documentation [facility] Name: Wilma Ovalle Age: 79 yrs Sex: Female : 1945 Arrival Date: 12/16/2024 Time: 19:00 Bed 17 Private MD: ED Physician Angelo Rangel HPI: 12/16 19:48 This 79 yrs old Female presents to ER via Unassigned with complaints of fall, farhad hit right post head. 19:48 The patient or guardian reports pain, swelling, tenderness. The complaints affect the farhad scalp. Context of injury: The problem was sustained at home, resulted from a fall. Onset: The symptoms/episode began/occurred just prior to arrival. Associated signs and symptoms: Loss of consciousness: This patient did not experience any loss of consciousness. Pertinent positives: multiple falls, gets up too fast. got up fast and fell. Details of fall: The patient fell from an upright position, while standing. Associated injuries: The patient sustained injury to the head. Historical: - Allergies: 19:40 No Known Drug Allergies; jb4 - Home Meds: 19:40 Lisinopril Oral [Active]; Plavix Oral [Active]; jb4 - PMHx: 19:40 Hyperlipidemia; Hypertension; Hypothyroidism; insomnia; TIA; jb4 - PSHx: 19:40 Neck sx; R arm; R knee replacement; jb4 - Immunization history:: Adult Immunizations unknown. - Infectious Disease History:: Denies. - Family history:: not pertinent. - Social history:: Smoking status: Patient denies any tobacco usage or history of. ROS: 19:50 Constitutional: Negative for fever, chills, and weight loss, Eyes: Negative for injury, farhad pain, redness, and discharge, ENT: Negative for injury, pain, and discharge, Neck: Negative for injury, pain, and swelling, Cardiovascular: Negative for chest pain, palpitations, and edema, Respiratory: Negative for shortness of breath, cough, wheezing, and pleuritic chest pain, Abdomen/GI: Negative for abdominal pain, nausea, vomiting, diarrhea, and constipation, Back: Negative for injury and pain, : Negative for injury, bleeding, discharge, and swelling, MS/Extremity: Negative for injury and deformity, Skin: Negative for injury, rash, and discoloration, Psych: Negative for depression, anxiety, suicide ideation, homicidal ideation, and hallucinations, Allergy/Immunology: Negative for hives, rash, and allergies, Endocrine: Negative for neck swelling, polydipsia, polyuria, polyphagia, and marked weight changes, Hematologic/Lymphatic: Negative for swollen nodes, abnormal bleeding, and unusual bruising, 19:50 Neuro: Positive for headache, Exam: 19:50 Constitutional: This is a well developed, well nourished patient who is awake, alert, farhad and in no acute distress. Eyes: Pupils equal round and reactive to light, extra-ocular motions intact. Lids and lashes normal. Conjunctiva and sclera are non-icteric and not injected. Cornea within normal limits. Periorbital areas with no swelling, redness, or edema. ENT: Nares patent. No nasal discharge, no septal abnormalities noted. Tympanic membranes are normal and external auditory canals are clear. Oropharynx with no redness, swelling, or masses, exudates, or evidence of obstruction, uvula midline. Mucous membranes moist. Neck: Trachea midline, no thyromegaly or masses palpated, and no cervical lymphadenopathy. Supple, full range of motion without nuchal rigidity, or vertebral point tenderness. No Meningismus. Chest/axilla: Normal chest wall appearance and motion. Nontender with no deformity. No lesions are appreciated. Cardiovascular: Regular rate and rhythm with a normal S1 and S2. No gallops, murmurs, or rubs. Normal PMI, no JVD. No pulse deficits. Respiratory: Lungs have equal breath sounds bilaterally, clear to auscultation and percussion. No rales, rhonchi or wheezes noted. No increased work of breathing, no retractions or nasal flaring. Abdomen/GI: Soft, non-tender, with normal bowel sounds. No distension or tympany. No guarding or rebound. No evidence of tenderness throughout. Back: No spinal tenderness. No costovertebral tenderness. Full range of motion. Skin: Warm, dry with normal turgor. Normal color with no rashes, no lesions, and no evidence of cellulitis. MS/ Extremity: Pulses equal, no cyanosis. Neurovascular intact. Full, normal range of motion., bilateral aka Neuro: Awake and alert, GCS 15, oriented to person, place, time, and situation. Cranial nerves II-XII grossly intact. Motor strength 5/5 in all extremities. Sensory grossly intact. Cerebellar exam normal. Normal gait. Psych: Awake, alert, with orientation to person, place and time. Behavior, mood, and affect are within normal limits. 19:50 Head/face: Noted is contusion, that is deep, of the right occipital area and right base of the skull, hematoma, that is moderate, a laceration(s), that is deep, of the right occipital area and right base of the skull, 20:00 ECG was reviewed by the Attending Physician. [facility] Vital Signs: 20:00 BP 185 / 83; Pulse 87; Resp 16; Temp 97(TE); Pulse Ox 100% on R/A; Weight 63.5 kg (R); jb4 Height 5 ft. 0 in. ; Pain 6/10; 22:04 BP 135 / 65; Pulse 93; Resp 16; Pulse Ox 100% on R/A; jb4 20:00 Body Mass Index 27.34 (63.50 kg, 152.4 cm) jb4 20:00 Pain Scale: Adult jb4 [place] Coma Score: 19:51 Eye Response: spontaneous(4). Motor Response: obeys commands(6). Verbal Response: [facility] oriented(5). Total: 15. 22:04 Eye Response: spontaneous(4). Motor Response: obeys commands(6). Verbal Response: jb4 oriented(5). Total: 15. Trauma Score (Adult): 22:04 Eye Response: spontaneous(1); Verbal Response: oriented(1); Motor Response: obeys jb4 commands(2); Systolic BP: > 89 mm Hg(4); Respiratory Rate: 10 to 29 per min(4); Donnell Score: 15; Trauma Score: 12 Laceration: 21:32 Wound Repair of 3cm ( 1.2in ) subcutaneous laceration to right parietal area. Distal farhad neuro/vascular/tendon intact. Anesthesia: Local anesthetic administered with 10 mls of 1% lidocaine w/ Epi. Wound prep: Moderate cleansing by me, Copious irrigation. Skin closed with 3 3 lance Gardner using staple gun. Dressed with pressure dressing, non-adherent dressing. Patient tolerated well. MDM: 19:22 Medical Screening Exam initiated [facility] 19:51 Differential diagnosis: Contusion of Hematoma on Laceration of Intracranial bleed- farhad subdural, epidural, subarachnoid, intracerebral, Concussion without LOC. cerebral contusion. Differential Diagnosis altered mental status, sepsis, flu. Differential diagnosis: abrasion, closed head injury, contusion, fracture, laceration, multiple trauma, sprain, strain. Data reviewed: vital signs, nurses notes, lab test result(s), EKG, radiologic studies, CT scan. Consideration of Admission/Observation Escalation of care including admission/observation considered. I considered the following discharge prescriptions or medication management in the emergency department Medications were administered in the Emergency Department. See MAR. Independent interpretation of the following test(s) in the Emergency Department CT Scan: My interpretation is ct traumagram. Test considered but Not performed: MRI: no mri. Historians other than the Patient: EMS: ems well informed. Care significantly affected by the following chronic conditions: Hypertension. Counseling: I had a detailed discussion with the patient and/or guardian regarding the historical points, exam findings, and any diagnostic results supporting the discharge/admit diagnosis, lab results, radiology results, the need for outpatient follow up, for definitive care, a family practitioner. 12/16 19:24 Order name: CBC with Diff; Complete Time: 20:56 [facility] 12/16 19:24 Order name: Comprehensive Metabolic Panel; Complete Time: 20:56 [facility] 12/16 19:24 Order name: Troponin High Sensitivity; Complete Time: 20:56 [facility] 12/16 19:29 Order name: Chest Abd Pelvis Wo Con; Complete Time: 20:56 [facility] 12/16 19:30 Order name: Head C Spine Mpr Wo Con; Complete Time: 20:56 [facility] 12/16 19:24 Order name: EKG - Nurse/Tech; Complete Time: 19:59 [facility] 12/16 19:24 Order name: Dressing - Wound; Complete Time: 20:42 [facility] 12/16 19:24 Order name: Gloves, Sterile; Complete Time: 20:42 [facility] 12/16 19:24 Order name: Prolene, Sutures; Complete Time: 20:42 [facility] 12/16 19:24 Order name: Setup Suture Tray; Complete Time: 20:42 farhad EC:00 Rate is 86 beats/min. Rhythm is regular. QRS [place] is Normal. PA interval is normal. QRS farhad interval is normal. QT interval is normal. No Q waves. T waves are Normal. No ST changes noted. Clinical impression: NSR w/ Non-specific ST/T Changes and No evidence of ischemia. Interpreted by me. Reviewed by me. Administered Medications: 21:01 Drug: Boostrix Tdap IM 0.5 ml IM once; as a single dose Route: IM; Site: left deltoid; jb4 22:05 Follow up: Response: No adverse reaction jb4 21:22 Drug: Lidocaine-Epinephrine Infiltration -1%: (1:100,000) 10 ml 20 ml Infiltration jb4 once; to bedside {Note: administered by ER provider..} Volume: 20 ml; Route: Infiltration; 22:05 Follow up: Response: No adverse reaction jb4 21:40 Drug: Acetaminophen PO 650 mg PO once Route: PO; ay 22:05 Follow up: Response: No adverse reaction jb4 Disposition Summary: 12/16/24 21:37 Discharge Ordered Notes: Location: Home farhad Problem: new farhad Symptoms: have improved farhad Condition: Stable farhad Diagnosis - Fall on same level, unspecified farhad - Repeated falls farhad - Unspecified injury of head, initial encounter farhad - Laceration without foreign body of other part of head - scalp, large hematoma farhad Followup: farhad - With: Private Physician - When: 7 - 10 days - Reason: Staple/Suture removal Discharge Instructions: - Discharge Summary Sheet farhad - Head Injury, Adult farhad - Hematoma farhad - Hematoma, [id number] farhad - Fall Prevention in the Home, Adult farhad - Laceration Care, Adult farhad - Laceration Care, Adult, [id number] farhad - Head Injury, Adult, Sico-az-[id number] farhad Forms: - Medication Reconciliation Form farhad - Antibiotic Education farhad - Prescription Opioid Use farhad - Patient Portal Instructions [facility] - Leadership Thank You Letter [facility] Prescriptions: - Cephalexin 500 mg Oral capsule - take 1 capsule ORAL route every 8 hours for 7 days; 21 capsule; Refills: 0, [facility] Product Selection Permitted - Tylenol 325 mg Oral tablet - take 2 tablets ORAL route every 6 hours as needed; 36 tablet; Refills: 0, [facility] Product Selection Permitted Signatures: Dispatcher [employer] EDAngelo Miller MD MD cha Bryson, James, RN RN jb4 Roger Díaz RN RN ay Corrections: (The following items were deleted from the chart) 19:25 19:25 CBC+H.LAB.BRZ ordered. EDWI EDMS 19:25 19:25 COMPREHENSIVE METABOLIC PANEL+C.LAB.BRZ ordered. EDMS EDMS 19:25 19:25 Troponin High Sensitivity+C.LAB.BRZ ordered. EDMS EDMS 19:25 19:25 Head C Spine Cap Wo Con+CT.RAD.BRZ ordered. EDMS EDMS
--- NOTE | 2024-12-16 21:38 | ER ---
Nurse's Notes [facility] Name: Wilma Ovalle Age: 79 yrs Sex: Female : 1945 Arrival Date: 12/16/2024 Time: 19:00 Bed 17 Private MD: Diagnosis: Fall on same level, unspecified;Repeated falls;Unspecified injury of head, initial encounter;Laceration without foreign body of other part of head-scalp, large hematoma Presentation: 12/16 19:30 Chief complaint: EMS states: Pt reports sitting on her couch and falling off. Denies jb4 LOC but reports note being able to remember everything. Reports being on lisinopril and Plavix. 19:30 Coronavirus screen: At this time, the client does not indicate any symptoms associated jb4 with coronavirus-19. Ebola Screen: No symptoms or risks identified at this time. 19:30 Method Of Arrival: EMS: [facility] jb4 20:00 Initial Sepsis Screen: Does the patient meet any 2 criteria? No. Patient's initial jb4 sepsis screen is negative. Does the patient have a suspected source of infection? No. Patient's initial sepsis screen is negative. Risk Assessment: Do you want to hurt yourself or someone else? Patient reports no desire to harm self or others. Onset of symptoms was December 16, 2024. 20:00 Acuity: JEANINE 3 jb4 Historical: - Allergies: 19:40 No Known Drug Allergies; jb4 - Home Meds: 19:40 Lisinopril Oral [Active]; Plavix Oral [Active]; jb4 - PMHx: 19:40 Hyperlipidemia; Hypertension; Hypothyroidism; insomnia; TIA; jb4 - PSHx: 19:40 Neck sx; R arm; R knee replacement; jb4 - Immunization history:: Adult Immunizations unknown. - Infectious Disease History:: Denies. - Family history:: not pertinent. - Social history:: Smoking status: Patient denies any tobacco usage or history of. Screenin:04 [facility] ED Fall Risk Assessment (Adult) History of falling in the last 3 months, jb4 including since admission Yes- single mechanical fall (1 pt) Confusion or Disorientation No (0 pts) Intoxicated or Sedated No (0 pts) Impaired Gait No (0 pts) Mobility Assist Device Used No (0 pt) Altered Elimination No (0 pt) Score/Fall Risk Level 0 - 2 = Low Risk Oriented to surroundings, Maintained a safe environment. Abuse screen: Denies threats or abuse. Nutritional screening: No deficits noted. Tuberculosis screening: No symptoms or risk factors identified. Assessment: 19:40 General: Appears in no apparent distress. uncomfortable, Behavior is calm, cooperative, jb4 appropriate for age. Pain: Complains of pain in forehead and scalp Pain does not radiate. Pain currently is 6 out of 10 on a pain scale. Neuro: Level of Consciousness is awake, alert, obeys commands, Oriented to person, place, time, situation. Cardiovascular: Patient's skin is warm and dry. Respiratory: Airway is patent Respiratory effort is even, unlabored, Respiratory pattern is regular, symmetrical. Derm: Skin is pink, warm \T\ dry. Musculoskeletal: Circulation, motion, and sensation intact. Range of motion: intact in all extremities. Injury Description: Laceration sustained to right parietal area is clean, superficial, 0.5 to 2.5 cm long, not bleeding, moderate bleeding noted at this time. 21:00 Reassessment: Patient appears in no apparent distress at this time. Patient and/or jb4 family updated on plan of care and expected duration. Pain level reassessed. Patient is alert, oriented x 3, equal unlabored respirations, skin warm/dry/pink. 22:04 Reassessment: Patient appears in no apparent distress at this time. Patient and/or jb4 family updated on plan of care and expected duration. Pain level reassessed. Patient is alert, oriented x 3, equal unlabored respirations, skin warm/dry/pink. Vital Signs: 20:00 BP 185 / 83; Pulse 87; Resp 16; Temp 97(TE); Pulse Ox 100% on R/A; Weight 63.5 kg (R); jb4 Height 5 ft. 0 in. ; Pain 6/10; 22:04 BP 135 / 65; Pulse 93; Resp 16; Pulse Ox 100% on R/A; jb4 20:00 Body Mass Index 27.34 (63.50 kg, 152.4 cm) jb4 20:00 Pain Scale: Adult jb4 [place] Coma Score: 19:51 Eye Response: spontaneous(4). Motor Response: obeys commands(6). Verbal Response: farhad oriented(5). Total: 15. 22:04 Eye Response: spontaneous(4). Motor Response: obeys commands(6). Verbal Response: jb4 oriented(5). Total: 15. Trauma Score (Adult): 22:04 Eye Response: spontaneous(1); Verbal Response: oriented(1); Motor Response: obeys jb4 commands(2); Systolic BP: > 89 mm Hg(4); Respiratory Rate: 10 to 29 per min(4); Donnell Score: 15; Trauma Score: 12 ED Course: 19:16 Patient arrived in ED. jb4 19:22 Angelo Rangel MD is Attending Physician. farhad 19:40 Arm band placed on right wrist. jb4 19:59 Comprehensive Metabolic Panel Sent. jb4 19:59 CBC with Diff Sent. jb4 20:12 Chest Abd Pelvis Wo Con In Process Unspecified. EDMS 20:12 Head C Spine Mpr Wo Con In Process Unspecified. EDMS 20:59 Triage completed. jb4 21:21 Keo Crain, RN is Primary Nurse. jb4 22:04 No provider procedures requiring assistance completed. IV discontinued, intact, jb4 bleeding controlled, No redness/swelling at site. Pressure dressing applied. 22:04 Patient has correct armband on for positive identification. Bed in low position. Call jb4 light in reach. Side rails up X 1. Provided Education on: discharge instructions.. Administered Medications: 21:01 Drug: Boostrix Tdap IM 0.5 ml IM once; as a single dose Route: IM; Site: left deltoid; jb4 22:05 Follow up: Response: No adverse reaction jb4 21:22 Drug: Lidocaine-Epinephrine Infiltration -1%: (1:100,000) 10 ml 20 ml Infiltration jb4 once; to bedside {Note: administered by ER provider..} Volume: 20 ml; Route: Infiltration; 22:05 Follow up: Response: No adverse reaction jb4 21:40 Drug: Acetaminophen PO 650 mg PO once Route: PO; ay 22:05 Follow up: Response: No adverse reaction jb4 Medication: 22:04 VIS not applicable for this client. jb4 Outcome: 21:37 Discharge ordered by . farhad 22:05 Patient left the ED. jb4 Signatures: Dispatcher [employer] EDAngelo Miller MD MD cha Bryson, James, RN RN Roger Mackey RN CATARINA ay Corrections: (The following items were deleted from the chart) 21:25 21:22 Reassessment: Patient appears in no apparent distress at this time. Patient jb4 and/or family updated on plan of care and expected duration. Pain level reassessed. Patient is alert, oriented x 3, equal unlabored respirations, skin warm/dry/pink. jb4
[2024-12-16 22:09] VITALS: TEMP 97; O2SAT 100
[2024-12-16 22:11] VITALS: BP 135/65
== END 2024-12-16 22:05 | disposition home or self-care (01) ==
LOC: ER 19:00
DX: S01.01XA Laceration without foreign body of scalp, initial encounter (principal); W18.30XA Fall on same level, unspecified, initial encounter; R29.6 Repeated falls; I10 Essential (primary) hypertension; E78.5 Hyperlipidemia, unspecified
CPT/HCPCS: 12002; 36415; 70450; 71250; 72125; 74176; 80053; 84484; 85025; 93005; 96372; 99284

== ENCOUNTER 2025-01-10 12:23 | Emergency (ER) | payer OTHER ==
--- NOTE | 2025-01-10 13:37 | ER ---
Nurse's Notes [facility] Name: Wilma Ovalle Age: 79 yrs Sex: Female : 1945 Arrival Date: 01/10/2025 Time: 12:23 Bed 12 Private MD: Diagnosis: Wound dehiscence Presentation: 01/10 12:44 Chief complaint: Patient states: Fell on 12/16, thinks that her wound she sustained to the back of her head is infected, lance to wound still in place. Coronavirus screen: Vaccine status: Patient reports receiving the 2nd dose of the covid vaccine. Ebola Screen: No symptoms or risks identified at this time. Initial Sepsis Screen: Does the patient meet any 2 criteria? No. Patient's initial sepsis screen is negative. Does the patient have a suspected source of infection? No. Patient's initial sepsis screen is negative. Risk Assessment: Do you want to hurt yourself or someone else? Patient reports no desire to harm self or others. 12:44 Method Of Arrival: Wheelchair ph 12:47 Onset of symptoms was January 10, 2025. ph 12:53 Acuity: JEANINE 4 ph Triage Assessment: 13:41 General: Appears in no apparent distress. Behavior is calm, cooperative, appropriate ll1 for age. Historical: - Allergies: 12:49 No Known Drug Allergies; ph - Home Meds: 12:49 lisinopril Oral [Active]; Plavix Oral [Active]; ph - PMHx: 12:49 Hyperlipidemia; Hypertension; Hypothyroidism; insomnia; TIA; ph - PSHx: 12:49 Neck sx; R arm; R knee replacement; ph - Immunization history:: Adult Immunizations unknown. - Infectious Disease History:: Denies. - Social history:: Smoking status: Patient denies any tobacco usage or history of. - Family history:: not pertinent. - Hospitalizations: : No recent hospitalization is reported. Screenin:42 [facility] ED Fall Risk Assessment (Adult) History of falling in the last 3 months, ll1 including since admission Yes- single mechanical fall (1 pt) Confusion or Disorientation No (0 pts) Intoxicated or Sedated No (0 pts) Impaired Gait Yes (1 pt) Mobility Assist Device Used Yes (1 pt) Altered Elimination No (0 pt) Score/Fall Risk Level 3 or more points = High Risk Maintained a safe environment, Used ambulatory aids as needed (educated on \T\ assisted with). Abuse screen: Denies threats or abuse. Nutritional screening: No deficits noted. Tuberculosis screening: No symptoms or risk factors identified. Assessment: 13:40 General: Appears in no apparent distress. Behavior is calm, cooperative, appropriate ll1 for age. Pain: Complains of pain in scalp Quality of pain is described as aching. Derm: Reports open wound back of scalp, lance came open. Vital Signs: 12:53 BP 130 / 87; Pulse 91; Resp 18; Temp 97.9; Pulse Ox 96% on R/A; ph ED Course: 12:30 Patient arrived in ED. cj3 12:36 Alejandro Willoughby MD is Attending Physician. rn 12:52 Arm band placed on Patient placed in an exam room. ph 12:53 Triage completed. ph 13:41 No provider procedures requiring assistance completed. Patient did not have IV access ll1 during this emergency room visit. Wound care: to wound dehiscence. 13:42 Patient has correct armband on for positive identification. Provided Education on: ll1 return to ED for worsening symptoms, verbalized understanding. Administered Medications: No medications were administered Medication: 13:42 VIS not applicable for this client. ll1 Outcome: 13:37 Discharge ordered by . rn 13:42 Patient left the ED. ll1 13:42 Discharged to home via wheelchair, ll1 13:42 Condition: stable 13:42 Discharge instructions given to patient, Instructed on discharge instructions, follow up and referral plans. wound care, Demonstrated understanding of instructions, follow-up care, wound care, Signatures: Alejandro Willoughby MD MD rn Hall, Patricia, RN RN Cassidy Clark RN RN ll1 Dania Cherry cj3 Corrections: (The following items were deleted from the chart) 12:49 12:44 Chief complaint: Patient states: Fell on 12/16, thinks that her wound she ph sustained to the back of her head is infected ph
--- NOTE | 2025-01-10 13:37 | EDPHYS ---
Physician Documentation [facility] Name: Wilma Ovalle Age: 79 yrs Sex: Female : 1945 Arrival Date: 01/10/2025 Time: 12:23 Bed 12 Private MD: ED Physician Alejandro Willoughby HPI: 01/10 13:34 This 79 yrs old Female presents to ER via Wheelchair with complaints of Wound rn Check. 13:34 Patient presents to ED for recheck of: laceration. Previous treatment: The patient was rn initially treated 1 month ago. Patient reports had fall and laceration to head 1 month ago with sutures and lance. PCP would not take out the lance or sutures. Patient was to follow-up with wound care because wound seem to have opened up. No fever or chills. No drainage. Patient directed here for staple and suture removal.. Historical: - Allergies: 12:49 No Known Drug Allergies; ph - Home Meds: 12:49 lisinopril Oral [Active]; Plavix Oral [Active]; ph - PMHx: 12:49 Hyperlipidemia; Hypertension; Hypothyroidism; insomnia; TIA; ph - PSHx: 12:49 Neck sx; R arm; R knee replacement; ph - Immunization history:: Adult Immunizations unknown. - Infectious Disease History:: Denies. - Social history:: Smoking status: Patient denies any tobacco usage or history of. - Family history:: not pertinent. - Hospitalizations: : No recent hospitalization is reported. ROS: 13:34 Constitutional: Negative for fever, chills, and weight loss, Skin: Positive for lance rn and sutures to posterior scalp Exam: 13:34 Constitutional: This is a well developed, well nourished patient who is awake, alert, rn and in no acute distress. Head/Face: Normocephalic, 3 sutures and 4 lance on occiput, evidence of wound dehiscence but no evidence of infection or drainage. Vital Signs: 12:53 BP 130 / 87; Pulse 91; Resp 18; Temp 97.9; Pulse Ox 96% on R/A; ph Procedures: 13:34 Suture/Staple removal: Removed 3 sutures, 4 lance, from scalp, site appears gaping, rn dressed with gauze bandage, Patient tolerated well. MDM: 12:36 Medical Screening Exam initiated rn 13:34 Differential diagnosis: Wound dehiscence. Data reviewed: vital signs, nurses notes, and rn as a result, I will discharge patient. Counseling: I had a detailed discussion with the patient and/or guardian regarding the historical points, exam findings, and any diagnostic results supporting the discharge/admit diagnosis, the need for outpatient follow up, to return to the emergency department if symptoms worsen or persist or if there are any questions or concerns that arise at home. Special discussion: I discussed with the patient/guardian in detail that at this point there is no indication for admission to the hospital. It is understood, however, that if the symptoms persist or worsen the patient needs to return immediately for re-evaluation. ED course: Patient with wound dehiscence from previous closure, is now 1 month old, no evidence of infection, remove lance and sutures as they were only along 1 edge of wound, needs to follow-up with wound care and PCP for further wound care management.. Administered Medications: No medications were administered Disposition Summary: 01/10/25 13:37 Discharge Ordered Notes: Location: Home rn Problem: an ongoing problem rn Symptoms: are unchanged rn Condition: Stable rn Diagnosis - Wound dehiscence rn Followup: rn - With: Private Physician - When: As needed - Reason: Recheck today's complaints, Re-evaluation by your physician Discharge Instructions: - Discharge Summary Sheet rn - Wound Dehiscence rn - Wound Care, Adult rn Forms: - Medication Reconciliation Form rn - Antibiotic journalist - Prescription Opioid Use rn - Patient Portal Instructions rn - Leadership Thank You Letter rn Signatures: Alejandro Willoughby MD MD rn Hall, Patricia, RN RN
[2025-01-10 13:55] VITALS: BP 130/87; TEMP 97.9; O2SAT 96
== END 2025-01-10 13:42 | disposition home or self-care (01) ==
LOC: ER 12:23
DX: T81.33XA Disruption of traumatic injury wound repair, initial encounter (principal); Z48.02 Encounter for removal of sutures
CPT/HCPCS: 99283

== ENCOUNTER 2025-03-10 22:41 | Emergency (ER) | payer OTHER ==
[2025-03-10] MEDS ORDERED: NA CHLORIDE 0.9% 250 ML ONE (23:19)
[2025-03-10] MEDS ORDERED: PANTOPRAZOLE 40 MG INJ ONE (23:19)
[2025-03-10] MEDS ORDERED: NA CHLORIDE 0.9% 500 ML ONE (23:20)
[2025-03-10 23:46] LABS: Absolute Lymphocytes (CBC) 1.3 K/uL (0.7-4.9); Absolute Monocytes 0.5 K/uL (0.1-1.3); Absolute Neutrophil 6.7 K/uL (1.8-8.0); Basophils % 0.2 % (0-1.3); Eosinophils % 0.4 % (0-4.4); Hemoglobin 9.7 g/dL (12.0-15.0); Lymphocytes % 15.3 % (15.3-44.8); MCH 32.4 pg (27.0-35.0); MCHC 34.7 g/dL (32.0-36.0); MCV 93.4 fL (80-100); MPV 7.2 fL (7.6-11.3); Monocytes % 5.5 % (3.3-12.3); Neutrophils % 78.6 % (41.7-73.7); Platelets 234 thou/uL (152-406); Red Cell Distribution Width 14.8 % (12.1-15.2)
[2025-03-11] LABS: Albumin 3.6 g/dL (3.4-5.0); Albumin/Globulin Ratio 1.1 (1.1-1.8); Anion Gap 12.4 mEq/L (5.0-15.0); Bilirubin Direct 0.2 mg/dL (0-0.2); Bilirubin Indirect, Calculated 0.4 mg/dL (0.2-0.8); Bilirubin Total 0.6 mg/dL (0.2-1.0); Globulin 3.2 g/dL (2.3-3.5); Magnesium 1.9 mg/dL (1.6-2.4); Potassium 4.4 mEq/L (3.5-5.1); Protein, Total 6.8 g/dL (6.4-8.2); Troponin High Sensitivity 10.7 pg/mL (<58.9)
--- NOTE | 2025-03-11 00:16 | EDPHYS ---
Physician Documentation [facility] Name: Wilma Ovalle Age: 79 yrs Sex: Female : 1945 Arrival Date: 03/10/2025 Time: 22:41 Bed 3 Private MD: ED Physician Angelo Rangel HPI: 03/10 23:05 This 79 yrs old Female presents to ER via EMS with complaints of GI Bleeding. cp 23:05 The patient presents to the emergency department vomiting blood, bright red, coffee cp grounds in nature, with multiple such episodes. 23:05 Onset: The symptoms/episode began/occurred this afternoon about 1400. Severity of cp symptoms: in the emergency department the symptoms are unchanged despite EMS interventions. EMS reports patient takes prescribed blood thinner but unsure of name of blood thinner. Historical: - Allergies: 22:46 No Known Allergies; ha1 - Home Meds: 22:46 Plavix Oral [Active]; lisinopril Oral [Active]; ha1 - PMHx: 22:46 Hyperlipidemia; Hypertension; Hypothyroidism; insomnia; TIA; ha1 - PSHx: 22:46 Neck sx; R arm; R knee replacement; ha1 - Immunization history:: Adult Immunizations up to date. - Infectious Disease History:: Denies. - Social history:: Smoking status: Patient denies any tobacco usage or history of. ROS: 23:10 Constitutional: Negative for body aches, chills, fever, cp 23:10 Cardiovascular: Negative for chest pain, cp 23:10 Respiratory: Negative for cough, shortness of breath, wheezing, 23:10 Abdomen/GI: Positive for nausea and vomiting, hematemesis, Negative for diarrhea, 23:10 Neuro: Negative for altered mental status, dizziness, headache, syncope, weakness, 23:10 All other systems are negative, cp Exam: 23:02 ECG was reviewed by the Attending Physician. cp 23:15 Constitutional: The patient appears in no acute distress, alert, awake, cp non-diaphoretic, non-toxic, well developed, well nourished, 23:15 Head/Face: Normocephalic, atraumatic. cp 23:15 Eyes: Periorbital structures: appear normal, Pupils: equal, round, and reactive to light and accomodation, Conjunctiva: normal, no exudate, no injection, Sclera: no appreciated abnormality, Lids and lashes: appear normal, bilaterally, 23:15 ENT: External ear(s): are unremarkable, Nose: is normal, Mouth: Lips: moist, Oral mucosa: moist, Posterior pharynx: Airway: no evidence of obstruction, patent, 23:15 Chest/axilla: Inspection: normal, 23:15 Cardiovascular: Rate: tachycardic, Rhythm: regular, Edema: is not appreciated, JVD: is not appreciated, 23:15 Respiratory: the patient does not display signs of respiratory distress, Respirations: normal, no use of accessory muscles, no retractions, labored breathing, is not present, Breath sounds: are clear throughout, no decreased breath sounds, no stridor, no wheezing, 23:15 Abdomen/GI: Inspection: abdomen appears normal, Bowel sounds: active, all quadrants, Palpation: soft, in all quadrants, mild abdominal tenderness, in the epigastric area, rebound tenderness, is not appreciated, involuntary guarding, is not appreciated, 23:15 Neuro: Orientation: to person, place \T\ time. Mentation: is normal, Motor: moves all fours, no focal deficits, Sensation: no obvious gross deficits, Vital Signs: 22:46 BP 96 / 54; Pulse 123; Resp 17 S; Temp 97.9; Pulse Ox 98% on R/A; Weight 65.77 kg; ha1 Height 5 ft. 2 in. ; Pain 0/; 03/11 00:04 BP 113 / 51; Pulse 110; Resp 19; Temp 97.9; Pulse Ox 100% on R/A; Pain 0/10; bm8 01:11 BP 106 / 81; Pulse 105; Resp 16; Temp 98.4; Pulse Ox 99% ; Pain 0/10; bm8 02:28 BP 124 / 78; Pulse 115; Resp 17; Temp 98.4; Pain 0/10; bm8 10 22:46 Body Mass Index 26.52 (65.77 kg, 157.48 cm) ha1 03/10 22:46 Pain Scale: Adult ha1 03/11 00:04 Pain Scale: Adult bm8 01:11 Pain Scale: Adult bm8 02:28 Pain Scale: Adult bm8 [place] Score: 00:04 Eye Response: spontaneous(4). Motor Response: obeys commands(6). Verbal Response: bm8 oriented(5). Total: 15. 01:11 Eye Response: spontaneous(4). Motor Response: obeys commands(6). Verbal Response: bm8 oriented(5). Total: 15. 02:28 Eye Response: spontaneous(4). Motor Response: obeys commands(6). Verbal Response: bm8 oriented(5). Total: 15. MDM: 00:15 Medical Screening Exam initiated cp 00:15 Data reviewed: vital signs, nurses notes, lab test result(s), EKG, radiologic studies, cp plain films, and as a result, I will transfer patient. patient refuses blood transfusion due to yarsanism preference. 00:15 Differential diagnosis: gastritis, hemorrhagic shock, anemia. I considered the cp following discharge prescriptions or medication management in the emergency department Medications were administered in the Emergency Department. See MAR. Independent interpretation of the following test(s) in the Emergency Department EKG: See my EKG interpretation above. Care significantly affected by the following chronic conditions: Hypertension. Counseling: I had a detailed discussion with the patient and/or guardian regarding the historical points, exam findings, and any diagnostic results supporting the discharge/admit diagnosis, lab results, radiology results, the need to transfer to another facility, for higher level of care. Response to treatment: the patient's symptoms have markedly improved after treatment. 00:45 ED course: consult with hospitalist, DR Arana, who will accept patient after cp discussion. 03/10 23:00 Order name: Basic Metabolic Panel; Complete Time: 00:35 cp 03/10 23:00 Order name: CBC with Diff; Complete Time: 00:35 cp 03/10 23:00 Order name: LFT's; Complete Time: 00:35 cp 03/10 23:00 Order name: Magnesium; Complete Time: 00:35 cp 03/10 23:00 Order name: NT PRO-BNP; Complete Time: 00:35 cp 03/10 23:00 Order name: PT-INR; Complete Time: 00:35 cp 03/10 23:00 Order name: Troponin HS; Complete Time: 00:35 cp 03/10 23:00 Order name: Type And Screen cp 03/10 23:00 Order name: Lactate w/ 2H reflex if indic.; Complete Time: 00:35 cp 03/10 23:00 Order name: Blood Culture Adult (2) cp 03/10 23:00 Order name: Ptt, Activated; Complete Time: 00:35 cp 03/11 00:13 Order name: Ghost Lactate-NO COLLECT Timer EDMS 03/10 23:00 Order name: XRAY Chest (1 view) cp 03/11 00:41 Order name: CT Abd/Pelvis - IV Contrast Only cp 03/10 23:00 Order name: EKG; Complete Time: 23:01 cp 03/10 23:00 Order name: Cardiac monitoring; Complete Time: 23:17 cp 03/10 23:00 Order name: EKG - Nurse/Tech; Complete Time: 23:17 cp 03/10 23:00 Order name: IV Saline Lock; Complete Time: 23:17 cp 03/10 23:00 Order name: Labs collected and sent; Complete Time: 23:17 cp 03/10 23:00 Order name: O2 Per Protocol; Complete Time: 23:17 cp 03/10 23:00 Order name: O2 Sat Monitoring; Complete Time: 23:17 cp EC/10 23:02 Rate is 116 beats/min. Rhythm is regular. MA interval is normal. QRS interval is cp normal. QT interval is normal. T waves are Inverted in lead aVR. Interpreted by me. Reviewed by me. Administered Medications: 23:30 Drug: Pantoprazole IV 8 mg/hr IV at 25 ml/hr continuous; (Standard dilution is 80 mg in bm8 250 mL NS) Route: IV; Rate: 25 ml/hr; Site: left antecubital; 03/11 00:32 Follow up: Response: No adverse reaction; IV Status: Infusion continued upon transfer [facility] 03/10 23:30 Drug: NS 0.9% IV 500 ml 500 ml IV at 1 bolus once; to be given as a bolus over 30 bm8 minutes Volume: 500 ml; Route: IV; Rate: 1 bolus; Site: left antecubital; 03/11 00:07 Follow up: Response: No adverse reaction; IV Status: Completed infusion [facility] 03/10 23:30 Drug: Pantoprazole IVP 40 mg IVP once Route: IVP; Site: left antecubital; [facility] 03/11 00:00 Follow up: Response: No adverse reaction; Marked relief of symptoms [facility] 03/10 23:31 Drug: Pantoprazole IVP 40 mg IVP once Route: IVP; Site: left antecubital; bm8 03/11 00:00 Follow up: Response: No adverse reaction; Marked relief of symptoms ha1 00:41 Drug: NS 0.9% IV 500 ml 500 ml IV at 1 bolus once; to be given as a bolus over 30 bm8 minutes Volume: 500 ml; Route: IV; Rate: 1 bolus; Site: left antecubital; 02:30 Follow up: Response: No adverse reaction; IV Status: Completed infusion bm8 01:04 Drug: Rocephin IV 1 grams IV at calculated rate once; Given slow IV push per pharmacy bm8 instructions Route: IV; Rate: calculated rate; Site: left antecubital; 02:30 Follow up: Response: No adverse reaction; IV Status: Completed infusion bm8 01:04 Drug: Octreotide IV 50 mcg IV at calculated rate once Route: IV; Rate: calculated rate; bm8 Site: left antecubital; 02:30 Follow up: Response: No adverse reaction; IV Status: Completed infusion bm8 01:04 Drug: Octreotide Infusion (50 mcg/hr) - (Octreotide IV 500 mcg, NS 0.9% IV 500 ml) IV bm8 at 50 ml/hr continuous Route: IV; Rate: 50 ml/hr; Site: right forearm; 02:30 Follow up: Response: No adverse reaction; IV Status: Infusion continued upon transfer bm8 Disposition: 03/12 01:32 Chart complete. cp Disposition Summary: 03/11/25 00:15 Transfer Ordered Notes: Reason: Higher level of care cp Condition: Stable cp Problem: new cp Symptoms: have improved cp Transfer Location: [facility](03/11/25 02:53) cp Accepting Physician: DR Mark Arana(03/11/25 03:12) ha1 Diagnosis - GI Bleed/ Gastrointestinal hemorrhage, unspecified cp - Anemia in other chronic diseases classified elsewhere cp - Nausea with vomiting, unspecified cp Forms: - Medication Reconciliation Form cp - SBAR form cp Critical care time excluding procedures: :32 Critical care time: Bedside Care: 8 minutes, Consultation: 25 minutes. Total time: 33 cp minutes Signatures: Dispatcher [employer] EDMS Angelo Foster PA PA cp Ayala, Heidy RN RN ha1 Tobin Thorne RN RN bm8 Corrections: (The following items were deleted from the chart) 03/10 23: 23:00 BASIC METABOLIC PANEL+C.LAB.BRZ ordered. EDMS EDMS : 23:00 CBC+H.LAB.BRZ ordered. EDMS EDMS : 23:00 HEPATIC FUNCTION+C.LAB.BRZ ordered. EDMS EDMS : 23:00 MAGNESIUM+C.LAB.BRZ ordered. EDMS EDMS : 23:00 PROBNP+C.LAB.BRZ ordered. EDMS EDMS : 23:00 PROTIME (+INR)+COAG.LAB.BRZ ordered. EDMS EDMS : 23:00 Troponin High Sensitivity+C.LAB.BRZ ordered. EDMS EDMS : 23:00 TYPE AND SCREEN+BB.LAB.BRZ ordered. EDMS EDMS : 23:00 LACTATE+C.LAB.BRZ ordered. EDMS EDMS : 23:00 BLOOD CULTURE*+BA.LAB.BRZ ordered. EDMS EDMS : 23:00 PTT, ACTIVATED+COAG.LAB.BRZ ordered. EDMS EDMS 03/11 02:33 00:15 doctor cp bm8 02:53 00:15 [facility] cp cp 02:53 02:33 doctor bm8 cp 03:12 02:53 DR Mark Arana cp ha1
--- NOTE | 2025-03-11 00:16 | ER ---
Nurse's Notes [facility] Name: Wilma Ovalle Age: 79 yrs Sex: Female : 1945 Arrival Date: 03/10/2025 Time: 22:41 Bed 3 Private MD: Diagnosis: GI Bleed/ Gastrointestinal hemorrhage, unspecified;Anemia in other chronic diseases classified elsewhere;Nausea with vomiting, unspecified Presentation: 03/10 22:46 Chief complaint: EMS states: STARTED VOMITING AROUND 2PM TODAY, HAD LIKE FOUR EPISODES ha1 OF VOMITING SINCE THEN. OUR ARRIVAL COFFEE GROUND EMESIS AND BLOODY STOOL, DIAPHORETIC, AND LOW bp AT LOW 90s. 2.5 mg OF DROPERIDOL GIVEN AND ABOUT 400 ML IV FLUIDS GIVEN. 22:46 Coronavirus screen: Client denies travel out of the [place] in the last 14 days. Ebola ha1 Screen: No symptoms or risks identified at this time. Initial Sepsis Screen: Does the patient meet any 2 criteria? No. Patient's initial sepsis screen is negative. Does the patient have a suspected source of infection? No. Patient's initial sepsis screen is negative. Risk Assessment: Do you want to hurt yourself or someone else? Patient reports no desire to harm self or others. Onset of symptoms was March 10, 2025. 22:46 Method Of Arrival: EMS: [facility] ha1 22:46 Acuity: JEANINE 2 ha1 Triage Assessment: 22:46 General: Appears comfortable, Behavior is calm, cooperative. Pain: Denies pain. Neuro: ha1 Level of Consciousness is awake, alert, obeys commands, Oriented to person, place, time, situation, Reports weakness GENERALIZED. Cardiovascular: Respiratory: Airway is patent Trachea midline Respiratory effort is even, unlabored, Respiratory pattern is regular, symmetrical. GI: Abdomen is round non-distended, obese, Bowel sounds present X 4 quads. Reports VOMITING BLOOD AND LARGE BOWEL MOVEMENT WITH BLOOD EARLY TODAY. NAUSEA DECREASED AFTER MEDICATION GIVEN BY EMS. : No signs and/or symptoms were reported regarding the genitourinary system. Derm: Skin is fragile, Skin is moist, Skin is pale. Musculoskeletal: Circulation, motion, and sensation intact. Historical: - Allergies: 22:46 No Known Allergies; ha1 - Home Meds: 22:46 Plavix Oral [Active]; lisinopril Oral [Active]; ha1 - PMHx: 22:46 Hyperlipidemia; Hypertension; Hypothyroidism; insomnia; TIA; ha1 - PSHx: 22:46 Neck sx; R arm; R knee replacement; ha1 - Immunization history:: Adult Immunizations up to date. - Infectious Disease History:: Denies. - Social history:: Smoking status: Patient denies any tobacco usage or history of. Screenin:15 [facility] ED Fall Risk Assessment (Adult) History of falling in the last 3 months, ha1 including since admission Yes- single mechanical fall (1 pt) Confusion or Disorientation No (0 pts) Intoxicated or Sedated No (0 pts) Impaired Gait Yes (1 pt) Mobility Assist Device Used Yes (1 pt) Altered Elimination No (0 pt) Score/Fall Risk Level 3 or more points = High Risk Oriented to surroundings, Maintained a safe environment, Educated pt \T\ family on fall prevention, incl call for assistance when getting out of bed, Hourly rounding (assess needs \T\ fall precautionary measures) done. Abuse screen: Denies threats or abuse. Denies injuries from another. Nutritional screening: No deficits noted. Tuberculosis screening: No symptoms or risk factors identified. Assessment: 22:46 Reassessment: SEE TRIAGE ASSESSMENT. ha1 23:30 Reassessment: Patient and/or family updated on plan of care and expected duration. Pain ha1 level reassessed. WARM BLANKET PROVIDED. 03/11 00:04 Reassessment: Patient appears in no apparent distress at this time. Patient and/or bm8 family updated on plan of care and expected duration. Pain level reassessed. Patient is alert, oriented x 3, equal unlabored respirations, skin warm/dry/pink. Went to give BLOOD TRANSFUSION education and explain procedure and pt is declining blood products due to voodoo beliefs. Provider informed. Patient denies pain at this time. 01:15 Reassessment: attemtpted to call report Charge nurse stated that receiving nurse was bm8 down in ER. Asked to give report to charge and she stated that she could not take now. Name and number of nurse to give report was given. 02:12 Reassessment: report given to Enoch at [facility] ICU. bm8 02:28 Reassessment: Patient appears in no apparent distress at this time. Patient and/or bm8 family updated on plan of care and expected duration. Pain level reassessed. Patient is alert, oriented x 3, equal unlabored respirations, skin warm/dry/pink. Patient denies pain at this time. Patient states feeling better. Vital Signs: 03/10 22:46 BP 96 / 54; Pulse 123; Resp 17 S; Temp 97.9; Pulse Ox 98% on R/A; Weight 65.77 kg; ha1 Height 5 ft. 2 in. ; Pain 0/10; 03/11 00:04 BP 113 / 51; Pulse 110; Resp 19; Temp 97.9; Pulse Ox 100% on R/A; Pain 0/10; bm8 01:11 BP 106 / 81; Pulse 105; Resp 16; Temp 98.4; Pulse Ox 99% ; Pain 0/10; bm8 02:28 BP 124 / 78; Pulse 115; Resp 17; Temp 98.4; Pain 0/10; bm8 03/10 22:46 Body Mass Index 26.52 (65.77 kg, 157.48 cm) ha1 03/10 22:46 Pain Scale: Adult ha1 03/11 00:04 Pain Scale: Adult bm8 01:11 Pain Scale: Adult bm8 02:28 Pain Scale: Adult bm8 Donnell Coma Score: 00:04 Eye Response: spontaneous(4). Motor Response: obeys commands(6). Verbal Response: bm8 oriented(5). Total: 15. 01:11 Eye Response: spontaneous(4). Motor Response: obeys commands(6). Verbal Response: bm8 oriented(5). Total: 15. 02:28 Eye Response: spontaneous(4). Motor Response: obeys commands(6). Verbal Response: bm8 oriented(5). Total: 15. ED Course: 03/10 22:46 Patient arrived in ED. kmf 22:46 Arm band placed on right wrist. EKG completed in triage. Results shown to MD. ha1 22:46 Patient has correct armband on for positive identification. Placed in gown. Bed in low ha1 position. Call light in reach. Side rails up X2. Provided Education on: PLAN OF CARE . 22:46 Client placed on continuous cardiac and pulse oximetry monitoring. NIBP monitoring ha1 applied. customer advisor specialist on. 22:46 Inserted saline lock: 18 gauge in left antecubital area, using aseptic technique. Blood ha1 collected. Flushed with 10 mL NS Accessed peripheral vein via ultrasound, utilizing dynamic ultrasound technique. 22:52 Angelo Foster PA is PHCP. cp 22:52 Angelo Rangel MD is Attending Physician. cp 23:05 Initial lab(s) drawn, by de, sent to lab. First set of blood cultures drawn by me, EKG bm8 done, by ED staff, reviewed by Angelo BOWMAN. Patient maintains SpO2 saturation greater than 95% on room air. 23:10 Triage completed. ha1 23:17 Basic Metabolic Panel Sent. ha1 23:17 CBC with Diff Sent. ha1 23:17 LFT's Sent. ha1 23:17 Magnesium Sent. ha1 23:17 NT PRO-BNP Sent. ha1 23:17 PT-INR Sent. ha1 23:17 Troponin HS Sent. ha1 23:17 Blood Culture Adult (2) Sent. ha1 23:17 Lactate w/ 2H reflex if indic. Sent. ha1 23:17 Type And Screen Sent. ha1 23:52 XRAY Chest (1 view) In Process Unspecified. EDMS 03/11 00:04 Tobin Thorne, RN is Primary Nurse. bm8 00:15 initiated transfer with kellie \\ [facility]. [facility] 01:32 pt was accepted to [facility] ICU 204. Accepting Mark Maya \T\ 0041. [facility] Admin approval Kellie Handley \T\ 0053. Awaiting pt to finish ABD/ Pelvis CT to call for transport. 01:43 CT Abd/Pelvis - IV Contrast Only In Process Unspecified. EDMS 02:28 Door closed. Noise minimized. Warm blanket given. Pillow given. Verbal reassurance bm8 given. Head of bed elevated. 02:28 No provider procedures requiring assistance completed. Patient transferred, IV remains bm8 in place. 02:51 Primary Nurse role handed off by Tobin Thorne, RN cp Administered Medications: 03/10 23:30 Drug: Pantoprazole IV 8 mg/hr IV at 25 ml/hr continuous; (Standard dilution is 80 mg in bm8 250 mL NS) Route: IV; Rate: 25 ml/hr; Site: left antecubital; 03/11 00:32 Follow up: Response: No adverse reaction; IV Status: Infusion continued upon transfer ha1 05/10 23:30 Drug: NS 0.9% IV 500 ml 500 ml IV at 1 bolus once; to be given as a bolus over 30 bm8 minutes Volume: 500 ml; Route: IV; Rate: 1 bolus; Site: left antecubital; 03/11 00:07 Follow up: Response: No adverse reaction; IV Status: Completed infusion 8 03/10 23:30 Drug: Pantoprazole IVP 40 mg IVP once Route: IVP; Site: left antecubital; 8 03/11 00:00 Follow up: Response: No adverse reaction; Marked relief of symptoms 1 03/10 23:31 Drug: Pantoprazole IVP 40 mg IVP once Route: IVP; Site: left antecubital; 8 03/11 00:00 Follow up: Response: No adverse reaction; Marked relief of symptoms 1 00:41 Drug: NS 0.9% IV 500 ml 500 ml IV at 1 bolus once; to be given as a bolus over 30 bm8 minutes Volume: 500 ml; Route: IV; Rate: 1 bolus; Site: left antecubital; 02:30 Follow up: Response: No adverse reaction; IV Status: Completed infusion bm8 01:04 Drug: Rocephin IV 1 grams IV at calculated rate once; Given slow IV push per pharmacy 8 instructions Route: IV; Rate: calculated rate; Site: left antecubital; 02:30 Follow up: Response: No adverse reaction; IV Status: Completed infusion bm8 01:04 Drug: Octreotide IV 50 mcg IV at calculated rate once Route: IV; Rate: calculated rate; 8 Site: left antecubital; 02:30 Follow up: Response: No adverse reaction; IV Status: Completed infusion bm8 01:04 Drug: Octreotide Infusion (50 mcg/hr) - (Octreotide IV 500 mcg, NS 0.9% IV 500 ml) IV bm8 at 50 ml/hr continuous Route: IV; Rate: 50 ml/hr; Site: right forearm; 02:30 Follow up: Response: No adverse reaction; IV Status: Infusion continued upon transfer bm8 Medication: 03/10 23:16 VIS not applicable for this client. ha1 Outcome: 03/11 00:15 ER care complete, transfer ordered by MD. frazier 02:28 Discharged to home ambulatory, bm8 02:28 Condition: stable 02:28 Instructed on the need for transfer, Demonstrated understanding of instructions, follow-up care, 02:33 Patient left the ED. bm8 03:12 Patient left the ED. ha1 Signatures: Dispatcher [employer] EDMS Angelo Foster PA PA cp Ayala, Heidy, RN RN ha1 Nicole Holman [facility] Tobin Thorne RN RN bm8
[2025-03-11 00:23] LABS: PT Prothrombin Time 13.7 SECONDS (10-13.0); PTT, Activated Partial Thromb 24.4 SECONDS (27.2-37.4); Protime INR 1.21
[2025-03-11] MEDS ORDERED: OCTREOTIDE ACETATE 100 MCG/ML ONE (00:56)
[2025-03-11] MEDS ORDERED: NA CHLORIDE 0.9% 500 ML ONE (00:56)
[2025-03-11] MEDS ORDERED: OCTREOTIDE ACETATE 500 MCG/ML ONE (00:56)
[2025-03-11] MEDS ORDERED: CEFTRIAXONE 1000 MG/VIAL ONE (00:56)
--- NOTE | 2025-03-11 02:09 | RAD REPORT ---
TIME OF STUDY: 03/10/2025 11:00 PM CDT REASON FOR EXAM: vomiting COMPARISON: None. FINDINGS: AP view of the chest was obtained, chest 1 view. Lungs: Normal lung volume. No mass, or consolidation. Normal pulmonary vascularity.. Pleura: No pneumothorax. There is no pleural effusion. Heart and Mediastinum: Normal cardiomediastinal silhouette and great vessels.. The aorta is atheros clerotic and tortuous. Bones: No acute bony abnormality.. Cervical spine fixation hardware is noted. IMPRESSION: 1. No acute cardiopulmonary process. Electronically signed by: Michel Cisse MD 03/11/2025 12:31 AM CDT RP Due to temporary technical issues with the PACS/[employer] reporting system, reports are being melita d by the in-house radiologist without review as a courtesy to ensure prompt reporting the interpreting radiologist is fully responsible for the content of the report. Transcribed Date/Time: 03/11/2025 2:08 AM
[2025-03-11 02:55] VITALS: TEMP 98.4; O2SAT 99
[2025-03-11 02:57] VITALS: BP 124/78
--- NOTE | 2025-03-11 04:42 | RAD REPORT ---
CLINICAL HISTORY: Nausea, vomiting. COMPARISON: CT Chest Abdomen Pelvis 12/16/2024. TECHNIQUE: CT ABDOMEN PELVIS WITH IV CONTRAST on 03/11/2025 12:41 AM CDT This exam was performed according to our departmental dose-optimization program, which includes autom ated exposure control, adjustment of the mA and/or kV according to patient size and/or use of iterative reconstruction technique. FINDINGS: Lower lungs are clear. Abdomen: The liver is normal in appearance. There is no biliary dilatation. Gallbladder is normal in appearance. The pancreas and spleen are normal in appearance. Adrenal glands are normal. Kidneys are mildly atrophic without hydronephrosis. Abdominal aorta is moderately calcified without aneurysm. There is no free air. There is no retroperi toneal adenopathy. Pelvis: There is no bowel obstruction. Urinary bladder is unremarkable. There is no free fluid. Uteru s is normal in size. Appendix is normal. Skeleton: There are no acute osseous findings. No suspicious bony lesions. Posterior L4-5 fusion was performed. IMPRESSION: No acute process. Electronically signed by: Sam Cormier MD 03/11/2025 04:31 AM CDT RP Due to temporary technical issues with the PACS/[employer] reporting system, reports are being melita d by the in-house radiologist without review as a courtesy to ensure prompt reporting the interpreting radiologist is fully responsible for the content of the report. Transcribed Date/Time: 03/11/2025 4:41 AM
--- NOTE | 2025-03-12 11:59 | EKG ---
Test Date: 2025-03-10 Test Time: 22:55:17 Personal Trainer: WIN MEASUREMENT RESULTS: Intervals: Rate: 116 GA: 138 QRSD: 86 QT: 340 QTc: 472 [place]: P: 56 GA: 138 QRS: 56 T: 67 INTERPRETIVE STATEMENTS: Sinus tachycardia Otherwise normal ECG Compared to ECG 12/16/2024 19:56:55 Sinus rhythm no longer present Electronically Signed On 03-12-25 11:56:49 CDT by Dwayne Marie
== END 2025-03-11 03:12 | disposition short-term general hospital (02) ==
LOC: ER 22:41
DX: D64.9 Anemia, unspecified (principal); R11.2 Nausea with vomiting, unspecified; I10 Essential (primary) hypertension; E78.5 Hyperlipidemia, unspecified; Z86.73 Personal history of transient ischemic attack (TIA), and cerebral infarction without residual deficits; Z79.01 Long term (current) use of anticoagulants
CPT/HCPCS: 93005; 87040 ×2; 85025; 80048; 36415 ×2; 86900; 83735; 86850; 85610; 86901; 80076; 83605; 85730; 84484; 83880; 74177; 71045; 99285; Q9967; J2354 ×2; J2470; J7050; J7040 ×2; J0696